=== PATIENT | male | born 1960 | race African-American/Black ===

== ENCOUNTER 2016-07-24 02:04 | Inpatient (IN) | payer OTHER ==
--- NOTE | 2016-07-24 02:56 | HP ---
COWS - Scale Resting Pulse: 0= [place] 80 or Below Sweatin= Chills/Flushing Restless Observation: 1= Difficult to Sit Still Pupil Size: 0= Normal to Room Light Bone or Joint Aches: 2= Severe Diffuse Aches Runny Nose/ Eye Tearin= Runny Nose/Eyes GI Upset > 30mins: 2= Nausea/Diarrhea Tremor Observation: 1= Tremor [place], Not Seen Yawning Observation: 1= 1-2x During Session Anxiety or Irritability: 2=Irritable/Anxious Goose Flesh Skin: 3=Piloerection COWS Score: 15 Admission ROS BHS - HPI Chief Complaint: WITHDRAWAL SYMPTOMS Allergies/Adverse Reactions: Allergies Allergy/AdvReac Type Severity Reaction Status Date / Time No Known Allergies Allergy Verified 12/27/15 21:52 History of Present Illness: 56 Y.O. MAN WITH AN EXTENSIVE HISTORY OF HEROIN DEPENDENCE IS SEEKING DETOX. HE REPORTS HAVING A TWO YEAR OF SOBRIETY. THIS IS HIS FIRST ADMISSION TO [facility] BUT HE REPORTS HE COMPLETED DETOX AND REHAB ELSEWHERE IN THE PAST. Exam Limitations: No Limitations - Ebola screening Have you traveled outside of the country in the last 21 days: Yes - Review of Systems Constitutional: See HPI, Diaphoresis, Loss of Appetite, Night Sweats, Unintentional Wgt. Loss EENT: reports: Blurred Vision Respiratory: reports: Shortness of Breath, Wheezing Cardiac: reports: Chest Pain, Lightheadedness GI: reports: Diarrhea, Nausea : reports: No Symptoms Reported Musculoskeletal: reports: No Symptoms Reported Integumentary: reports: No Symptoms Reported Neuro: reports: Tremors Endocrine: reports: No Symptoms Reported Hematology: reports: No Symptoms Reported Psychiatric: reports: Orientated x3 Other Systems: Reviewed and Negative Patient History - Patient Medical History Hx Anemia: No Hx Asthma: No Hx Chronic Obstructive Pulmonary Disease (COPD): No Hx Cancer: No Hx Cardiac Disorders: No Hx Congestive Heart Failure: No Hx Hypertension: Yes Hx Hypercholesterolemia: No Hx Pacemaker: No HX Cerebrovascular Accident: No Hx Seizures: No Hx Dementia: No Hx Diabetes: No Hx Gastrointestinal Disorders: No Hx Liver Disease: No Hx Genitourinary Disorders: No Hx Sexually Transmitted Disorders: No Hx Renal Disease (ESRD): No Hx Thyroid Disease: No Hx Human Immunodeficiency Virus (HIV): No Hx Hepatitis C: No Hx Depression: No Hx Suicide Attempt: No Hx Bipolar Disorder: No Hx Schizophrenia: No - Patient Surgical History Past Surgical History: No - PPD History Previous Implant?: Yes Documented Results: Negative w/o proof PPD to be Administered?: Yes - Reproductive History Patient is a Female of Child Bearing Age (11 -55 yrs old): No - Smoking Cessation Smoking history: Current every day smoker Have you smoked in the past 12 months: Yes Aproximately how many cigarettes per day: 6 Hx Chewing Tobacco Use: No Initiated information on smoking cessation: Yes 'Breaking Loose' booklet given: 07/24/16 - Substance & Tx. History Hx Alcohol Use: No Hx Substance Use: Yes Substance Use Type: Heroin Hx Substance Use Treatment: Yes (DETOX AND REHAB ) - Substances Abused Heroin Route: Inhalation Frequency: Daily Amount used: 2 BUNDLES Age of first use: 46 Date of Last Use: 07/23/16 Family Disease History - Family Disease History Family History: Denies Admission [facility] Exam [facility] - Vital Signs Vital Signs: Last Vital Signs Temp Pulse Resp BP Pulse Ox 96.5 F L 76 17 172/91 07/24/16 03:21 07/24/16 03:21 07/24/16 03:21 07/24/16 03:21 - Physical General Appearance: Yes: Obese, Anxious HEENTM: Yes: Hearing grossly Normal, Normal ENT Inspection, Normocephalic Respiratory: Yes: Chest Non-Tender, Lungs Clear, Normal Breath Sounds Neck: Yes: No masses,lesions,Nodules, Trachea in good position Breast: Yes: Breast Exam Deferred Cardiology: Yes: Regular Rhythm, Regular Rate, S1, S2 Abdominal: Yes: Flat, Soft Genitourinary: Yes: Other (NO COMPLAINTS REPORTED) Back: Yes: Normal Inspection Musculoskeletal: Yes: Back pain Extremities: Yes: Normal Inspection, Normal Range of Motion, Non-Tender Neurological: Yes: Alert, Motor Strength 5/5, Normal Mood/Affect, Normal Response Integumentary: Yes: Dry, Warm Lymphatic: Yes: Within Normal Limits - Diagnostic (1) Hypertension Current Visit: Yes Status: Chronic (2) Opioid dependence with withdrawal Current Visit: Yes Status: Chronic Cleared for Admission [facility] - [facility]ox or Rehab [facility] Level of Care: Medically Managed Detox Regimen/Protocol: Methadone [facility] Breath Alcohol Content Breath Alcohol Content: 0 Vital Signs - Vital Signs Vital Signs Refused: No Temperature: 96.5 F Temperature Source: Oral Pulse Rate: 76 Respiratory Rate: 17 Blood Pressure: 172/91 BP Location: Left Arm Blood Pressure Position: Sitting - Height Height: 5 ft 7 in - Weight Weight: 252 lb Weight Measurement Method: Standing Scale Body Mass Index (BMI): 39.4 Urine Drug Screen - Test Device Lot Number: [id number] Expiration Date: 02/08/18 - Control Is Test Valid: Yes - Results Drug Screen Negative: No Urine Drug Screen Results: THC-Marijuana, MINDI-Cocaine, BZO-Benzodiazepines, MTD- Methadone, OXY-Oxycodone
[2016-07-24] MEDS ORDERED: hydrOXYzine PAMOATE 50 MG CAPSULE (FP) PO PRN (03:05)
[2016-07-24] MEDS ORDERED: IBUPROFEN 400 MG TABLET (FP) PO PRN (03:05)
[2016-07-24] MEDS ORDERED: METHADONE HCL 10 MG TABLET (FOR DETOX USE ONLY) PO ONE ×3 (03:05→23:00)
[2016-07-24] MEDS ORDERED: LOPERAMIDE HCL 2 MG CAPSULE PO PRN (03:05)
[2016-07-24] MEDS ORDERED: diphenhydrAMINE HCL 50 MG CAPSULE PO PRN (03:05)
[2016-07-24] MEDS ORDERED: MAGNESIUM HYDROX 2400MG/30ML ORAL SUSPENSION 30 ML CUP PO PRN (03:05)
[2016-07-24] MEDS ORDERED: guaiFENesin/D-METHORPHAN HB 10 ML UNIT-DOSE CUPS PO PRN (03:05)
[2016-07-24] MEDS ORDERED: MENTHOL/PHENOL 1 EACH UD MM PRN (03:05)
[2016-07-24] MEDS ORDERED: ACETAMINOPHEN 325 MG TABLET (FP) PO PRN (03:05)
[2016-07-24] MEDS ORDERED: MAG HYDROX/AL HYDROX/SIMETH 30 ML UNIT-DOSE CUP PO PRN (03:05)
[2016-07-24] MEDS ORDERED: P-EPHED 60MG/TRIPROLIDI 2.5MG TABLET PO PRN (03:05)
[2016-07-24] MEDS ORDERED: MAGNESIUM CITRATE 300 ML BOTTLE PO PRN (03:05)
[2016-07-24 03:07] VITALS: BMI 39.4
[2016-07-24] MEDS ORDERED: cloNIDine HCL 0.1 MG TABLET PO PRN (03:11)
[2016-07-24] MEDS: diazePAM 5 MG TABLET PO PRN ×2 (04:18→22:04)
[2016-07-24] MEDS ORDERED: PNEUMOC 13-VAL CONJ-DIP CRM/PF 0.5 ML DISP.SYRIN IM ONE (06:19)
--- NOTE | 2016-07-24 09:54 | PN ---
BHS COWS - Scale Resting Pulse: 0= [place] 80 or Below Sweatin=Flushed/Facial Moisture Restless Observation: 1= Difficult to Sit Still Pupil Size: 0= Normal to Room Light Bone or Joint Aches: 2= Severe Diffuse Aches Runny Nose/ Eye Tearin= Nasal Congestion GI Upset > 30mins: 1= Stomach Cramp Tremor Observation of Outstretched Hands: 2= Slight Tremor Visible Yawning Observation: 2= >3x During Session Anxiety or Irritability: 2=Irritable/Anxious Goose Flesh Skin: 3=Piloerection COWS Score: 16 BHS Progress Note (SOAP) Subjective: nausea sweats shakes interrupted sleep agitation headache Objective: 07/24/16 09:53 Vital Signs Temperature 97.3 F L 07/24/16 09:29 Pulse Rate 70 07/24/16 09:29 Respiratory Rate 18 07/24/16 09:29 Blood Pressure 155/77 07/24/16 09:29 O2 Sat by Pulse Oximetry (%) labs pending increase fluids lying in bed no acute distress Assessment: 07/24/16 09:53 withdrawal sx Plan: continue detox increase fluids labs pending
[2016-07-24] MEDS ORDERED: ONDANSETRON *ODT* 4 MG TABLET SL PRN (09:56)
[2016-07-24 10:06] LABS: MCH 28.9 pg (25.7-33.7); MCHC 32.6 g/dl (32.0-35.9); MEAN CELL VOLUME 88.8 fl (80-96); MEAN PLT VOLUME 8.8 fl (7.5-11.1); PLATELET COUNT 213 K/MM3 (134-434); RDW 15.3 % (11.9-15.9); WHITE BLOOD COUNT 5.8 K/mm3 (4.0-10.0)
[2016-07-24 10:17] LABS: ALBUMIN 3.5 g/dl (3.4-5.0); BILIRUBIN,TOTAL 0.2 mg/dL (0.2-1.0); COCKROFT - GAULT 102.58; CREATININE 1.3 mg/dL (0.7-1.3); TOT PROT 6.3 g/dl (6.4-8.2)
[2016-07-24] MEDS ORDERED: PNEUMOCOCCAL 23 VACCINE 0.5 ML VIAL IM ONE (12:00)
[2016-07-24] MEDS: PRENATAL VITAMINS W/ FOLIC ACID TABLET (FP) PO SCH (12:48)
[2016-07-24] MEDS: CARVEDILOL 3.125 MG TABLET (FP) PO SCH ×2 (12:48→22:04)
--- NOTE | 2016-07-24 13:02 | EKG ---
Test Reason : Blood Pressure : / mmHG Vent. Rate : 074 BPM Atrial Rate : 074 BPM P-R Int : 170 ms QRS Dur : 106 ms QT Int : 398 ms P-R-T Axes : 034 052 -16 degrees QTc Int : 441 ms NORMAL SINUS RHYTHM NONSPECIFIC T WAVE ABNORMALITY ABNORMAL ECG WHEN COMPARED WITH ECG OF 28-DEC-2015 03:00, T WAVE VARIATION Confirmed by LETITIA CUI MD ([id number]) on 07/24/2016 1:01:37 PM Referred By: Confirmed By:LETITIA CUI MD
[2016-07-24 13:27] LABS: HIV 1 & 2 AB NEGATIVE; HIV 1 AGp24 NEGATIVE
[2016-07-24] MEDS: THIAMINE HCL 100 MG TABLET (FP) PO SCH (22:05)
[2016-07-25] MEDS: diazePAM 5 MG TABLET PO PRN ×3 (06:36→22:17)
[2016-07-25] MEDS ORDERED: CYCLOBENZAPRINE HCL 10 MG TABLET (FP) PO ONE (09:57)
[2016-07-25] MEDS ORDERED: cloNIDine HCL 0.1 MG TABLET PO ONE (09:58)
[2016-07-25] MEDS ORDERED: METHADONE HCL 10 MG TABLET (FOR DETOX USE ONLY) PO ONE (10:00)
--- NOTE | 2016-07-25 10:04 | PN ---
BHS COWS - Scale Resting Pulse: 0= [place] 80 or Below Sweatin= Chills/Flushing Restless Observation: 3= Extraneous Movement Pupil Size: 1= Pupils >than Normal Bone or Joint Aches: 2= Severe Diffuse Aches Runny Nose/ Eye Tearin= Runny Nose/Eyes GI Upset > 30mins: 3= Vomiting/Diarrhea Tremor Observation of Outstretched Hands: 2= Slight Tremor Visible Yawning Observation: 1= 1-2x During Session Anxiety or Irritability: 2=Irritable/Anxious Goose Flesh Skin: 0=Smooth Skin COWS Score: 17 BHS Progress Note (SOAP) Subjective: ALERT,IRRITABLE,ANXIOUS,INTERRUPTED SLEEP,TREMOR,PAIN IN THE BODY AND BACK Objective: 07/25/16 10:02 Vital Signs Temperature 98.1 F 07/25/16 09:34 Pulse Rate 80 07/25/16 09:34 Respiratory Rate 16 07/25/16 09:34 Blood Pressure 165/98 07/25/16 09:34 O2 Sat by Pulse Oximetry (%) EKG INVERTED T WAVE IN 2,3,AVF NO CHEST PAIN,NO SOB,NO DIZZINESS Assessment: 07/25/16 10:03 WITHDRAWAL SYMPTOM 07/25/16 10:03 Laboratory Last Values WBC 5.8 K/mm3 (4.0-10.0) 07/24/16 08:00 RBC 3.94 M/mm3 (4.00-5.60) L 07/24/16 08:00 Hgb 11.4 GM/dL (11.7-16.9) L D 07/24/16 08:00 Hct 35.0 % (35.4-49) L D 07/24/16 08:00 MCV 88.8 fl (80-96) 07/24/16 08:00 MCHC 32.6 g/dl (32.0-35.9) 07/24/16 08:00 RDW 15.3 % (11.9-15.9) 07/24/16 08:00 Plt Count 213 K/MM3 (134-434) 07/24/16 08:00 MPV 8.8 fl (7.5-11.1) 07/24/16 08:00 Sodium 141 mmol/L (136-145) 07/24/16 08:00 Potassium 4.1 mmol/L (3.5-5.1) 07/24/16 08:00 Chloride 104 mmol/L (98-107) 07/24/16 08:00 Carbon Dioxide 30 mmol/L (21-32) 07/24/16 08:00 Anion Gap 7 (8-16) L 07/24/16 08:00 BUN 18 mg/dL (7-18) 07/24/16 08:00 Creatinine 1.3 mg/dL (0.7-1.3) D 07/24/16 08:00 Creat Clearance w eGFR 57.10 (>60) 07/24/16 08:00 Random Glucose 84 mg/dL (74-106) D 07/24/16 08:00 Calcium 9.0 mg/dL (8.5-10.1) 07/24/16 08:00 Total Bilirubin 0.2 mg/dL (0.2-1.0) D 07/24/16 08:00 AST 20 U/L (15-37) D 07/24/16 08:00 ALT 22 U/L (12-78) D 07/24/16 08:00 Alkaline Phosphatase 68 U/L (45-117) D 07/24/16 08:00 Total Protein 6.3 g/dl (6.4-8.2) L 07/24/16 08:00 Albumin 3.5 g/dl (3.4-5.0) D 07/24/16 08:00 RPR Titer Nonreactive (NONREACTIVE) 07/24/16 08:00 Hepatitis C Antibody 0.1 s/co ratio (0.0-0.9) 07/24/16 08:00 HIV 1&2 Antibody Screen Negative 07/24/16 08:00 HIV P24 Antigen Negative 07/24/16 08:00 Plan: CONTINUE DETOX
[2016-07-25] MEDS: CARVEDILOL 3.125 MG TABLET (FP) PO SCH ×2 (10:22→22:15)
[2016-07-25] MEDS: PRENATAL VITAMINS W/ FOLIC ACID TABLET (FP) PO SCH (10:22)
[2016-07-25] MEDS: cloNIDine HCL 0.1 MG TABLET PO SCH ×2 (11:35→22:15)
[2016-07-25] MEDS ORDERED: CYCLOBENZAPRINE HCL 10 MG TABLET (FP) ONE (12:23)
[2016-07-25] MEDS: CYCLOBENZAPRINE HCL 10 MG TABLET (FP) PO SCH ×2 (15:00→22:15)
[2016-07-25] MEDS: THIAMINE HCL 100 MG TABLET (FP) PO SCH (22:15)
[2016-07-26] MEDS ORDERED: TRIMETHOBENZAMIDE HCL 200MG/2ML INJ IM PRN ×2 (02:55→06:51)
[2016-07-26] MEDS ORDERED: cloNIDine HCL 0.1 MG TABLET PO PRN (06:51)
[2016-07-26] MEDS ORDERED: cloNIDine HCL 0.1 MG TABLET PO ONE (06:58)
[2016-07-26] MEDS: CYCLOBENZAPRINE HCL 10 MG TABLET (FP) PO SCH ×3 (07:46→23:14)
[2016-07-26] MEDS ORDERED: METHADONE DETOX 10 MG/1 ML [20ML VIAL] IM ONE (08:49)
[2016-07-26] MEDS ORDERED: METHADONE HCL 5 MG TABLET (FOR DETOX USE ONLY) PO ONE (10:00)
--- NOTE | 2016-07-26 10:14 | PN ---
BHS Progress Note (SOAP) Subjective: drenched sweats shakes body aches nausea/vomiting interrupted sleep Objective: 07/26/16 10:10 Vital Signs Temperature 97.9 F 07/26/16 10:10 Pulse Rate 78 07/26/16 10:10 Respiratory Rate 18 07/26/16 10:10 Blood Pressure 150/94 07/26/16 10:10 O2 Sat by Pulse Oximetry (%) 95 Laboratory Tests 07/24/16 07/24/16 07/24/16 08:00 08:00 08:00 WBC 5.8 RBC 3.94 L Hgb 11.4 L D Hct 35.0 L D MCV 88.8 MCHC 32.6 RDW 15.3 Plt Count 213 MPV 8.8 Sodium Potassium Chloride Carbon Dioxide Anion Gap BUN Creatinine Creat Clearance w eGFR Random Glucose Calcium Total Bilirubin AST ALT Alkaline Phosphatase Total Protein Albumin RPR Titer Hepatitis C Antibody 0.1 HIV 1&2 Antibody Screen Negative HIV P24 Antigen Negative 07/24/16 07/24/16 08:00 08:00 WBC RBC Hgb Hct MCV MCHC RDW Plt Count MPV Sodium 141 Potassium 4.1 Chloride 104 Carbon Dioxide 30 Anion Gap 7 L BUN 18 Creatinine 1.3 D Creat Clearance w eGFR 57.10 Random Glucose 84 D Calcium 9.0 Total Bilirubin 0.2 D AST 20 D ALT 22 D Alkaline Phosphatase 68 D Total Protein 6.3 L Albumin 3.5 D RPR Titer Nonreactive Hepatitis C Antibody HIV 1&2 Antibody Screen HIV P24 Antigen awake/alert ambulating no acute distress Assessment: 07/26/16 10:14 withdrawal sx Plan: methadone IM 7.5mgx one reglan 10mg tigan IM prn clonidine 0.1mg prn
[2016-07-26] MEDS: CARVEDILOL 3.125 MG TABLET (FP) PO SCH ×2 (11:17→23:14)
[2016-07-26] MEDS: METOCLOPRAMIDE HCL 10 MG TABLET (FP) PO SCH ×3 (11:17→23:14)
[2016-07-26] MEDS: PRENATAL VITAMINS W/ FOLIC ACID TABLET (FP) PO SCH (11:17)
[2016-07-26] MEDS: diazePAM 5 MG TABLET PO PRN (11:18)
[2016-07-26 14:27] LABS: URINE APPEARANCE CLEAR; URINE BILIRUBIN NEGATIVE (NEGATIVE); URINE BLOOD NEGATIVE (NEGATIVE); URINE COLOR COLORLESS; URINE GLUCOSE (UA) 1+ (NEGATIVE); URINE KETONE NEGATIVE (NEGATIVE); URINE LEUK ESTERASE NEGATIVE (NEGATIVE); URINE NITRITE NEGATIVE (NEGATIVE); URINE UROBILINOGEN NEGATIVE E.U./dl (0.2-1.0)
[2016-07-26 14:50] LABS: URINE PROTEIN 1+ (NEGATIVE)
[2016-07-26 14:59] LABS: URINE HYALINE CAST 1 /lpf; URINE RBC 1 /hpf (0-3); URINE WBC 1 /hpf (3-5)
--- NOTE | 2016-07-26 16:45 | PN ---
[facility] Progress Note Note: called to see patient with diaphoretic,sweating,headache vomiting could not move right upper extremity before alert no stiff neck diaphoretic no abdominal pain bp 212/140,p89,r18,t99 pulse ox 99 bgm 123 impression r/o hypertensive crisis r/o tia opioid dependence treatment transfer to [facility] for evaluation and treatment spoke with dr sorensen patient will be transported by [facility]
[2016-07-26 18:10] VITALS: BP 212/125; PULSE 89; TEMP 99.9
[2016-07-26] MEDS: THIAMINE HCL 100 MG TABLET (FP) PO SCH (23:15)
[2016-07-27] MEDS ORDERED: METHADONE HCL 5 MG TABLET (FOR DETOX USE ONLY) PO ONE (10:00)
--- NOTE | 2016-07-27 11:38 | EKG ---
Test Reason : Blood Pressure : / mmHG Vent. Rate : 075 BPM Atrial Rate : 075 BPM P-R Int : 162 ms QRS Dur : 110 ms QT Int : 384 ms P-R-T Axes : 054 025 025 degrees QTc Int : 428 ms NORMAL SINUS RHYTHM NORMAL ECG WHEN COMPARED WITH ECG OF 24-JUL-2016 03:03, T WAVE INVERSION LESS EVIDENT IN INFERIOR LEADS NONSPECIFIC T WAVE ABNORMALITY NO LONGER EVIDENT IN LATERAL LEADS Confirmed by ANUSHKA ZAMORA, MOLLY ([id number]) on 07/27/2016 11:38:19 AM Referred By: Confirmed By:MOLLY REVELES MD
[2016-07-28] MEDS ORDERED: METHADONE HCL 10 MG TABLET (FOR DETOX USE ONLY) PO ONE (10:00)
[2016-07-29] MEDS ORDERED: METHADONE HCL 5 MG TABLET (FOR DETOX USE ONLY) PO ONE (06:00)
--- NOTE | 2016-08-10 09:25 | DS ---
[facility] Detox Discharge Summary Admission Date: 07/24/16 Discharge Date: 07/26/16 - History Present History: Opioid Dependence - Physical Exam Results Vital Signs: Vital Signs Temperature 99.9 F H 07/26/16 18:10 Pulse Rate 89 07/26/16 18:10 Respiratory Rate 18 07/26/16 18:10 Blood Pressure 212/125 07/26/16 18:10 O2 Sat by Pulse Oximetry (%) - Treatment Hospital Course: Detox Protocol Followed, Detoxed Safely - Medication Discharge Medications: Ambulatory Orders Carvedilol 3.125 mg PO BID 07/28/16 Oxycodone HCl 60 mg PO TID 07/28/16 Aspirin Coated [Ecotrin -] 81 mg PO DAILY #30 tab 07/29/16 Atorvastatin Ca [Lipitor] 20 mg PO HS #30 tablet 07/29/16 Carvedilol [Coreg -] 3.125 mg PO BID #60 tablet 07/29/16 Losartan Potassium 25 mg PO DAILY #30 tablet 07/29/16 - Diagnosis (1) Diabetes Status: Acute Qualifiers: Diabetes mellitus type: type 2 (2) Hypertensive urgency, malignant Status: Acute (3) TIA (transient ischemic attack) Status: Acute (4) Hypertension Status: Chronic Qualifiers: Hypertension type: essential hypertension Qualified Code(s): I10 - Essential (primary) hypertension (5) Opioid dependence with withdrawal Status: Chronic - AMA Did Patient Leave Against Medical Advice: No (pt transfered to ED because of uncontrolled HTN )
== END 2016-07-26 17:15 | disposition short-term general hospital (02) | DRG 773 ==
LOC: EDBD → YASAS 02:04 → Y6N 03:05
PROVIDERS: ADMIT Internal Medicine Addiction Medicine; ATTEND Internal Medicine Addiction Medicine
PROC: HZ2ZZZZ Detoxification Services for Substance Abuse Treatment (ICD-10-PCS; principal; 2016-07-26)
DX: F11.23 Opioid dependence with withdrawal (principal); I10 Essential (primary) hypertension
CPT/HCPCS: 36415; 80053; 81003; 81015; 85027; 86593; 86803; 87389; 93005; 93010

== ENCOUNTER 2016-07-26 17:30 | Inpatient (IN) | payer BC, OTHER ==
--- NOTE | 2016-07-26 17:58 | PDOC ---
History of Present Illness - General History Source: Patient, Old Records Exam Limitations: No Limitations <Sabrina Eduardo - Last Filed: 07/26/16 20:50> - History of Present Illness Initial Comments: 07/26/16 18:27 Patient is a 56 year old male with significant medical hx of asthma, HTN, borderline NIDDM, and opiate dependence who has been sent over from [facility] for high blood pressure. The patient reportedly takes clonidine (PRN) and Coreg at [facility] for blood pressure regulation. Today his blood pressure was measured at 212/140 and was sent to the ED for further evaluation. The patient s blood pressure was measured the same in the ED. He has secondary complaint of nausea, vomiting and diaphoresis which he reports is in relation to his withdrawal from opiates. Denies any chest pain, shortness of breath, dyspnea on exertion, headache, or lightheadedness. <Angela Casiano - Last Filed: 07/26/16 21:01> - General Chief Complaint: Blood Pressure Problem Stated Complaint: HYPERTENSION Time Seen by Provider: 07/26/16 17:58 Past History - Past Medical History Anemia: No Asthma: No Cancer: No Cardiac Disorders: No CVA: No COPD: No CHF: No Dementia: No Diabetes: No GI Disorders: No Disorders: No HTN: Yes Hypercholesterolemia: No Liver Disease: No Suicide Attempt (Hx): No Seizures: No Thyroid Disease: No Other medical history: HEROIN/OXYCODONE ADDICTION SINCE 2013 - Psycho/Social/Smoking Cessation Hx Anxiety: No Suicidal Ideation: No Smoking History: Never smoked Have you smoked in the past 12 months: Yes Number of Cigarettes Smoked Daily: 6 'Breaking Loose' booklet given: 07/24/16 Hx Alcohol Use: No Drug/Substance Use Hx: Yes (heroin, oxycodone.) Substance Use Type: Heroin, Prescribed Hx Substance Use Treatment: Yes (DETOX AND REHAB ) <Sabrina Eduardo - Last Filed: 07/26/16 20:50> <Angela Casiano - Last Filed: 07/26/16 21:01> - Past Medical History Allergies/Adverse Reactions: Allergies Allergy/AdvReac Type Severity Reaction Status Date / Time No Known Allergies Allergy Verified 07/26/16 17:57 Home Medications: Ambulatory Orders Oxycodone HCl [Oxycontin] 60 mg PO QID 07/26/16 Review of Systems - Review of Systems Comments:: 07/26/16 18:28 GENERAL/CONSTITUTIONAL: Diaphoresis. No fever or chills. No weakness. HEAD, EYES, EARS, NOSE AND THROAT: No change in vision. No ear pain or discharge. No sore throat. CARDIOVASCULAR: High blood pressure. No chest pain or shortness of breath. RESPIRATORY: No cough, wheezing, or hemoptysis. GASTROINTESTINAL: Nausea, vomiting. No diarrhea or constipation. GENITOURINARY: No dysuria, frequency, or change in urination. MUSCULOSKELETAL: No joint or muscle swelling or pain. No neck or back pain. ENDOCRINE: No increased thirst. No abnormal weight change. SKIN: No rash NEUROLOGIC: No headache, vertigo, loss of consciousness, or change in strength/ sensation. <Angela Casiano - Last Filed: 07/26/16 21:01> *Physical Exam - Vital Signs Last Vital Signs Temp Pulse Resp BP Pulse Ox 99.5 F 66 18 242/143 99 07/26/16 17:51 07/26/16 17:51 07/26/16 17:51 07/26/16 17:51 07/26/16 17:51 <Sabrina Eduardo - Last Filed: 07/26/16 20:50> - Vital Signs Last Vital Signs Temp Pulse Resp BP Pulse Ox 99.5 F 92 H 18 242/143 99 07/26/16 17:51 07/26/16 18:10 07/26/16 17:51 07/26/16 17:51 07/26/16 18:10 - Physical Exam Comments: 07/26/16 18:26 GENERAL: Diaphoretic. Awake, alert, and fully oriented, in no acute distress HEAD: No signs of trauma EYES: PERRLA, EOMI, sclera anicteric, conjunctiva clear ENT: Auricles normal inspection, hearing grossly normal, nares patent, oropharynx clear without exudates. Moist mucosa NECK: Normal ROM, supple, no lymphadenopathy, JVD, or masses LUNGS: Breath sounds equal, clear to auscultation bilaterally. No wheezes, and no crackles HEART: Regular rate and rhythm, normal S1 and S2, no murmurs, rubs or gallops ABDOMEN: Soft, nontender, normoactive bowel sounds. No guarding, no rebound. No masses EXTREMITIES: Normal range of motion, no edema. No clubbing or cyanosis. No cords, erythema, or tenderness NEUROLOGICAL: Cranial nerves II through XII grossly intact. Normal speech, normal gait SKIN: Warm, Dry, normal turgor, no rashes or lesions noted. HEMATOLOGIC/LYMPHATIC: No anemia, easy bleeding, or history of blood clots. ALLERGIC/IMMUNOLOGIC: No hives or skin allergy. <Angela Casiano - Last Filed: 07/26/16 21:01> ED Treatment Course - LABORATORY CBC & Chemistry Diagram: 07/26/16 18:15 07/26/16 19:40 <Sabrina Eduardo - Last Filed: 07/26/16 20:50> - LABORATORY CBC & Chemistry Diagram: 07/26/16 18:15 07/26/16 19:40 - RADIOLOGY Radiograph Interpretation: 07/26/16 21:01 Chest X-Ray Impression: No acute disease. Reported By: Hudson Rodriguez MD - Medications Given in the ED: ED Medications Discontinued Medications Generic Name Dose Route Start Last Admin Trade Name Freq PRN Reason Stop Dose Admin Labetalol HCl 20 mg 07/26/16 18:05 07/26/16 18:17 Normodyne Injection - IVPUSH 07/26/16 18:06 20 mg ONCE ONE Administration <Angela Casiano - Last Filed: 07/26/16 21:01> Medical Decision Making - Medical Decision Making 07/26/16 18:38 56-year-old male with history of hypertension and opiate addiction presents the emergency department from [facility] for elevated blood pressure. Differential diagnosis includes but is not limited to: Poorly controlled hypertension, hypertensive urgency versus emergency, renal dysfunction/failure, electrolyte abnormality, toxic/metabolic derangement, opiate withdrawal syndrome. Plan: 1. Labs 2. EKG 3. Blood pressure control 4. Supportive care for withdrawal 5. Observe and reevaluate 07/26/16 20:50 Addendum: The labs were reviewed and are noted in the EMR. The patient was given labetalol 20 mg IV 2 with no improvement of blood pressure therefore labetalol drip was started. I have reevaluated the patient at this time and he is diaphoretic in active withdrawal from opiates. Methadone 10 mg IV was ordered. The plan is to admit the patient to telemetry for blood pressure control, IV fluid hydration for withdrawal and monitoring. <Sabrina Eduardo - Last Filed: 07/26/16 20:50> *DC/Admit/Observation/Transfer - Discharge Dispostion Admit: Yes - Attestations Physician Attestion: 07/26/16 18:39 I, Dr. Sabrina Eduardo, attest that the scribes documentation that appears above has been prepared under my direction and personally reviewed by me in its entirety. I confirmed that the note above accurately reflects all work, treatment, procedures, and medical decision-making performed by me. <Sabrina Eduardo - Last Filed: 07/26/16 20:50> - Attestations Scribe Attestion: 07/26/16 18:27 Documentation prepared by Angela Casiano, acting as nurses medical assistants phlebotomists for Sabrina Eduardo MD. <Angela Casiano - Last Filed: 07/26/16 21:01> Diagnosis at time of Disposition: Opioid dependence with withdrawal, Hypertension, Hypertensive urgency, malignant - Discharge Dispostion Condition at time of disposition: Stable
[2016-07-26] MEDS ORDERED: LABETALOL HCL 5 MG/1 ML (100MG/20 ML VIAL) IVPUSH ONE ×2 (18:05→18:49)
[2016-07-26] MEDS ORDERED: LABETALOL HCL 5 MG/1 ML (200MG/40ML VIAL) IVPB ONE (18:16)
[2016-07-26 18:35] LABS: BASOPHIL 0.2 % (0-2.0); EOSINOPHIL 0.3 % (0-4.5); MCH 27.6 pg (25.7-33.7); MCHC 31.6 g/dl (32.0-35.9); MEAN CELL VOLUME 87.2 fl (80-96); MEAN PLT VOLUME 8.9 fl (7.5-11.1); NEUTROPHILS 85.5 % (42.8-82.8); PLATELET COUNT 334 K/MM3 (134-434); RDW 15.6 % (11.9-15.9); WHITE BLOOD COUNT 13.3 K/mm3 (4.0-10.0)
[2016-07-26] MEDS ORDERED: SODIUM CHLORIDE 1,000 ML IV STA (18:40)
[2016-07-26] MEDS ORDERED: ONDANSETRON 4 MG/2 ML VIAL IVPUSH ONE (18:40)
[2016-07-26] MEDS ORDERED: ONDANSETRON 4 MG/2 ML VIAL ONE (18:54)
[2016-07-26 19:20] LABS: URINE APPEARANCE CLEAR; URINE BILIRUBIN NEGATIVE (NEGATIVE); URINE BLOOD NEGATIVE (NEGATIVE); URINE COLOR LTYELLOW; URINE GLUCOSE (UA) 1+ (NEGATIVE); URINE KETONE NEGATIVE (NEGATIVE); URINE LEUK ESTERASE NEGATIVE (NEGATIVE); URINE NITRITE NEGATIVE (NEGATIVE); URINE UROBILINOGEN NEGATIVE E.U./dl (0.2-1.0)
[2016-07-26 19:22] LABS: URINE PROTEIN 3+ (NEGATIVE)
[2016-07-26 19:25] LABS: URINE MUCUS RARE; URINE RBC 4 /hpf (0-3); URINE WBC 3 /hpf (3-5)
[2016-07-26] MEDS ORDERED: LABETALOL HCL INJECTION 1,000 MG in DEXTROSE 5%-WATER - 800 ML IV SCH (19:30)
[2016-07-26 20:24] LABS: ALBUMIN 4.4 g/dl (3.4-5.0); ALK PHOS 95 U/L (45-117); ANION GAP 10 (8-16); BILIRUBIN,TOTAL 0.4 mg/dL (0.2-1.0); CALCIUM 9.9 mg/dL (8.5-10.1); CO2 29 mmol/L (21-32); COCKROFT - GAULT 145.23; CREATININE 0.9 mg/dL (0.7-1.3); GLUCOSE,RANDOM 127 mg/dL (74-106); SGOT/AST 16 U/L (15-37); SGPT/ALT 25 U/L (12-78); TOT PROT 8.4 g/dl (6.4-8.2)
[2016-07-26 20:27] LABS: MAGNESIUM 1.9 mg/dL (1.8-2.4); PHOSPHOROUS 4.7 mg/dL (2.5-4.9)
[2016-07-26 20:30] LABS: TROPONIN I < 0.02 ng/ml (0.00-0.05)
[2016-07-26] MEDS ORDERED: METHADONE HCL 10 MG/1 ML (20ML VIAL) IVPUSH ONE (20:33)
--- NOTE | 2016-07-26 21:26 | PN ---
<Lola Gay - Last Filed: 07/26/16 21:26> Teaching Attending Note Name of Resident: Priscilla Angélica <Carine Aparicio - Last Filed: 07/27/16 02:08> Teaching Attending Note ATTENDING PHYSICIAN STATEMENT I saw and evaluated the patient. I reviewed the resident's note and discussed the case with the resident. I agree with the resident's findings and plan as documented. SUBJECTIVE: 56 yo M with PMHx of HTN and opiate dependence who presents from [facility] with elevated blood pressure. Patients recorded BP was 212/140 and was sent in for further evaluation. Upon ED arrival, patients BP remained the same. Patient also complaints of associated nausea, vomiting and diaphoresis however states this is his withdrawal symptoms. The patient denies any chest pain, shortness of breath, dyspnea on exertion, headache, or lightheadedness. Weakness on L side PMHx: Asthma, Borderline NIDDM, Neuropathy, RA PSHx: Noncontributory Social Hx:heroin(15 bags/day), oxycodone Allergies: NKA Current BP: 105/57 OBJECTIVE: Last Vital Signs Temp Pulse Resp BP Pulse Ox 99.5 F 68 17 103/60 100 07/26/16 17:51 07/26/16 23:27 07/26/16 23:27 07/26/16 23:27 07/26/16 23:27 GENERAL: Awake, alert, and fully oriented, in no acute distress HEENT: Atraumatic. PERRLA, EOMI. Moist mucosa. No JVD LUNGS: No distress, speaks full sentences, clear to auscultation bilaterally HEART: Regular rate and rhythm, normal S1 and S2, no murmurs, rubs or gallops, peripheral pulses normal and equal bilaterally. ABDOMEN: Soft, nontender, normoactive bowel sounds. No guarding, no rebound. No masses EXTREMITIES: Normal inspection, Normal range of motion, no edema. No clubbing or cyanosis. + L foot plantar hypersensitivity. +2+ pulses bilaterally. NEUROLOGICAL: Cranial nerves II through XII grossly intact. Normal speech. Motor 4/5 upper and lower strength. SKIN: Warm, Dry, normal turgor, no rashes or lesions noted. CBCD WBC 13.3 K/mm3 (4.0-10.0) H D 07/26/16 18:15 RBC 5.98 M/mm3 (4.00-5.60) H D 07/26/16 18:15 Hgb 16.5 GM/dL (11.7-16.9) D 07/26/16 18:15 Hct 52.1 % (35.4-49) H D 07/26/16 18:15 MCV 87.2 fl (80-96) 07/26/16 18:15 MCHC 31.6 g/dl (32.0-35.9) L 07/26/16 18:15 RDW 15.6 % (11.9-15.9) 07/26/16 18:15 Plt Count 334 K/MM3 (134-434) D 07/26/16 18:15 MPV 8.9 fl (7.5-11.1) 07/26/16 18:15 CMP Sodium 136 mmol/L (136-145) 07/26/16 19:40 Potassium 4.1 mmol/L (3.5-5.1) 07/26/16 19:40 Chloride 97 mmol/L (98-107) L 07/26/16 19:40 Carbon Dioxide 29 mmol/L (21-32) 07/26/16 19:40 Anion Gap 10 (8-16) 07/26/16 19:40 BUN 14 mg/dL (7-18) D 07/26/16 19:40 Creatinine 0.9 mg/dL (0.7-1.3) D 07/26/16 19:40 Creat Clearance w eGFR > 60 (>60) 07/26/16 19:40 Calcium 9.9 mg/dL (8.5-10.1) 07/26/16 19:40 Total Bilirubin 0.4 mg/dL (0.2-1.0) D 07/26/16 19:40 AST 16 U/L (15-37) 07/26/16 19:40 ALT 25 U/L (12-78) 07/26/16 19:40 Alkaline Phosphatase 95 U/L (45-117) D 07/26/16 19:40 Total Protein 8.4 g/dl (6.4-8.2) H D 07/26/16 19:40 Albumin 4.4 g/dl (3.4-5.0) D 07/26/16 19:40 Imaging: Chest X-Ray Impression: No acute disease. Reported By: Hudson Rodriguez MD ASSESSMENT AND PLAN: 1.Hypertensive emergency with possible CVA vs TIA Admit to Telemetry Continue labetalol drip If not adequately controlled will switch to Nitro drip and start PO medications in the AM Echo Carotid doppler Head CT and repeat in 24 TSH RPR Lipid panel Speech and swallow consult ESR 2.Opioid dependence Put on PO methadone 10 mg TID with consult Dr. Warren Wells 3.DM Type II with peropheral neuropathy Get hemoglobin A1C Insulin SS Gabapentin for neuropathy 4.Asthma Nebulization with albuterol Q6 PRN Documentation prepared by Carine Aparicio, acting as medical massage therapist for Lola Gay MD
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
[2016-07-26] MEDS ORDERED: METHADONE HCL 10 MG TABLET PO SCH (23:45)
[2016-07-26] MEDS ORDERED: SODIUM CHLORIDE 1,000 ML IV SCH (23:45)
[2016-07-27] MEDS ORDERED: HEPARIN NA (PORCINE) 5,000 UNITS/ML 1ML VIAL ONE (00:27)
[2016-07-27] MEDS: ATORVASTATIN CA 80 MG TABLET (FP) PO SCH ×2 (01:05→21:33)
[2016-07-27] MEDS: ASPIRIN COATED 81 MG TABLET.EC PO SCH ×2 (01:05→10:08)
[2016-07-27] MEDS: HEPARIN NA (PORCINE) 5,000 UNITS/ML 1ML VIAL SQ SCH ×3 (01:05→21:36)
[2016-07-27 03:07] VITALS: BMI 36.8
[2016-07-27] MEDS: GABAPENTIN 300 MG CAPSULE (FP) PO SCH ×3 (06:10→21:34)
[2016-07-27] MEDS: INSULIN SLIDING SCALE (NOVOLOG) 1 VIAL SQ SCH ×4 (06:13→21:36)
[2016-07-27] MEDS ORDERED: METHADONE HCL 10 MG TABLET PO SCH (07:04)
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
[2016-07-27] MEDS: SODIUM CHLORIDE 1,000 ML IV SCH (10:12)
[2016-07-27 10:28] LABS: MCH 28.4 pg (25.7-33.7); MCHC 32.3 g/dl (32.0-35.9); MEAN CELL VOLUME 87.9 fl (80-96); MEAN PLT VOLUME 8.3 fl (7.5-11.1); PLATELET COUNT 276 K/MM3 (134-434); RDW 15.4 % (11.9-15.9); WHITE BLOOD COUNT 8.5 K/mm3 (4.0-10.0)
[2016-07-27 10:44] LABS: INR 1.02 (0.82-1.09); PROTHROMBIN TIME (PATIENT) 11.2 SEC (9.98-11.88)
[2016-07-27 10:47] LABS: ACTIVATED PTT 28.6 SECONDS (26.9-34.4)
[2016-07-27 10:57] LABS: CALCIUM 8.9 mg/dL (8.5-10.1); COCKROFT - GAULT 59.21; CREATININE 2.1 mg/dL (0.7-1.3); MAGNESIUM 2.1 mg/dL (1.8-2.4)
--- NOTE | 2016-07-27 11:28 | CON.CARD ---
Consult Consult Specialty:: Cardiology Referred by:: Hospitalist Medicine Reason for Consultation:: Hypertensive emergency - History of Present Illness Chief Complaint: Left sided weakness History of Present Illness: 56 yo M with PMHx of HTN, asthma, previous cellulitis and opiate dependence referred from [facility] with elevated blood pressure. Patients recorded BP was 212/140 and was sent in for further evaluation, started on Labetolol. Patient also complaints of associated nausea, vomiting and diaphoresis, however states this is his typical withdrawal symptoms, tolerated fluid intake. The patient denies any chest pain, shortness of breath, dyspnea on exertion, headache, or lightheadedness. Weakness on L side, r/o stroke vs hypertensive encephelopathy. PMHx: Asthma, Borderline NIDDM, Neuropathy, RA PSHx: Noncontributory Social Hx:heroin(15 bags/day), oxycodone Allergies: NKA - History Source History Provided By: Medical Record Limitations to Obtaining History: Poor Historian - Alcohol/Substance Use Hx Alcohol Use: No - Smoking History Smoking history: Current every day smoker Have you smoked in the past 12 months: Yes Aproximately how many cigarettes per day: 6 Home Medications - Allergies Allergies/Adverse Reactions: Allergies Allergy/AdvReac Type Severity Reaction Status Date / Time No Known Allergies Allergy Verified 07/26/16 17:57 Review of Systems - Review of Systems Neurological: reports: Weakness Vital Signs: Vital Signs Temperature 97.6 F 07/27/16 10:00 Pulse Rate 64 07/27/16 10:00 Respiratory Rate 20 07/27/16 10:00 Blood Pressure 104/63 07/27/16 10:00 O2 Sat by Pulse Oximetry (%) 100 07/27/16 01:10 Constitutional: Yes: No Distress, Calm Neck: Yes: Supple Respiratory: Yes: Regular, CTA Bilaterally Gastrointestinal: Yes: Normal Bowel Sounds, Soft Cardiovascular: Yes: Regular Rate and Rhythm JVD: No Carotid Bruit: No Heart Sounds: Yes: S1, S2 Edema: No - Other Data Labs, Other Data: CBC, BMP 07/27/16 10:00 07/27/16 10:00 INR, PTT INR 1.02 (0.82-1.09) 07/27/16 10:00 NSR @ 92 LAE Imaging - Results Chest X-ray: Report Reviewed (NAD) Cat Scan: Report Reviewed (HCT: Negative) Problem List - Problems (1) Hypertensive emergency Code(s): I16.1 - HYPERTENSIVE EMERGENCY (2) Opioid dependence with withdrawal Code(s): F11.23 - OPIOID DEPENDENCE WITH WITHDRAWAL (3) Diabetes Code(s): E11.9 - TYPE 2 DIABETES MELLITUS WITHOUT COMPLICATIONS Qualifiers: Diabetes mellitus type: type 2 (4) TIA (transient ischemic attack) Code(s): G45.9 - TRANSIENT CEREBRAL ISCHEMIC ATTACK, UNSPECIFIED (5) Hypertensive encephalopathy Code(s): I67.4 - HYPERTENSIVE ENCEPHALOPATHY Assessment/Plan 1. Hypertensive emergency r/o TIA vs hypertensive encephelopathy 2. Opioid dependence 3. DM Type II with peropheral neuropathy 4. Asthma 5. NIDHI P:1. Start carvedilol 6.25 bid, ADRIANE-I/ARB once renal fxn stabilizes 2. F/u neuro w/u including, Echo, Carotid doppler, brain MRI, tele monitor r/o PAF 3. Thank you for consultative opportunuity
[2016-07-27] MEDS: ALBUTEROL SO4 2.5/IPRATROPIUM 0.5 INH SOL 3 ML VIAL.NEB. NEB SCH ×2 (11:45→23:52)
[2016-07-27] MEDS ORDERED: METHADONE HCL 10 MG TABLET (FOR DETOX USE ONLY) PO ONE ×2 (11:50→12:15)
--- NOTE | 2016-07-27 11:58 | PN ---
S Progress Note (SOAP) Subjective: Pt. was sent from detox to ED because of hypertensive crisis. Objective: 07/27/16 11:57 Vital Signs - 24 hr 07/26/16 07/26/16 07/26/16 17:51 18:10 18:41 Temperature 99.5 F Pulse Rate 66 92 H Pulse Rate [ 74 Apical] Respiratory 18 16 Rate Blood Pressure 242/143 Blood Pressure 233/131 [Left Arm] O2 Sat by Pulse 99 99 98 Oximetry (%) 07/26/16 07/26/16 07/26/16 18:59 19:27 22:26 Temperature Pulse Rate Pulse Rate [ 80 87 76 Apical] Respiratory 18 18 17 Rate Blood Pressure Blood Pressure 200/104 225/102 122/90 [Left Arm] O2 Sat by Pulse 100 100 100 Oximetry (%) 07/26/16 07/27/16 07/27/16 23:27 01:10 03:12 Temperature 98.3 F Pulse Rate 66 Pulse Rate [ 68 Apical] Respiratory 17 17 Rate Blood Pressure 96/50 96/52 Blood Pressure 103/60 [Left Arm] O2 Sat by Pulse 100 100 Oximetry (%) 07/27/16 07/27/16 07/27/16 05:31 09:00 10:00 Temperature 98.4 F 97.6 F Pulse Rate 60 64 Pulse Rate [ Apical] Respiratory 18 20 Rate Blood Pressure 115/70 104/63 Blood Pressure [Left Arm] O2 Sat by Pulse 96 Oximetry (%) Laboratory Last Values WBC 8.5 K/mm3 (4.0-10.0) D 07/27/16 10:00 RBC 4.74 M/mm3 (4.00-5.60) D 07/27/16 10:00 Hgb 13.5 GM/dL (11.7-16.9) D 07/27/16 10:00 Hct 41.6 % (35.4-49) D 07/27/16 10:00 MCV 87.9 fl (80-96) 07/27/16 10:00 MCHC 32.3 g/dl (32.0-35.9) 07/27/16 10:00 RDW 15.4 % (11.9-15.9) 07/27/16 10:00 Plt Count 276 K/MM3 (134-434) 07/27/16 10:00 MPV 8.3 fl (7.5-11.1) 07/27/16 10:00 Neutrophils % 85.5 % (42.8-82.8) H D 07/26/16 18:15 Lymphocytes % 10.8 % (8-40) D 07/26/16 18:15 Monocytes % 3.2 % (3.8-10.2) L 07/26/16 18:15 Eosinophils % 0.3 % (0-4.5) 07/26/16 18:15 Basophils % 0.2 % (0-2.0) 07/26/16 18:15 INR 1.02 (0.82-1.09) 07/27/16 10:00 PTT (Actin FS) 28.6 SECONDS (26.9-34.4) 07/27/16 10:00 Sodium 139 mmol/L (136-145) 07/27/16 10:00 Potassium 4.1 mmol/L (3.5-5.1) 07/27/16 10:00 Chloride 98 mmol/L (98-107) 07/27/16 10:00 Carbon Dioxide 27 mmol/L (21-32) 07/27/16 10:00 Anion Gap 14 (8-16) 07/27/16 10:00 BUN 26 mg/dL (7-18) H D 07/27/16 10:00 Creatinine 2.1 mg/dL (0.7-1.3) H D 07/27/16 10:00 Creat Clearance w eGFR > 60 (>60) 07/26/16 19:40 POC Glucometer 129 UNITS (()) 07/27/16 11:06 Random Glucose 96 mg/dL (74-106) D 07/27/16 10:00 Hemoglobin A1c % 5.4 % (4.8-6.0) D 07/27/16 10:00 Calcium 8.9 mg/dL (8.5-10.1) 07/27/16 10:00 Phosphorus 6.0 mg/dL (2.5-4.9) H D 07/27/16 10:00 Magnesium 2.1 mg/dL (1.8-2.4) 07/27/16 10:00 Total Bilirubin 0.4 mg/dL (0.2-1.0) D 07/26/16 19:40 AST 16 U/L (15-37) 07/26/16 19:40 ALT 25 U/L (12-78) 07/26/16 19:40 Alkaline Phosphatase 95 U/L (45-117) D 07/26/16 19:40 Creatine Kinase 197 IU/L (39-308) 07/26/16 19:40 Creatine Kinase Index 1.4 % (0.0-5.0) 07/26/16 19:40 CK-MB (CK-2) 2.656 ng/ml (0.5-3.6) 07/26/16 19:40 CK-MB (CK-2) Rel Index Cancelled 07/26/16 19:40 Troponin I < 0.02 ng/ml (0.00-0.05) 07/26/16 19:40 Total Protein 8.4 g/dl (6.4-8.2) H D 07/26/16 19:40 Albumin 4.4 g/dl (3.4-5.0) D 07/26/16 19:40 Lipase 84 U/L (73-393) 07/26/16 19:40 Urine Color Ltyellow 07/26/16 18:59 Urine Appearance Clear 07/26/16 18:59 Urine pH 8.0 (5.0-8.0) 07/26/16 18:59 Ur Specific [place] 1.025 (1.005-1.025) 07/26/16 18:59 Urine Protein 3+ (NEGATIVE) H D 07/26/16 18:59 Urine Glucose (UA) 1+ (NEGATIVE) H 07/26/16 18:59 Urine Ketones Negative (NEGATIVE) 07/26/16 18:59 Urine Blood Negative (NEGATIVE) 07/26/16 18:59 Urine Nitrite Negative (NEGATIVE) 07/26/16 18:59 Urine Bilirubin Negative (NEGATIVE) 07/26/16 18:59 Urine Urobilinogen Negative E.U./dl (0.2-1.0) 07/26/16 18:59 Ur Leukocyte Esterase Negative (NEGATIVE) 07/26/16 18:59 Urine RBC 4 /hpf (0-3) 07/26/16 18:59 Urine WBC 3 /hpf (3-5) 07/26/16 18:59 Urine Mucus Rare 07/26/16 18:59 labs noted Assessment: 07/27/16 11:58 Withdrawal sx. Uncontrolled HTN Plan: Continue detox
[2016-07-27 12:28] LABS: FREE T4 0.95 ng/dl (0.76-1.16); THYROID STIMULATING HORMONE 1.44 uIU/ml (0.358-3.74)
--- NOTE | 2016-07-27 12:40 | PN ---
Teaching Attending Note Name of Resident: John Bowie ATTENDING PHYSICIAN STATEMENT I saw and evaluated the patient. I reviewed the resident's note and discussed the case with the resident. I agree with the resident's findings and plan as documented. SUBJECTIVE:continues to have L sided weakness, improved since yesterday. states he has been having this progressive over the past week. has not been evaluated for the symptoms. states he takes coreg and clonidine at home but was never given to him at [facility]. did not question why. assoc with blurred vision, tinnitus, and slurred speech. denies CP, SOB,fever, chills, N/V/C/D OBJECTIVE: Last Vital Signs Temp Pulse Resp BP Pulse Ox 97.6 F 64 20 104/63 96 07/27/16 10:00 07/27/16 10:00 07/27/16 10:00 07/27/16 10:00 07/27/16 09:00 General NAD CV S1 S2 RRR no murmur/rub/gallop no carotid bruit Lungs CTA B/L no wheezing/rales/rhonchi Neuro decreased sensation to L temporal region. no tongue deviation, facial droop. no pronator drift. strength equal in B/L UE. 3/5 LLE 5/5 RLE. unable to asses babinski due to peripheral neuropathy, +dysmetria and dysdakinesia on the left. deferred gait testing as was unstable on standing ASSESSMENT AND PLAN: 56yo M with PMH HTN, DM and continuous heroin dependence (snort) presented to the ER and was admitted for further evaluation of their emergent condition 1. HTN emergency- on labetolol drip and BP was over-corrected. drip now off. will wait till BP improves until re-starting home medications. echo pending. cardiac monitoring. cardio on board 2. L sided weakness- due to HTN emergency vs CVA. initial CT negative. will obtain MRI/MRA. carotid doppler. neuro consulted. PT assessment and speech and swallow eval. on asa/statin 3. NIDHI- likely due to dehydration VS HTN emergency. hold nephrotoxic agents. IVF. 4. Continuous heroin dependence- no signs of withdrawal. on methadone detox. detox management consulted 5. DM- A1c 5.4. not sure if on home medications. need to confirm home medications. bgm, iss 6. DVT ppx- hep sq
[2016-07-27] MEDS ORDERED: METHADONE HCL 5 MG TABLET PO ONE (14:15)
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
--- NOTE | 2016-07-27 17:23 | PN ---
Physical Exam: SUBJECTIVE: Patient seen and examined at bedside. He stated his L sided weakness has been worsening for a week but has improved somewhat since admission. Denies headache , vision change, fever, chills, sob, chest pain. OBJECTIVE: Vital Signs Period Temp Pulse Resp BP Sys/Corea Pulse Ox Last 24 Hr 97.4 F-98.4 F 60-76 16-20 96-128/50-90 96-100 GENERAL: The patient is awake, alert, and fully oriented, in no acute distress. HEAD: Normal with no signs of trauma. EYES: PERRLA, extraocular movements intact. ENT: Normal hearing NECK: Trachea midline, full range of motion, supple. LUNGS: CTAB HEART: RRRR, S1, S2 without murmur, rub or gallop. ABDOMEN: Soft, nontender, nondistended, normoactive bowel sounds, no guarding, no rebound, no hepatosplenomegaly, no masses. EXTREMITIES: 2+ pulses, warm, well-perfused, no edema. NEUROLOGICAL: Decrease sensation on L face, strength 3/5 L extremities, sensation intact; full strength and intact sensation in R extremities. +finger to nose, no pronator drift, slow rapid alternating movement, unsteady gait PSYCH: Normal mood, normal affect. SKIN: Warm, dry, normal turgor, no rashes or lesions noted CBCD WBC 8.5 K/mm3 (4.0-10.0) D 07/27/16 10:00 RBC 4.74 M/mm3 (4.00-5.60) D 07/27/16 10:00 Hgb 13.5 GM/dL (11.7-16.9) D 07/27/16 10:00 Hct 41.6 % (35.4-49) D 07/27/16 10:00 MCV 87.9 fl (80-96) 07/27/16 10:00 MCHC 32.3 g/dl (32.0-35.9) 07/27/16 10:00 RDW 15.4 % (11.9-15.9) 07/27/16 10:00 Plt Count 276 K/MM3 (134-434) 07/27/16 10:00 MPV 8.3 fl (7.5-11.1) 07/27/16 10:00 CMP Sodium 139 mmol/L (136-145) 07/27/16 10:00 Potassium 4.1 mmol/L (3.5-5.1) 07/27/16 10:00 Chloride 98 mmol/L (98-107) 07/27/16 10:00 Carbon Dioxide 27 mmol/L (21-32) 07/27/16 10:00 Anion Gap 14 (8-16) 07/27/16 10:00 BUN 26 mg/dL (7-18) H D 07/27/16 10:00 Creatinine 2.1 mg/dL (0.7-1.3) H D 07/27/16 10:00 Creat Clearance w eGFR > 60 (>60) 07/26/16 19:40 Calcium 8.9 mg/dL (8.5-10.1) 07/27/16 10:00 Total Bilirubin 0.4 mg/dL (0.2-1.0) D 07/26/16 19:40 AST 16 U/L (15-37) 07/26/16 19:40 ALT 25 U/L (12-78) 07/26/16 19:40 Alkaline Phosphatase 95 U/L (45-117) D 07/26/16 19:40 Total Protein 8.4 g/dl (6.4-8.2) H D 07/26/16 19:40 Albumin 4.4 g/dl (3.4-5.0) D 07/26/16 19:40 Intake & Output 07/24/16 07/25/16 07/26/16 07/27/16 23:59 23:59 23:59 23:59 Intake Total 750 Balance 750 Weight 112.037 kg 106.594 kg Active Medications Generic Name Dose Route Start Last Admin Trade Name Freq PRN Reason Stop Dose Admin Acetaminophen 650 mg 07/26/16 23:43 Tylenol - PO Q4H PRN FEVER OR PAIN Albuterol/Ipratropium 2 amp 07/26/16 23:45 07/27/16 11:45 Duoneb - NEB 2 amp BID MICHEL Administration Aspirin 81 mg 07/26/16 23:45 07/27/16 10:08 Ecotrin - PO 81 mg DAILY MICHEL Administration Atorvastatin Calcium 80 mg 07/26/16 23:45 07/27/16 01:05 Lipitor - PO 80 mg HS MICHEL Administration Carvedilol 3.125 mg 07/27/16 22:00 Coreg - PO BID MICHEL Gabapentin 300 mg 07/27/16 06:00 07/27/16 15:35 Neurontin - PO 300 mg TID MICHEL Administration Heparin Sodium (Porcine) 5,000 unit 07/26/16 23:45 07/27/16 10:08 Heparin - SQ 5,000 unit BID MICHEL Administration Sodium Chloride 1,000 mls @ 100 mls/hr 07/27/16 06:39 07/27/16 10:12 Normal Saline - IV 100 mls/hr ASDIR MICHEL Administration Insulin Aspart 1 vial 07/27/16 07:00 07/27/16 12:04 Novolog Vial Sliding Scale - SQ Not Given ACHS MICHEL Protocol Methadone HCl 10 mg 07/28/16 10:00 Dolophine - PO 07/28/16 10:01 ONCE ONE Methadone HCl 5 mg 07/29/16 10:00 Dolophine - PO 07/30/16 09:59 DAILY MICHEL Imaging MRI brain without contrast on 07/27: pending official read ECHO on 07/27: severe concentric LVH, normal EF Doppler on 07/27: no significant stenosis CT head on 07/27: no acute pathology CXR on 07/26: normal chest ASSESSMENT/PLAN: 56 yo M with h/o HTN, Asthma, NIDDM, arthritis and heroin dependance admitted to the hospital for HTN emergency and L sided weakness. Hypertensive emergency - Likely 2/2 clonidine withdrawal - BP over-corrected from labetolol gtt - Start coreg, will transition to lisinopril once NIDHI resolves - BP monitoring L sided weakness - Likely R MCA stroke * contralateral hemiparesis with somewhat hemisensory loss - Less likely L cerebellum infarct * ipsilateral weakness * a/w nausea * +[id number], slowed rapid alternating movement but likely due to weakness * unsteady gait - Negative CT, ECHO and carotid doppler - Start asa, lipitor - f/u MRI official report Substance abuse - In withdrawal - Start on methadone taper dosing NIDHI - Likely 2/2 dehydration - Cont. hydration - Avoid nephrotoxins NIDDM - Unlikely an official diagnosis - Normal A1C - Cont. gabapentin for neuropathy - Cont. sliding scale and BGM - Will confirm with PMD Asthma - Duoneb PRN FEN - IVF NS 100cc/hr - Hyperphostemia, cont. to monitor - Sodium controlled diet Prophylaxis - DVT: heparin - GI: not indicated Disposition - Discharge planning to rehab if stroke, otherwise to [facility] Code status - Full Visit type - Emergency Visit Emergency Visit: Yes ED Registration Date: 07/26/16 Care time: The patient presented to the Emergency Department on the above date and was hospitalized for further evaluation of their emergent condition. - New Patient This patient is new to me today: Yes Date on this admission: 07/27/16 - Critical Care Critical Care patient: No - Discharge Referral Referred to [facility] No
[2016-07-27] MEDS: CARVEDILOL 3.125 MG TABLET (FP) PO SCH (21:34)
[2016-07-27] MEDS: ACETAMINOPHEN 325 MG TABLET (FP) PO PRN (21:35)
[2016-07-28] MEDS: INSULIN SLIDING SCALE (NOVOLOG) 1 VIAL SQ SCH ×4 (06:30→21:31)
[2016-07-28] MEDS: GABAPENTIN 300 MG CAPSULE (FP) PO SCH ×3 (06:30→21:59)
[2016-07-28 07:38] LABS: CALCIUM 8.6 mg/dL (8.5-10.1); CREATININE 2.1 mg/dL (0.7-1.3); PHOSPHOROUS 4.1 mg/dL (2.5-4.9)
[2016-07-28] MEDS: SODIUM CHLORIDE 1,000 ML IV SCH ×2 (07:47→17:44)
[2016-07-28 08:16] LABS: COCKROFT - GAULT 61.63
[2016-07-28] MEDS ORDERED: PT OWN MED DRAWER 7, Y5N ONE (08:57)
[2016-07-28] MEDS ORDERED: METHADONE HCL 10 MG TABLET ONE (08:59)
[2016-07-28] MEDS: HEPARIN NA (PORCINE) 5,000 UNITS/ML 1ML VIAL SQ SCH ×2 (09:04→21:24)
[2016-07-28] MEDS: CARVEDILOL 3.125 MG TABLET (FP) PO SCH ×2 (09:04→21:24)
[2016-07-28] MEDS: ASPIRIN COATED 81 MG TABLET.EC PO SCH (09:04)
[2016-07-28] MEDS ORDERED: METHADONE HCL 5 MG TABLET (FOR DETOX USE ONLY) PO ONE ×2 (10:00)
[2016-07-28] MEDS: ALBUTEROL SO4 2.5/IPRATROPIUM 0.5 INH SOL 3 ML VIAL.NEB. NEB SCH (10:40)
--- NOTE | 2016-07-28 11:05 | PN ---
Teaching Attending Note Name of Resident: John Bowie ATTENDING PHYSICIAN STATEMENT I saw and evaluated the patient. I reviewed the resident's note and discussed the case with the resident. I agree with the resident's findings and plan as documented. SUBJECTIVE:c/o diffuse pain. does not want his methadone at this time and requesting to be put back on his pain medications. states he started using heroin because his pain medications were not helping but that he does not want to use illicit drugs and just wants to take his medications as instructed. denies CP, SOB,fever, chills, N/V/C/D, dysuria, or difficulty urinating. states L sided weakness has resolved. slightly unsteady on his feet but has improved. OBJECTIVE: Last Vital Signs Temp Pulse Resp BP Pulse Ox 97.6 F 63 20 141/74 96 07/28/16 10:00 07/28/16 10:00 07/28/16 10:00 07/28/16 10:00 07/27/16 21:00 General NAD CV S1 S2 RRR no murmur/rub/gallop no carotid bruit Lungs CTA B/L no wheezing/rales/rhonchi Neuro CN grossly intact. no residual weakness ASSESSMENT AND PLAN: 56yo M with PMH HTN, DM and continuous heroin dependence (snort) presented to the ER and was admitted for further evaluation of their emergent condition 1. HTN emergency-BP now controlled. on coreg. Echo showing LVH. carotid negative. will start ACEI once kidney function resolvescardio on board 2. L sided weakness-improved. MRI with no acute CVA. 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 on regular diet. PT assessed. on asa/statin 3. NIDHI- likely due to dehydration VS HTN emergency. stable at 2.1. will check u/ s r/o obstructive pathology. check urine lytes. hopefully should improve. avoid nephrotoxic agents. on IVF 4. Continuous heroin dependence- no signs of withdrawal. does not want methadone detox. took 10mg today. will call Dr Warren wilson regarding detox and placing pt back on home dose of percocet. 5. chronic pain- confirmed meds on [facility]top reference # [id number]. 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 will re-initate pain meds after discussion with detox specialist. 6. DM- A1c 5.4. not sure if on home medications. need to confirm home medications. bgm, iss 7. DVT ppx- hep sq 8. d/c planning pending on improvement in kidney function
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
[2016-07-28] MEDS: SENNOSIDES 8.6MG TABLET (FP) PO SCH ×2 (12:26→21:31)
--- NOTE | 2016-07-28 12:39 | PN ---
Progress Note, Physician History of Present Illness: 56 yo M with PMHx of HTN, asthma, previous cellulitis and opiate dependence referred from [facility] with elevated blood pressure. Patients recorded BP was 212/140 and was sent in for further evaluation, started on Labetolol. Patient also complaints of associated nausea, vomiting and diaphoresis, however states this is his typical withdrawal symptoms, tolerated fluid intake. The patient denies any chest pain, shortness of breath, dyspnea on exertion, headache, or lightheadedness. Weakness on L side, r/o stroke vs hypertensive encephelopathy. PMHx: Asthma, Borderline NIDDM, Neuropathy, RA PSHx: Noncontributory Social Hx:heroin(15 bags/day), oxycodone Allergies: NKA - Current Medication List Current Medications: Active Medications Acetaminophen (Tylenol -) 650 mg PO Q4H PRN PRN Reason: FEVER OR PAIN Last Admin: 07/27/16 21:35 Dose: 650 mg Albuterol/Ipratropium (Duoneb -) 2 amp NEB BID [facility] Last Admin: 07/28/16 10:40 Dose: Not Given Aspirin (Ecotrin -) 81 mg PO DAILY [facility] Last Admin: 07/28/16 09:04 Dose: 81 mg Atorvastatin Calcium (Lipitor -) 80 mg PO HS [facility] Last Admin: 07/27/16 21:33 Dose: 80 mg Carvedilol (Coreg -) 3.125 mg PO BID [facility] Last Admin: 07/28/16 09:04 Dose: 3.125 mg Docusate Sodium (Colace -) 300 mg PO HS [facility] Gabapentin (Neurontin -) 300 mg PO TID [facility] Last Admin: 07/28/16 06:30 Dose: Not Given Heparin Sodium (Porcine) (Heparin -) 5,000 unit SQ BID [facility] Last Admin: 07/28/16 09:04 Dose: 5,000 unit Sodium Chloride (Normal Saline -) 1,000 mls @ 100 mls/hr IV ASDIR [facility] Last Admin: 07/28/16 07:47 Dose: 100 mls/hr Insulin Aspart (Novolog Vial Sliding Scale -) 1 vial SQ ACHS MICHEL PRN Reason: Protocol Last Admin: 07/28/16 12:04 Dose: Not Given Methadone HCl (Dolophine -) 5 mg PO DAILY [facility] Stop: 07/30/16 09:59 Senna (Senna -) 1 tab PO BID [facility] Last Admin: 07/28/16 12:26 Dose: 1 tab - Objective Vital Signs: Vital Signs Temperature 97.6 F 07/28/16 10:00 Pulse Rate 63 07/28/16 10:00 Respiratory Rate 20 07/28/16 10:00 Blood Pressure 141/74 07/28/16 10:00 O2 Sat by Pulse Oximetry (%) 96 07/28/16 09:00 Labs: CBC, BMP 07/27/16 10:00 07/28/16 05:35 INR, PTT INR 1.02 (0.82-1.09) 07/27/16 10:00 Problem List - Problems (1) Hypertensive emergency Code(s): I16.1 - HYPERTENSIVE EMERGENCY (2) Opioid dependence with withdrawal Code(s): F11.23 - OPIOID DEPENDENCE WITH WITHDRAWAL (3) Diabetes Code(s): E11.9 - TYPE 2 DIABETES MELLITUS WITHOUT COMPLICATIONS Qualifiers: Diabetes mellitus type: type 2 (4) TIA (transient ischemic attack) Code(s): G45.9 - TRANSIENT CEREBRAL ISCHEMIC ATTACK, UNSPECIFIED (5) Hypertensive encephalopathy Code(s): I67.4 - HYPERTENSIVE ENCEPHALOPATHY Assessment/Plan 1. Hypertensive emergency r/o TIA vs hypertensive encephelopathy 2. Opioid dependence 3. DM Type II with peropheral neuropathy 4. Asthma 5. NIDHI P:1. Start carvedilol 6.25 bid, ADRIANE-I/ARB once renal fxn stabilizes 2. F/u neuro w/u including, Echo, Carotid doppler, brain MRI, tele monitor r/o PAF
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
--- NOTE | 2016-07-28 16:18 | PN ---
S Progress Note Note: I was asked to see pt. again because he was asking for oxycodone. Pt. tells me that he knows that he cannot get oxycodone while being detoxed for heroin with methadone taper. He will F/U with his MD once he's discharged.
--- NOTE | 2016-07-28 20:10 | PN ---
Physical Exam: SUBJECTIVE: Patient seen and examined at bedside. L sided weakness has improved slightly. Asking for oxycodone because neuropathy pain is unbearable. Denies headache, vision change, fever, chills, sob, chest pain. OBJECTIVE: Vital Signs Period Temp Pulse Resp BP Sys/Corea Pulse Ox Last 24 Hr 97.6 F-98.4 F 62-85 16-20 112-150/62-82 96-96 GENERAL: The patient is awake, alert, and fully oriented, agitated and requesting oxycodone HEAD: Normal with no signs of trauma. EYES: PERRLA, extraocular movements intact. ENT: Normal hearing NECK: Trachea midline, full range of motion, supple. LUNGS: CTAB HEART: RRRR, S1, S2 without murmur, rub or gallop. ABDOMEN: Soft, nontender, nondistended, normoactive bowel sounds, no guarding, no rebound, no hepatosplenomegaly, no masses. EXTREMITIES: 2+ pulses, warm, well-perfused, no edema. NEUROLOGICAL: improved sensation on L face, strength 3/5 L extremities, sensation intact; full strength and intact sensation in R extremities. unsteady gait PSYCH: Agitated CMP Sodium 139 mmol/L (136-145) 07/28/16 05:35 Potassium 4.2 mmol/L (3.5-5.1) 07/28/16 05:35 Chloride 99 mmol/L (98-107) 07/28/16 05:35 Carbon Dioxide 28 mmol/L (21-32) 07/28/16 05:35 Anion Gap 12 (8-16) 07/28/16 05:35 BUN 34 mg/dL (7-18) H D 07/28/16 05:35 Creatinine 2.1 mg/dL (0.7-1.3) H 07/28/16 05:35 Creat Clearance w eGFR > 60 (>60) 07/26/16 19:40 Calcium 8.6 mg/dL (8.5-10.1) 07/28/16 05:35 Total Bilirubin 0.4 mg/dL (0.2-1.0) D 07/26/16 19:40 AST 16 U/L (15-37) 07/26/16 19:40 ALT 25 U/L (12-78) 07/26/16 19:40 Alkaline Phosphatase 95 U/L (45-117) D 07/26/16 19:40 Total Protein 8.4 g/dl (6.4-8.2) H D 07/26/16 19:40 Albumin 4.4 g/dl (3.4-5.0) D 07/26/16 19:40 Active Medications Generic Name Dose Route Start Last Admin Trade Name Freq PRN Reason Stop Dose Admin Acetaminophen 650 mg 07/26/16 23:43 07/27/16 21:35 Tylenol - PO 650 mg Q4H PRN Administration FEVER OR PAIN Albuterol/Ipratropium 2 amp 07/26/16 23:45 07/28/16 10:40 Duoneb - NEB Not Given BID MICHEL Aspirin 81 mg 07/26/16 23:45 07/28/16 09:04 Ecotrin - PO 81 mg DAILY MICHEL Administration Atorvastatin Calcium 20 mg 07/28/16 22:00 Lipitor - PO HS MICHEL Carvedilol 3.125 mg 07/27/16 22:00 07/28/16 09:04 Coreg - PO 3.125 mg BID MICHEL Administration Docusate Sodium 300 mg 07/28/16 22:00 Colace - PO HS MICHEL Gabapentin 300 mg 07/27/16 06:00 07/28/16 13:32 Neurontin - PO Not Given TID MICHEL Heparin Sodium (Porcine) 5,000 unit 07/26/16 23:45 07/28/16 09:04 Heparin - SQ 5,000 unit BID MICHEL Administration Sodium Chloride 1,000 mls @ 100 mls/hr 07/27/16 06:39 07/28/16 17:44 Normal Saline - IV 100 mls/hr ASDIR MICHEL Administration Insulin Aspart 1 vial 07/27/16 07:00 07/28/16 17:43 Novolog Vial Sliding Scale - SQ Not Given ACHS [facility] Protocol Methadone HCl 5 mg 07/29/16 10:00 Dolophine - PO 07/30/16 09:59 DAILY MICHEL Senna 1 tab 07/28/16 10:00 07/28/16 12:26 Senna - PO 1 tab BID MICHEL Administration Imaging Renal U/S on 07/28: unremarkable kidneys MRI brain without contrast on 07/27: No acute infarct; chronic paramedian pontine infarct; 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 NIDHI - FEUrea shows intrinsic nephropathy - Likely 2/2 end organ damage from hypertensive emergency - Cont. hydration - Avoid nephrotoxins Hypertensive emergency - Resolved - Likely 2/2 clonidine withdrawal - BP over-corrected from labetolol gtt - On coreg, will transition to lisinopril once NIDHI resolves - Monitor vitals L sided weakness - Unknown cause - MRI shows old infarcts - Negative CT, ECHO and carotid doppler - Cont asa, lipitor Substance abuse - In withdrawal - On methadone taper dosing - Patient has been refusing methadone and requesting oxycodone Neuropathic pain - Unlikely 2/2 diabetes - Normal A1C - Cont. gabapentin for neuropathy Asthma - Duoneb PRN FEN - IVF NS 100cc/hr - Normal lytes - Sodium controlled diet Prophylaxis - DVT: heparin - GI: not indicated Disposition - Discharge once kidney function normalizes Code status - Full Visit type - Emergency Visit Emergency Visit: No - New Patient This patient is new to me today: No - Critical Care Critical Care patient: No
[2016-07-28] MEDS ORDERED: ALBUTEROL SO4 2.5/IPRATROPIUM 0.5 INH SOL 3 ML VIAL.NEB. NEB PRN (21:22)
[2016-07-28] MEDS ORDERED: diphenhydrAMINE HCL 25 MG CAPSULE (FP) PO ONE (21:22)
[2016-07-28] MEDS ORDERED: ATORVASTATIN CA 20 MG TABLET (FP) PO SCH (22:00)
[2016-07-28] MEDS ORDERED: DOCUSATE SODIUM 100 MG CAPSULE (FP) PO SCH (22:00)
[2016-07-28] MEDS ORDERED: ALBUTEROL SO4 0.083% IH SOL 2.5 MG/3 ML VIAL.NEB. NEB SCH (22:00)
[2016-07-28] MEDS: ACETAMINOPHEN 325 MG TABLET (FP) PO PRN (23:02)
[2016-07-28] MEDS: ALBUTEROL SO4 6.7 GM HFA INHALER IH SCH (23:09)
[2016-07-28] MEDS ORDERED: oxyCODONE HCL 5 MG TABLET PO ONE (23:53)
[2016-07-28] MEDS ORDERED: MELATONIN 5 MG TABLETS PO PRN (23:55)
--- NOTE | 2016-07-29 00:02 | HOSP ---
Subjective - Review of Symptoms Events since last encounter: patient complains of chest pain Subjective: patient very agitates. States he has diffuse body pain including chest pain that is reproducible by pressing on chest wall. It is mid sternal, dull and nonradiating. Denies diaphoresis sob cought palpitations or edema. Complains of being unable to sleep. complains of not getting his oxycodone. General: No: Chills, Malaise HEENT: No: Head Aches Pulmonary: No: Dyspnea, Cough, Pleuritic Chest Pain Cardiovascular: Yes: Chest Pain. No: Palpitations, Orthopnea, Edema, Light Headedness Gastrointestinal: No: Nausea, Vomiting, Abdominal Pain Genitourinary: No: Dysuria Musculoskeletal: Yes: Back Pain, Extremity Pain, Muscle Pain Neurological: No: Weakness, Numbness Physical Examination Vital Signs: Vital Signs Temperature 98.7 F 07/28/16 22:00 Pulse Rate 80 07/28/16 22:00 Respiratory Rate 20 07/28/16 22:00 Blood Pressure 151/89 07/28/16 22:00 O2 Sat by Pulse Oximetry (%) 96 07/28/16 21:00 Constitutional: Yes: Anxious, Moderate Distress Eyes: Yes: EOM Intact, PERRL HENT: Yes: Atraumatic Neck: Yes: Supple Cardiovascular: Yes: Regular Rate and Rhythm, S1, S2. No: JVD Respiratory: Yes: CTA Bilaterally Gastrointestinal: Yes: Normal Bowel Sounds, Soft Musculoskeletal: Yes: Muscle Pain, Other (reproducible chest wall pain) Neurological: Yes: Alert, Oriented Psychiatric: Yes: Alert, Oriented, Agitated Labs: CBC, BMP 07/27/16 10:00 07/28/16 05:35 Hospitalist Encounter Assessment: musculoskeletal chest wall pain -no symptomatic or PE evidence of ACS -vitals stable -possible fibromyalgia -will give oxycodone 15 once, unsure whether oxycodone 30 tid -melatonin hs for insomnia Visit type - Emergency Visit Emergency Visit: Yes ED Registration Date: 07/26/16 Care time: The patient presented to the Emergency Department on the above date and was hospitalized for further evaluation of their emergent condition. - New Patient This patient is new to me today: No - Critical Care Critical Care patient: No
[2016-07-29] MEDS: SODIUM CHLORIDE 1,000 ML IV SCH (06:06)
[2016-07-29] MEDS: INSULIN SLIDING SCALE (NOVOLOG) 1 VIAL SQ SCH ×2 (06:06→11:34)
[2016-07-29] MEDS: GABAPENTIN 300 MG CAPSULE (FP) PO SCH (06:07)
[2016-07-29] MEDS ORDERED: METHADONE HCL 5 MG TABLET (FOR DETOX USE ONLY) PO SCH (10:00)
[2016-07-29 10:50] LABS: CALCIUM 9.2 mg/dL (8.5-10.1); COCKROFT - GAULT 109.42; CREATININE 1.2 mg/dL (0.7-1.3)
[2016-07-29] MEDS ORDERED: PT OWN MED DRAWER 7, Y5N ONE (11:25)
[2016-07-29] MEDS: CARVEDILOL 3.125 MG TABLET (FP) PO SCH ×2 (11:33→13:08)
[2016-07-29] MEDS: SENNOSIDES 8.6MG TABLET (FP) PO SCH ×2 (11:33→13:09)
[2016-07-29] MEDS: HEPARIN NA (PORCINE) 5,000 UNITS/ML 1ML VIAL SQ SCH ×2 (11:33→13:03)
[2016-07-29] MEDS: ALBUTEROL SO4 6.7 GM HFA INHALER IH SCH (11:33)
[2016-07-29] MEDS: ASPIRIN COATED 81 MG TABLET.EC PO SCH ×2 (11:33→13:08)
[2016-07-29] MEDS ORDERED: oxyCODONE HCL 5 MG TABLET PO ONE (11:50)
[2016-07-29] MEDS ORDERED: oxyCODONE HCL 5 MG TABLET ONE (11:59)
--- NOTE | 2016-07-29 12:06 | PN ---
Progress Note (short form) - Note Progress Note: c/o of diffuse severe pain. refused the methadone this AM because he wants to take his oxycodone as prescribed by his doctor. states that he has no desire or interest in using heroin but needs to control his pain. denies Cp, SOB,fever, chills, N/V/C/D Current Medications Generic Name Dose Route Start Last Admin Trade Name Freq PRN Reason Stop Dose Admin Acetaminophen 650 mg 07/26/16 23:43 07/28/16 23:02 Tylenol - PO 650 mg Q4H PRN Administration FEVER OR PAIN Albuterol Sulfate 2 puff 07/28/16 22:30 07/29/16 11:33 Ventolin Hfa Inhaler - IH Not Given BID [facility] Albuterol/Ipratropium 2 amp 07/28/16 21:22 Duoneb - NEB BID PRN SHORTNESS OF BREATH Aspirin 81 mg 07/26/16 23:45 07/29/16 11:33 Ecotrin - PO Not Given DAILY [facility] Atorvastatin Calcium 20 mg 07/28/16 22:00 07/28/16 21:24 Lipitor - PO 20 mg HS [facility] Administration Carvedilol 3.125 mg 07/27/16 22:00 07/29/16 11:33 Coreg - PO Not Given BID [facility] Docusate Sodium 300 mg 07/28/16 22:00 07/28/16 21:30 Colace - PO Not Given HS [facility] Gabapentin 300 mg 07/27/16 06:00 07/29/16 06:07 Neurontin - PO Not Given TID [facility] Heparin Sodium (Porcine) 5,000 unit 07/26/16 23:45 07/29/16 11:33 Heparin - SQ Not Given BID [facility] Sodium Chloride 1,000 mls @ 100 mls/hr 07/27/16 06:39 07/29/16 06:06 Normal Saline - IV Not Given ASDIR [facility] Insulin Aspart 1 vial 07/27/16 07:00 07/29/16 11:34 Novolog Vial Sliding Scale - SQ Not Given ACHS [facility] Protocol Melatonin 5 mg 07/28/16 23:55 07/29/16 00:25 Melatonin PO 5 mg HS PRN Administration INSOMNIA Methadone HCl 5 mg 07/29/16 10:00 07/29/16 11:57 Dolophine - PO 07/30/16 09:59 Not Given DAILY [facility] Senna 1 tab 07/28/16 10:00 07/29/16 11:33 Senna - PO Not Given BID MICHEL Last Vital Signs Temp Pulse Resp BP Pulse Ox 97.5 F L 68 20 139/92 96 07/29/16 06:00 07/29/16 06:00 07/29/16 06:00 07/29/16 06:00 07/28/16 21:00 Refused physical exam. im fine nothing changed general agitated CMP Sodium 140 mmol/L (136-145) 07/29/16 09:40 Potassium 4.1 mmol/L (3.5-5.1) 07/29/16 09:40 Chloride 101 mmol/L (98-107) 07/29/16 09:40 Carbon Dioxide 31 mmol/L (21-32) 07/29/16 09:40 Anion Gap 8 (8-16) 07/29/16 09:40 BUN 22 mg/dL (7-18) H D 07/29/16 09:40 Creatinine 1.2 mg/dL (0.7-1.3) D 07/29/16 09:40 Creat Clearance w eGFR > 60 (>60) 07/26/16 19:40 Calcium 9.2 mg/dL (8.5-10.1) 07/29/16 09:40 Total Bilirubin 0.4 mg/dL (0.2-1.0) D 07/26/16 19:40 AST 16 U/L (15-37) 07/26/16 19:40 ALT 25 U/L (12-78) 07/26/16 19:40 Alkaline Phosphatase 95 U/L (45-117) D 07/26/16 19:40 Total Protein 8.4 g/dl (6.4-8.2) H D 07/26/16 19:40 Albumin 4.4 g/dl (3.4-5.0) D 07/26/16 19:40 ASSESSMENT AND PLAN: 56yo M with PMH HTN, DM and continuous heroin dependence (snort) presented to the ER and was admitted for further evaluation of their emergent condition 1. HTN emergency-BP now controlled. refused this AM medications until he can get his oxycodone. agrees to be compliant once he gets his pain medications. on coreg, will re-start losartan at reduced dose. will need to f/u with PMD next week to repeat BP which pt agrees. 2. L sided weakness-improved. MRI with no acute CVA. 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 on regular diet. PT assessed. on asa/statin 3. NIDHI- likely due to dehydration VS HTN emergency. improved. will need to repeat labs next week with PMD 4. Continuous heroin dependence- no signs of withdrawal. does not want methadone detox and refused final dose of methadone. since pt refused methadone and expresses desire to be complaint with home medication and percocet and no desire to use heroin. educated on risks of heroin use 5. chronic pain- as stated above does not want to use illicit drugs and will be complaint with home dose. medication confirmed with pharmacy and istop. will give oxycodone 60mg once prior to discharge. he is to follow up with pain specialist Dr Cruz next week to assess his pain medicaition 6. DM- A1c 5.4. does not take medications, pt is NOT diabetic 7. DVT ppx- hep sq 8. d/c home with follow up with PMD for BP check and kidney function Visit type - Emergency Visit Emergency Visit: Yes ED Registration Date: 07/26/16 Care time: The patient presented to the Emergency Department on the above date and was hospitalized for further evaluation of their emergent condition. - New Patient This patient is new to me today: No - Critical Care Critical Care patient: No - Discharge Referral Referred to [facility] Med P.C.: No
--- NOTE | 2016-07-29 12:13 | EKG ---
Test Reason : Blood Pressure : / mmHG Vent. Rate : 092 BPM Atrial Rate : 092 BPM P-R Int : 150 ms QRS Dur : 094 ms QT Int : 370 ms P-R-T Axes : 062 094 022 degrees QTc Int : 457 ms NORMAL SINUS RHYTHM POSSIBLE LEFT ATRIAL ENLARGEMENT RIGHTWARD AXIS BORDERLINE ECG WHEN COMPARED WITH ECG OF 26-JUL-2016 07:50, NO SIGNIFICANT CHANGE WAS FOUND Confirmed by MD CELESTINO, AME ([id number]) on 07/29/2016 12:13:19 PM Referred By: Confirmed By:AME TIRADO MD
--- NOTE | 2016-07-29 12:23 | PN ---
Progress Note, Physician - Current Medication List Current Medications: Active Medications Acetaminophen (Tylenol -) 650 mg PO Q4H PRN PRN Reason: FEVER OR PAIN Last Admin: 07/28/16 23:02 Dose: 650 mg Albuterol Sulfate (Ventolin Hfa Inhaler -) 2 puff IH BID [facility] Last Admin: 07/29/16 11:33 Dose: Not Given Albuterol/Ipratropium (Duoneb -) 2 amp NEB BID PRN PRN Reason: SHORTNESS OF BREATH Aspirin (Ecotrin -) 81 mg PO DAILY [facility] Last Admin: 07/29/16 11:33 Dose: Not Given Atorvastatin Calcium (Lipitor -) 20 mg PO HS [facility] Last Admin: 07/28/16 21:24 Dose: 20 mg Carvedilol (Coreg -) 3.125 mg PO BID [facility] Last Admin: 07/29/16 11:33 Dose: Not Given Docusate Sodium (Colace -) 300 mg PO HS [facility] Last Admin: 07/28/16 21:30 Dose: Not Given Gabapentin (Neurontin -) 300 mg PO TID [facility] Last Admin: 07/29/16 06:07 Dose: Not Given Heparin Sodium (Porcine) (Heparin -) 5,000 unit SQ BID [facility] Last Admin: 07/29/16 11:33 Dose: Not Given Sodium Chloride (Normal Saline -) 1,000 mls @ 100 mls/hr IV ASDIR [facility] Last Admin: 07/29/16 06:06 Dose: Not Given Insulin Aspart (Novolog Vial Sliding Scale -) 1 vial SQ ACHS [facility] PRN Reason: Protocol Last Admin: 07/29/16 11:34 Dose: Not Given Melatonin (Melatonin) 5 mg PO HS PRN PRN Reason: INSOMNIA Last Admin: 07/29/16 00:25 Dose: 5 mg Methadone HCl (Dolophine -) 5 mg PO DAILY [facility] Stop: 07/30/16 09:59 Last Admin: 07/29/16 11:57 Dose: Not Given Senna (Senna -) 1 tab PO BID [facility] Last Admin: 07/29/16 11:33 Dose: Not Given - Objective Vital Signs: Vital Signs Temperature 97.5 F L 07/29/16 06:00 Pulse Rate 68 07/29/16 06:00 Respiratory Rate 20 07/29/16 06:00 Blood Pressure 139/92 07/29/16 06:00 O2 Sat by Pulse Oximetry (%) 96 07/28/16 21:00 Labs: CBC, BMP 07/27/16 10:00 07/29/16 09:40 INR, PTT INR 1.02 (0.82-1.09) 07/27/16 10:00
[2016-07-29 15:09] VITALS: BP 147/85; PULSE 82; TEMP 98
--- NOTE | 2016-07-30 11:40 | DS ---
Physical Exam: HOSPITAL COURSE: Date of Admission:07/26/16 This is a 56 yo M with PMH of HTN (compliant with meds), Asthma (daily inhaler) , borderline NIDDM, arthritis (possibly RA, previoulsy on prednisone) and Heroin dependance, who is brought from [facility] due to HTN emergency which was likely secondary to abrupt clonidine withdrawal. His BP normalized after labetalol drip and starting coreg. He also complained of acute L sided weakness which initially thought to be R MCA stroke or L cerebellum infarct based on neurologic exam. However, CT head, echo and carotid doppler, MRI were all negative for acute stroke. He's started on aspirin and lipitor. During his stay , he was evaluated by detox but he refused methadone and only wanted oxycodone. He claimed that it's because his oxycodone dose was cut in half by his doctor and now he's in severe pain. He also sustained acute kidney injury likely due to hypertension and subsequent rapid correction of BP. His Cr has improved to normal ranged and he's now in stable condition to be discharged and his chronic pain issue can be followed up by his primary doctor. Patient was instructed to follow up with his PMD on discharge to further manage his HTN and substance abuse issue. Date of Discharge: 07/30/16 Minutes to complete discharge: 35 Discharge Summary Reason For Visit: [facility] Condition: Improved - Instructions Diet, Activity, Other Instructions: You were admitted for uncontrolled blood pressure. Your blood pressure is now controlled and your home medications have changed. it is important that you take your medications every day. You also had injury to your kidneys when you arrived but has improved (1.2) on discharge. It is important that you follow up with your primary care doctor (Dr Longoria) next week to check your blood pressure and evaluate your kidneys. You may require further adjustments to your medications to optimize your blood pressure Eat a low salt diet Avoid using illegal substances. 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 If you develop blurred vision or dizzyness or weakness return to the ER. Disposition: HOME - Home Medications Comprehensive Discharge Medication List: Ambulatory Orders Carvedilol 3.125 mg PO BID 07/28/16 Oxycodone HCl 60 mg PO TID 07/28/16 Aspirin Coated [Ecotrin -] 81 mg PO DAILY #30 tab 07/29/16 Atorvastatin Ca [Lipitor] 20 mg PO HS #30 tablet 07/29/16 Carvedilol [Coreg -] 3.125 mg PO BID #60 tablet 07/29/16 Losartan Potassium 25 mg PO DAILY #30 tablet 07/29/16 This patient is new to me today: No Emergency Visit: No Critical Care patient: No - Discharge Referral Referred to [facility] No
== END 2016-07-29 15:36 | disposition home or self-care (01) | DRG 305 ==
LOC: EDBD → JER 17:30 → JERBED 20:51 → J4S 07-27 01:05
PROVIDERS: ADMIT Internal Medicine; ATTEND Internal Medicine
DX: I16.0 Hypertensive urgency (principal); N17.9 Acute kidney failure, unspecified; F11.23 Opioid dependence with withdrawal; E86.0 Dehydration; R07.89 Other chest pain; R53.1 Weakness; J45.909 Unspecified asthma, uncomplicated; E11.42 Type 2 diabetes mellitus with diabetic polyneuropathy; G89.29 Other chronic pain; F17.210 Nicotine dependence, cigarettes, uncomplicated
CPT/HCPCS: 36415; 70450-TC; 70551-TC; 71010-TC; 76775-TC; 80048; 80053; 80061; 81003; 81015; 82436; 82550; 82553; 82570; 83036; 83690; 83721; 83735; 84100; 84133; 84156; 84300; 84439; 84443; 84484; 84540; 85025; 85027; 85610; 85730; 86593; 93005; 93010; 93306-TC; 93880-TC; 94640; 97116-GP; 97161-GP; 99284-25; J1644

== ENCOUNTER 2016-12-02 08:58 | Inpatient (IN) | payer BC, OTHER ==
[2016-12-02 09:25] VITALS: BMI 36.8
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
[2016-12-02] MEDS ORDERED: guaiFENesin/D-METHORPHAN HB 10 ML UNIT-DOSE CUPS PO PRN (09:52)
[2016-12-02] MEDS ORDERED: chlordiazePOXIDE HCL 25 MG CAPSULE PO PRN (09:52)
[2016-12-02] MEDS ORDERED: NICOTINE POLACRILEX 4 MG GUM BUC PRN (09:52)
[2016-12-02] MEDS ORDERED: MAGNESIUM CITRATE 300 ML BOTTLE PO PRN (09:52)
[2016-12-02] MEDS ORDERED: P-EPHED 60MG/TRIPROLIDI 2.5MG TABLET PO PRN (09:52)
[2016-12-02] MEDS ORDERED: MENTHOL/PHENOL 1 EACH UD MM PRN (09:52)
[2016-12-02] MEDS ORDERED: MAG HYDROX/AL HYDROX/SIMETH 30 ML UNIT-DOSE CUP PO PRN (09:52)
[2016-12-02] MEDS ORDERED: MAGNESIUM HYDROX 2400MG/30ML ORAL SUSPENSION 30 ML CUP PO PRN (09:52)
[2016-12-02] MEDS ORDERED: ACETAMINOPHEN 325 MG TABLET (FP) PO PRN (09:52)
[2016-12-02] MEDS ORDERED: LOPERAMIDE HCL 2 MG CAPSULE PO PRN (09:52)
[2016-12-02] MEDS ORDERED: ALBUTEROL SO4 6.7 GM HFA INHALER IH PRN (09:54)
[2016-12-02] MEDS ORDERED: METHADONE HCL 10 MG TABLET (FOR DETOX USE ONLY) PO ONE ×2 (12:15→23:00)
[2016-12-02] MEDS ORDERED: chlordiazePOXIDE HCL 25 MG CAPSULE PO ONE (12:15)
[2016-12-02] MEDS ORDERED: hydrOXYzine PAMOATE 50 MG CAPSULE (FP) PO PRN (12:24)
[2016-12-02] MEDS: CARVEDILOL 3.125 MG TABLET (FP) PO SCH ×2 (13:26→23:36)
[2016-12-02] MEDS: LOSARTAN POTASSIUM 50 MG TABLET (FP) PO SCH (13:26)
[2016-12-02] MEDS: ASPIRIN COATED 81 MG TABLET.EC PO SCH (13:26)
[2016-12-02] MEDS: PRENATAL VITAMINS W/ FOLIC ACID TABLET (FP) PO SCH (13:27)
[2016-12-02 17:22] LABS: URINE APPEARANCE CLEAR; URINE BILIRUBIN NEGATIVE (NEGATIVE); URINE BLOOD NEGATIVE (NEGATIVE); URINE COLOR YELLOW; URINE GLUCOSE (UA) NEGATIVE (NEGATIVE); URINE KETONE NEGATIVE (NEGATIVE); URINE LEUK ESTERASE NEGATIVE (NEGATIVE); URINE NITRITE NEGATIVE (NEGATIVE); URINE PROTEIN NEGATIVE (NEGATIVE)
[2016-12-02] MEDS: chlordiazePOXIDE HCL 25 MG CAPSULE PO SCH ×2 (17:53→23:36)
[2016-12-02] MEDS: metFORMIN HCL 500 MG TABLET (FP) PO SCH (17:53)
[2016-12-02] MEDS ORDERED: THIAMINE HCL 100 MG TABLET (FP) PO SCH (22:00)
[2016-12-02] MEDS ORDERED: diphenhydrAMINE HCL 50 MG CAPSULE PO PRN (22:00)
[2016-12-03] MEDS ORDERED: METHADONE HCL 10 MG TABLET PO ONE (01:15)
[2016-12-03] MEDS ORDERED: TRIMETHOBENZAMIDE HCL 200MG/2ML INJ IM PRN ×2 (01:38→04:51)
[2016-12-03] MEDS: chlordiazePOXIDE HCL 25 MG CAPSULE PO SCH ×2 (06:14→10:55)
[2016-12-03] MEDS ORDERED: cloNIDine HCL 0.1 MG TABLET PO ONE (06:51)
[2016-12-03 07:17] VITALS: BP 164/125; PULSE 69; TEMP 98.3
--- NOTE | 2016-12-03 07:23 | PN ---
[facility] Progress Note Note: ASKED TO SEE PT FOR N/V OVERNIGHT AND NOW DIAPHORETIC, HYPERTENSIVE, COOL AND CLAMMY. C/O WEAKNESS. DENIES SOB, C.P. AWAKE ALERT LYING IN BED COOL, CLAMMY, DIAPHORETIC B/P 224/117 BGM 153 REPEAT SEE BELOW Vital Signs Temperature 98.3 F 12/03/16 06:00 Pulse Rate 69 12/03/16 06:00 Respiratory Rate 18 12/03/16 06:00 Blood Pressure 164/125 12/03/16 06:00 O2 Sat by Pulse Oximetry (%) MANUAL READING 220/114 A- 56 Y.O. MALE WITH ETOH/OPIATE WITHDRAWALS NOW WITH HYPERTENSIVE URGENCY. CLIENT WITH SAME PRESENTATION 07/2016 ADMITTED TO [facility] TRANSFER CLIENT TO [facility] FOR EVAL CASE D/W DR. WRIGHT
[2016-12-03] MEDS: metFORMIN HCL 500 MG TABLET (FP) PO SCH (08:37)
--- NOTE | 2016-12-03 08:46 | EKG ---
Test Reason : Blood Pressure : / mmHG Vent. Rate : 065 BPM Atrial Rate : 065 BPM P-R Int : 166 ms QRS Dur : 110 ms QT Int : 430 ms P-R-T Axes : 065 051 034 degrees QTc Int : 447 ms NORMAL SINUS RHYTHM NORMAL ECG Confirmed by MD CELESTINO, AME ([id number]) on 12/03/2016 8:46:01 AM Referred By: Confirmed By:AME TIRADO MD
[2016-12-03] MEDS ORDERED: METHADONE HCL 10 MG TABLET (FOR DETOX USE ONLY) PO SCH (10:00)
[2016-12-03 10:15] LABS: MEAN PLT VOLUME 9.8 fl (7.5-11.1)
[2016-12-03 10:18] LABS: MCH 29.8 pg (25.7-33.7); MCHC 32.7 g/dl (32.0-35.9); MEAN CELL VOLUME 91.3 fl (80-96); PLATELET COUNT 232 K/MM3 (134-434); RDW 14.9 % (11.9-15.9); WHITE BLOOD COUNT 4.7 K/mm3 (4.0-10.0)
[2016-12-03 10:45] LABS: ALK PHOS 70 U/L (45-117); ANION GAP 5 (8-16); BILIRUBIN,TOTAL 0.3 mg/dL (0.2-1.0); CALCIUM 8.8 mg/dL (8.5-10.1); CO2 31 mmol/L (21-32); GLUCOSE,RANDOM 91 mg/dL (74-106); SGOT/AST 17 U/L (15-37); SGPT/ALT 23 U/L (12-78); TOT PROT 7.5 g/dl (6.4-8.2)
[2016-12-03] MEDS: ASPIRIN COATED 81 MG TABLET.EC PO SCH (10:54)
[2016-12-03] MEDS: PRENATAL VITAMINS W/ FOLIC ACID TABLET (FP) PO SCH (10:54)
[2016-12-03] MEDS: LOSARTAN POTASSIUM 50 MG TABLET (FP) PO SCH (10:54)
[2016-12-03] MEDS: CARVEDILOL 3.125 MG TABLET (FP) PO SCH (10:54)
--- NOTE | 2016-12-03 10:56 | PN ---
[facility] Progress Note Note: Patient is not available to be seen. He was transferred to [facility] because of hypertensive crisis. He had similar outcome while in detox in [facility] facility last July. According to record hypertensive crisis was thought to be possibly due to abrult withdrawal from Clonidine. There was no evidence of CVA on CT scan
[2016-12-03 13:26] LABS: HIV 1 & 2 AB NEGATIVE; HIV 1 AGp24 NEGATIVE
[2016-12-03] MEDS ORDERED: chlordiazePOXIDE HCL 25 MG CAPSULE PO SCH (17:00)
[2016-12-04] MEDS ORDERED: METHADONE HCL 5 MG TABLET (FOR DETOX USE ONLY) PO SCH (10:00)
[2016-12-04] MEDS ORDERED: chlordiazePOXIDE 5 MG CAPSULE PO SCH (17:00)
[2016-12-05] MEDS ORDERED: chlordiazePOXIDE HCL 10 MG CAPSULE PO SCH (17:00)
[2016-12-06] MEDS ORDERED: METHADONE HCL 10 MG TABLET (FOR DETOX USE ONLY) PO SCH (10:00)
[2016-12-07] MEDS ORDERED: METHADONE HCL 5 MG TABLET (FOR DETOX USE ONLY) PO SCH (06:00)
== END 2016-12-03 14:59 | disposition short-term general hospital (02) | DRG 897 ==
LOC: EDBD → YASAS 08:58 → EDBD 08:58 → Y3N 12:07
PROVIDERS: ADMIT Internal Medicine; ATTEND Internal Medicine
PROC: HZ2ZZZZ Detoxification Services for Substance Abuse Treatment (ICD-10-PCS; principal; 2016-12-02)
DX: F11.23 Opioid dependence with withdrawal (principal); F14.20 Cocaine dependence, uncomplicated; F10.230 Alcohol dependence with withdrawal, uncomplicated; F12.20 Cannabis dependence, uncomplicated; F17.210 Nicotine dependence, cigarettes, uncomplicated; I10 Essential (primary) hypertension; J45.20 Mild intermittent asthma, uncomplicated; E11.22 Type 2 diabetes mellitus with diabetic chronic kidney disease; Z79.4 Long term (current) use of insulin; Z86.73 Personal history of transient ischemic attack (TIA), and cerebral infarction without residual deficits; I12.9 Hypertensive chronic kidney disease with stage 1 through stage 4 chronic kidney disease, or unspecified chronic kidney disease
CPT/HCPCS: 36415; 80053; 81003; 85027; 86593; 87389; 93005; 93010

== ENCOUNTER 2016-12-03 07:53 | Inpatient (IN) | payer BC, OTHER ==
[2016-12-03 08:05] VITALS: BMI 36.3
[2016-12-03] MEDS ORDERED: ONDANSETRON 4 MG/2 ML VIAL IVPUSH ONE (08:24)
[2016-12-03] MEDS ORDERED: ONDANSETRON 4 MG/2 ML VIAL ONE (08:25)
--- NOTE | 2016-12-03 08:33 | EKG ---
Test Reason : Blood Pressure : / mmHG Vent. Rate : 078 BPM Atrial Rate : 078 BPM P-R Int : 170 ms QRS Dur : 100 ms QT Int : 402 ms P-R-T Axes : 030 029 019 degrees QTc Int : 458 ms NORMAL SINUS RHYTHM NORMAL ECG WHEN COMPARED WITH ECG OF 02-DEC-2016 13:37, NO SIGNIFICANT CHANGE WAS FOUND Confirmed by MD CELESTINO, AME ([id number]) on 12/03/2016 8:33:13 AM Referred By: Confirmed By:AME TIRADO MD
[2016-12-03 09:05] LABS: BASOPHIL 0.3 % (0-2.0); EOSINOPHIL 0.1 % (0-4.5); MCH 29.6 pg (25.7-33.7); MCHC 32.9 g/dl (32.0-35.9); MEAN CELL VOLUME 89.9 fl (80-96); MEAN PLT VOLUME 8.9 fl (7.5-11.1); NEUTROPHILS 84.1 % (42.8-82.8); PLATELET COUNT 257 K/MM3 (134-434); RDW 14.2 % (11.9-15.9); WHITE BLOOD COUNT 9.7 K/mm3 (4.0-10.0)
[2016-12-03 09:20] LABS: INR 0.94 (0.82-1.09); PROTHROMBIN TIME (PATIENT) 10.3 SEC (9.98-11.88)
[2016-12-03 09:23] LABS: ACTIVATED PTT 28.4 SECONDS (26.9-34.4)
[2016-12-03] MEDS ORDERED: METHADONE HCL 10 MG TABLET PO ONE (09:26)
[2016-12-03] MEDS ORDERED: LOSARTAN 50MG/HCTZ 12.5MG 1 TAB (FP) PO ONE (09:28)
[2016-12-03] MEDS ORDERED: CARVEDILOL 3.125 MG TABLET (FP) PO ONE (09:28)
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
[2016-12-03 09:34] LABS: ALBUMIN 4.6 g/dl (3.4-5.0); ALK PHOS 86 U/L (45-117); ANION GAP 8 (8-16); BILIRUBIN,TOTAL 0.4 mg/dL (0.2-1.0); CALCIUM 9.8 mg/dL (8.5-10.1); CO2 30 mmol/L (21-32); CREATININE 0.7 mg/dL (0.7-1.3); GLUCOSE,RANDOM 150 mg/dL (74-106); SGOT/AST 15 U/L (15-37); SGPT/ALT 25 U/L (12-78); TOT PROT 8.7 g/dl (6.4-8.2)
[2016-12-03] MEDS ORDERED: METHADONE HCL 10 MG TABLET ONE (09:36)
[2016-12-03] MEDS ORDERED: CARVEDILOL 3.125 MG TABLET (FP) ONE (09:37)
[2016-12-03 10:12] LABS: URINE MARIJUANA THC POSITIVE ng/ml (CUTOFF=50)
[2016-12-03] MEDS ORDERED: cloNIDine HCL 0.1 MG TABLET PO ONE (14:11)
[2016-12-03 14:17] LABS: CPK 177 IU/L (39-308); TROPONIN I < 0.02 ng/ml (0.00-0.05)
[2016-12-03] MEDS ORDERED: cloNIDine HCL 0.1 MG TABLET ONE (14:22)
[2016-12-03] MEDS ORDERED: LORazepam 2 MG/ML SDV VIAL ONE (14:23)
[2016-12-03] MEDS ORDERED: ONDANSETRON 4 MG/2 ML VIAL IVPB PRN (15:22)
[2016-12-03] MEDS ORDERED: NITROGLYCERIN SUBLINGUAL 1/150 0.4 MG TAB ONE (15:55)
[2016-12-03] MEDS ORDERED: NITROGLYCERIN 2% OINTMENT - 1GM PACKET TD ONE ×2 (15:55→15:56)
[2016-12-03] MEDS ORDERED: NITROGLYCERIN SUBLINGUAL 1/150 0.4 MG TAB SL ONE (15:57)
[2016-12-03] MEDS ORDERED: ASPIRIN 81 MG CHEWABLE TABLETS PO ONE (15:57)
[2016-12-03] MEDS ORDERED: METHADONE HCL 10 MG TABLET (FOR DETOX USE ONLY) PO ONE ×2 (17:29→22:00)
[2016-12-03] MEDS ORDERED: chlordiazePOXIDE HCL 25 MG CAPSULE PO PRN ×2 (17:29→19:08)
[2016-12-03] MEDS ORDERED: ENALAPRILAT DIHYDRATE 1.25 MG/1 ML VIAL IVPB STA (17:35)
[2016-12-03] MEDS: chlordiazePOXIDE HCL 25 MG CAPSULE PO SCH ×3 (17:40→22:38)
--- NOTE | 2016-12-03 18:00 | HP ---
CHIEF COMPLAINT: Chest pain with nausea/vomiting PCP:none HISTORY OF PRESENT ILLNESS: 56 yo M brought from [facility]( currently in detox for opiates and EtOH abuse) with a significant past medical history of CVA, asthma, HTN, and heroin/ oxycodone abuse who presents to the emergency department with few hour history elevated blood pressure. The patient reports this morning having several episodes of nausea/vomiting with an elevation in his blood pressure. He also has c/o of abdominal pain, chest pain, and generalized weakness. Chest pain is 8 /10 constant non radiating anterior chest wall pain made worse with inspiration and palpation. Pain is not related to exertion and no relief with nitro. He also endorses a cough productive of greenish sputum for about a week. The patient reports withdrawing from methadone as he did not receive his treatment this morning. Patient denies any prior withdrawal symptoms. He denies any recent fevers, chills, headache or dizziness. He denies any recent diarrhea or constipation. He denies any recent shortness of breath, cough, or LE swelling. He denies any recent dysuria, frequency, urgency or hematuria. ER course was notable for: (1)BP elevated 242/119 Given nitro and clonidine which dropped pressure initially but subsequently went up to 208/136 (2)EKG showed NSR with rate of [address] or t wave changes. (3)Troponin negative x1 (4)CXR showed no acute pathology. Recent Travel:denies PAST MEDICAL HISTORY:HTN, Asthma,CVA, polysubstance abuse. PAST SURGICAL HISTORY: Social History: Smokin cigs/day Alcohol: dependence with withdrawal Drugs: heroin Family History: father (cardiac) Allergies No Known Allergies Allergy (Verified 12/02/16 10:10) HOME MEDICATIONS: Home Medications Medication Instructions Recorded Aspirin Coated [Ecotrin -] 81 mg PO DAILY #30 tab 07/29/16 Carvedilol [Coreg -] 3.125 mg PO BID #60 tablet 07/29/16 Losartan Potassium [Cozaar -] 50 mg PO DAILY 12/02/16 Metformin HCl [Glucophage -] 500 mg PO BID 12/02/16 Chlordiazepoxide [Librium -] 50 mg PO Q6HPO 12/03/16 Diphenhydramine [Benadryl -] 50 mg PO HS 12/03/16 No.40/Iron/FA/Dha 1 tab PO DAILY 12/03/16 Thiamine HCl 50 mg PO HS 12/03/16 REVIEW OF SYSTEMS CONSTITUTIONAL: Absent: fever, chills, diaphoresis, generalized weakness, malaise, loss of appetite, weight change HEENT: Absent: rhinorrhea, nasal congestion, throat pain, throat swelling, difficulty swallowing, mouth swelling, ear pain, eye pain, visual changes CARDIOVASCULAR: chest pain Absent:, syncope, palpitations, irregular heart rate, lightheadedness, peripheral edema RESPIRATORY: Absent: cough, shortness of breath, dyspnea with exertion, orthopnea, wheezing, stridor, hemoptysis GASTROINTESTINAL:abdominal pain,nausea, vomiting Absent: , abdominal distension, , diarrhea, constipation, melena, hematochezia GENITOURINARY: Absent: dysuria, frequency, urgency, hesitancy, hematuria, flank pain, genital pain MUSCULOSKELETAL: Absent: myalgia, arthralgia, joint swelling, back pain, neck pain SKIN: Absent: rash, itching, pallor HEMATOLOGIC/IMMUNOLOGIC: Absent: easy bleeding, easy bruising, lymphadenopathy, frequent infections ENDOCRINE: Absent: unexplained weight gain, unexplained weight loss, heat intolerance, cold intolerance NEUROLOGIC: headache, Absent: focal weakness or paresthesias, dizziness, unsteady gait, seizure, mental status changes, bladder or bowel incontinence PSYCHIATRIC: Absent: anxiety, depression, suicidal or homicidal ideation, hallucinations. PHYSICAL EXAMINATION Vital Signs - 24 hr 12/03/16 12/03/16 12/03/16 16:03 16:26 17:34 Temperature 98.0 F 97.8 F Pulse Rate [ 89 98 H 92 H Left Apical] Respiratory 18 18 16 Rate Blood Pressure 209/130 188/132 184/102 [Left Arm] O2 Sat by Pulse 98 100 98 Oximetry (%) GENERAL: Awake but lethargic. NAD HEAD: NC/AT EYES: PERRLA,EOMI, sclera anicteric, conjunctiva clear. No lid lag. EARS, NOSE, THROAT: dry mucous membranes. NECK: Supple, No JVD LUNGS:Bilateral scattered wheezing with rhonchi, No accessory muscle use. HEART: RRR, normal S1S2 no m/g/r ABDOMEN: Soft, epigastric tenderness, not distended, normoactive bowel sounds, no guarding, no rebound, no masses. MUSCULOSKELETAL: Normal range of motion at all joints. No bony deformities or tenderness. No CVA tenderness. UPPER EXTREMITIES: 2+ pulses, warm, well-perfused. No cyanosis. No clubbing. No peripheral edema. LOWER EXTREMITIES: 2+ pulses, warm, well-perfused. No calf tenderness. No peripheral edema. NEUROLOGICAL: lethargic. PSYCHIATRIC: Cooperative. Good eye contact. Appropriate mood and affect. SKIN: Warm, dry, normal turgor, no rashes or lesions noted, normal capillary refill. ASSESSMENT/PLAN: 56 yo M brought from [facility]( currently in detox for opiates and EtOH abuse) with a significant past medical history of CVA, asthma, HTN, and heroin/ oxycodone abuse who presents to the emergency department with few hour history elevated blood pressure [place] [place] and completion on inpatient detox from ETOH and opitiates. Problem List - Problem (1) Hypertensive urgency Assessment/Plan: * Given Clonidine and nitro in ED. however BP elevated * Ordered stat dose Vasotec IV * WIll resume Carveidilol and Cozaar in AM * continue to monitor BP * Will drop BP slowly 25% in first 24hrs. (2) Chest pain Assessment/Plan: * Will trend trops. * most likely musculoskeletal * Nitro PRN (3) Alcohol withdrawal Assessment/Plan: * Librium taper protocol * CIWA Neuro assessment Q4H * Dr. Whittaker consult. * Multivitamin with Thiamine and Folate, * Repeat labs in AM * Mag and Phos if needed. (4) Asthma Assessment/Plan: * Duonebs PRN * SUpplemental 02 to maintain SpO2 >90% (5) CVA (cerebral vascular accident) Assessment/Plan: * continue ASA and statins Qualifiers: CVA mechanism: unspecified Qualified Code(s): I63.9 - Cerebral infarction, unspecified (6) Opioid dependence with withdrawal Assessment/Plan: * Methadone 10mg daily * monitor for signs of withdrawal and agitation. (7) DVT prophylaxis Assessment/Plan: * Heparin 5000units SQ Q8H Visit type - Emergency Visit Emergency Visit: Yes ED Registration Date: 12/03/16 Care time: The patient presented to the Emergency Department on the above date and was hospitalized for further evaluation of their emergent condition. - New Patient This patient is new to me today: Yes Date on this admission: 12/04/16 - Critical Care Critical Care patient: No
[2016-12-03] MEDS ORDERED: ALBUTEROL SO4 2.5/IPRATROPIUM 0.5 INH SOL 3 ML VIAL.NEB. NEB PRN (18:05)
--- NOTE | 2016-12-03 18:21 | PN ---
Teaching Attending Note Name of Resident: Real Rivas ATTENDING PHYSICIAN STATEMENT I saw and evaluated the patient. I reviewed the resident's note and discussed the case with the resident. I agree with the resident's findings and plan as documented. 56 year old male presents from [facility] with generalized chest pain , dry cough , generalized abdomina pain and uncontrolled blood pressure. PMH Asthma HTN borderline NIDDM Arthritis PAST SURGICAL HISTORY: possible brain surgery, ankle surgery Social History: lives in [facility] Smokin cigs/day Alcohol: 1 drink/week Drugs: heroin, cocaine , prescribed oxycodone for neuropathy/arthritis OBJECTIVE: Vital Signs Temperature 97.8 F 12/03/16 17:34 Pulse Rate 92 H 12/03/16 17:34 Respiratory Rate 16 12/03/16 17:34 Blood Pressure 184/102 12/03/16 17:34 O2 Sat by Pulse Oximetry (%) 98 12/03/16 17:34 EARS, NOSE, THROAT: dry mucous membranes. NECK: Supple, No JVD LUNGS:Bilateral scattered wheezing with rhonchi, No accessory muscle use. HEART: RRR, normal S1S2 no m/g/r ABDOMEN: Soft, epigastric tenderness, not distended, normoactive bowel sounds, no guarding, no rebound, no masses. MUSCULOSKELETAL:chest wall tenderness . UPPER EXTREMITIES: 2+ pulses, warm, well-perfused. No cyanosis. No clubbing. No peripheral edema. LOWER EXTREMITIES: 2+ pulses, warm, well-perfused. No calf tenderness. No peripheral edema. NEUROLOGICAL: lethargic. PSYCHIATRIC: Cooperative. CBC, BMP 12/03/16 08:25 12/03/16 08:25 ASSESSMENT AND PLAN: 1. HTN urgency - was given clonidine in ED but BP remains elevated. - Vasotec IV - monitor BP 2. Alcohol Withdrawal -MVI, thiamine, folate -librium protocol 3. Atypical chest pain , likely musculosceletal - troponins - telemetry
[2016-12-03] MEDS ORDERED: ENALAPRILAT DIHYDRATE 2.5 MG/2 ML VIAL IVPB ONE (18:51)
[2016-12-03] MEDS: HEPARIN NA (PORCINE) 5,000 UNITS/ML 1ML VIAL SQ SCH (18:52)
[2016-12-03] MEDS ORDERED: HEPARIN NA (PORCINE) 5,000 UNITS/ML 1ML VIAL ONE (18:53)
[2016-12-03] MEDS ORDERED: PT OWN MED DRAWER 7, Y5N ONE (22:32)
[2016-12-03] MEDS: THIAMINE HCL 100 MG TABLET (FP) PO SCH (22:34)
[2016-12-03] MEDS: CARVEDILOL 3.125 MG TABLET (FP) PO SCH (22:37)
[2016-12-03] MEDS: diphenhydrAMINE HCL 50 MG CAPSULE PO SCH (22:38)
[2016-12-04] MEDS: HEPARIN NA (PORCINE) 5,000 UNITS/ML 1ML VIAL SQ SCH ×3 (04:09→17:57)
[2016-12-04] MEDS ORDERED: chlordiazePOXIDE HCL 25 MG CAPSULE PO SCH (05:00)
[2016-12-04] MEDS ORDERED: METHADONE HCL 10 MG TABLET PO SCH (06:00)
[2016-12-04] MEDS: chlordiazePOXIDE HCL 25 MG CAPSULE PO SCH ×4 (06:11→22:52)
[2016-12-04 07:37] LABS: BASOPHIL 0.2 % (0-2.0); EOSINOPHIL 0.1 % (0-4.5); MCH 29.5 pg (25.7-33.7); MCHC 32.7 g/dl (32.0-35.9); MEAN CELL VOLUME 90.3 fl (80-96); MEAN PLT VOLUME 9.6 fl (7.5-11.1); NEUTROPHILS 71.5 % (42.8-82.8); PLATELET COUNT 288 K/MM3 (134-434); RDW 14.6 % (11.9-15.9); WHITE BLOOD COUNT 11.2 K/mm3 (4.0-10.0)
[2016-12-04 08:28] LABS: ALBUMIN 4.6 g/dl (3.4-5.0); ALK PHOS 91 U/L (45-117); ANION GAP 15 (8-16); BILIRUBIN,TOTAL 0.7 mg/dL (0.2-1.0); CALCIUM 9.9 mg/dL (8.5-10.1); CO2 26 mmol/L (21-32); CREATININE 1.6 mg/dL (0.7-1.3); GLUCOSE,RANDOM 108 mg/dL (74-106); MAGNESIUM 2.4 mg/dL (1.8-2.4); PHOSPHOROUS 4.3 mg/dL (2.5-4.9); SGOT/AST 18 U/L (15-37); SGPT/ALT 24 U/L (12-78); TOT PROT 8.4 g/dl (6.4-8.2)
[2016-12-04] MEDS: ASPIRIN COATED 81 MG TABLET.EC PO SCH (09:44)
[2016-12-04] MEDS: LOSARTAN POTASSIUM 50 MG TABLET (FP) PO SCH (09:44)
[2016-12-04] MEDS: CARVEDILOL 3.125 MG TABLET (FP) PO SCH ×2 (09:44→22:52)
[2016-12-04] MEDS ORDERED: PRENATAL VITAMINS W/ FOLIC ACID TABLET (FP) PO SCH (10:00)
[2016-12-04] MEDS ORDERED: METHADONE HCL 5 MG TABLET (FOR DETOX USE ONLY) PO SCH (10:00)
[2016-12-04 10:12] LABS: CPK 97 IU/L (39-308); TROPONIN I < 0.02 ng/ml (0.00-0.05)
--- NOTE | 2016-12-04 13:24 | PN ---
S Progress Note (SOAP) Subjective: Pt. was sent from [facility] to medicine because of hypertensive crisis. Objective: 12/04/16 13:23 Vital Signs - 24 hr 12/03/16 12/03/16 12/03/16 13:32 14:30 16:03 Temperature 97.2 F L 97.6 F 98.0 F Pulse Rate 93 H Pulse Rate [ 82 93 H 89 Left Apical] Respiratory 16 18 18 Rate Blood Pressure 208/136 Blood Pressure 204/114 208/136 209/130 [Left Arm] O2 Sat by Pulse 96 96 98 Oximetry (%) 12/03/16 12/03/16 12/03/16 16:26 17:34 19:05 Temperature 97.8 F 98.1 F Pulse Rate Pulse Rate [ 98 H 92 H 72 Left Apical] Respiratory 18 16 16 Rate Blood Pressure Blood Pressure 188/132 184/102 204/128 [Left Arm] O2 Sat by Pulse 100 98 98 Oximetry (%) 12/03/16 12/03/16 12/03/16 20:00 20:03 20:30 Temperature 97.6 F Pulse Rate 104 H Pulse Rate [ 105 H Left Apical] Respiratory 18 18 Rate Blood Pressure 123/81 126/80 Blood Pressure 130/87 [Left Arm] O2 Sat by Pulse 94 L 97 Oximetry (%) 12/03/16 12/03/16 12/03/16 20:45 21:00 21:15 Temperature Pulse Rate Pulse Rate [ Left Apical] Respiratory Rate Blood Pressure 176/97 192/112 178/114 Blood Pressure [Left Arm] O2 Sat by Pulse Oximetry (%) 12/04/16 12/04/16 12/04/16 00:00 02:00 06:00 Temperature Pulse Rate 94 H Pulse Rate [ Left Apical] Respiratory 18 Rate Blood Pressure 166/100 139/84 165/94 Blood Pressure [Left Arm] O2 Sat by Pulse Oximetry (%) 12/04/16 12/04/16 09:00 10:00 Temperature 98.9 F Pulse Rate 89 Pulse Rate [ Left Apical] Respiratory 22 22 Rate Blood Pressure 198/100 Blood Pressure [Left Arm] O2 Sat by Pulse 94 L Oximetry (%) Laboratory Tests 12/03/16 12/03/16 12/03/16 08:25 08:25 08:25 WBC 9.7 D RBC 5.51 D Hgb 16.3 D Hct 49.5 H D MCV 89.9 MCH 29.6 MCHC 32.9 RDW 14.2 Plt Count 257 MPV 8.9 Neutrophils % 84.1 H Lymphocytes % 12.2 Monocytes % 3.3 L Eosinophils % 0.1 Basophils % 0.3 PT with INR 10.30 INR 0.94 PTT (Actin FS) 28.4 Sodium 136 Potassium 3.7 Chloride 98 Carbon Dioxide 30 Anion Gap 8 BUN 11 D Creatinine 0.7 D Creat Clearance w eGFR > 60 Random Glucose 150 H D Calcium 9.8 Phosphorus Magnesium Total Bilirubin 0.4 D AST 15 ALT 25 Alkaline Phosphatase 86 D Creatine Kinase Creatine Kinase Index CK-MB (CK-2) Troponin I Total Protein 8.7 H Albumin 4.6 Opiates Screen Methadone Screen Barbiturate Screen Phencyclidine Screen Ur Amphetamines Screen MDMA (Ecstasy) Screen Benzodiazepines Screen Cocaine Screen U Marijuana (THC) Screen 12/03/16 12/03/16 12/04/16 08:25 13:40 05:30 WBC 11.2 H RBC 5.61 H Hgb 16.5 Hct 50.6 H MCV 90.3 MCH 29.5 MCHC 32.7 RDW 14.6 Plt Count 288 MPV 9.6 Neutrophils % 71.5 Lymphocytes % 21.1 D Monocytes % 7.1 D Eosinophils % 0.1 Basophils % 0.2 PT with INR INR PTT (Actin FS) Sodium Potassium Chloride Carbon Dioxide Anion Gap BUN Creatinine Creat Clearance w eGFR Random Glucose Calcium Phosphorus Magnesium Total Bilirubin AST ALT Alkaline Phosphatase Creatine Kinase 177 Creatine Kinase Index 1.1 CK-MB (CK-2) 1.989 Troponin I < 0.02 Total Protein Albumin Opiates Screen Negative Methadone Screen Negative Barbiturate Screen Negative Phencyclidine Screen Negative Ur Amphetamines Screen Negative MDMA (Ecstasy) Screen Negative Benzodiazepines Screen Positive Cocaine Screen Positive U Marijuana (THC) Screen Positive 12/04/16 12/04/16 05:30 08:55 WBC RBC Hgb Hct MCV MCH MCHC RDW Plt Count MPV Neutrophils % Lymphocytes % Monocytes % Eosinophils % Basophils % PT with INR INR PTT (Actin FS) Sodium 136 Potassium 4.2 Chloride 95 L Carbon Dioxide 26 Anion Gap 15 BUN 26 H D Creatinine 1.6 H D Creat Clearance w eGFR 44.94 Random Glucose 108 H D Calcium 9.9 Phosphorus 4.3 Magnesium 2.4 Total Bilirubin 0.7 D AST 18 ALT 24 Alkaline Phosphatase 91 Creatine Kinase 97 Cancelled Creatine Kinase Index CK-MB (CK-2) Troponin I < 0.02 Cancelled Total Protein 8.4 H Albumin 4.6 Opiates Screen Methadone Screen Barbiturate Screen Phencyclidine Screen Ur Amphetamines Screen MDMA (Ecstasy) Screen Benzodiazepines Screen Cocaine Screen U Marijuana (THC) Screen labs noted Assessment: 12/04/16 13:23 HTN crisis Withdrawal sx. Plan: Resume detox
[2016-12-04] MEDS ORDERED: SODIUM CHLORIDE 1,000 ML IV STA ×2 (15:19→15:21)
[2016-12-04] MEDS ORDERED: PANTOPRAZOLE 40 MG TABLET (FP) PO ONE (15:23)
--- NOTE | 2016-12-04 15:23 | MSN ---
Progress Note (SOAP) - Subjective Chief Complaint: hypertensive emergency History of Present Illness: Patient was seen at bedside. He was very lethargic but oriented X3. Patient was woken up to be examined. When he woke up, he stated that he had nonradiating, centrally located, throbbing 7/10 chest pain that worsened with inspiration. Patient also complained of epigastric pain that worsened with eating. He stated that he was suffering from a headache and complained of dizziness. Patient denied vision or auditory changes, agitation, nervousness, SOB, N/V/C/D , loss of sensation or weakness. There were no alarms on telemetry overnight. - Current Medications Current Medications: Active Medications Albuterol/Ipratropium (Duoneb -) 1 amp NEB Q4H PRN PRN Reason: SHORTNESS OF BREATH Aspirin (Ecotrin -) 81 mg PO DAILY [facility] Last Admin: 12/04/16 09:44 Dose: 81 mg Carvedilol (Coreg -) 3.125 mg PO BID [facility] Last Admin: 12/04/16 09:44 Dose: 3.125 mg Chlordiazepoxide HCl (Librium -) 25 mg PO Q4H PRN PRN Reason: WITHDRAWAL(CONT SUBST) Stop: 12/06/16 19:07 Chlordiazepoxide HCl (Librium -) 50 mg PO Q6H MICHEL Stop: 12/04/16 17:01 Last Admin: 12/04/16 12:26 Dose: Not Given Chlordiazepoxide HCl (Librium -) 25 mg PO B1E-REF MICHEL Stop: 12/05/16 17:01 Chlordiazepoxide HCl (Librium -) 15 mg PO Q6H MICHEL Stop: 12/06/16 17:01 Diphenhydramine HCl (Benadryl -) 50 mg PO HS [facility] Last Admin: 12/03/16 22:38 Dose: Not Given Heparin Sodium (Porcine) (Heparin -) 5,000 unit SQ Q8H-IV [facility] Last Admin: 12/04/16 09:50 Dose: Not Given Losartan Potassium (Cozaar -) 50 mg PO DAILY [facility] Last Admin: 12/04/16 09:44 Dose: 50 mg Methadone HCl (Dolophine -) 10 mg PO DAILY@0600 [facility] Last Admin: 12/04/16 06:11 Dose: 10 mg Ondansetron HCl (Zofran Injection) 4 mg IVPB Q6H PRN PRN Reason: NAUSEA Thiamine HCl (Vitamin B1 -) 50 mg PO HS [facility] Last Admin: 12/03/16 22:34 Dose: 50 mg - Objective Vital Signs: Vital Signs Temperature 98.9 F 12/04/16 10:00 Pulse Rate 89 12/04/16 10:00 Respiratory Rate 22 12/04/16 10:00 Blood Pressure 198/100 12/04/16 10:00 O2 Sat by Pulse Oximetry (%) 94 L 12/04/16 09:00 Constitutional: Yes: Well Nourished, No Distress, Calm Cardiovascular: Yes: WNL, Regular Rate and Rhythm Respiratory: Yes: Other (some crackles were heard at the left base. Everywhere else was clear to auscultation) Gastrointestinal: Yes: Normal Bowel Sounds, Soft, Abdomen, Obese, Tenderness, Epigastrium Peripheral Pulses WNL: Yes Edema: No Neurological: Yes: Loss of Sensation (stated that he could not feel touch as well on his left side than his right) ...Motor Strength: Yes: LUE (3/5), LLE (3/5), RUE (5/5), RLE (5/5) Labs Lab Results: CBC, BMP 12/04/16 05:30 12/04/16 05:30 Imaging - Results Chest X-ray: Report Reviewed (no acute pathology) EKG: Report Reviewed (normal EKG) Assessment/Plan Patient is a 56 year old man with past medical history of CVA, asthma, HTN, heroin/oxycodone abuse, alcohol abuse who was brought into the ED from [facility] (detoxing from opiates and alcohol) with elevated blood pressure. He was admitted to med/surg for hypertensive emergency. #Hypertensive emergency -secondary to noncompliance in home medications vs cocaine use -currently on home medications (carvedilol 3.125 mg PO BID, losartan 50mg PO QD) , BP decreased from 242/119 to 165/94 -continue to monitor blood pressure -avoid beta blockers due to cocaine use #Chest pain -most likely musculoskeletal -trended troponin, negative X2 -have patient f/u cardio outpatient #Epigastric pain -Zofran 4 mg IVPB Q6H PRN -PPI therapy pantoprazole 40mg PO #Acute Kidney Injury -creatinine 1.6, BUN 26 -most likely from HTN -started 2 IVF bolus NS 1000ml -monitor chemistries tomorrow #Alcohol withdrawal -CIWA 5 -Librium protocol -Dr. Whittaker was consulted, stated to continue detox at [facility] -Multivitamin with thiamine and folate, B12 #Asthma -Duonebs PRN -supplemental O2 PRN #CVA -continue aspirin and statins #FEN -fluids: IVF NS 1000ml -Electrolytes: WNL -Nutrition: sodium controlled diet #Prophylaxis -DVT: SCDs, heparin 5000U SQ TID -GI: none needed -Deconditioning: early ambulation, PT ordered #Dispo -monitor patient's BUN, Cr to see if NIDHI resolved -can discharge back to [facility] to finish detox once NIDHI is resolved
--- NOTE | 2016-12-04 16:48 | PN ---
Teaching Attending Note Name of Resident: Buddy Verduzco ATTENDING PHYSICIAN STATEMENT I saw and evaluated the patient. I reviewed the resident's note and discussed the case with the resident. I agree with the resident's findings and plan as documented. SUBJECTIVE:c/o CP since yesteday, constant mid-sternal, non-radiating. states he was at [facility] since Sunday after using cocaine and heroin (smoking). states he relapsed due to multiple social stressors. claims he has been compliant with his medication prior to relapsing. denies fever, chills, blurred vision, N/V/C/D OBJECTIVE: Last Vital Signs Temp Pulse Resp BP Pulse Ox 98 F 88 21 132/80 94 L 12/04/16 14:15 12/04/16 14:15 12/04/16 14:15 12/04/16 14:15 12/04/16 09:00 General NAD CV S1 S2 RRR no murmur/rub/gallop +chest wall tenderness ASSESSMENT AND PLAN: 56yo M with PMH continuous polysubstance abuse (cocaine/heroin/EOTH), DM, HTN, CVVA and asthma sent from [facility] with BP 244/119 1. HTN emergency- end organ damage with CP and NIDHI. likley due to both cocaine use and non-compliance. unclear if he was receiving anti-hypertensives at [facility] as no documentation of medications. received NTG and clonidine in the ER with improvement. now on home medications. with improvement on minimal doses of medications. Cardiac enzymes neg x2. pain appears to be more muscular in nature. will give some IVF to hydrate the kidneys. avoid nephrotoxic agents. goal SBP <130 on discharge. avoid betablocker use. should be evaluated by cardio as outpatient for cardiac workup. pt needs to demonstrate medication compliance and drug abstinence. medical management for now. hold ARB, can likely give if kidney function improves tomorrow 2. ETOH and heroin withdrawal- CIWA 3. states he was on methadone however tox screen is negative for methadone. will complete methadone and librium taper. should be on day 4 at this time. [facility] counselor on need for drug abstinence. desires inpatient rehab. cont thiamine/folate/mvi 3. DM- was on metformin at home. Unclear if he was taking. check A1c. start iss , bgm 4. DVT ppx- hep sq 5. if kidney function improves tomorrow can return to [facility] for completion of detox and inpatient rehab
[2016-12-04] MEDS ORDERED: METHADONE HCL 10 MG TABLET PO ONE (18:07)
--- NOTE | 2016-12-04 18:45 | PN ---
Physical Exam: SUBJECTIVE: Patient seen and examined at bedside. he complains of localized med- sternal chest pain, 7/10 , constant non radiating, increased with inspiration and movement. but denies any palpitation, SOB, cough, or dyspnea. He also reports med-epigastric pain but denies any fever, chills, N/V/D/C. denies dizziness or lightheadedness. OBJECTIVE: Vital Signs Period Temp Pulse Resp BP Sys/Corea Pulse Ox Last 24 Hr 97.6 F-98.9 F 72-105 16-22 123-204/80-128 94-98 GENERAL: The patient is awake, alert, and fully oriented, in no acute distress. HEAD: Normal with no signs of trauma. EYES: PERRL, extraocular movements intact, sclera anicteric, conjunctiva clear. No ptosis. ENT: dry mucous membranes. NECK:NO JVD, LUNGS: Breath sounds equal, clear to auscultation bilaterally, no wheezes, no crackles, no accessory muscle use. HEART: Regular rate and rhythm, S1, S2 without murmur, rub or gallop. ABDOMEN: Med-api gastric pain,Soft, , nondistended, normoactive bowel sounds, no guarding, no rebound tenderness., EXTREMITIES: warm, well-perfused, no edema. strength 3/5 on left arm , 5/5 on right arm. decreased sensation on left arm and leg, strength 3/5 on left leg and 5/5 right leg. NEUROLOGICAL: Cranial nerves II through XII grossly intact. Normal speech, gait not observed. PSYCH: Normal mood, normal affect. SKIN: Warm, dry, no rashes, or lesions noted Laboratory Results - last 24 hr 12/04/16 12/04/16 12/04/16 05:30 05:30 08:55 WBC 11.2 H RBC 5.61 H Hgb 16.5 Hct 50.6 H MCV 90.3 MCH 29.5 MCHC 32.7 RDW 14.6 Plt Count 288 MPV 9.6 Neutrophils % 71.5 Lymphocytes % 21.1 D Monocytes % 7.1 D Eosinophils % 0.1 Basophils % 0.2 Sodium 136 Potassium 4.2 Chloride 95 L Carbon Dioxide 26 Anion Gap 15 BUN 26 H D Creatinine 1.6 H D Creat Clearance w eGFR 44.94 Random Glucose 108 H D Calcium 9.9 Phosphorus 4.3 Magnesium 2.4 Total Bilirubin 0.7 D AST 18 ALT 24 Alkaline Phosphatase 91 Creatine Kinase 97 Cancelled Troponin I < 0.02 Cancelled Total Protein 8.4 H Albumin 4.6 Active Medications Generic Name Dose Route Start Last Admin Trade Name Freq PRN Reason Stop Dose Admin Albuterol/Ipratropium 1 amp 12/03/16 18:05 Duoneb - NEB Q4H PRN SHORTNESS OF BREATH Aspirin 81 mg 12/04/16 10:00 12/04/16 09:44 Ecotrin - PO 81 mg DAILY MICHEL Administration Carvedilol 3.125 mg 12/03/16 22:00 12/04/16 09:44 Coreg - PO 3.125 mg BID MICHEL Administration Chlordiazepoxide HCl 25 mg 12/03/16 19:08 Librium - PO 12/06/16 19:07 Q4H PRN WITHDRAWAL(CONT SUBST) Chlordiazepoxide HCl 25 mg 12/04/16 23:00 Librium - PO 12/05/16 17:01 [id number] MICHEL Chlordiazepoxide HCl 15 mg 12/05/16 23:00 Librium - PO 12/06/16 17:01 Q6H MICHEL Diphenhydramine HCl 50 mg 12/03/16 22:00 12/03/16 22:38 Benadryl - PO Not Given HS MICHEL Heparin Sodium (Porcine) 5,000 unit 12/03/16 18:00 12/04/16 17:57 Heparin - SQ Not Given Q8H-IV MICHEL Insulin Aspart 1 vial 12/04/16 22:00 Novolog Vial Sliding Scale - SQ ACHS [facility] Protocol Losartan Potassium 50 mg 12/04/16 10:00 12/04/16 09:44 Cozaar - PO 50 mg DAILY MICHEL Administration Methadone HCl 10 mg 12/05/16 12:00 Dolophine - PO 12/05/16 12:01 ONCE ONE Ondansetron HCl 4 mg 12/03/16 15:22 Zofran Injection IVPB Q6H PRN NAUSEA Thiamine HCl 50 mg 12/03/16 22:00 12/03/16 22:34 Vitamin B1 - PO 50 mg HS MICHEL Administration CBC, BMP 12/04/16 05:30 12/04/16 05:30 ASSESSMENT/PLAN: 56 Year old man with PMHx of CVA, asthma, HTN, polysubstance abuse (Heroin/ oxycodone,cocain, ETOH who presented from [facility] facility with hypertensive emergency ( BP 244/119) # Hypertensive emergency with end organ damage (NIDHI, CP) * likely due to cocain abuse and no compliance * Given Clonidine and nitro in ED. with improvement, today 127/81 * Ordered stat dose Vasotec IV * continue Carveidilol 3.125 mg PO BID,and Cozaar 50 mg po daily * continue to monitor BP * Will drop BP slowly 25% in first 24hrs. * 2 L NS boluses to improve kidney function * Avoid BB due to cocain abuse , * BP gpal below 130 on discharged #Chest pain * reproducible, increased with inspiration, movement and local pressure * Trop x2 negative * most likely musculoskeletal * Nitro PRN * # Alcohol withdrawal * Librium taper protocol * CIWA protcol 3 , Neuro assessment Q4H * Dr. Whittaker consult. * Multivitamin with Thiamine and Folate, * Repeat labs in AM * Mag and Phos if needed. # DM, * check HgA1c * possible non compliant with diet and meds * on metformin at home , will hold * BGM, ISS * Monitor Blood sugar #Asthma * Duonebs PRN * SUpplemental 02 to maintain SpO2 >90% #Epigastric pain,likely GERD * Bedhead elevation 45 degree * Zofran 4 mg IVPB Q6H PRN * PPI therapy pantoprazole 40mg PO #Acute Kidney Injury * creatinine 1.6, BUN 26 * most likely from HTN, vs dehydration * started 2L IVF bolus NS * monitor BMP tomorrow # CVA (cerebral vascular accident), unspecified * continue ASA and statins # Opioid dependence with withdrawal * Methadone 10mg daily, started on sunday, today day 4, tomorrow last dose. * monitor for signs of withdrawal and agitation. * Patient education * interested in detox rehab #FEN * F: start 2 L NS * E monitor * N: Low sodium ,diabetic diet. # DVT prophylaxis * SCds both legs , refuse Heparin * GI, no need for now # Dispo * will Dc to [facility] tomorrow if kidney functions improved Visit type - Emergency Visit Emergency Visit: Yes ED Registration Date: 12/03/16 Care time: The patient presented to the Emergency Department on the above date and was hospitalized for further evaluation of their emergent condition. - New Patient This patient is new to me today: Yes Date on this admission: 12/05/16 - Critical Care Critical Care patient: No
[2016-12-04] MEDS ORDERED: diphenhydrAMINE HCL 25 MG CAPSULE (FP) PO ONE (21:40)
[2016-12-04] MEDS: INSULIN SLIDING SCALE (NOVOLOG) 1 VIAL SQ SCH (22:51)
[2016-12-04] MEDS: diphenhydrAMINE HCL 50 MG CAPSULE PO SCH (22:51)
[2016-12-04] MEDS: THIAMINE HCL 100 MG TABLET (FP) PO SCH (22:54)
[2016-12-05] MEDS: HEPARIN NA (PORCINE) 5,000 UNITS/ML 1ML VIAL SQ SCH ×4 (02:00→21:27)
[2016-12-05] MEDS ORDERED: chlordiazePOXIDE 5 MG CAPSULE PO SCH (05:00)
[2016-12-05] MEDS: chlordiazePOXIDE HCL 25 MG CAPSULE PO SCH ×4 (05:59→18:08)
[2016-12-05] MEDS: INSULIN SLIDING SCALE (NOVOLOG) 1 VIAL SQ SCH ×4 (06:21→21:28)
[2016-12-05 08:44] LABS: ANION GAP 6 (8-16); CO2 30 mmol/L (21-32); CREATININE 1.3 mg/dL (0.7-1.3); GLUCOSE,RANDOM 122 mg/dL (74-106)
[2016-12-05 08:45] LABS: CALCIUM 8.8 mg/dL (8.5-10.1)
[2016-12-05] MEDS ORDERED: METHADONE HCL 5 MG TABLET (FOR DETOX USE ONLY) PO SCH (10:00)
[2016-12-05] MEDS: ASPIRIN COATED 81 MG TABLET.EC PO SCH (10:22)
[2016-12-05] MEDS: CARVEDILOL 3.125 MG TABLET (FP) PO SCH ×2 (10:22→21:29)
[2016-12-05] MEDS: LOSARTAN POTASSIUM 50 MG TABLET (FP) PO SCH (10:24)
[2016-12-05] MEDS ORDERED: IBUPROFEN 600 MG TABLET (FP) PO ONE (10:30)
[2016-12-05] MEDS ORDERED: METHADONE HCL 10 MG TABLET PO ONE (12:00)
--- NOTE | 2016-12-05 17:31 | PN ---
Teaching Attending Note Name of Resident: uBddy Verduzco ATTENDING PHYSICIAN STATEMENT I saw and evaluated the patient. I reviewed the resident's note and discussed the case with the resident. I agree with the resident's findings and plan as documented. SUBJECTIVE: Patient complains of left calf pain. OBJECTIVE: Vital Signs Period Temp Pulse Resp BP Sys/Corea Pulse Ox Last 24 Hr 97.5 F-98.4 F 61-84 18-20 113-142/66-78 96-100 HEART: S1S2, RRR LUNGS: Clear ABDOMEN: Soft, non-tender, non-distended, normal BS EXTREMITIES: No edema. (+) left calf tenderness Current Medications Generic Name Dose Route Start Last Admin Trade Name Freq PRN Reason Stop Dose Admin Albuterol/Ipratropium 1 amp 12/03/16 18:05 Duoneb - NEB Q4H PRN SHORTNESS OF BREATH Aspirin 81 mg 12/04/16 10:00 12/05/16 10:22 Ecotrin - PO 81 mg DAILY MICHEL Administration Carvedilol 3.125 mg 12/03/16 22:00 12/05/16 10:22 Coreg - PO 3.125 mg BID MICHEL Administration Chlordiazepoxide HCl 25 mg 12/03/16 19:08 Librium - PO 12/06/16 19:07 Q4H PRN WITHDRAWAL(CONT SUBST) Chlordiazepoxide HCl 15 mg 12/05/16 23:00 Librium - PO 12/06/16 17:01 Q6H MICHEL Diphenhydramine HCl 50 mg 12/05/16 22:00 Benadryl - PO HS MICHEL Heparin Sodium (Porcine) 5,000 unit 12/03/16 18:00 12/05/16 10:22 Heparin - SQ Not Given Q8H-IV MICHEL Insulin Aspart 1 vial 12/04/16 22:00 12/05/16 16:57 Novolog Vial Sliding Scale - SQ Not Given ACHS MICHEL Protocol Losartan Potassium 50 mg 12/04/16 10:00 12/05/16 10:24 Cozaar - PO 50 mg DAILY MICHEL Administration Ondansetron HCl 4 mg 12/03/16 15:22 Zofran Injection IVPB Q6H PRN NAUSEA Thiamine HCl 50 mg 12/03/16 22:00 12/04/16 22:54 Vitamin B1 - PO 50 mg HS MICHEL Administration ASSESSMENT AND PLAN: This is a 56 year old man with a history of polysubstance abuse, type 2 DM, HTN , CVA, asthma who was sent to the ER from [facility] for elevated BP. 1. Hypertensive emergency - Resolved 2. Uncontrolled HTN - Continue Cozaar, Coreg 3. Acute kidney injury - Improving 4. Uncomplicated alcohol withdrawal - Continue Librium detox 5. Continuous alcohol dependence 6. Cocaine/heroin withdrawal - Completed Methadone detox 7. Type 2 DM - Continue Novolog sliding scale 8. History of CVA - Continue aspirin 9. Asthma - Stable - Continue DuoNeb as needed
--- NOTE | 2016-12-05 20:35 | PN ---
Physical Exam: SUBJECTIVE: Patient seen and examined at bedside. he complains of localized med-sternal chest pain, 7/10 , constant non radiating, increased with inspiration and movement. but denies any palpitation, SOB, cough, or dyspnea. He also reports med-epigastric pain but denies any fever, chills, N/V/D/C. denies dizziness or lightheadedness.He also complain of left leg pain. OBJECTIVE: Vital Signs Period Temp Pulse Resp BP Sys/Corea Pulse Ox Last 24 Hr 97.5 F-98.2 F 61-84 18-18 117-142/66-78 100-100 GENERAL: The patient is awake, alert, and fully oriented, in no acute distress. HEAD: Normal with no signs of trauma. EYES: PERRL, extraocular movements intact, sclera anicteric, conjunctiva clear. No ptosis. ENT: dry mucous membranes. NECK:NO JVD, LUNGS: Breath sounds equal, clear to auscultation bilaterally, no wheezes, no crackles, no accessory muscle use. HEART: Regular rate and rhythm, S1, S2 without murmur, rub or gallop. ABDOMEN: Med-api gastric pain,Soft, , nondistended, normoactive bowel sounds, no guarding, no rebound tenderness., EXTREMITIES: warm, well-perfused, no edema. strength 3/5 on left arm , 5/5 on right arm. decreased sensation on left arm and leg, strength 3/5 on left leg and 5/5 right leg. NEUROLOGICAL: Cranial nerves II through XII grossly intact. Normal speech, gait not observed. PSYCH: Normal mood, normal affect. SKIN: Warm, dry, no rashes, or lesions noted Laboratory Results - last 24 hr 12/04/16 12/05/16 12/05/16 22:50 07:35 07:35 Sodium 134 L Potassium 3.8 Chloride 98 Carbon Dioxide 30 Anion Gap 6 L BUN 33 H D Creatinine 1.3 POC Glucometer 112 Random Glucose 122 H Hemoglobin A1c % 5.3 D Calcium 8.8 Active Medications Generic Name Dose Route Start Last Admin Trade Name Freq PRN Reason Stop Dose Admin Albuterol/Ipratropium 1 amp 12/03/16 18:05 Duoneb - NEB Q4H PRN SHORTNESS OF BREATH Aspirin 81 mg 12/04/16 10:00 12/05/16 10:22 Ecotrin - PO 81 mg DAILY MICHEL Administration Carvedilol 3.125 mg 12/03/16 22:00 12/05/16 10:22 Coreg - PO 3.125 mg BID MICHEL Administration Chlordiazepoxide HCl 25 mg 12/03/16 19:08 Librium - PO 12/06/16 19:07 Q4H PRN WITHDRAWAL(CONT SUBST) Chlordiazepoxide HCl 15 mg 12/05/16 23:00 Librium - PO 12/06/16 17:01 Q6H MICHEL Diphenhydramine HCl 50 mg 12/05/16 22:00 Benadryl - PO HS MICHEL Heparin Sodium (Porcine) 5,000 unit 12/03/16 18:00 12/05/16 17:46 Heparin - SQ Not Given Q8H-IV MICHEL Insulin Aspart 1 vial 12/04/16 22:00 12/05/16 16:57 Novolog Vial Sliding Scale - SQ Not Given ACHS [facility] Protocol Losartan Potassium 50 mg 12/04/16 10:00 12/05/16 10:24 Cozaar - PO 50 mg DAILY MICHEL Administration Ondansetron HCl 4 mg 12/03/16 15:22 Zofran Injection IVPB Q6H PRN NAUSEA Thiamine HCl 50 mg 12/03/16 22:00 12/04/16 22:54 Vitamin B1 - PO 50 mg HS MICHEL Administration CBC, BMP 12/04/16 05:30 12/05/16 07:35 ASSESSMENT/PLAN: 56 Year old man with PMHx of CVA, asthma, HTN, polysubstance abuse (Heroin/ oxycodone,cocain, ETOH who presented from [facility] facility with hypertensive emergency ( BP 244/119) # Hypertensive emergency with end organ damage (NIDHI, CP) * likely due to cocain abuse and no compliance * Given Clonidine and nitro in ED. with improvement, today 127/81 * Ordered stat dose Vasotec IV * continue Carveidilol 3.125 mg PO BID,and Cozaar 50 mg po daily * continue to monitor BP * Will drop BP slowly 25% in first 24hrs. * 2 L NS boluses to improve kidney function * Avoid BB due to cocain abuse , * BP gpal below 130 on discharged #Chest pain * reproducible, increased with inspiration, movement and local pressure * Trop x2 negative * most likely musculoskeletal * Nitro PRN * # Left leg pain , * sonogram to R/O DVT , patient refused , also refuse SCDS, and Heparin # Alcohol withdrawal * Librium taper protocol * CIWA protcol 3 , Neuro assessment Q4H * Dr. Whittaker consult. * Multivitamin with Thiamine and Folate, * Repeat labs in AM * Mag and Phos if needed. # DM, * check HgA1c * possible non compliant with diet and meds * on metformin at home , will hold * BGM, ISS * Monitor Blood sugar #Asthma * Duonebs PRN * SUpplemental 02 to maintain SpO2 >90% #Epigastric pain,likely GERD * Bedhead elevation 45 degree * Zofran 4 mg IVPB Q6H PRN * PPI therapy pantoprazole 40mg PO #Acute Kidney Injury * creatinine 1.6, BUN 26 * most likely from HTN, vs dehydration * started 2L IVF bolus NS * monitor BMP tomorrow # CVA (cerebral vascular accident), unspecified * continue ASA and statins # Opioid dependence with withdrawal * Methadone 10mg daily, started on sunday, today day 4, tomorrow last dose. * monitor for signs of withdrawal and agitation. * Patient education * interested in detox rehab #FEN * F: start 2 L NS * E monitor * N: Low sodium ,diabetic diet. # DVT prophylaxis * SCds both legs , refuse Heparin * GI, no need for now # Dispo * will Dc to [facility] tomorrow if kidney functions improved Visit type - Emergency Visit Emergency Visit: Yes ED Registration Date: 12/03/16 Care time: The patient presented to the Emergency Department on the above date and was hospitalized for further evaluation of their emergent condition. - New Patient This patient is new to me today: No - Critical Care Critical Care patient: No - Discharge Referral Referred to [facility] Med [facility] No
[2016-12-05] MEDS: diphenhydrAMINE HCL 25 MG CAPSULE (FP) PO SCH (21:28)
[2016-12-05] MEDS: THIAMINE HCL 100 MG TABLET (FP) PO SCH (21:28)
[2016-12-05] MEDS ORDERED: diazePAM CARPU-JECT 10 MG/2 ML DISP.SYRIN IVPUSH ONE (21:36)
--- NOTE | 2016-12-05 22:16 | HOSP ---
Subjective - Review of Symptoms Events since last encounter: Was called by nurse to see pt because of agitation and slightly elevated BP. When I went to see the patient, he was verbally aggressive, yelling loudly at nurses and doctors. Pt was demanding additional doses of methadone over and above what he'd received per protocol. Discussion with the patient and promise to help him calmed him significantly. Valium was ordered. When I returned to the patient's room prior to administration of medication to inform him of the new plan he was sleeping quietly. Plan was discussed with nurse. Physical Examination Vital Signs: Vital Signs Temperature 98.4 F 12/05/16 21:25 Pulse Rate 82 12/05/16 21:25 Respiratory Rate 18 12/05/16 21:47 Blood Pressure 162/95 12/05/16 21:25 O2 Sat by Pulse Oximetry (%) 100 12/05/16 21:47 Labs: CBC, BMP 12/04/16 05:30 12/05/16 07:35 Visit type - Emergency Visit Emergency Visit: No - New Patient This patient is new to me today: No - Critical Care Critical Care patient: No
[2016-12-05] MEDS: chlordiazePOXIDE 5 MG CAPSULE PO SCH (23:00)
[2016-12-05] MEDS ORDERED: METHADONE HCL 5 MG TABLET PO ONE ×2 (23:06→23:15)
[2016-12-05] MEDS ORDERED: cloNIDine HCL 0.1 MG TABLET PO ONE ×2 (23:07→23:15)
[2016-12-06] MEDS ORDERED: LABETALOL HCL 5 MG/1 ML (100MG/20 ML VIAL) IVPUSH ONE ×2 (00:01→03:14)
[2016-12-06] MEDS: HEPARIN NA (PORCINE) 5,000 UNITS/ML 1ML VIAL SQ SCH ×3 (02:24→21:28)
[2016-12-06] MEDS ORDERED: ENALAPRILAT DIHYDRATE 1.25 MG/1 ML VIAL IVPB ONE ×3 (03:19→06:00)
[2016-12-06] MEDS ORDERED: chlordiazePOXIDE HCL 25 MG CAPSULE PO STA (03:21)
[2016-12-06] MEDS ORDERED: diazePAM CARPU-JECT 10 MG/2 ML DISP.SYRIN IVPUSH STA (03:26)
[2016-12-06] MEDS: chlordiazePOXIDE 5 MG CAPSULE PO SCH ×3 (06:16→17:05)
[2016-12-06] MEDS: INSULIN SLIDING SCALE (NOVOLOG) 1 VIAL SQ SCH ×4 (06:17→21:24)
[2016-12-06] MEDS: ASPIRIN COATED 81 MG TABLET.EC PO SCH (10:13)
[2016-12-06] MEDS: CARVEDILOL 3.125 MG TABLET (FP) PO SCH ×2 (10:13→21:46)
[2016-12-06] MEDS: LOSARTAN POTASSIUM 50 MG TABLET (FP) PO SCH (13:10)
--- NOTE | 2016-12-06 16:01 | DS ---
Physical Exam: SUBJECTIVE: Patient seen and examined OBJECTIVE: Vital Signs Period Temp Pulse Resp BP Sys/Corea Pulse Ox Last 24 Hr 97.4 F-98.4 F 77-98 18-22 125-270/74-130 96-100 PHYSICAL EXAM GENERAL: The patient is awake, alert, and fully oriented, in no acute distress. HEAD: Normal with no signs of trauma. EYES: PERRL, extraocular movements intact, sclera anicteric, conjunctiva clear. ENT: Ears normal, nares patent, oropharynx clear without exudates, moist mucous membranes. NECK: Trachea midline, full range of motion, supple. LUNGS: Breath sounds equal, clear to auscultation bilaterally, no wheezes, no crackles, no accessory muscle use. HEART: Regular rate and rhythm, S1, S2 without murmur, rub or gallop. ABDOMEN: Soft, nontender, nondistended, normoactive bowel sounds, no guarding, no rebound, no hepatosplenomegaly, no masses. EXTREMITIES: 2+ pulses, warm, well-perfused, no edema. NEUROLOGICAL: Cranial nerves II through XII grossly intact. Normal speech, gait not observed. PSYCH: Normal mood, normal affect. SKIN: Warm, dry, normal turgor, no rashes or lesions noted. LABS Laboratory Results - last 24 hr 12/06/16 12/06/16 11:56 15:33 POC Glucometer 116 108 HOSPITAL COURSE: Date of Admission:12/03/16 Date of Discharge: 12/06/16 Discharge Summary Reason For Visit: HYPERTENSIVE EMERGENCY,ALCOHOL WITHDRAWL SYNDROME Current Active Problems Chest pain (Acute) DVT prophylaxis (Acute) Hypertensive emergency (Acute) Hypertensive urgency (Acute) Alcohol withdrawal (Chronic) Condition: Stable - Instructions Diet, Activity, Other Instructions: please take your medication as prescribed Please follow up with your primary care physician within a week please continue libirium protocol please continue detox at [facility] Please your blood pressure medicine as prescribed ( Coreg 3.125 twice a day and cozaar 50 daily ) Please avoid using alcohol , cocaine , heroin, or any other illegal substances keep your self hydrated, drink plenty of water Please make sure you have bowel movement daily Please increase your daily activities as tolerated. If you develop high blood pressure more than 180/110 , fever, chills , chest pain or your symptoms worsen please come back to the Emergency department. Referrals: Elias Luciano MD [Staff Physician] - Disposition: ELOPED - Home Medications Comprehensive Discharge Medication List: Ambulatory Orders Aspirin Coated [Ecotrin -] 81 mg PO DAILY #30 tab 07/29/16 Carvedilol [Coreg -] 3.125 mg PO BID #60 tablet 07/29/16 Losartan Potassium [Cozaar -] 50 mg PO DAILY 12/02/16 Metformin HCl [Glucophage -] 500 mg PO BID 12/02/16 Chlordiazepoxide [Librium -] 50 mg PO Q6HPO 12/03/16 Diphenhydramine [Benadryl Capsule -] 50 mg PO HS 12/03/16 No.40/Iron/FA/Dha 1 tab PO DAILY 12/03/16 Thiamine HCl 50 mg PO HS 12/03/16 Albuterol 2.5/Ipratropium 0.5 [Duoneb -] 1 amp NEB Q4H PRN #10 amp 12/06/16 Heparin - 5,000 unit SQ Q8H-IV #30 vial 12/06/16 - Discharge Referral Referred to [facility] No
--- NOTE | 2016-12-06 17:39 | PN ---
Teaching Attending Note Name of Resident: Buddy Verudzco ATTENDING PHYSICIAN STATEMENT I saw and evaluated the patient. I reviewed the resident's note and discussed the case with the resident. I agree with the resident's findings and plan as documented. SUBJECTIVE: No complaints. OBJECTIVE: Vital Signs Period Temp Pulse Resp BP Sys/Corea Pulse Ox Last 24 Hr 97.4 F-98.4 F 77-98 18-22 113-270/53-130 96-100 HEART: S1S2, RRR LUNGS: Clear ABDOMEN: Soft, non-tender, non-distended, normal BS EXTREMITIES: No edema Current Medications Generic Name Dose Route Start Last Admin Trade Name Freq PRN Reason Stop Dose Admin Albuterol/Ipratropium 1 amp 12/03/16 18:05 Duoneb - NEB Q4H PRN SHORTNESS OF BREATH Aspirin 81 mg 12/04/16 10:00 12/06/16 10:13 Ecotrin - PO 81 mg DAILY MICHEL Administration Carvedilol 3.125 mg 12/03/16 22:00 12/06/16 10:13 Coreg - PO 3.125 mg BID MICHEL Administration Chlordiazepoxide HCl 25 mg 12/03/16 19:08 12/05/16 21:29 Librium - PO 12/06/16 19:07 25 mg Q4H PRN Administration WITHDRAWAL(CONT SUBST) Diphenhydramine HCl 50 mg 12/05/16 22:00 12/05/16 21:28 Benadryl - PO 50 mg HS MICHEL Administration Heparin Sodium (Porcine) 5,000 unit 12/03/16 18:00 12/06/16 10:13 Heparin - SQ Not Given Q8H-IV MICHEL Insulin Aspart 1 vial 12/04/16 22:00 12/06/16 17:05 Novolog Vial Sliding Scale - SQ Not Given ACHS MICHEL Protocol Losartan Potassium 50 mg 12/04/16 10:00 12/06/16 13:10 Cozaar - PO 50 mg DAILY MICHEL Administration Ondansetron HCl 4 mg 12/03/16 15:22 12/05/16 21:24 Zofran Injection IVPB 4 mg Q6H PRN Administration NAUSEA Thiamine HCl 50 mg 12/03/16 22:00 12/05/16 21:28 Vitamin B1 - PO 50 mg HS MICHEL Administration ASSESSMENT AND PLAN: This is a 56 year old man with a history of polysubstance abuse, type 2 DM, HTN , CVA, asthma who was sent to the ER from [facility] for elevated BP. 1. Left calf pain - Patient refusing venous doppler 2. Hypertensive emergency - SBP>200 last night and Clonidine and Labetalol were given 3. Uncontrolled HTN - Continue Cozaar, Coreg 4. Acute kidney injury - Improving 5. Uncomplicated alcohol withdrawal - Completed Librium detox 6. Continuous alcohol dependence - Contniue thiamine 7. Cocaine/heroin withdrawal - Completed Methadone detox 8. Type 2 DM - Continue Novolog sliding scale 9. History of CVA - Continue aspirin 10. Asthma - Stable - Continue DuoNeb as needed
[2016-12-06] MEDS: diphenhydrAMINE HCL 25 MG CAPSULE (FP) PO SCH (21:33)
[2016-12-06] MEDS: THIAMINE HCL 100 MG TABLET (FP) PO SCH (21:33)
[2016-12-07] MEDS ORDERED: chlordiazePOXIDE HCL 25 MG CAPSULE PO ONE (02:12)
[2016-12-07] MEDS ORDERED: LABETALOL HCL 5 MG/1 ML (100MG/20 ML VIAL) IVPUSH PRN ×2 (02:15→02:26)
[2016-12-07] MEDS: HEPARIN NA (PORCINE) 5,000 UNITS/ML 1ML VIAL SQ SCH ×3 (02:23→18:17)
[2016-12-07] MEDS ORDERED: ENALAPRILAT DIHYDRATE 2.5 MG/2 ML VIAL IVPB ONE (05:22)
[2016-12-07] MEDS ORDERED: ACETAMINOPHEN 325 MG TABLET (FP) PO ONE (05:38)
[2016-12-07] MEDS: INSULIN SLIDING SCALE (NOVOLOG) 1 VIAL SQ SCH ×4 (06:12→21:45)
[2016-12-07] MEDS ORDERED: METHADONE HCL 10 MG TABLET (FOR DETOX USE ONLY) PO SCH (10:00)
[2016-12-07] MEDS: CARVEDILOL 3.125 MG TABLET (FP) PO SCH ×2 (10:00→21:45)
[2016-12-07] MEDS: ASPIRIN COATED 81 MG TABLET.EC PO SCH (10:00)
[2016-12-07] MEDS: LOSARTAN POTASSIUM 50 MG TABLET (FP) PO SCH (10:00)
--- NOTE | 2016-12-07 14:33 | PN ---
Teaching Attending Note Name of Resident: Buddy Verduzco ATTENDING PHYSICIAN STATEMENT I saw and evaluated the patient. I reviewed the resident's note and discussed the case with the resident. I agree with the resident's findings and plan as documented. SUBJECTIVE: Patient complains of headache. SBP has been >200. OBJECTIVE: Vital Signs Period Temp Pulse Resp BP Sys/Corea Pulse Ox Last 24 Hr 98 F-98.4 F 70-82 18-22 113-200/53-103 96-99 HEART: S1S2, RRR LUNGS: Clear ABDOMEN: Soft, non-tender, non-distended, normal BS EXTREMITIES: No edema Current Medications Generic Name Dose Route Start Last Admin Trade Name Freq PRN Reason Stop Dose Admin Albuterol/Ipratropium 1 amp 12/03/16 18:05 Duoneb - NEB Q4H PRN SHORTNESS OF BREATH Aspirin 81 mg 12/04/16 10:00 12/07/16 10:00 Ecotrin - PO 81 mg DAILY MICHEL Administration Carvedilol 3.125 mg 12/03/16 22:00 12/07/16 10:00 Coreg - PO 3.125 mg BID MICHEL Administration Diphenhydramine HCl 50 mg 12/05/16 22:00 12/06/16 21:33 Benadryl - PO 50 mg HS MICHEL Administration Heparin Sodium (Porcine) 5,000 unit 12/03/16 18:00 12/07/16 10:00 Heparin - SQ Not Given Q8H-IV MICHEL Insulin Aspart 1 vial 12/04/16 22:00 12/07/16 12:26 Novolog Vial Sliding Scale - SQ Not Given ACHS [facility] Protocol Losartan Potassium 50 mg 12/04/16 10:00 12/07/16 10:00 Cozaar - PO 50 mg DAILY MICHEL Administration Ondansetron HCl 4 mg 12/03/16 15:22 12/05/16 21:24 Zofran Injection IVPB 4 mg Q6H PRN Administration NAUSEA Thiamine HCl 50 mg 12/03/16 22:00 12/06/16 21:33 Vitamin B1 - PO 50 mg HS MICHEL Administration ASSESSMENT AND PLAN: This is a 56 year old man with a history of polysubstance abuse, type 2 DM, HTN , CVA, asthma who was sent to the ER from [facility] for elevated BP. 1. Left calf pain - Improved - Patient refused venous doppler 2. Hypertensive emergency - Resolved 3. Uncontrolled HTN - BP remains uncontrolled with SBP>200 - Continue Cozaar, Coreg - Add HCTZ and consider Clonidine 4. Acute kidney injury - Improving 5. Uncomplicated alcohol withdrawal - Completed Librium detox 6. Continuous alcohol dependence - Contniue thiamine 7. Cocaine/heroin withdrawal - Completed Methadone detox 8. Type 2 DM - Continue Novolog sliding scale 9. History of CVA - Continue aspirin 10. Asthma - Stable - Continue DuoNeb as needed
[2016-12-07] MEDS ORDERED: cloNIDine HCL 0.1 MG TABLET PO ONE (15:07)
--- NOTE | 2016-12-07 15:55 | PN ---
Physical Exam: SUBJECTIVE: Patient seen and examined at bedside. he complains of localized med-sternal chest pain, 7/10 , constant non radiating, increased with inspiration and movement. but denies any palpitation, SOB, cough, or dyspnea. He also reports med-epigastric pain but denies any fever, chills, N/V/D/C. denies dizziness or lightheadedness.He also complain of left leg pain. OBJECTIVE: Vital Signs Period Temp Pulse Resp BP Sys/Corea Pulse Ox Last 24 Hr 98 F-98.7 F 70-102 18-22 113-201/53-139 96-99 GENERAL: The patient is awake, alert, and fully oriented, in no acute distress. HEAD: Normal with no signs of trauma. EYES: PERRL, extraocular movements intact, sclera anicteric, conjunctiva clear. No ptosis. ENT: dry mucous membranes. NECK:NO JVD, LUNGS: Breath sounds equal, clear to auscultation bilaterally, no wheezes, no crackles, no accessory muscle use. HEART: Regular rate and rhythm, S1, S2 without murmur, rub or gallop. ABDOMEN: Med-api gastric pain,Soft, , nondistended, normoactive bowel sounds, no guarding, no rebound tenderness., EXTREMITIES: warm, well-perfused, no edema. strength 3/5 on left arm , 5/5 on right arm. decreased sensation on left arm and leg, strength 3/5 on left leg and 5/5 right leg. NEUROLOGICAL: Cranial nerves II through XII grossly intact. Normal speech, gait not observed. PSYCH: Normal mood, normal affect. SKIN: Warm, dry, no rashes, or lesions noted Laboratory Results - last 24 hr 12/04/16 12/07/16 22:50 11:51 POC Glucometer 112 137 Active Medications Generic Name Dose Route Start Last Admin Trade Name Freq PRN Reason Stop Dose Admin Albuterol/Ipratropium 1 amp 12/03/16 18:05 Duoneb - NEB Q4H PRN SHORTNESS OF BREATH Aspirin 81 mg 12/04/16 10:00 12/07/16 10:00 Ecotrin - PO 81 mg DAILY MICHEL Administration Carvedilol 3.125 mg 12/03/16 22:00 12/07/16 10:00 Coreg - PO 3.125 mg BID MICHEL Administration Diphenhydramine HCl 50 mg 12/05/16 22:00 12/06/16 21:33 Benadryl - PO 50 mg HS MICHEL Administration Heparin Sodium (Porcine) 5,000 unit 12/03/16 18:00 12/07/16 10:00 Heparin - SQ Not Given Q8H-IV MICHEL Hydrochlorothiazide 25 mg 12/07/16 18:00 Hctz - PO DAILY MICHEL Insulin Aspart 1 vial 12/04/16 22:00 12/07/16 12:26 Novolog Vial Sliding Scale - SQ Not Given ACHS [facility] Protocol Losartan Potassium 50 mg 12/04/16 10:00 12/07/16 10:00 Cozaar - PO 50 mg DAILY MICHEL Administration Ondansetron HCl 4 mg 12/03/16 15:22 12/05/16 21:24 Zofran Injection IVPB 4 mg Q6H PRN Administration NAUSEA Thiamine HCl 50 mg 12/03/16 22:00 12/06/16 21:33 Vitamin B1 - PO 50 mg HS MICHEL Administration CBC, BMP 12/04/16 05:30 12/05/16 07:35 ASSESSMENT/PLAN: 56 Year old man with PMHx of CVA, asthma, HTN, polysubstance abuse (Heroin/ oxycodone,cocain, ETOH who presented from [facility] detox facility with hypertensive emergency ( BP 244/119) # Hypertensive emergency with end organ damage (NIDHI, CP) * likely due to cocain abuse and no compliance * Given Clonidine and nitro in ED. with improvement, today 127/81 * Ordered stat dose Vasotec IV * continue Carveidilol 3.125 mg PO BID,and Cozaar 50 mg po daily * continue to monitor BP * Will drop BP slowly 25% in first 24hrs. * 2 L NS boluses to improve kidney function * Avoid BB due to cocain abuse , * BP goal below 130 on discharged #Chest pain * reproducible, increased with inspiration, movement and local pressure * Trop x2 negative * most likely musculoskeletal * Nitro PRN * # Left leg pain , * sonogram to R/O DVT , patient refused , also refuse SCDS, and Heparin # Alcohol withdrawal * Librium taper protocol * CIWA protcol 3 , Neuro assessment Q4H * Dr. Whittaker consult. * Multivitamin with Thiamine and Folate, * Repeat labs in AM * Mag and Phos if needed. # pre diabetic DM, * HgA1c 5.3 , * possible non compliant with diet and meds * on metformin at home , will hold * BGM, ISS * Monitor Blood sugar * patient education , life style change and diabetic diet #Asthma * Duonebs PRN * SUpplemental 02 to maintain SpO2 >90% #Epigastric pain,likely GERD * Bedhead elevation 45 degree * Zofran 4 mg IVPB Q6H PRN * PPI therapy pantoprazole 40mg PO #Acute Kidney Injury * creatinine 1.3, BUN 33 * most likely from HTN, vs dehydration * continue to monitor BMP # CVA (cerebral vascular accident), unspecified * continue ASA and statins # Opioid dependence with withdrawal * Methadone 10mg daily, completed * monitor for signs of withdrawal and agitation. * Patient education * interested in detox rehab #FEN * F: on no fluids * E monitor * N: Low sodium ,diabetic diet. # DVT prophylaxis * SCds both legs , refuse Heparin , refuse SCDs, Refuse LE sonogram * GI, no need for now # Dispo * will Dc to [facility] tomorrow after stabilize his blood pressure Visit type - Emergency Visit Emergency Visit: Yes ED Registration Date: 12/03/16 Care time: The patient presented to the Emergency Department on the above date and was hospitalized for further evaluation of their emergent condition. - New Patient This patient is new to me today: No - Critical Care Critical Care patient: No - Discharge Referral Referred to [facility] Med P.C.: No
[2016-12-07] MEDS: HYDROCHLOROTHIAZIDE 25 MG TABLET (FP) PO SCH (18:16)
[2016-12-07] MEDS: diphenhydrAMINE HCL 25 MG CAPSULE (FP) PO SCH (21:45)
[2016-12-07] MEDS: THIAMINE HCL 100 MG TABLET (FP) PO SCH (21:45)
[2016-12-08] MEDS: HEPARIN NA (PORCINE) 5,000 UNITS/ML 1ML VIAL SQ SCH ×2 (03:00→09:13)
[2016-12-08] MEDS ORDERED: ACETAMINOPHEN 325 MG TABLET (FP) PO ONE (04:16)
[2016-12-08] MEDS ORDERED: METHADONE HCL 10 MG TABLET (FOR DETOX USE ONLY) PO SCH (06:00)
[2016-12-08] MEDS: INSULIN SLIDING SCALE (NOVOLOG) 1 VIAL SQ SCH ×2 (06:45→13:18)
[2016-12-08 08:47] LABS: ANION GAP 8 (8-16); CALCIUM 9.4 mg/dL (8.5-10.1); CO2 27 mmol/L (21-32); CREATININE 1.1 mg/dL (0.7-1.3); GLUCOSE,RANDOM 122 mg/dL (74-106)
[2016-12-08] MEDS: HYDROCHLOROTHIAZIDE 25 MG TABLET (FP) PO SCH ×2 (08:55→09:14)
[2016-12-08] MEDS: ASPIRIN COATED 81 MG TABLET.EC PO SCH ×2 (08:55→09:14)
[2016-12-08] MEDS: LOSARTAN POTASSIUM 50 MG TABLET (FP) PO SCH ×2 (08:55→09:13)
[2016-12-08] MEDS: CARVEDILOL 3.125 MG TABLET (FP) PO SCH ×2 (08:55→09:13)
[2016-12-08] MEDS ORDERED: cloNIDine HCL 0.1 MG TABLET PO ONE (09:19)
--- NOTE | 2016-12-08 09:23 | PN ---
Physical Exam: SUBJECTIVE: Patient seen and examined at bed side. He still having rebound hypertensive episodes. HCTZ was added to his medicine yesterday. He denies fever, chills, N/V/D/C. Chest pain and abdominal pain is better. Leg pain has been improved. will continue to monitor his blood pressure. OBJECTIVE: Vital Signs Period Temp Pulse Resp BP Sys/Corea Pulse Ox Last 24 Hr 98.1 F-98.7 F 70-103 16-22 131-201/74-139 96-96 GENERAL: The patient is awake, alert, and fully oriented, in no acute distress. HEAD: Normal with no signs of trauma. EYES: PERRL, extraocular movements intact, sclera anicteric, conjunctiva clear. No ptosis. ENT: Ears normal, nares patent, oropharynx clear without exudates, moist mucous membranes. NECK: Trachea midline, full range of motion, supple. LUNGS: Breath sounds equal, clear to auscultation bilaterally, no wheezes, no crackles, no accessory muscle use. HEART: Regular rate and rhythm, S1, S2 without murmur, rub or gallop. ABDOMEN: Soft, nontender, nondistended, normoactive bowel sounds, no guarding, no rebound, no hepatosplenomegaly, no masses. EXTREMITIES: 2+ pulses, warm, well-perfused, no edema. NEUROLOGICAL: Cranial nerves II through XII grossly intact. Normal speech, gait not observed. PSYCH: Normal mood, normal affect. SKIN: Warm, dry, normal turgor, no rashes or lesions noted Laboratory Results - last 24 hr 12/04/16 12/07/16 12/07/16 22:50 11:51 17:03 Sodium Potassium Chloride Carbon Dioxide Anion Gap BUN Creatinine POC Glucometer 112 137 138 Random Glucose Calcium 12/08/16 05:35 Sodium 132 L Potassium 4.8 D Chloride 97 L Carbon Dioxide 27 Anion Gap 8 BUN 23 H D Creatinine 1.1 POC Glucometer Random Glucose 122 H Calcium 9.4 Active Medications Generic Name Dose Route Start Last Admin Trade Name Freq PRN Reason Stop Dose Admin Albuterol/Ipratropium 1 amp 12/03/16 18:05 Duoneb - NEB Q4H PRN SHORTNESS OF BREATH Aspirin 81 mg 12/04/16 10:00 12/08/16 09:14 Ecotrin - PO Not Given DAILY MICHEL Carvedilol 3.125 mg 12/03/16 22:00 12/08/16 09:13 Coreg - PO Not Given BID [facility] Clonidine 0.1 mg 12/08/16 09:19 Catapres - PO 12/08/16 09:20 ONCE ONE Diphenhydramine HCl 50 mg 12/05/16 22:00 12/07/16 21:45 Benadryl - PO 50 mg HS MICHEL Administration Heparin Sodium (Porcine) 5,000 unit 12/03/16 18:00 12/08/16 09:13 Heparin - SQ 5,000 unit Q8H-IV MICHEL Administration Hydrochlorothiazide 25 mg 12/07/16 18:00 12/08/16 09:14 Hctz - PO Not Given DAILY [facility] Insulin Aspart 1 vial 12/04/16 22:00 12/08/16 06:45 Novolog Vial Sliding Scale - SQ Not Given ACHS [facility] Protocol Losartan Potassium 50 mg 12/04/16 10:00 12/08/16 09:13 Cozaar - PO Not Given DAILY [facility] Ondansetron HCl 4 mg 12/03/16 15:22 12/05/16 21:24 Zofran Injection IVPB 4 mg Q6H PRN Administration NAUSEA Thiamine HCl 50 mg 12/03/16 22:00 12/07/16 21:45 Vitamin B1 - PO 50 mg HS MICHEL Administration ASSESSMENT/PLAN:
[2016-12-08] MEDS ORDERED: amLODIPine BESYLATE 5 MG TABLET (FP) PO ONE (12:38)
[2016-12-08 14:20] VITALS: BP 185/123; PULSE 85; TEMP 98.6
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
--- NOTE | 2016-12-08 15:19 | PN ---
Teaching Attending Note Name of Resident: Buddy Verduzco ATTENDING PHYSICIAN STATEMENT I saw and evaluated the patient. I reviewed the resident's note and discussed the case with the resident. I agree with the resident's findings and plan as documented. SUBJECTIVE: Patient has no complaints. OBJECTIVE: Vital Signs Period Temp Pulse Resp BP Sys/Corea Pulse Ox Last 24 Hr 98.1 F-98.6 F 76-103 16-20 131-185/74-123 96 HEART: S1S2, RRR LUNGS: Clear ABDOMEN: Obese, soft, non-tender, non-distended, normal BS EXTREMITIES: No edema Current Medications Generic Name Dose Route Start Last Admin Trade Name Freq PRN Reason Stop Dose Admin Albuterol/Ipratropium 1 amp 12/03/16 18:05 Duoneb - NEB Q4H PRN SHORTNESS OF BREATH Aspirin 81 mg 12/04/16 10:00 12/08/16 09:14 Ecotrin - PO Not Given DAILY MICHEL Carvedilol 3.125 mg 12/03/16 22:00 12/08/16 09:13 Coreg - PO Not Given BID MICHEL Diphenhydramine HCl 50 mg 12/05/16 22:00 12/07/16 21:45 Benadryl - PO 50 mg HS MICHEL Administration Heparin Sodium (Porcine) 5,000 unit 12/03/16 18:00 12/08/16 09:13 Heparin - SQ 5,000 unit Q8H-IV MICHEL Administration Hydrochlorothiazide 25 mg 12/07/16 18:00 12/08/16 09:14 Hctz - PO Not Given DAILY MICHEL Insulin Aspart 1 vial 12/04/16 22:00 12/08/16 13:18 Novolog Vial Sliding Scale - SQ Not Given ACHS [facility] Protocol Losartan Potassium 50 mg 12/04/16 10:00 12/08/16 09:13 Cozaar - PO Not Given DAILY MICHEL Ondansetron HCl 4 mg 12/03/16 15:22 12/05/16 21:24 Zofran Injection IVPB 4 mg Q6H PRN Administration NAUSEA Thiamine HCl 50 mg 12/03/16 22:00 12/07/16 21:45 Vitamin B1 - PO 50 mg HS MICHEL Administration ASSESSMENT AND PLAN: This is a 56 year old man with a history of polysubstance abuse, type 2 DM, HTN , CVA, asthma who was sent to the ER from [facility] for elevated BP. 1. Left calf pain - Improved - Patient refused venous doppler 2. Hypertensive emergency 3. Uncontrolled HTN with hypertensive cardiovascular disease - BP remains uncontrolled with SBP>200 - Continue Cozaar, Coreg, HCTZ - Clonidine has been used as needed - Echo shows moderate concentric LVH, normal LVEF, impaired LV relaxation, normal RV, mildly dilated LA, trace MR, mild TR, RVSP 30-40 mmHg - Cardiology consult 4. Acute kidney injury - Improved 5. Uncomplicated alcohol withdrawal - Completed Librium detox 6. Continuous alcohol dependence - Contniue thiamine 7. Cocaine/heroin withdrawal - Completed Methadone detox 8. Type 2 DM - Continue Novolog sliding scale 9. History of CVA - Continue aspirin 10. Asthma - Stable - Continue DuoNeb as needed
--- NOTE | 2016-12-08 19:04 | DS ---
Physical Exam: SUBJECTIVE: Patient seen and examined at bedside. His chest pain and abdominal pain are better. leg pain has improved. patient denies fever, chills, N/V/D/C, SOB, palpitation, dizziness, lightheadedness. His blood pressure still elevated , HCTZ 25 was added to his med last night. Clonidine PRN added today .Patient eloped out of the hospital without finishing treatment. OBJECTIVE: Vital Signs Period Temp Pulse Resp BP Sys/Corea Pulse Ox Last 24 Hr 98.1 F-98.7 F 76-103 16-20 107-228/59-137 96-98 PHYSICAL EXAM GENERAL: The patient is awake, alert, and fully oriented, in no acute distress. HEAD: Normal with no signs of trauma. EYES: PERRL, extraocular movements intact, sclera anicteric, conjunctiva clear. No ptosis. ENT: dry mucous membranes. NECK:NO JVD, LUNGS: Breath sounds equal, clear to auscultation bilaterally, no wheezes, no crackles, no accessory muscle use. HEART: Regular rate and rhythm, S1, S2 without murmur, rub or gallop. ABDOMEN: Med-api gastric pain,Soft, , nondistended, normoactive bowel sounds, no guarding, no rebound tenderness., EXTREMITIES: warm, well-perfused, no edema. strength 3/5 on left arm , 5/5 on right arm. decreased sensation on left arm and leg, strength 3/5 on left leg and 5/5 right leg. NEUROLOGICAL: Cranial nerves II through XII grossly intact. Normal speech, gait not observed. PSYCH: Normal mood, normal affect. SKIN: Warm, dry, no rashes, or lesions noted LABS Laboratory Results - last 24 hr 12/08/16 12/08/16 05:35 12:42 Sodium 132 L Potassium 4.8 D Chloride 97 L Carbon Dioxide 27 Anion Gap 8 BUN 23 H D Creatinine 1.1 POC Glucometer 131 Random Glucose 122 H Calcium 9.4 CBC, BMP 12/04/16 05:30 12/08/16 05:35 HOSPITAL COURSE: Date of Admission:12/03/16 Date of Discharge: 12/08/16 56 Year old man with PMHx of CVA, DM, asthma, HTN, polysubstance abuse (Heroin/ oxycodone,cocain, ETOH) who presented from [facility] detox facility with hypertensive emergency ( BP 244/119) with associated NIDHI and chest pain believed 2/2 ongoing cocaine abuse. Patient was treated in the ER with antihypertensives (clonidine and nitro) with improvement in BP. He was started on carveidilol 3.125 mg PO BID and Cozaar 50 mg po daily, HCTZ 25 daily, Clonidine PRN with BP at goal ~130 at time of discharge. His Cr is 1.1, improved with hydration suggesting pre-renal etiology or hypoperfusion as cause. He was rule out for AMI with EKG and serial troponins and his CP was reproducible, increased with inspiration, movement and local pressure suggesting a musculoskeletal etiology. He also complained of left leg pain with normal physical exam; patient refused sonogram on multiple attempts to evaluate for DVT, also refused SCDs and prophylactic heparin. Given history of alcohol abuse and concern for withdrawal he was put on CIWA protocol and given multivitamin with thiamine and folat. taper was . Dr. Lois Wells evaluated patient for detox and alcohol/drug cessation counseling. Given opioid dependence with withdrawal he was started on methadone taper. Patient eloped out of the hospital before finishing treatment. He still need to monitor his blood presser. Minutes to complete discharge: 30 Discharge Summary Reason For Visit: HYPERTENSIVE EMERGENCY,ALCOHOL WITHDRAWL SYNDROME Condition: Stable - Instructions Diet, Activity, Other Instructions: please take your medication as prescribed Please follow up with your primary care physician within a week please continue libirium protocol please continue detox at [facility] Please your blood pressure medicine as prescribed ( Coreg 3.125 twice a day and cozaar 50 daily ) Please avoid using alcohol , cocaine , heroin, or any other illegal substances keep your self hydrated, drink plenty of water Please make sure you have bowel movement daily Please increase your daily activities as tolerated. If you develop high blood pressure more than 180/110 , fever, chills , chest pain or your symptoms worsen please come back to the Emergency department. Referrals: Elias Luciano MD [Staff Physician] - Disposition: ELOPED - Home Medications Comprehensive Discharge Medication List: Ambulatory Orders Aspirin Coated [Ecotrin -] 81 mg PO DAILY #30 tab 07/29/16 Carvedilol [Coreg -] 3.125 mg PO BID #60 tablet 07/29/16 Losartan Potassium [Cozaar -] 50 mg PO DAILY 12/02/16 Metformin HCl [Glucophage -] 500 mg PO BID 12/02/16 Chlordiazepoxide [Librium -] 50 mg PO Q6HPO 12/03/16 Diphenhydramine [Benadryl Capsule -] 50 mg PO HS 12/03/16 No.40/Iron/FA/Dha 1 tab PO DAILY 12/03/16 Thiamine HCl 50 mg PO HS 12/03/16 Albuterol 2.5/Ipratropium 0.5 [Duoneb -] 1 amp NEB Q4H PRN #10 amp 12/06/16 Heparin - 5,000 unit SQ Q8H-IV #30 vial 12/06/16 This patient is new to me today: No Emergency Visit: Yes ED Registration Date: 12/03/16 Care time: The patient presented to the Emergency Department on the above date and was hospitalized for further evaluation of their emergent condition. Critical Care patient: No - Discharge Referral Referred to [facility] Med P.C.: No
== END 2016-12-08 15:28 | disposition left against medical advice (07) | DRG 199 ==
LOC: EDBD → JER 07:53 → JERBED 14:50 → J4W 20:55
PROVIDERS: ADMIT Internal Medicine; ATTEND Internal Medicine
PROC: HZ2ZZZZ Detoxification Services for Substance Abuse Treatment (ICD-10-PCS; principal; 2016-12-03)
DX: I16.1 Hypertensive emergency (principal); N17.9 Acute kidney failure, unspecified; F10.230 Alcohol dependence with withdrawal, uncomplicated; E11.9 Type 2 diabetes mellitus without complications; Z86.73 Personal history of transient ischemic attack (TIA), and cerebral infarction without residual deficits; J45.909 Unspecified asthma, uncomplicated; R07.9 Chest pain, unspecified; M79.605 Pain in left leg; F17.210 Nicotine dependence, cigarettes, uncomplicated; E66.9 Obesity, unspecified; Z68.36 Body mass index [BMI] 36.0-36.9, adult; I11.9 Hypertensive heart disease without heart failure; I16.0 Hypertensive urgency; E87.1 Hypo-osmolality and hyponatremia; F14.23 Cocaine dependence with withdrawal; F11.23 Opioid dependence with withdrawal; G62.9 Polyneuropathy, unspecified
CPT/HCPCS: 36415; 70450-TC; 71020-TC; 80048; 80053; 80307; 82553; 83036; 83735; 84100; 84484; 85025; 85610; 85730; 93005; 93010; 93306-TC; 99285-25; J1644

== ENCOUNTER 2017-02-21 08:20 | Inpatient (IN) | payer OTHER ==
[2017-02-21 09:40] VITALS: BMI 40.1
[2017-02-21] MEDS ORDERED: MAGNESIUM HYDROX 2400MG/30ML ORAL SUSPENSION 30 ML CUP PO PRN (11:14)
[2017-02-21] MEDS ORDERED: hydrOXYzine PAMOATE 50 MG CAPSULE (FP) PO PRN (11:14)
[2017-02-21] MEDS ORDERED: ACETAMINOPHEN 325 MG TABLET (FP) PO PRN (11:14)
[2017-02-21] MEDS ORDERED: MAG HYDROX/AL HYDROX/SIMETH 30 ML UNIT-DOSE CUP PO PRN (11:14)
[2017-02-21] MEDS ORDERED: MAGNESIUM CITRATE 300 ML BOTTLE PO PRN (11:14)
[2017-02-21] MEDS ORDERED: guaiFENesin/D-METHORPHAN HB 10 ML UNIT-DOSE CUPS PO PRN (11:14)
[2017-02-21] MEDS ORDERED: IBUPROFEN 400 MG TABLET (FP) PO PRN (11:14)
[2017-02-21] MEDS ORDERED: MENTHOL/PHENOL 1 EACH UD MM PRN (11:14)
[2017-02-21] MEDS ORDERED: NICOTINE POLACRILEX 4 MG GUM BUC PRN (11:14)
[2017-02-21] MEDS ORDERED: chlordiazePOXIDE HCL 25 MG CAPSULE PO PRN (11:14)
[2017-02-21] MEDS ORDERED: P-EPHED 60MG/TRIPROLIDI 2.5MG TABLET PO PRN (11:14)
[2017-02-21] MEDS ORDERED: LOPERAMIDE HCL 2 MG CAPSULE PO PRN (11:14)
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
[2017-02-21] MEDS ORDERED: ALBUTEROL SO4 18 GM HFA INHALER IH PRN (11:16)
[2017-02-21] MEDS ORDERED: chlordiazePOXIDE HCL 25 MG CAPSULE PO ONE (12:49)
[2017-02-21] MEDS ORDERED: METHADONE HCL 10 MG TABLET (FOR DETOX USE ONLY) PO ONE ×2 (12:49→23:00)
[2017-02-21] MEDS: CARVEDILOL 6.25 MG TABLET (FP) PO SCH ×2 (13:01→22:29)
[2017-02-21] MEDS: FERROUS SO4 325 MG TABLET (FP) PO SCH ×2 (13:01→17:20)
[2017-02-21] MEDS: NICOTINE 14 MG/24 HOURS TOPICAL PATCH TD SCH (13:02)
[2017-02-21] MEDS: chlordiazePOXIDE HCL 25 MG CAPSULE PO SCH ×2 (17:20→22:30)
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
[2017-02-21 17:23] LABS: URINE APPEARANCE CLEAR; URINE BILIRUBIN NEGATIVE (NEGATIVE); URINE BLOOD NEGATIVE (NEGATIVE); URINE COLOR LTYELLOW; URINE GLUCOSE (UA) NEGATIVE (NEGATIVE); URINE KETONE NEGATIVE (NEGATIVE); URINE LEUK ESTERASE NEGATIVE (NEGATIVE); URINE NITRITE NEGATIVE (NEGATIVE); URINE PROTEIN NEGATIVE (NEGATIVE); URINE UROBILINOGEN NEGATIVE mg/dL (0.2-1.0)
[2017-02-21] MEDS ORDERED: diphenhydrAMINE HCL 25 MG CAPSULE (FP) PO PRN ×2 (18:40→22:00)
[2017-02-21 19:55] LABS: URINE LEUK ESTERASE Negative (NEGATIVE)
[2017-02-21] MEDS: THIAMINE HCL 100 MG TABLET (FP) PO SCH (22:29)
[2017-02-21] MEDS: DOCUSATE SODIUM 100 MG CAPSULE (FP) PO SCH (22:29)
[2017-02-21] MEDS: BUDESONIDE/FORMETEROL FUMARATE 160/4.5 mcg INHALER IH SCH (22:58)
[2017-02-22] MEDS: chlordiazePOXIDE HCL 25 MG CAPSULE PO SCH ×4 (05:33→23:06)
[2017-02-22] MEDS ORDERED: METHADONE HCL 10 MG TABLET (FOR DETOX USE ONLY) PO SCH (10:00)
[2017-02-22 10:04] LABS: MCH 28.8 pg (25.7-33.7); MEAN CELL VOLUME 90.1 fl (80-96); MEAN PLT VOLUME 9.6 fl (7.5-11.1); PLATELET COUNT 214 K/MM3 (134-434); RDW 15.1 % (11.9-15.9); WHITE BLOOD COUNT 6.4 K/mm3 (4.0-10.0)
[2017-02-22 10:31] LABS: ALBUMIN 3.9 g/dl (3.4-5.0); ALK PHOS 64 U/L (45-117); ANION GAP 11 (8-16); BILIRUBIN,TOTAL 0.5 mg/dL (0.2-1.0); CALCIUM 8.9 mg/dL (8.5-10.1); CO2 27 mmol/L (21-32); GLUCOSE,RANDOM 112 mg/dL (74-106); SGOT/AST 19 U/L (15-37); SGPT/ALT 28 U/L (12-78); TOT PROT 7.2 g/dl (6.4-8.2)
--- NOTE | 2017-02-22 10:33 | PN ---
[facility] CIWA - CIWA Score Nausea/Vomitin Muscle Tremors: 3 Anxiety: 3 Agitation: 3 Paroxysmal Sweats: 3 Orientation: 0-Oriented Tacttile Disturbances: 0-None Auditory Disturbances: 0-None Visual Disturbances: 0-None Headache: 0-None Present CIWA-Ar Total Score: 15 [facility] COWS - Scale Resting Pulse: 1= [place] 81-100 Sweatin= Chills/Flushing Restless Observation: 1= Difficult to Sit Still Pupil Size: 1= Pupils >than Normal Bone or Joint Aches: 1= Mild Discomfort Runny Nose/ Eye Tearin= Nasal Congestion GI Upset > 30mins: 2= Nausea/Diarrhea Tremor Observation of Outstretched Hands: 1= Tremor [place], Not Seen Yawning Observation: 1= 1-2x During Session Anxiety or Irritability: 2=Irritable/Anxious Goose Flesh Skin: 3=Piloerection COWS Score: 15 [facility] Progress Note (SOAP) Subjective: nausea, sweats, interrupted sleep, anxeiiyt, tremors, insomnia requesting sleep medication Objective: 02/22/17 10:32 Vital Signs - 24 hr 02/21/17 02/21/17 02/21/17 13:43 17:48 22:14 Temperature 98.0 F 97.9 F 97.3 F L Pulse Rate 85 79 79 Respiratory 18 18 18 Rate Blood Pressure 146/84 150/86 142/42 02/22/17 02/22/17 02/22/17 00:30 03:30 06:30 Temperature 97.9 F Pulse Rate 67 Respiratory 18 20 20 Rate Blood Pressure 134/77 Laboratory Tests 02/21/17 02/22/17 15:15 05:45 WBC 6.4 RBC 4.60 Hgb 13.3 Hct 41.5 MCV 90.1 MCH 28.8 MCHC 32.0 RDW 15.1 Plt Count 214 MPV 9.6 Urine Color Ltyellow Urine Appearance Clear Urine pH 6.0 Ur Specific [place] 1.004 Urine Protein Negative Urine Glucose (UA) Negative Urine Ketones Negative Urine Blood Negative Urine Nitrite Negative Urine Bilirubin Negative Urine Urobilinogen Negative Ur Leukocyte Esterase Negative labs still pending Assessment: 02/22/17 10:33 withdrawal sx - cont detox ambien ordered
[2017-02-22] MEDS: FERROUS SO4 325 MG TABLET (FP) PO SCH ×3 (11:00→17:18)
[2017-02-22] MEDS: PRENATAL VITAMINS W/ FOLIC ACID TABLET (FP) PO SCH (11:07)
[2017-02-22] MEDS: CARVEDILOL 6.25 MG TABLET (FP) PO SCH ×2 (11:07→22:12)
[2017-02-22] MEDS: ASPIRIN COATED 81 MG TABLET.EC PO SCH (11:08)
[2017-02-22] MEDS: LOSARTAN POTASSIUM 50 MG TABLET (FP) PO SCH (11:08)
[2017-02-22] MEDS: BUDESONIDE/FORMETEROL FUMARATE 160/4.5 mcg INHALER IH SCH ×2 (11:09→22:12)
[2017-02-22] MEDS: NICOTINE 14 MG/24 HOURS TOPICAL PATCH TD SCH (11:09)
--- NOTE | 2017-02-22 11:40 | EKG ---
Test Reason : Blood Pressure : / mmHG Vent. Rate : 073 BPM Atrial Rate : 073 BPM P-R Int : 182 ms QRS Dur : 110 ms QT Int : 412 ms P-R-T Axes : 060 041 042 degrees QTc Int : 453 ms NORMAL SINUS RHYTHM NONSPECIFIC T WAVE ABNORMALITY ABNORMAL ECG WHEN COMPARED WITH ECG OF 15-JAN-2017 19:08, NONSPECIFIC T WAVE ABNORMALITY HAS REPLACED INVERTED T WAVES IN INFERIOR LEADS NONSPECIFIC T WAVE ABNORMALITY NOW EVIDENT IN LATERAL LEADS Confirmed by MOLLY REVELES MD ([id number]) on 02/22/2017 11:40:19 AM Referred By: Confirmed By:MOLLY REVELES MD
[2017-02-22] MEDS: DOCUSATE SODIUM 100 MG CAPSULE (FP) PO SCH (22:12)
[2017-02-22] MEDS: traZODone HCL 50 MG TABLET (FP) PO SCH (22:12)
[2017-02-22] MEDS: THIAMINE HCL 100 MG TABLET (FP) PO SCH (22:13)
[2017-02-23] MEDS: chlordiazePOXIDE HCL 25 MG CAPSULE PO SCH ×2 (05:45→11:07)
[2017-02-23] MEDS: FERROUS SO4 325 MG TABLET (FP) PO SCH ×3 (08:35→18:09)
[2017-02-23] MEDS: PRENATAL VITAMINS W/ FOLIC ACID TABLET (FP) PO SCH (11:04)
[2017-02-23] MEDS: CARVEDILOL 6.25 MG TABLET (FP) PO SCH ×2 (11:04→23:21)
[2017-02-23] MEDS: ASPIRIN COATED 81 MG TABLET.EC PO SCH (11:04)
[2017-02-23] MEDS: LOSARTAN POTASSIUM 50 MG TABLET (FP) PO SCH (11:04)
[2017-02-23] MEDS: METHADONE HCL 5 MG TABLET (FOR DETOX USE ONLY) PO SCH (11:04)
[2017-02-23] MEDS: BUDESONIDE/FORMETEROL FUMARATE 160/4.5 mcg INHALER IH SCH ×2 (11:05→23:22)
[2017-02-23] MEDS: NICOTINE 14 MG/24 HOURS TOPICAL PATCH TD SCH (11:05)
--- NOTE | 2017-02-23 11:54 | PN ---
S CIWA - CIWA Score Nausea/Vomitin Muscle Tremors: 3 Anxiety: 3 Agitation: 3 Paroxysmal Sweats: 1-Minimal [place]ms Moist Orientation: 0-Oriented Tacttile Disturbances: 1-Very Mild Itch/Numbness Auditory Disturbances: 1-Very Mild Visual Disturbances: 0-None Headache: 2-Mild CIWA-Ar Total Score: 17 [facility] COWS - Scale Resting Pulse: 0= [place] 80 or Below Sweatin= Chills/Flushing Restless Observation: 3= Extraneous Movement Pupil Size: 1= Pupils >than Normal Bone or Joint Aches: 2= Severe Diffuse Aches Runny Nose/ Eye Tearin= Runny Nose/Eyes GI Upset > 30mins: 2= Nausea/Diarrhea Tremor Observation of Outstretched Hands: 2= Slight Tremor Visible Yawning Observation: 1= 1-2x During Session Anxiety or Irritability: 2=Irritable/Anxious Goose Flesh Skin: 0=Smooth Skin COWS Score: 16 S Progress Note (SOAP) Subjective: alert,irritable,anxious,interrupted sleep,tremor,pain in the body and back Objective: 02/23/17 11:52 Vital Signs Temperature 97.0 F L 02/23/17 11:18 Pulse Rate 82 02/23/17 11:18 Respiratory Rate 18 02/23/17 11:18 Blood Pressure 154/85 02/23/17 11:18 O2 Sat by Pulse Oximetry (%) Laboratory Last Values WBC 6.4 K/mm3 (4.0-10.0) 02/22/17 05:45 RBC 4.60 M/mm3 (4.00-5.60) 02/22/17 05:45 Hgb 13.3 GM/dL (11.7-16.9) 02/22/17 05:45 Hct 41.5 % (35.4-49) 02/22/17 05:45 MCV 90.1 fl (80-96) 02/22/17 05:45 MCH 28.8 pg (25.7-33.7) 02/22/17 05:45 MCHC 32.0 g/dl (32.0-35.9) 02/22/17 05:45 RDW 15.1 % (11.9-15.9) 02/22/17 05:45 Plt Count 214 K/MM3 (134-434) 02/22/17 05:45 MPV 9.6 fl (7.5-11.1) 02/22/17 05:45 Sodium 138 mmol/L (136-145) 02/22/17 05:45 Potassium 3.9 mmol/L (3.5-5.1) 02/22/17 05:45 Chloride 100 mmol/L (98-107) 02/22/17 05:45 Carbon Dioxide 27 mmol/L (21-32) 02/22/17 05:45 Anion Gap 11 (8-16) 02/22/17 05:45 BUN 14 mg/dL (7-18) D 02/22/17 05:45 Creatinine 1.0 mg/dL (0.7-1.3) 02/22/17 05:45 Creat Clearance w eGFR > 60 (>60) 02/22/17 05:45 Random Glucose 112 mg/dL (74-106) H 02/22/17 05:45 Calcium 8.9 mg/dL (8.5-10.1) 02/22/17 05:45 Total Bilirubin 0.5 mg/dL (0.2-1.0) D 02/22/17 05:45 AST 19 U/L (15-37) D 02/22/17 05:45 ALT 28 U/L (12-78) 02/22/17 05:45 Alkaline Phosphatase 64 U/L (45-117) 02/22/17 05:45 Total Protein 7.2 g/dl (6.4-8.2) 02/22/17 05:45 Albumin 3.9 g/dl (3.4-5.0) 02/22/17 05:45 Urine Color Ltyellow 02/21/17 15:15 Urine Appearance Clear 02/21/17 15:15 Urine pH 6.0 (5.0-8.0) 02/21/17 15:15 Ur Specific [place] 1.004 (1.001-1.035) 02/21/17 15:15 Urine Protein Negative (NEGATIVE) 02/21/17 15:15 Urine Glucose (UA) Negative (NEGATIVE) 02/21/17 15:15 Urine Ketones Negative (NEGATIVE) 02/21/17 15:15 Urine Blood Negative (NEGATIVE) 02/21/17 15:15 Urine Nitrite Negative (NEGATIVE) 02/21/17 15:15 Urine Bilirubin Negative (NEGATIVE) 02/21/17 15:15 Urine Urobilinogen Negative mg/dL (0.2-1.0) 02/21/17 15:15 Ur Leukocyte Esterase Negative (NEGATIVE) 02/21/17 15:15 RPR Titer Nonreactive (NONREACTIVE) 02/22/17 05:45 Assessment: 02/23/17 11:53 withdrawal symptom Plan: continue detox,bgm daily,initial glucose is 112
[2017-02-23] MEDS: chlordiazePOXIDE 5 MG CAPSULE PO SCH ×2 (17:55→23:22)
[2017-02-23] MEDS: DOCUSATE SODIUM 100 MG CAPSULE (FP) PO SCH (23:21)
[2017-02-23] MEDS: ZOLPIDEM TARTRATE 10 MG TABLET (PARK CARE ONLY) PO PRN (23:21)
[2017-02-23] MEDS: THIAMINE HCL 100 MG TABLET (FP) PO SCH (23:21)
[2017-02-23] MEDS: traZODone HCL 50 MG TABLET (FP) PO SCH (23:22)
[2017-02-24] MEDS: chlordiazePOXIDE 5 MG CAPSULE PO SCH ×2 (05:58→11:24)
[2017-02-24] MEDS: FERROUS SO4 325 MG TABLET (FP) PO SCH ×3 (07:56→19:21)
[2017-02-24] MEDS: METHADONE HCL 5 MG TABLET (FOR DETOX USE ONLY) PO SCH (11:25)
[2017-02-24] MEDS: PRENATAL VITAMINS W/ FOLIC ACID TABLET (FP) PO SCH (11:25)
[2017-02-24] MEDS: CARVEDILOL 6.25 MG TABLET (FP) PO SCH ×2 (11:25→22:37)
[2017-02-24] MEDS: LOSARTAN POTASSIUM 50 MG TABLET (FP) PO SCH (11:26)
[2017-02-24] MEDS: NICOTINE 14 MG/24 HOURS TOPICAL PATCH TD SCH (11:26)
[2017-02-24] MEDS: ASPIRIN COATED 81 MG TABLET.EC PO SCH (11:26)
[2017-02-24] MEDS: BUDESONIDE/FORMETEROL FUMARATE 160/4.5 mcg INHALER IH SCH ×2 (11:26→22:36)
--- NOTE | 2017-02-24 12:51 | PN ---
[facility] Progress Note (SOAP) Subjective: alert,irritable,anxious,interrupted sleep,pain in the body Objective: 02/24/17 12:50 Vital Signs Temperature 97.9 F 02/24/17 10:00 Pulse Rate 88 02/24/17 10:00 Respiratory Rate 18 02/24/17 10:00 Blood Pressure 169/95 02/24/17 10:00 O2 Sat by Pulse Oximetry (%) Assessment: 02/24/17 12:50 withdrawal symptom Plan: continue detox
[2017-02-24] MEDS ORDERED: cloNIDine HCL 0.1 MG TABLET PO ONE (15:35)
[2017-02-24] MEDS: chlordiazePOXIDE HCL 10 MG CAPSULE PO SCH ×2 (19:21→22:37)
[2017-02-24] MEDS: THIAMINE HCL 100 MG TABLET (FP) PO SCH (22:36)
[2017-02-24] MEDS: traZODone HCL 50 MG TABLET (FP) PO SCH (22:37)
[2017-02-24] MEDS: ZOLPIDEM TARTRATE 10 MG TABLET (PARK CARE ONLY) PO PRN (22:37)
[2017-02-24] MEDS: DOCUSATE SODIUM 100 MG CAPSULE (FP) PO SCH (22:37)
[2017-02-25] MEDS: chlordiazePOXIDE HCL 10 MG CAPSULE PO SCH ×2 (05:34→11:22)
[2017-02-25] MEDS: FERROUS SO4 325 MG TABLET (FP) PO SCH ×3 (07:09→17:57)
[2017-02-25] MEDS ORDERED: METHADONE HCL 10 MG TABLET (FOR DETOX USE ONLY) PO SCH (10:00)
[2017-02-25] MEDS: BUDESONIDE/FORMETEROL FUMARATE 160/4.5 mcg INHALER IH SCH ×2 (11:23→23:02)
[2017-02-25] MEDS: LOSARTAN POTASSIUM 50 MG TABLET (FP) PO SCH (11:23)
[2017-02-25] MEDS: ASPIRIN COATED 81 MG TABLET.EC PO SCH (11:23)
[2017-02-25] MEDS: CARVEDILOL 6.25 MG TABLET (FP) PO SCH ×2 (11:23→23:02)
[2017-02-25] MEDS: PRENATAL VITAMINS W/ FOLIC ACID TABLET (FP) PO SCH (11:23)
[2017-02-25] MEDS: NICOTINE 14 MG/24 HOURS TOPICAL PATCH TD SCH (11:23)
--- NOTE | 2017-02-25 12:12 | PN ---
[facility] Progress Note (SOAP) Subjective: mild joins ache less sweating able to sleep throughout the night Objective: 02/25/17 12:10 Vital Signs Temperature 97.7 F 02/25/17 10:00 Pulse Rate 81 02/25/17 10:00 Respiratory Rate 18 02/25/17 10:00 Blood Pressure 165/89 02/25/17 10:00 O2 Sat by Pulse Oximetry (%) Laboratory Last Values WBC 6.4 K/mm3 (4.0-10.0) 02/22/17 05:45 RBC 4.60 M/mm3 (4.00-5.60) 02/22/17 05:45 Hgb 13.3 GM/dL (11.7-16.9) 02/22/17 05:45 Hct 41.5 % (35.4-49) 02/22/17 05:45 MCV 90.1 fl (80-96) 02/22/17 05:45 MCH 28.8 pg (25.7-33.7) 02/22/17 05:45 MCHC 32.0 g/dl (32.0-35.9) 02/22/17 05:45 RDW 15.1 % (11.9-15.9) 02/22/17 05:45 Plt Count 214 K/MM3 (134-434) 02/22/17 05:45 MPV 9.6 fl (7.5-11.1) 02/22/17 05:45 Sodium 138 mmol/L (136-145) 02/22/17 05:45 Potassium 3.9 mmol/L (3.5-5.1) 02/22/17 05:45 Chloride 100 mmol/L (98-107) 02/22/17 05:45 Carbon Dioxide 27 mmol/L (21-32) 02/22/17 05:45 Anion Gap 11 (8-16) 02/22/17 05:45 BUN 14 mg/dL (7-18) D 02/22/17 05:45 Creatinine 1.0 mg/dL (0.7-1.3) 02/22/17 05:45 Creat Clearance w eGFR > 60 (>60) 02/22/17 05:45 Random Glucose 112 mg/dL (74-106) H 02/22/17 05:45 Calcium 8.9 mg/dL (8.5-10.1) 02/22/17 05:45 Total Bilirubin 0.5 mg/dL (0.2-1.0) D 02/22/17 05:45 AST 19 U/L (15-37) D 02/22/17 05:45 ALT 28 U/L (12-78) 02/22/17 05:45 Alkaline Phosphatase 64 U/L (45-117) 02/22/17 05:45 Total Protein 7.2 g/dl (6.4-8.2) 02/22/17 05:45 Albumin 3.9 g/dl (3.4-5.0) 02/22/17 05:45 Urine Color Ltyellow 02/21/17 15:15 Urine Appearance Clear 02/21/17 15:15 Urine pH 6.0 (5.0-8.0) 02/21/17 15:15 Ur Specific [place] 1.004 (1.001-1.035) 02/21/17 15:15 Urine Protein Negative (NEGATIVE) 02/21/17 15:15 Urine Glucose (UA) Negative (NEGATIVE) 02/21/17 15:15 Urine Ketones Negative (NEGATIVE) 02/21/17 15:15 Urine Blood Negative (NEGATIVE) 02/21/17 15:15 Urine Nitrite Negative (NEGATIVE) 02/21/17 15:15 Urine Bilirubin Negative (NEGATIVE) 02/21/17 15:15 Urine Urobilinogen Negative mg/dL (0.2-1.0) 02/21/17 15:15 Ur Leukocyte Esterase Negative (NEGATIVE) 02/21/17 15:15 RPR Titer Nonreactive (NONREACTIVE) 02/22/17 05:45 lab noted Assessment: 02/25/17 12:12 mild withdrawal sx Plan: observation with detox regiment continue losartan and coreg
[2017-02-25] MEDS ORDERED: cloNIDine HCL 0.1 MG TABLET PO ONE (14:49)
[2017-02-25] MEDS: DOCUSATE SODIUM 100 MG CAPSULE (FP) PO SCH (23:01)
[2017-02-25] MEDS: traZODone HCL 50 MG TABLET (FP) PO SCH (23:02)
[2017-02-25] MEDS: THIAMINE HCL 100 MG TABLET (FP) PO SCH (23:02)
[2017-02-26] MEDS ORDERED: METHADONE HCL 5 MG TABLET (FOR DETOX USE ONLY) PO SCH (06:00)
[2017-02-26] MEDS: FERROUS SO4 325 MG TABLET (FP) PO SCH ×2 (07:09→14:26)
--- NOTE | 2017-02-26 08:57 | DS ---
[facility] Detox Discharge Summary Admission Date: 02/21/17 Discharge Date: 02/26/17 - History Present History: Alcohol Dependence, Cocaine Dependence, Opioid Dependence - Physical Exam Results Vital Signs: Vital Signs Temperature 97.7 F 02/26/17 06:27 Pulse Rate 78 02/26/17 06:27 Respiratory Rate 18 02/26/17 06:27 Blood Pressure 160/91 02/26/17 06:27 O2 Sat by Pulse Oximetry (%) - Treatment Hospital Course: Detox Protocol Followed, Detoxed Safely, Responded well, Discharged Condition Good, Rehab Referral Accepted - Medication Discharge Medications: Ambulatory Orders Albuterol Sulfate Inhaler - [Ventolin HFA Inhaler -] 2 inh PO Q4H PRN 01/15/17 Budesonide/Formeterol Fumarate [SYMBICORT 160/4.5mcg -] 1 inh PO BID 01/15/17 Clonidine HCl [Catapres -] 0.2 mg PO TID 01/15/17 Aspirin Coated [Ecotrin -] 81 mg PO DAILY 30 Days #30 tab 01/18/17 Carvedilol [Coreg -] 6.25 mg PO BID #60 tablet 01/18/17 Losartan Potassium [Cozaar -] 50 mg PO DAILY #30 tablet 01/18/17 - Diagnosis (1) Alcohol dependence with uncomplicated withdrawal Current Visit: Yes Status: Chronic (2) Opioid dependence with withdrawal Current Visit: Yes Status: Acute (3) Chest pain Current Visit: No Status: Resolved Qualifiers: Chest pain type: unspecified Qualified Code(s): R07.9 - Chest pain, unspecified (4) Cocaine dependence, uncomplicated Current Visit: No Status: Acute (5) DVT prophylaxis Current Visit: No Status: Suspected (6) Asthma Current Visit: Yes Status: Chronic Qualifiers: Asthma severity: mild Asthma complication type: uncomplicated (7) CVA (cerebral vascular accident) Current Visit: No Status: Chronic Qualifiers: CVA mechanism: unspecified Qualified Code(s): I63.9 - Cerebral infarction, unspecified (8) Diabetes Current Visit: No Status: Chronic Qualifiers: Diabetes mellitus type: type 2 Diabetes mellitus complication status: with kidney complications Diabetes mellitus complication detail: with chronic kidney disease Diabetes mellitus [employer] worker helper insulin use: without jail use Chronic kidney disease stage: stage 3 (moderate) Qualified Code(s): E11.22 - Type 2 diabetes mellitus with diabetic chronic kidney disease (9) History of CVA (cerebrovascular accident) Current Visit: No Status: Chronic (10) Hypertension Current Visit: No Status: Chronic Qualifiers: Hypertension type: essential hypertension Qualified Code(s): I10 - Essential (primary) hypertension (11) Marijuana dependence Current Visit: No Status: Chronic (12) Nicotine dependence Current Visit: Yes Status: Chronic Qualifiers: Nicotine product type: cigarettes Substance use status: uncomplicated Qualified Code(s): F17.210 - Nicotine dependence, cigarettes, uncomplicated (13) TIA (transient ischemic attack) Current Visit: No Status: Chronic Qualifiers: Transient cerebral ischemia type: unspecified Qualified Code(s): G45.9 - Transient cerebral ischemic attack, unspecified (14) History of borderline diabetes mellitus Current Visit: No Status: Suspected (15) Substance induced mood disorder Current Visit: No Status: Suspected - AMA Did Patient Leave Against Medical Advice: No
[2017-02-26] MEDS: CARVEDILOL 6.25 MG TABLET (FP) PO SCH (11:37)
[2017-02-26] MEDS: ASPIRIN COATED 81 MG TABLET.EC PO SCH (11:37)
[2017-02-26] MEDS: PRENATAL VITAMINS W/ FOLIC ACID TABLET (FP) PO SCH (11:38)
[2017-02-26] MEDS: LOSARTAN POTASSIUM 50 MG TABLET (FP) PO SCH (11:38)
[2017-02-26] MEDS: BUDESONIDE/FORMETEROL FUMARATE 160/4.5 mcg INHALER IH SCH (11:38)
[2017-02-26] MEDS: NICOTINE 14 MG/24 HOURS TOPICAL PATCH TD SCH (11:39)
[2017-02-26 14:04] VITALS: BP 160/89; PULSE 87; TEMP 97.7
== END 2017-02-26 15:51 | disposition home or self-care (01) | DRG 773 ==
LOC: YASAS 08:20 → Y6N 11:53 → UNDODISIN 02-22 14:21 → Y6N 02-25 00:01
PROVIDERS: ADMIT Internal Medicine; ATTEND Internal Medicine
PROC: HZ2ZZZZ Detoxification Services for Substance Abuse Treatment (ICD-10-PCS; principal; 2017-02-21)
DX: F11.23 Opioid dependence with withdrawal (principal); F10.230 Alcohol dependence with withdrawal, uncomplicated; F14.20 Cocaine dependence, uncomplicated; F12.20 Cannabis dependence, uncomplicated; F17.210 Nicotine dependence, cigarettes, uncomplicated; F19.24 Other psychoactive substance dependence with psychoactive substance-induced mood disorder; I10 Essential (primary) hypertension; E11.22 Type 2 diabetes mellitus with diabetic chronic kidney disease; N18.3 Chronic kidney disease, stage 3 (moderate); Z79.84 Long term (current) use of oral hypoglycemic drugs; I69.854 Hemiplegia and hemiparesis following other cerebrovascular disease affecting left non-dominant side
CPT/HCPCS: 36415; 80053; 81003; 85027; 86593; 93005; 93010

== ENCOUNTER 2017-04-14 04:50 | Emergency (ER) | payer OTHER ==
[2017-04-14 05:03] VITALS: BP 221/125; PULSE 100; TEMP 98; BMI 36.8
[2017-04-14] MEDS ORDERED: METHADONE HCL 10 MG TABLET (FOR DETOX USE ONLY) PO ONE (05:04)
[2017-04-14] MEDS ORDERED: METOCLOPRAMIDE HCL INJECTION 10 MG/2 ML VIAL IVPB ONE (05:05)
[2017-04-14] MEDS ORDERED: METOCLOPRAMIDE HCL INJECTION 10 MG/2 ML VIAL ONE (05:15)
[2017-04-14] MEDS ORDERED: morphine CARPU-JECT 4 MG/1 ML DISP.SYRIN IVPUSH ONE (05:18)
[2017-04-14] MEDS ORDERED: MORPHINE SULFATE 10 MG/1 ML *VIAL ONE (05:19)
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
[2017-04-14 05:28] LABS: BASO % 0.4 % (0-2.0); EOS % 0.5 % (0-4.5); HEMATOCRIT 46.7 % (35.4-49); HEMOGLOBIN 15.2 GM/dL (11.7-16.9); LYMPH % 23.9 % (8-40); MCH 29.1 pg (25.7-33.7); MCHC 32.5 g/dl (32.0-35.9); MEAN CELL VOLUME 89.7 fl (80-96); MEAN PLT VOLUME 9.6 fl (7.5-11.1); MONO % 8.5 % (3.8-10.2); NEUT % 66.7 % (42.8-82.8); PLATELET COUNT 238 K/MM3 (134-434); RBC 5.21 M/mm3 (4.00-5.60); RDW 14.6 % (11.9-15.9); WHITE BLOOD COUNT 9.6 K/mm3 (4.0-10.0)
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
[2017-04-14 05:53] LABS: ALBUMIN 4.9 g/dl (3.4-5.0); ANION GAP 12 (8-16); BILIRUBIN,TOTAL 0.9 mg/dL (0.2-1.0); BLOOD UREA NITROGEN 15 mg/dL (7-18); CALCIUM 9.5 mg/dL (8.5-10.1); CHLORIDE 102 mmol/L (98-107); CO2 25 mmol/L (21-32); CREATININE 1.2 mg/dL (0.7-1.3); GLUCOSE,RANDOM 122 mg/dL (74-106); LIPASE 101 U/L (73-393); SGPT/ALT 41 U/L (12-78); SODIUM 139 mmol/L (136-145); TOT PROT 8.5 g/dl (6.4-8.2)
[2017-04-14 05:54] LABS: ALK PHOS 81 U/L (45-117)
[2017-04-14 06:02] LABS: POTASSIUM 4.3 mmol/L (3.5-5.1); SGOT/AST 44 U/L (15-37)
[2017-04-14 07:00] LABS: ACETONE SERUM NEGATIVE (NEGATIVE)
== END 2017-04-14 07:07 | disposition home or self-care (01) ==
LOC: JER 04:50
PROC: 3E033NZ Introduction of Analgesics, Hypnotics, Sedatives into Peripheral Vein, Percutaneous Approach (ICD-10-PCS; principal; 2017-04-14)
PROC: 3E033GC Introduction of Other Therapeutic Substance into Peripheral Vein, Percutaneous Approach (ICD-10-PCS; 2017-04-14)
PROC: 3E033NZ Introduction of Analgesics, Hypnotics, Sedatives into Peripheral Vein, Percutaneous Approach (ICD-10-PCS; 2017-04-14)
DX: F11.23 Opioid dependence with withdrawal (principal); I10 Essential (primary) hypertension; E11.9 Type 2 diabetes mellitus without complications; J45.909 Unspecified asthma, uncomplicated; Z86.73 Personal history of transient ischemic attack (TIA), and cerebral infarction without residual deficits
CPT/HCPCS: 36415; 80053; 82009; 82962; 83690; 85025; 99282-25

== ENCOUNTER 2017-04-16 23:03 | Inpatient (IN) | payer MEDICARE, OTHER ==
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
[2017-04-17] MEDS ORDERED: MAGNESIUM CITRATE 300 ML BOTTLE PO PRN (02:28)
[2017-04-17] MEDS ORDERED: guaiFENesin/D-METHORPHAN HB 10 ML UNIT-DOSE CUPS PO PRN (02:28)
[2017-04-17] MEDS ORDERED: LOPERAMIDE HCL 2 MG CAPSULE PO PRN (02:28)
[2017-04-17] MEDS ORDERED: NICOTINE POLACRILEX 2 MG GUM BC PRN (02:28)
[2017-04-17] MEDS ORDERED: MAG HYDROX/AL HYDROX/SIMETH 30 ML UNIT-DOSE CUP PO PRN (02:28)
[2017-04-17] MEDS ORDERED: P-EPHED 60MG/TRIPROLIDI 2.5MG TABLET PO PRN (02:28)
[2017-04-17] MEDS ORDERED: MAGNESIUM HYDROX 2400MG/30ML ORAL SUSPENSION 30 ML CUP PO PRN (02:28)
[2017-04-17] MEDS ORDERED: chlordiazePOXIDE HCL 25 MG CAPSULE PO PRN (02:28)
[2017-04-17] MEDS ORDERED: METHADONE HCL 10 MG TABLET (FOR DETOX USE ONLY) PO ONE ×3 (02:28→22:00)
[2017-04-17] MEDS ORDERED: MENTHOL/PHENOL 1 EACH UD MM PRN (02:28)
[2017-04-17] MEDS ORDERED: ALBUTEROL SO4 18 GM HFA INHALER IH PRN (02:31)
[2017-04-17 02:44] VITALS: BMI 28.8
[2017-04-17] MEDS: chlordiazePOXIDE HCL 25 MG CAPSULE PO SCH ×4 (05:53→22:38)
[2017-04-17] MEDS ORDERED: cloNIDine HCL 0.1 MG TABLET PO SCH (06:00)
--- NOTE | 2017-04-17 09:07 | EKG ---
Test Reason : Blood Pressure : / mmHG Vent. Rate : 099 BPM Atrial Rate : 099 BPM P-R Int : 148 ms QRS Dur : 098 ms QT Int : 368 ms P-R-T Axes : 059 082 -05 degrees QTc Int : 472 ms NORMAL SINUS RHYTHM T WAVE ABNORMALITY, CONSIDER INFERIOR ISCHEMIA ABNORMAL ECG WHEN COMPARED WITH ECG OF 21-FEB-2017 13:11, ST NOW DEPRESSED IN LATERAL LEADS T WAVE INVERSION NOW EVIDENT IN INFERIOR LEADS Confirmed by Alexey Smith ([id number]) on 04/17/2017 9:07:00 AM Referred By: Confirmed By:Alexey Smith
--- NOTE | 2017-04-17 10:00 | PN ---
[facility] CIWA - CIWA Score Nausea/Vomitin Muscle Tremors: 3 Anxiety: 3 Agitation: 2 Paroxysmal Sweats: 1-Minimal Palms Moist Orientation: 0-Oriented Tacttile Disturbances: 1-Very Mild Itch/Numbness Auditory Disturbances: 1-Very Mild Visual Disturbances: 0-None Headache: 2-Mild CIWA-Ar Total Score: 16 BHS COWS - Scale Resting Pulse: 1= [place] 81-100 Sweatin= Chills/Flushing Restless Observation: 3= Extraneous Movement Pupil Size: 1= Pupils >than Normal Bone or Joint Aches: 2= Severe Diffuse Aches Runny Nose/ Eye Tearin= Runny Nose/Eyes GI Upset > 30mins: 3= Vomiting/Diarrhea Tremor Observation of Outstretched Hands: 2= Slight Tremor Visible Yawning Observation: 1= 1-2x During Session Anxiety or Irritability: 2=Irritable/Anxious Goose Flesh Skin: 0=Smooth Skin COWS Score: 18 BHS Progress Note (SOAP) Subjective: ALERT,IRRITABLE,ANXIOUS,INTERRUPTED SLEEP,PAIN IN THE BODY AND BACK,TREMOR Objective: 04/17/17 09:57 Vital Signs Temperature 97.7 F 04/17/17 06:00 Pulse Rate 87 04/17/17 06:00 Respiratory Rate 20 04/17/17 06:00 Blood Pressure 117/67 04/17/17 06:00 O2 Sat by Pulse Oximetry (%) EKG NSR,NON SPECIFIC T WAVE PROLONG QT NO CHEST PAIN,NO SOB,NO DIZZINESS 04/17/17 09:59 LABS PENDING Assessment: 04/17/17 09:59 WITHDRAWAL SYMPTOM Plan: CONTINUE DETOX,BGM MONITORING
[2017-04-17 10:18] LABS: HEMATOCRIT 42.5 % (35.4-49); HEMOGLOBIN 13.6 GM/dL (11.7-16.9); MCH 28.8 pg (25.7-33.7); MEAN CELL VOLUME 89.8 fl (80-96); MEAN PLT VOLUME 9.9 fl (7.5-11.1); PLATELET COUNT 211 K/MM3 (134-434); RBC 4.73 M/mm3 (4.00-5.60); RDW 14.8 % (11.9-15.9); WHITE BLOOD COUNT 8.9 K/mm3 (4.0-10.0)
[2017-04-17 10:30] LABS: CHLORIDE 96 mmol/L (98-107); POTASSIUM 3.8 mmol/L (3.5-5.1); SODIUM 133 mmol/L (136-145)
[2017-04-17 10:45] LABS: ALBUMIN 3.7 g/dl (3.4-5.0); ALK PHOS 63 U/L (45-117); ANION GAP 10 (8-16); BILIRUBIN,TOTAL 0.7 mg/dL (0.2-1.0); BLOOD UREA NITROGEN 40 mg/dL (7-18); CO2 27 mmol/L (21-32); CREATININE 2.1 mg/dL (0.7-1.3); GLUCOSE,RANDOM 103 mg/dL (74-106); SGOT/AST 13 U/L (15-37); SGPT/ALT 23 U/L (12-78); TOT PROT 6.6 g/dl (6.4-8.2)
[2017-04-17] MEDS: PRENATAL VITAMINS W/ FOLIC ACID TABLET (FP) PO SCH (10:51)
[2017-04-17] MEDS: CARVEDILOL 6.25 MG TABLET (FP) PO SCH ×2 (10:51→22:37)
[2017-04-17] MEDS: cloNIDine HCL 0.1 MG TABLET PO SCH ×2 (10:51→22:37)
[2017-04-17] MEDS: LOSARTAN POTASSIUM 50 MG TABLET (FP) PO SCH (10:51)
[2017-04-17] MEDS: ASPIRIN COATED 81 MG TABLET.EC PO SCH (10:51)
[2017-04-17] MEDS: BUDESONIDE/FORMETEROL FUMARATE 160/4.5 mcg INHALER IH SCH ×2 (10:52→22:40)
[2017-04-17] MEDS: NICOTINE 14 MG/24 HOURS TOPICAL PATCH TD SCH (10:55)
--- NOTE | 2017-04-17 17:35 | EKG ---
Test Reason : Blood Pressure : / mmHG Vent. Rate : 079 BPM Atrial Rate : 079 BPM P-R Int : 148 ms QRS Dur : 098 ms QT Int : 404 ms P-R-T Axes : 056 062 025 degrees QTc Int : 463 ms NORMAL SINUS RHYTHM POSSIBLE LEFT ATRIAL ENLARGEMENT NONSPECIFIC T WAVE ABNORMALITY PROLONGED QT ABNORMAL ECG WHEN COMPARED WITH ECG OF 17-APR-2017 03:05, NONSPECIFIC T WAVE ABNORMALITY, WORSE IN LATERAL LEADS Confirmed by Alexey Smith ([id number]) on 04/17/2017 5:34:54 PM Referred By: Confirmed By:Alexey Smith
--- NOTE | 2017-04-17 17:35 | PN ---
[facility] Progress Note Note: Psychitric nurse practitioner: Reweaver approached patient bedside three times for psychiatric consultation. Pt. refused. Pt. stated, "I'll see you tomorrow. Not today."
[2017-04-17] MEDS: THIAMINE HCL 100 MG TABLET (FP) PO SCH (22:37)
[2017-04-18] MEDS: chlordiazePOXIDE HCL 25 MG CAPSULE PO SCH ×4 (05:49→22:05)
[2017-04-18] MEDS: ACETAMINOPHEN 325 MG TABLET (FP) PO PRN (05:53)
--- NOTE | 2017-04-18 08:49 | CONSULT ---
[facility] Psychiatric Consult - Data Date of interview: 04/18/17 Admission source: [facility] Identifying data: This is 57 years old AA obese male with no psychiatric hospitalization history intoxicated with: Alcohol, Cocaine, Opoioids, Bernsodiazepins Substance Abuse History: Smoking history: Unknown if ever smoked. Have you smoked in the past 12 months: Yes. Aproximately how many cigarettes per day: 10. Cigars Per Day: 0. Hx Chewing Tobacco Use: No. Initiated information on smoking cessation: Yes. 'Breaking Loose' booklet given: 04/17/17. - Substance & Tx. History. Hx Alcohol Use: Yes. Hx Substance Use: No. Substance Use Type : Alcohol, Cocaine, Heroin. Hx Substance Use Treatment: Yes ([facility]). - Substances Abused. Alcohol. Route: Oral. Frequency: Daily. Amount used: BEER- 2 x 22 oz. Age of first use: 27. Date of Last Use: 04/16/17. Heroin. Route: Inhalation. Frequency: Daily. Amount used: 12 bags. Age of first use: 27. Date of Last Use: 04/16/17. Cocaine. Route: Inhalation. Frequency: Daily. Amount used: $50. Age of first use: 27. Date of Last Use: 04/16/17 Medical History: DM, Asthma, HTN, TIA, Obesity Psychiatric History: DENIES PAST PSYCHIATRIC HISTORY, DENIES TAKING PRIOR TO ADMISSION PSYCHIATRIC MEDICATIONS WELL Physical/Sexual Abuse/Trauma History: Denies Additional Comment: Observation. Detox Unit Care Protocol Mental Status Exam - Mental Status Exam Alert and Oriented to: Person Cognitive Function: Fair Patient Appearance: Unkempt Mood: Sad Affect: Flat Patient Behavior: Sedated Speech Pattern: Delayed Voice Loudness: Mildly Soft/Quiet Thought Process: Circumstantial Thought Disorder: Being Controlled Hallucinations: Denies Suicidal Ideation: Denies Homicidal Ideation: Denies Insight/Judgement: Fair Sleep: Difficulty falling asleep Appetite: Weight gain Muscle strength/Tone: Mild Hypotonicity Gait/Station: Shuffling Additional Comments: Observation. Detox Unit Care Protocol Psychiatric Findings - Problem List ([place] 1, 2,3) (1) Benzodiazepine abuse Current Visit: Yes Status: Acute (2) Alcohol dependence with uncomplicated withdrawal Current Visit: Yes Status: Chronic (3) CVA (cerebral vascular accident) Current Visit: Yes Status: Chronic Qualifiers: CVA mechanism: unspecified Qualified Code(s): I63.9 - Cerebral infarction, unspecified (4) Cocaine dependence, uncomplicated Current Visit: Yes Status: Chronic (5) Opioid dependence with withdrawal Current Visit: Yes Status: Chronic (6) Marijuana dependence Current Visit: No Status: Chronic (7) Substance induced mood disorder Current Visit: No Status: Suspected - Initial Treatment Plan Initial Treatment Plan: Observation. Detox Unit Care Protocol
[2017-04-18] MEDS ORDERED: METHADONE HCL 5 MG TABLET (FOR DETOX USE ONLY) PO SCH (10:00)
[2017-04-18] MEDS: CARVEDILOL 6.25 MG TABLET (FP) PO SCH ×2 (10:34→22:04)
[2017-04-18] MEDS: PRENATAL VITAMINS W/ FOLIC ACID TABLET (FP) PO SCH (10:34)
[2017-04-18] MEDS: ASPIRIN COATED 81 MG TABLET.EC PO SCH (10:35)
[2017-04-18] MEDS: cloNIDine HCL 0.1 MG TABLET PO SCH ×2 (10:35→22:05)
[2017-04-18] MEDS: LOSARTAN POTASSIUM 50 MG TABLET (FP) PO SCH (10:36)
[2017-04-18] MEDS: NICOTINE 14 MG/24 HOURS TOPICAL PATCH TD SCH (10:38)
--- NOTE | 2017-04-18 10:56 | PN ---
[facility] CIWA - CIWA Score Nausea/Vomitin Muscle Tremors: 3 Anxiety: 3 Agitation: 2 Paroxysmal Sweats: 1-Minimal Palms Moist Orientation: 0-Oriented Tacttile Disturbances: 1-Very Mild Itch/Numbness Auditory Disturbances: 1-Very Mild Visual Disturbances: 0-None Headache: 2-Mild CIWA-Ar Total Score: 16 [facility] COWS - Scale Resting Pulse: 0= SD 80 or Below Sweatin= Chills/Flushing Restless Observation: 3= Extraneous Movement Pupil Size: 1= Pupils >than Normal Bone or Joint Aches: 2= Severe Diffuse Aches Runny Nose/ Eye Tearin= Runny Nose/Eyes GI Upset > 30mins: 2= Nausea/Diarrhea Tremor Observation of Outstretched Hands: 2= Slight Tremor Visible Yawning Observation: 1= 1-2x During Session Anxiety or Irritability: 2=Irritable/Anxious Goose Flesh Skin: 0=Smooth Skin COWS Score: 16 [facility] Progress Note (SOAP) Subjective: ALERT,IRRITABLE,ANXIOUS,INTERRUPTED SLEEP,TREMOR,PAIN IN THE BODY AND BACK Objective: 04/18/17 10:53 Vital Signs Temperature 98.2 F 04/18/17 09:51 Pulse Rate 75 04/18/17 09:51 Respiratory Rate 18 04/18/17 09:51 Blood Pressure 128/84 04/18/17 09:51 O2 Sat by Pulse Oximetry (%) Laboratory Last Values WBC 8.9 K/mm3 (4.0-10.0) 04/17/17 07:00 RBC 4.73 M/mm3 (4.00-5.60) 04/17/17 07:00 Hgb 13.6 GM/dL (11.7-16.9) D 04/17/17 07:00 Hct 42.5 % (35.4-49) 04/17/17 07:00 MCV 89.8 fl (80-96) 04/17/17 07:00 MCH 28.8 pg (25.7-33.7) 04/17/17 07:00 MCHC 32.0 g/dl (32.0-35.9) 04/17/17 07:00 RDW 14.8 % (11.9-15.9) 04/17/17 07:00 Plt Count 211 K/MM3 (134-434) 04/17/17 07:00 MPV 9.9 fl (7.5-11.1) 04/17/17 07:00 Sodium 133 mmol/L (136-145) L 04/17/17 07:00 Potassium 3.8 mmol/L (3.5-5.1) 04/17/17 07:00 Chloride 96 mmol/L (98-107) L 04/17/17 07:00 Carbon Dioxide 27 mmol/L (21-32) 04/17/17 07:00 Anion Gap 10 (8-16) 04/17/17 07:00 BUN 40 mg/dL (7-18) H D 04/17/17 07:00 Creatinine 2.1 mg/dL (0.7-1.3) H D 04/17/17 07:00 Creat Clearance w eGFR 32.72 (>60) 04/17/17 07:00 POC Glucometer 105 UNITS (80-120) 04/18/17 05:50 Random Glucose 103 mg/dL (74-106) 04/17/17 07:00 Calcium 9.0 mg/dL (8.5-10.1) 04/17/17 07:00 Total Bilirubin 0.7 mg/dL (0.2-1.0) D 04/17/17 07:00 AST 13 U/L (15-37) L D 04/17/17 07:00 ALT 23 U/L (12-78) D 04/17/17 07:00 Alkaline Phosphatase 63 U/L (45-117) D 04/17/17 07:00 Total Protein 6.6 g/dl (6.4-8.2) D 04/17/17 07:00 Albumin 3.7 g/dl (3.4-5.0) D 04/17/17 07:00 RPR Titer Nonreactive (NONREACTIVE) 04/17/17 07:00 Assessment: 04/18/17 10:54 WITHDRAWAL SYMPTOM Plan: CONTINUE DETOX,RENAL INSUFFICIENCY BUN 40,CREATININE 2.1,ENCOURAGE ORAL FLUID, REPEAT CMP IN AM
[2017-04-18] MEDS: BUDESONIDE/FORMETEROL FUMARATE 160/4.5 mcg INHALER IH SCH ×2 (10:59→22:05)
[2017-04-18] MEDS: IBUPROFEN 400 MG TABLET (FP) PO PRN (16:58)
[2017-04-18] MEDS: THIAMINE HCL 100 MG TABLET (FP) PO SCH (22:04)
[2017-04-18 23:08] LABS: URINE APPEARANCE TURBID; URINE BILIRUBIN NEGATIVE (NEGATIVE); URINE BLOOD NEGATIVE (NEGATIVE); URINE COLOR YELLOW; URINE GLUCOSE (UA) 2+ (NEGATIVE); URINE KETONE NEGATIVE (NEGATIVE); URINE LEUK ESTERASE NEGATIVE (NEGATIVE); URINE NITRITE NEGATIVE (NEGATIVE); URINE PROTEIN NEGATIVE (NEGATIVE); URINE UROBILINOGEN NEGATIVE mg/dL (0.2-1.0)
[2017-04-19] MEDS: chlordiazePOXIDE 5 MG CAPSULE PO SCH ×4 (06:19→22:42)
[2017-04-19] MEDS: ACETAMINOPHEN 325 MG TABLET (FP) PO PRN ×2 (06:21→22:43)
[2017-04-19] MEDS: IBUPROFEN 400 MG TABLET (FP) PO PRN (08:57)
[2017-04-19 10:21] LABS: ALBUMIN 2.8 g/dl (3.4-5.0); ANION GAP 7 (8-16); BLOOD UREA NITROGEN 33 mg/dL (7-18); CALCIUM 7.9 mg/dL (8.5-10.1); CHLORIDE 102 mmol/L (98-107); CO2 30 mmol/L (21-32); CREATININE 1.1 mg/dL (0.7-1.3); GLUCOSE,RANDOM 151 mg/dL (74-106); POTASSIUM 4.7 mmol/L (3.5-5.1); SGOT/AST 13 U/L (15-37); SGPT/ALT 20 U/L (12-78); SODIUM 139 mmol/L (136-145)
[2017-04-19 10:23] LABS: ALK PHOS 50 U/L (45-117); BILIRUBIN,TOTAL 0.5 mg/dL (0.2-1.0); TOT PROT 5.5 g/dl (6.4-8.2)
[2017-04-19] MEDS: cloNIDine HCL 0.1 MG TABLET PO SCH ×2 (10:25→22:42)
[2017-04-19] MEDS: NICOTINE 14 MG/24 HOURS TOPICAL PATCH TD SCH (10:25)
[2017-04-19] MEDS: CARVEDILOL 6.25 MG TABLET (FP) PO SCH ×2 (10:25→22:42)
[2017-04-19] MEDS: PRENATAL VITAMINS W/ FOLIC ACID TABLET (FP) PO SCH (10:25)
[2017-04-19] MEDS: ASPIRIN COATED 81 MG TABLET.EC PO SCH (10:25)
[2017-04-19] MEDS: METHADONE HCL 5 MG TABLET (FOR DETOX USE ONLY) PO SCH (10:25)
[2017-04-19] MEDS: LOSARTAN POTASSIUM 50 MG TABLET (FP) PO SCH (10:25)
[2017-04-19] MEDS: BUDESONIDE/FORMETEROL FUMARATE 160/4.5 mcg INHALER IH SCH ×2 (10:26→22:42)
--- NOTE | 2017-04-19 11:04 | PN ---
S Progress Note (SOAP) Subjective: ALERT,IRRITABLE,ANXIOUS,INTERRUPTED SLEEP,PAIN IN THE BODY Objective: 04/19/17 11:01 Vital Signs Temperature 96.0 F L 04/19/17 10:08 Pulse Rate 77 04/19/17 10:08 Respiratory Rate 20 04/19/17 10:08 Blood Pressure 137/70 04/19/17 10:08 O2 Sat by Pulse Oximetry (%) Laboratory Results - last 24 hr 04/18/17 04/18/17 04/19/17 16:26 23:00 06:17 Sodium Potassium Chloride Carbon Dioxide Anion Gap BUN Creatinine Creat Clearance w eGFR POC Glucometer 114 120 Random Glucose Calcium Total Bilirubin AST ALT Alkaline Phosphatase Total Protein Albumin Urine Color Yellow Urine Appearance Turbid Urine pH 5.0 Ur Specific [place] 1.017 Urine Protein Negative Urine Glucose (UA) 2+ H Urine Ketones Negative Urine Blood Negative Urine Nitrite Negative Urine Bilirubin Negative Urine Urobilinogen Negative Ur Leukocyte Esterase Negative 04/19/17 07:30 Sodium 139 Potassium 4.7 D Chloride 102 Carbon Dioxide 30 Anion Gap 7 L BUN 33 H Creatinine 1.1 D Creat Clearance w eGFR > 60 POC Glucometer Random Glucose 151 H D Calcium 7.9 L Total Bilirubin 0.5 D AST 13 L ALT 20 Alkaline Phosphatase 50 D Total Protein 5.5 L Albumin 2.8 L D Urine Color Urine Appearance Urine pH Ur Specific [place] Urine Protein Urine Glucose (UA) Urine Ketones Urine Blood Urine Nitrite Urine Bilirubin Urine Urobilinogen Ur Leukocyte Esterase Assessment: 04/19/17 11:03 WITHDRAWAL SYMPTOM Plan: CONTINUE DETOX,ENCOURAGE ORAL FLUID,CONTINUE DETOX
[2017-04-19] MEDS: THIAMINE HCL 100 MG TABLET (FP) PO SCH (22:42)
[2017-04-20] MEDS: chlordiazePOXIDE HCL 10 MG CAPSULE PO SCH ×4 (05:25→22:25)
[2017-04-20] MEDS: PRENATAL VITAMINS W/ FOLIC ACID TABLET (FP) PO SCH (10:48)
[2017-04-20] MEDS: ASPIRIN COATED 81 MG TABLET.EC PO SCH (10:48)
[2017-04-20] MEDS: cloNIDine HCL 0.1 MG TABLET PO SCH ×2 (10:48→22:25)
[2017-04-20] MEDS: LOSARTAN POTASSIUM 50 MG TABLET (FP) PO SCH (10:48)
[2017-04-20] MEDS: CARVEDILOL 6.25 MG TABLET (FP) PO SCH ×2 (10:48→22:25)
[2017-04-20] MEDS: METHADONE HCL 5 MG TABLET (FOR DETOX USE ONLY) PO SCH (10:49)
[2017-04-20] MEDS: NICOTINE 14 MG/24 HOURS TOPICAL PATCH TD SCH (10:51)
[2017-04-20] MEDS: BUDESONIDE/FORMETEROL FUMARATE 160/4.5 mcg INHALER IH SCH ×2 (10:52→22:25)
--- NOTE | 2017-04-20 11:20 | PN ---
[facility] Progress Note (SOAP) Subjective: ALERT,IRRITABLE,ANXIOUS,INTERRUPTED SLEEP Objective: 04/20/17 11:18 Vital Signs Temperature 96.6 F L 04/20/17 05:59 Pulse Rate 76 04/20/17 05:59 Respiratory Rate 16 04/20/17 05:59 Blood Pressure 123/60 04/20/17 05:59 O2 Sat by Pulse Oximetry (%) Assessment: 04/20/17 11:18 WITHDRAWAL SYMPTOM 04/20/17 11:19 BGM 113 Plan: CONTINUE DETOX,BGM MONITORING,ENCOURAGE ORAL FLUID
[2017-04-20] MEDS: THIAMINE HCL 100 MG TABLET (FP) PO SCH (22:25)
[2017-04-21] MEDS ORDERED: METHADONE HCL 10 MG TABLET (FOR DETOX USE ONLY) PO SCH (10:00)
[2017-04-21] MEDS: ASPIRIN COATED 81 MG TABLET.EC PO SCH (10:38)
[2017-04-21] MEDS: LOSARTAN POTASSIUM 50 MG TABLET (FP) PO SCH (10:38)
[2017-04-21] MEDS: PRENATAL VITAMINS W/ FOLIC ACID TABLET (FP) PO SCH (10:38)
[2017-04-21] MEDS: NICOTINE 14 MG/24 HOURS TOPICAL PATCH TD SCH (10:39)
[2017-04-21] MEDS: CARVEDILOL 6.25 MG TABLET (FP) PO SCH ×2 (10:39→22:44)
[2017-04-21] MEDS: BUDESONIDE/FORMETEROL FUMARATE 160/4.5 mcg INHALER IH SCH ×2 (10:39→22:44)
[2017-04-21] MEDS: cloNIDine HCL 0.1 MG TABLET PO SCH ×2 (10:39→22:44)
--- NOTE | 2017-04-21 13:45 | PN ---
[facility] Progress Note (SOAP) Subjective: shakes tired sleepy Objective: 04/21/17 13:44 no acute distress A & O x 3 sleeping but arousable Vital Signs Temperature 97.5 F L 04/21/17 11:08 Pulse Rate 74 04/21/17 11:08 Respiratory Rate 20 04/21/17 11:08 Blood Pressure 141/71 04/21/17 11:08 O2 Sat by Pulse Oximetry (%) Assessment: 04/21/17 13:44 withdrawal sx Plan: continue detox d/c for tomorrow
[2017-04-21] MEDS: THIAMINE HCL 100 MG TABLET (FP) PO SCH (22:44)
[2017-04-22] MEDS ORDERED: METHADONE HCL 5 MG TABLET (FOR DETOX USE ONLY) PO SCH (06:00)
--- NOTE | 2017-04-22 08:45 | DS ---
[facility] Detox Discharge Summary Admission Date: 04/17/17 Discharge Date: 04/22/17 - History Present History: Alcohol Dependence, Opioid Dependence - Physical Exam Results Vital Signs: Vital Signs Temperature 97.3 F L 04/22/17 06:00 Pulse Rate 67 04/22/17 06:00 Respiratory Rate 18 04/22/17 06:00 Blood Pressure 123/67 04/22/17 06:00 O2 Sat by Pulse Oximetry (%) Pertinent Admission Physical Exam Findings: withdrawal sx Vital Signs Temperature 97.3 F L 04/22/17 06:00 Pulse Rate 67 04/22/17 06:00 Respiratory Rate 18 04/22/17 06:00 Blood Pressure 123/67 04/22/17 06:00 O2 Sat by Pulse Oximetry (%) Laboratory Last Values WBC 8.9 K/mm3 (4.0-10.0) 04/17/17 07:00 RBC 4.73 M/mm3 (4.00-5.60) 04/17/17 07:00 Hgb 13.6 GM/dL (11.7-16.9) D 04/17/17 07:00 Hct 42.5 % (35.4-49) 04/17/17 07:00 MCV 89.8 fl (80-96) 04/17/17 07:00 MCH 28.8 pg (25.7-33.7) 04/17/17 07:00 MCHC 32.0 g/dl (32.0-35.9) 04/17/17 07:00 RDW 14.8 % (11.9-15.9) 04/17/17 07:00 Plt Count 211 K/MM3 (134-434) 04/17/17 07:00 MPV 9.9 fl (7.5-11.1) 04/17/17 07:00 Sodium 139 mmol/L (136-145) 04/19/17 07:30 Potassium 4.7 mmol/L (3.5-5.1) D 04/19/17 07:30 Chloride 102 mmol/L (98-107) 04/19/17 07:30 Carbon Dioxide 30 mmol/L (21-32) 04/19/17 07:30 Anion Gap 7 (8-16) L 04/19/17 07:30 BUN 33 mg/dL (7-18) H 04/19/17 07:30 Creatinine 1.1 mg/dL (0.7-1.3) D 04/19/17 07:30 Creat Clearance w eGFR > 60 (>60) 04/19/17 07:30 POC Glucometer 140 UNITS (80-120) 04/22/17 05:22 Random Glucose 151 mg/dL (74-106) H D 04/19/17 07:30 Calcium 7.9 mg/dL (8.5-10.1) L 04/19/17 07:30 Total Bilirubin 0.5 mg/dL (0.2-1.0) D 04/19/17 07:30 AST 13 U/L (15-37) L 04/19/17 07:30 ALT 20 U/L (12-78) 04/19/17 07:30 Alkaline Phosphatase 50 U/L (45-117) D 04/19/17 07:30 Total Protein 5.5 g/dl (6.4-8.2) L 04/19/17 07:30 Albumin 2.8 g/dl (3.4-5.0) L D 04/19/17 07:30 Urine Color Yellow 04/18/17 23:00 Urine Appearance Turbid 04/18/17 23:00 Urine pH 5.0 (5.0-8.0) 04/18/17 23:00 Ur Specific [place] 1.017 (1.001-1.035) 04/18/17 23:00 Urine Protein Negative (NEGATIVE) 04/18/17 23:00 Urine Glucose (UA) 2+ (NEGATIVE) H 04/18/17 23:00 Urine Ketones Negative (NEGATIVE) 04/18/17 23:00 Urine Blood Negative (NEGATIVE) 04/18/17 23:00 Urine Nitrite Negative (NEGATIVE) 04/18/17 23:00 Urine Bilirubin Negative (NEGATIVE) 04/18/17 23:00 Urine Urobilinogen Negative mg/dL (0.2-1.0) 04/18/17 23:00 Ur Leukocyte Esterase Negative (NEGATIVE) 04/18/17 23:00 RPR Titer Nonreactive (NONREACTIVE) 04/17/17 07:00 lab noted - Treatment Hospital Course: Detox Protocol Followed, Detoxed Safely, Responded well, Discharged Condition Good, Rehab Referral Accepted Patient has Accepted a Rehab Referral to: as per counselor arranged - Medication Discharge Medications: Ambulatory Orders Budesonide/Formeterol Fumarate [SYMBICORT 160/4.5mcg -] 1 inh PO BID 01/15/17 cloNIDine HCL [Catapres -] 0.2 mg PO TID 01/15/17 Aspirin Coated [Ecotrin -] 81 mg PO DAILY 30 Days #30 tab 01/18/17 Albuterol Sulfate Inhaler - [Ventolin HFA Inhaler -] 2 inh PO Q4H PRN 30 Days # 1 inhaler 04/22/17 Carvedilol [Coreg -] 6.25 mg PO BID #60 tablet 04/22/17 Losartan Potassium [Cozaar -] 50 mg PO DAILY #30 tablet 04/22/17 - Diagnosis (1) Alcohol dependence with uncomplicated withdrawal Current Visit: Yes Status: Acute (2) Asthma Current Visit: Yes Status: Chronic Qualifiers: Asthma severity: mild Asthma complication type: uncomplicated (3) Hypertension Current Visit: Yes Status: Chronic Qualifiers: Hypertension type: essential hypertension Qualified Code(s): I10 - Essential (primary) hypertension (4) Opioid dependence with withdrawal Current Visit: Yes Status: Acute - AMA Did Patient Leave Against Medical Advice: No
[2017-04-22 10:02] VITALS: BP 147/80; PULSE 73; TEMP 98.2
== END 2017-04-22 10:33 | disposition home or self-care (01) | DRG 773 ==
LOC: YASAS 23:03 → Y6N 04-17 01:18
PROVIDERS: ADMIT Internal Medicine; ATTEND Internal Medicine
PROC: HZ2ZZZZ Detoxification Services for Substance Abuse Treatment (ICD-10-PCS; principal; 2017-04-17)
DX: F11.23 Opioid dependence with withdrawal (principal); F10.230 Alcohol dependence with withdrawal, uncomplicated; F14.20 Cocaine dependence, uncomplicated; F12.20 Cannabis dependence, uncomplicated; F17.210 Nicotine dependence, cigarettes, uncomplicated; F19.24 Other psychoactive substance dependence with psychoactive substance-induced mood disorder; I12.9 Hypertensive chronic kidney disease with stage 1 through stage 4 chronic kidney disease, or unspecified chronic kidney disease; E11.22 Type 2 diabetes mellitus with diabetic chronic kidney disease; N18.3 Chronic kidney disease, stage 3 (moderate); Z79.84 Long term (current) use of oral hypoglycemic drugs; J45.909 Unspecified asthma, uncomplicated; R00.0 Tachycardia, unspecified; Z86.73 Personal history of transient ischemic attack (TIA), and cerebral infarction without residual deficits
CPT/HCPCS: 36415; 80053; 81003; 82962; 85027; 86593; 93005; 93010; J0735

== ENCOUNTER 2017-07-02 03:24 | Inpatient (IN) | payer OTHER ==
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
[2017-07-02 04:11] VITALS: BMI 40.8
[2017-07-02] MEDS ORDERED: ALBUTEROL SO4 18 GM HFA INHALER IH PRN (04:14)
[2017-07-02] MEDS ORDERED: IBUPROFEN 400 MG TABLET (FP) PO PRN (04:15)
[2017-07-02] MEDS ORDERED: chlordiazePOXIDE HCL 25 MG CAPSULE PO PRN (04:15)
[2017-07-02] MEDS ORDERED: P-EPHED 60MG/TRIPROLIDI 2.5MG TABLET PO PRN (04:15)
[2017-07-02] MEDS ORDERED: METHADONE HCL 10 MG TABLET (FOR DETOX USE ONLY) PO ONE ×3 (04:15→22:00)
[2017-07-02] MEDS ORDERED: MAGNESIUM HYDROX 2400MG/30ML ORAL SUSPENSION 30 ML CUP PO PRN (04:15)
[2017-07-02] MEDS ORDERED: MAGNESIUM CITRATE 300 ML BOTTLE PO PRN (04:15)
[2017-07-02] MEDS ORDERED: guaiFENesin/D-METHORPHAN HB 10 ML UNIT-DOSE CUPS PO PRN (04:15)
[2017-07-02] MEDS ORDERED: LOPERAMIDE HCL 2 MG CAPSULE PO PRN (04:15)
[2017-07-02] MEDS ORDERED: MENTHOL/PHENOL 1 EACH UD MM PRN (04:15)
[2017-07-02] MEDS ORDERED: ACETAMINOPHEN 325 MG TABLET (FP) PO PRN (04:15)
[2017-07-02] MEDS ORDERED: NICOTINE POLACRILEX 2 MG GUM BC PRN (04:15)
[2017-07-02] MEDS ORDERED: MAG HYDROX/AL HYDROX/SIMETH 30 ML UNIT-DOSE CUP PO PRN (04:15)
[2017-07-02] MEDS: chlordiazePOXIDE HCL 25 MG CAPSULE PO SCH ×4 (04:51→22:17)
[2017-07-02] MEDS: LOSARTAN POTASSIUM 50 MG TABLET (FP) PO SCH (10:20)
[2017-07-02] MEDS: PRENATAL VITAMINS W/ FOLIC ACID TABLET (FP) PO SCH (10:20)
[2017-07-02] MEDS: ASPIRIN COATED 81 MG TABLET.EC PO SCH (10:20)
[2017-07-02] MEDS: NICOTINE 14 MG/24 HOURS TOPICAL PATCH TD SCH (10:35)
[2017-07-02 10:46] LABS: URINE APPEARANCE CLEAR; URINE BILIRUBIN NEGATIVE (<2.0 mg/dL); URINE BLOOD NEGATIVE (NEGATIVE); URINE COLOR COLORLESS; URINE GLUCOSE (UA) 1+ (NEGATIVE); URINE KETONE NEGATIVE (NEGATIVE); URINE LEUK ESTERASE NEGATIVE (NEGATIVE); URINE NITRITE NEGATIVE (NEGATIVE); URINE PROTEIN NEGATIVE (NEGATIVE); URINE UROBILINOGEN NEGATIVE mg/dL (0.2-1.0)
[2017-07-02 10:46] LABS: HEMOGLOBIN 12.6 GM/dL (11.7-16.9); MCH 30.1 pg (25.7-33.7); MCHC 33.1 g/dl (32.0-35.9); MEAN PLT VOLUME 8.9 fl (7.5-11.1); PLATELET COUNT 245 K/MM3 (134-434); RBC 4.18 M/mm3 (4.00-5.60); RDW 14.7 % (11.9-15.9); WHITE BLOOD COUNT 5.9 K/mm3 (4.0-10.0)
[2017-07-02 10:50] LABS: CHLORIDE 104 mmol/L (98-107); SODIUM 139 mmol/L (136-145)
[2017-07-02 10:57] LABS: ALBUMIN 3.9 g/dl (3.4-5.0); ALK PHOS 107 U/L (45-117); ANION GAP 7 (8-16); BILIRUBIN,TOTAL 0.1 mg/dL (0.2-1.0); BLOOD UREA NITROGEN 8 mg/dL (7-18); CALCIUM 8.5 mg/dL (8.5-10.1); CO2 28 mmol/L (21-32); CREATININE 0.8 mg/dL (0.7-1.3); GLUCOSE,RANDOM 108 mg/dL (74-106); SGOT/AST 13 U/L (15-37); SGPT/ALT 17 U/L (12-78)
--- NOTE | 2017-07-02 11:09 | EKG ---
Test Reason : Blood Pressure : / mmHG Vent. Rate : 078 BPM Atrial Rate : 078 BPM P-R Int : 170 ms QRS Dur : 114 ms QT Int : 388 ms P-R-T Axes : 061 048 017 degrees QTc Int : 442 ms NORMAL SINUS RHYTHM NORMAL ECG WHEN COMPARED WITH ECG OF 22-MAY-2017 02:20, NO SIGNIFICANT CHANGE WAS FOUND Confirmed by LETITIA CUI MD ([id number]) on 07/02/2017 11:08:49 AM Referred By: Confirmed By:LETITIA CUI MD
--- NOTE | 2017-07-02 11:41 | CONSULT ---
[facility] Psychiatric Consult - Data Date of interview: 07/02/17 Admission source: [facility] Identifying data: Patient is appproached at bedside for psychiatric evaluation.Mr Wilkinson refused to be interviewed.Nursing staff is made aware.
--- NOTE | 2017-07-02 12:49 | PN ---
[facility] CIWA - CIWA Score Nausea/Vomitin Muscle Tremors: 3 Anxiety: 3 Agitation: 4-Moderately Restless Paroxysmal Sweats: 3 Orientation: 0-Oriented Tacttile Disturbances: 0-None Auditory Disturbances: 0-None Visual Disturbances: 0-None Headache: 0-None Present CIWA-Ar Total Score: 16 [facility] COWS - Scale Resting Pulse: 1= [place] 81-100 Sweatin=Flushed/Facial Moisture Restless Observation: 0= Sits Still Pupil Size: 0= Normal to Room Light Bone or Joint Aches: 1= Mild Discomfort Runny Nose/ Eye Tearin= Runny Nose/Eyes GI Upset > 30mins: 1= Stomach Cramp Tremor Observation of Outstretched Hands: 2= Slight Tremor Visible Yawning Observation: 0= None Anxiety or Irritability: 2=Irritable/Anxious Goose Flesh Skin: 0=Smooth Skin COWS Score: 11 [facility] Progress Note (SOAP) Subjective: Sleep disturbance sweats shakes Diarrhea Objective: 07/02/17 12:48 Sleepy but arousable Irritable Vital Signs Temperature 97.4 F L 07/02/17 09:18 Pulse Rate 84 07/02/17 09:18 Respiratory Rate 20 07/02/17 09:18 Blood Pressure 140/79 07/02/17 09:18 O2 Sat by Pulse Oximetry (%) Laboratory Last Values WBC 5.9 K/mm3 (4.0-10.0) 07/02/17 07:00 RBC 4.18 M/mm3 (4.00-5.60) 07/02/17 07:00 Hgb 12.6 GM/dL (11.7-16.9) 07/02/17 07:00 Hct 38.0 % (35.4-49) 07/02/17 07:00 MCV 91.0 fl (80-96) 07/02/17 07:00 MCH 30.1 pg (25.7-33.7) 07/02/17 07:00 MCHC 33.1 g/dl (32.0-35.9) 07/02/17 07:00 RDW 14.7 % (11.9-15.9) 07/02/17 07:00 Plt Count 245 K/MM3 (134-434) 07/02/17 07:00 MPV 8.9 fl (7.5-11.1) 07/02/17 07:00 Sodium 139 mmol/L (136-145) 07/02/17 07:00 Potassium 4.0 mmol/L (3.5-5.1) 07/02/17 07:00 Chloride 104 mmol/L (98-107) 07/02/17 07:00 Carbon Dioxide 28 mmol/L (21-32) 07/02/17 07:00 Anion Gap 7 (8-16) L 07/02/17 07:00 BUN 8 mg/dL (7-18) D 07/02/17 07:00 Creatinine 0.8 mg/dL (0.7-1.3) 07/02/17 07:00 Creat Clearance w eGFR > 60 (>60) 07/02/17 07:00 Random Glucose 108 mg/dL (74-106) H 07/02/17 07:00 Calcium 8.5 mg/dL (8.5-10.1) 07/02/17 07:00 Total Bilirubin 0.1 mg/dL (0.2-1.0) L 07/02/17 07:00 AST 13 U/L (15-37) L 07/02/17 07:00 ALT 17 U/L (12-78) 07/02/17 07:00 Alkaline Phosphatase 107 U/L (45-117) D 07/02/17 07:00 Total Protein 7.0 g/dl (6.4-8.2) 07/02/17 07:00 Albumin 3.9 g/dl (3.4-5.0) 07/02/17 07:00 Urine Color Colorless 07/02/17 08:00 Urine Appearance Clear 07/02/17 08:00 Urine pH 7.0 (5.0-8.0) D 07/02/17 08:00 Ur Specific [place] 1.003 (1.001-1.035) 07/02/17 08:00 Urine Protein Negative (NEGATIVE) 07/02/17 08:00 Urine Glucose (UA) 1+ (NEGATIVE) H 07/02/17 08:00 Urine Ketones Negative (NEGATIVE) 07/02/17 08:00 Urine Blood Negative (NEGATIVE) 07/02/17 08:00 Urine Nitrite Negative (NEGATIVE) 07/02/17 08:00 Urine Bilirubin Negative (<2.0 mg/dL) 07/02/17 08:00 Urine Urobilinogen Negative mg/dL (0.2-1.0) 07/02/17 08:00 Ur Leukocyte Esterase Negative (NEGATIVE) 07/02/17 08:00 RPR Titer Nonreactive (NONREACTIVE) 07/02/17 07:00 Labs noted Assessment: 07/02/17 12:49 withdrawal sx Plan: continue detox
[2017-07-02] MEDS: THIAMINE HCL 100 MG TABLET (FP) PO SCH (22:16)
[2017-07-03] MEDS: hydrOXYzine PAMOATE 50 MG CAPSULE (FP) PO PRN (01:11)
[2017-07-03] MEDS: chlordiazePOXIDE HCL 25 MG CAPSULE PO SCH ×4 (05:49→23:03)
[2017-07-03] MEDS ORDERED: METHADONE HCL 5 MG TABLET (FOR DETOX USE ONLY) PO SCH (10:00)
[2017-07-03] MEDS: LOSARTAN POTASSIUM 50 MG TABLET (FP) PO SCH (10:30)
[2017-07-03] MEDS: ASPIRIN COATED 81 MG TABLET.EC PO SCH (10:30)
[2017-07-03] MEDS: PRENATAL VITAMINS W/ FOLIC ACID TABLET (FP) PO SCH (10:30)
[2017-07-03] MEDS: NICOTINE 14 MG/24 HOURS TOPICAL PATCH TD SCH (10:31)
--- NOTE | 2017-07-03 16:38 | PN ---
[facility] CIWA - CIWA Score Nausea/Vomitin-No Nausea/No Vomiting Muscle Tremors: None Anxiety: 5 Agitation: 4-Moderately Restless Paroxysmal Sweats: 3 Orientation: 0-Oriented Tacttile Disturbances: 3-Moderate Itch/Numb/Burn Auditory Disturbances: 0-None Visual Disturbances: 1-Very Mild Sensitivity Headache: 0-None Present CIWA-Ar Total Score: 16 [facility] COWS - Scale Resting Pulse: 0= [place] 80 or Below Sweatin= Chills/Flushing Restless Observation: 0= Sits Still Pupil Size: 0= Normal to Room Light Bone or Joint Aches: 2= Severe Diffuse Aches Runny Nose/ Eye Tearin= None GI Upset > 30mins: 1= Stomach Cramp Tremor Observation of Outstretched Hands: 0= None Yawning Observation: 2= >3x During Session Anxiety or Irritability: 4=Extreme Anxiety Goose Flesh Skin: 3=Pil[place] COWS Score: 13 S Progress Note (SOAP) Subjective: Sweating, Body Aches, Anxious, Interrupted Sleep. Objective: PATIENT A & O X 3. NO ACUTE DISTRESS. 07/03/17 16:36 Vital Signs Temperature 97 F L 07/03/17 13:35 Pulse Rate 70 07/03/17 13:35 Respiratory Rate 20 07/03/17 13:35 Blood Pressure 117/70 07/03/17 13:35 O2 Sat by Pulse Oximetry (%) Laboratory Tests 07/02/17 07/02/17 07/02/17 07:00 07:00 07:00 WBC 5.9 RBC 4.18 Hgb 12.6 Hct 38.0 MCV 91.0 MCH 30.1 MCHC 33.1 RDW 14.7 Plt Count 245 MPV 8.9 Sodium 139 Potassium 4.0 Chloride 104 Carbon Dioxide 28 Anion Gap 7 L BUN 8 D Creatinine 0.8 Creat Clearance w eGFR > 60 POC Glucometer Random Glucose 108 H Calcium 8.5 Total Bilirubin 0.1 L AST 13 L ALT 17 Alkaline Phosphatase 107 D Total Protein 7.0 Albumin 3.9 Urine Color Urine Appearance Urine pH Ur Specific [place] Urine Protein Urine Glucose (UA) Urine Ketones Urine Blood Urine Nitrite Urine Bilirubin Urine Urobilinogen Ur Leukocyte Esterase RPR Titer Nonreactive 07/02/17 07/03/17 08:00 05:51 WBC RBC Hgb Hct MCV MCH MCHC RDW Plt Count MPV Sodium Potassium Chloride Carbon Dioxide Anion Gap BUN Creatinine Creat Clearance w eGFR POC Glucometer 149 Random Glucose Calcium Total Bilirubin AST ALT Alkaline Phosphatase Total Protein Albumin Urine Color Colorless Urine Appearance Clear Urine pH 7.0 D Ur Specific [place] 1.003 Urine Protein Negative Urine Glucose (UA) 1+ H Urine Ketones Negative Urine Blood Negative Urine Nitrite Negative Urine Bilirubin Negative Urine Urobilinogen Negative Ur Leukocyte Esterase Negative RPR Titer LABS NOTED. Assessment: 07/03/17 16:37 WITHDRAWAL SYMPTOMS. Plan: CONTINUE DETOX. ENCOURAGE AMBULATION. INCREASE DAILY PO FLUID INTAKE.
[2017-07-03] MEDS: THIAMINE HCL 100 MG TABLET (FP) PO SCH (23:03)
[2017-07-04] MEDS: chlordiazePOXIDE 5 MG CAPSULE PO SCH ×4 (05:53→22:47)
[2017-07-04] MEDS: METHADONE HCL 5 MG TABLET (FOR DETOX USE ONLY) PO SCH (11:01)
[2017-07-04] MEDS: PRENATAL VITAMINS W/ FOLIC ACID TABLET (FP) PO SCH (11:01)
[2017-07-04] MEDS: ASPIRIN COATED 81 MG TABLET.EC PO SCH (11:02)
[2017-07-04] MEDS: LOSARTAN POTASSIUM 50 MG TABLET (FP) PO SCH (11:03)
[2017-07-04] MEDS: NICOTINE 14 MG/24 HOURS TOPICAL PATCH TD SCH (11:06)
--- NOTE | 2017-07-04 13:54 | PN ---
S Progress Note (SOAP) Subjective: ALERT O X 3. FATIGUE AND IN NAD. PT SEEN IN BED DURING ROUNDS AND DID NOT WANT TO BE DISTURBED. Objective: 07/04/17 13:53 Vital Signs Temperature 95.2 F L 07/04/17 09:56 Pulse Rate 66 07/04/17 09:56 Respiratory Rate 20 07/04/17 09:56 Blood Pressure 123/70 07/04/17 09:56 O2 Sat by Pulse Oximetry (%) Laboratory Last Values WBC 5.9 K/mm3 (4.0-10.0) 07/02/17 07:00 RBC 4.18 M/mm3 (4.00-5.60) 07/02/17 07:00 Hgb 12.6 GM/dL (11.7-16.9) 07/02/17 07:00 Hct 38.0 % (35.4-49) 07/02/17 07:00 MCV 91.0 fl (80-96) 07/02/17 07:00 MCH 30.1 pg (25.7-33.7) 07/02/17 07:00 MCHC 33.1 g/dl (32.0-35.9) 07/02/17 07:00 RDW 14.7 % (11.9-15.9) 07/02/17 07:00 Plt Count 245 K/MM3 (134-434) 07/02/17 07:00 MPV 8.9 fl (7.5-11.1) 07/02/17 07:00 Sodium 139 mmol/L (136-145) 07/02/17 07:00 Potassium 4.0 mmol/L (3.5-5.1) 07/02/17 07:00 Chloride 104 mmol/L (98-107) 07/02/17 07:00 Carbon Dioxide 28 mmol/L (21-32) 07/02/17 07:00 Anion Gap 7 (8-16) L 07/02/17 07:00 BUN 8 mg/dL (7-18) D 07/02/17 07:00 Creatinine 0.8 mg/dL (0.7-1.3) 07/02/17 07:00 Creat Clearance w eGFR > 60 (>60) 07/02/17 07:00 POC Glucometer 117 UNITS (80-120) 07/04/17 05:55 Random Glucose 108 mg/dL (74-106) H 07/02/17 07:00 Calcium 8.5 mg/dL (8.5-10.1) 07/02/17 07:00 Total Bilirubin 0.1 mg/dL (0.2-1.0) L 07/02/17 07:00 AST 13 U/L (15-37) L 07/02/17 07:00 ALT 17 U/L (12-78) 07/02/17 07:00 Alkaline Phosphatase 107 U/L (45-117) D 07/02/17 07:00 Total Protein 7.0 g/dl (6.4-8.2) 07/02/17 07:00 Albumin 3.9 g/dl (3.4-5.0) 07/02/17 07:00 Urine Color Colorless 07/02/17 08:00 Urine Appearance Clear 07/02/17 08:00 Urine pH 7.0 (5.0-8.0) D 07/02/17 08:00 Ur Specific [place] 1.003 (1.001-1.035) 07/02/17 08:00 Urine Protein Negative (NEGATIVE) 07/02/17 08:00 Urine Glucose (UA) 1+ (NEGATIVE) H 07/02/17 08:00 Urine Ketones Negative (NEGATIVE) 07/02/17 08:00 Urine Blood Negative (NEGATIVE) 07/02/17 08:00 Urine Nitrite Negative (NEGATIVE) 07/02/17 08:00 Urine Bilirubin Negative (<2.0 mg/dL) 07/02/17 08:00 Urine Urobilinogen Negative mg/dL (0.2-1.0) 07/02/17 08:00 Ur Leukocyte Esterase Negative (NEGATIVE) 07/02/17 08:00 RPR Titer Nonreactive (NONREACTIVE) 07/02/17 07:00 Assessment: 07/04/17 13:53 WITHDRAWAL SX Plan: CONTINUE DETOX MONITOR PT NEEDED.
[2017-07-04] MEDS: THIAMINE HCL 100 MG TABLET (FP) PO SCH (22:47)
[2017-07-04] MEDS: MELATONIN 5 MG TABLETS PO PRN (22:47)
[2017-07-05] MEDS: chlordiazePOXIDE HCL 10 MG CAPSULE PO SCH ×4 (05:44→22:33)
[2017-07-05] MEDS: LOSARTAN POTASSIUM 50 MG TABLET (FP) PO SCH (10:40)
[2017-07-05] MEDS: ASPIRIN COATED 81 MG TABLET.EC PO SCH (10:40)
[2017-07-05] MEDS: METHADONE HCL 5 MG TABLET (FOR DETOX USE ONLY) PO SCH (10:40)
[2017-07-05] MEDS: PRENATAL VITAMINS W/ FOLIC ACID TABLET (FP) PO SCH (10:40)
[2017-07-05] MEDS: NICOTINE 14 MG/24 HOURS TOPICAL PATCH TD SCH (10:40)
--- NOTE | 2017-07-05 14:29 | PN ---
S Progress Note (SOAP) Subjective: NAUSEA,VOMITING,SWEATS, FATIGUE. Objective: 07/05/17 14:28 Vital Signs Temperature 96.4 F L 07/05/17 14:02 Pulse Rate 68 07/05/17 14:02 Respiratory Rate 18 07/05/17 14:02 Blood Pressure 151/86 07/05/17 14:02 O2 Sat by Pulse Oximetry (%) Laboratory Last Values WBC 5.9 K/mm3 (4.0-10.0) 07/02/17 07:00 RBC 4.18 M/mm3 (4.00-5.60) 07/02/17 07:00 Hgb 12.6 GM/dL (11.7-16.9) 07/02/17 07:00 Hct 38.0 % (35.4-49) 07/02/17 07:00 MCV 91.0 fl (80-96) 07/02/17 07:00 MCH 30.1 pg (25.7-33.7) 07/02/17 07:00 MCHC 33.1 g/dl (32.0-35.9) 07/02/17 07:00 RDW 14.7 % (11.9-15.9) 07/02/17 07:00 Plt Count 245 K/MM3 (134-434) 07/02/17 07:00 MPV 8.9 fl (7.5-11.1) 07/02/17 07:00 Sodium 139 mmol/L (136-145) 07/02/17 07:00 Potassium 4.0 mmol/L (3.5-5.1) 07/02/17 07:00 Chloride 104 mmol/L (98-107) 07/02/17 07:00 Carbon Dioxide 28 mmol/L (21-32) 07/02/17 07:00 Anion Gap 7 (8-16) L 07/02/17 07:00 BUN 8 mg/dL (7-18) D 07/02/17 07:00 Creatinine 0.8 mg/dL (0.7-1.3) 07/02/17 07:00 Creat Clearance w eGFR > 60 (>60) 07/02/17 07:00 POC Glucometer 119 UNITS (80-120) 07/05/17 05:43 Random Glucose 108 mg/dL (74-106) H 07/02/17 07:00 Calcium 8.5 mg/dL (8.5-10.1) 07/02/17 07:00 Total Bilirubin 0.1 mg/dL (0.2-1.0) L 07/02/17 07:00 AST 13 U/L (15-37) L 07/02/17 07:00 ALT 17 U/L (12-78) 07/02/17 07:00 Alkaline Phosphatase 107 U/L (45-117) D 07/02/17 07:00 Total Protein 7.0 g/dl (6.4-8.2) 07/02/17 07:00 Albumin 3.9 g/dl (3.4-5.0) 07/02/17 07:00 Urine Color Colorless 07/02/17 08:00 Urine Appearance Clear 07/02/17 08:00 Urine pH 7.0 (5.0-8.0) D 07/02/17 08:00 Ur Specific [place] 1.003 (1.001-1.035) 07/02/17 08:00 Urine Protein Negative (NEGATIVE) 07/02/17 08:00 Urine Glucose (UA) 1+ (NEGATIVE) H 07/02/17 08:00 Urine Ketones Negative (NEGATIVE) 07/02/17 08:00 Urine Blood Negative (NEGATIVE) 07/02/17 08:00 Urine Nitrite Negative (NEGATIVE) 07/02/17 08:00 Urine Bilirubin Negative (<2.0 mg/dL) 07/02/17 08:00 Urine Urobilinogen Negative mg/dL (0.2-1.0) 07/02/17 08:00 Ur Leukocyte Esterase Negative (NEGATIVE) 07/02/17 08:00 RPR Titer Nonreactive (NONREACTIVE) 07/02/17 07:00 Assessment: 07/05/17 14:28 WITHDRAWAL SX Plan: CONTINUE DETOX ZOFRAN PRN
[2017-07-05] MEDS ORDERED: ONDANSETRON *ODT* 4 MG TABLET SL PRN (14:30)
[2017-07-05] MEDS: THIAMINE HCL 100 MG TABLET (FP) PO SCH (22:32)
[2017-07-05] MEDS: MELATONIN 5 MG TABLETS PO PRN (22:33)
[2017-07-06] MEDS ORDERED: METHADONE HCL 10 MG TABLET (FOR DETOX USE ONLY) PO SCH (10:00)
[2017-07-06] MEDS: LOSARTAN POTASSIUM 50 MG TABLET (FP) PO SCH (10:42)
[2017-07-06] MEDS: NICOTINE 14 MG/24 HOURS TOPICAL PATCH TD SCH (10:42)
[2017-07-06] MEDS: ASPIRIN COATED 81 MG TABLET.EC PO SCH (10:42)
[2017-07-06] MEDS: PRENATAL VITAMINS W/ FOLIC ACID TABLET (FP) PO SCH (10:42)
--- NOTE | 2017-07-06 12:25 | PN ---
[facility] Progress Note (SOAP) Subjective: Tremors, H/A, Fatigue. Objective: PATIENT A & O X 3. NO ACUTE DISTRESS. 07/06/17 12:25 Vital Signs Temperature 98.2 F 07/06/17 09:14 Pulse Rate 69 07/06/17 09:14 Respiratory Rate 18 07/06/17 09:14 Blood Pressure 134/74 07/06/17 09:14 O2 Sat by Pulse Oximetry (%) Laboratory Tests 07/02/17 07/02/17 07/02/17 07:00 07:00 07:00 WBC 5.9 RBC 4.18 Hgb 12.6 Hct 38.0 MCV 91.0 MCH 30.1 MCHC 33.1 RDW 14.7 Plt Count 245 MPV 8.9 Sodium 139 Potassium 4.0 Chloride 104 Carbon Dioxide 28 Anion Gap 7 L BUN 8 D Creatinine 0.8 Creat Clearance w eGFR > 60 POC Glucometer Random Glucose 108 H Calcium 8.5 Total Bilirubin 0.1 L AST 13 L ALT 17 Alkaline Phosphatase 107 D Total Protein 7.0 Albumin 3.9 Urine Color Urine Appearance Urine pH Ur Specific [place] Urine Protein Urine Glucose (UA) Urine Ketones Urine Blood Urine Nitrite Urine Bilirubin Urine Urobilinogen Ur Leukocyte Esterase RPR Titer Nonreactive 07/02/17 07/03/17 07/04/17 08:00 05:51 05:55 WBC RBC Hgb Hct MCV MCH MCHC RDW Plt Count MPV Sodium Potassium Chloride Carbon Dioxide Anion Gap BUN Creatinine Creat Clearance w eGFR POC Glucometer 149 117 Random Glucose Calcium Total Bilirubin AST ALT Alkaline Phosphatase Total Protein Albumin Urine Color Colorless Urine Appearance Clear Urine pH 7.0 D Ur Specific [place] 1.003 Urine Protein Negative Urine Glucose (UA) 1+ H Urine Ketones Negative Urine Blood Negative Urine Nitrite Negative Urine Bilirubin Negative Urine Urobilinogen Negative Ur Leukocyte Esterase Negative RPR Titer 07/05/17 07/06/17 05:43 06:34 WBC RBC Hgb Hct MCV MCH MCHC RDW Plt Count MPV Sodium Potassium Chloride Carbon Dioxide Anion Gap BUN Creatinine Creat Clearance w eGFR POC Glucometer 119 165 Random Glucose Calcium Total Bilirubin AST ALT Alkaline Phosphatase Total Protein Albumin Urine Color Urine Appearance Urine pH Ur Specific [place] Urine Protein Urine Glucose (UA) Urine Ketones Urine Blood Urine Nitrite Urine Bilirubin Urine Urobilinogen Ur Leukocyte Esterase RPR Titer LABS NOTED. Assessment: 07/06/17 12:27 WITHDRAWAL SYMPTOMS. Plan: CONTINUE DETOX. ENCOURAGE AMBULATION. PATIENT SCHEDULED FOR D/C TOMORROW.
--- NOTE | 2017-07-06 14:38 | DS ---
[facility] Detox Discharge Summary Admission Date: 07/02/17 Discharge Date: 07/06/17 - History Present History: Alcohol Dependence, Cocaine Dependence, Opioid Dependence Additional Comments: PATIENT REPORTS THAT CURRENT DETOX SYMPTOMS ARE MANAGEABLE AND THAT HE FEELS WELL OVERALL. SINCE BED IS AVAILABLE AT THIS TIME IN [facility], AT PATIENT'S REQUEST, PATIENT TO DISCHARGED FROM DETOX UNIT SO THAT MAY GO ON FOR AFTERCARE AT [facility] ([place] PATIENT WAS DISCHARGED FROM DETOX UNIT TO BE TAKEN OVER TO REHAB UNIT IN STABLE MEDICAL CONDITION. Pertinent Past History: HTN, Depression, Borderline DM, History of CVA, Asthma, Nicotine Dependence. - Physical Exam Results Vital Signs: Vital Signs Temperature 98.4 F 07/06/17 13:12 Pulse Rate 66 07/06/17 13:12 Respiratory Rate 18 07/06/17 13:12 Blood Pressure 133/82 07/06/17 13:12 O2 Sat by Pulse Oximetry (%) Pertinent Admission Physical Exam Findings: WITHDRAWAL SYMPTOMS. Laboratory Tests 07/02/17 07/02/17 07/02/17 07:00 07:00 07:00 WBC 5.9 RBC 4.18 Hgb 12.6 Hct 38.0 MCV 91.0 MCH 30.1 MCHC 33.1 RDW 14.7 Plt Count 245 MPV 8.9 Sodium 139 Potassium 4.0 Chloride 104 Carbon Dioxide 28 Anion Gap 7 L BUN 8 D Creatinine 0.8 Creat Clearance w eGFR > 60 POC Glucometer Random Glucose 108 H Calcium 8.5 Total Bilirubin 0.1 L AST 13 L ALT 17 Alkaline Phosphatase 107 D Total Protein 7.0 Albumin 3.9 Urine Color Urine Appearance Urine pH Ur Specific [place] Urine Protein Urine Glucose (UA) Urine Ketones Urine Blood Urine Nitrite Urine Bilirubin Urine Urobilinogen Ur Leukocyte Esterase RPR Titer Nonreactive 07/02/17 07/03/17 07/04/17 08:00 05:51 05:55 WBC RBC Hgb Hct MCV MCH MCHC RDW Plt Count MPV Sodium Potassium Chloride Carbon Dioxide Anion Gap BUN Creatinine Creat Clearance w eGFR POC Glucometer 149 117 Random Glucose Calcium Total Bilirubin AST ALT Alkaline Phosphatase Total Protein Albumin Urine Color Colorless Urine Appearance Clear Urine pH 7.0 D Ur Specific [place] 1.003 Urine Protein Negative Urine Glucose (UA) 1+ H Urine Ketones Negative Urine Blood Negative Urine Nitrite Negative Urine Bilirubin Negative Urine Urobilinogen Negative Ur Leukocyte Esterase Negative RPR Titer 07/05/17 07/06/17 05:43 06:34 WBC RBC Hgb Hct MCV MCH MCHC RDW Plt Count MPV Sodium Potassium Chloride Carbon Dioxide Anion Gap BUN Creatinine Creat Clearance w eGFR POC Glucometer 119 165 Random Glucose Calcium Total Bilirubin AST ALT Alkaline Phosphatase Total Protein Albumin Urine Color Urine Appearance Urine pH Ur Specific [place] Urine Protein Urine Glucose (UA) Urine Ketones Urine Blood Urine Nitrite Urine Bilirubin Urine Urobilinogen Ur Leukocyte Esterase RPR Titer LABS NOTED. - Treatment Hospital Course: Detox Protocol Followed, Detoxed Safely, Responded well, Discharged Condition Good, Rehab Referral Accepted Patient has Accepted a Rehab Referral to: [facility] ([place] [facility] . - Medication Discharge Medications: Ambulatory Orders Budesonide/Formeterol Fumarate [SYMBICORT 160/4.5mcg -] 1 inh PO BID 01/15/17 Aspirin Coated [Ecotrin -] 81 mg PO DAILY 30 Days #30 tab 01/18/17 Albuterol Sulfate Inhaler - [Ventolin HFA Inhaler -] 2 inh PO Q4H PRN 30 Days # 1 inhaler 04/22/17 Carvedilol [Coreg -] 6.25 mg PO BID #60 tablet 04/22/17 Losartan Potassium [Cozaar -] 50 mg PO DAILY 30 Days #30 tablet 05/25/17 - Diagnosis (1) Alcohol dependence with uncomplicated withdrawal Current Visit: Yes Status: Acute (2) History of CVA (cerebrovascular accident) Current Visit: Yes Status: Chronic (3) Hypertension Current Visit: Yes Status: Chronic Qualifiers: Hypertension type: essential hypertension Qualified Code(s): I10 - Essential (primary) hypertension (4) Nicotine dependence Current Visit: Yes Status: Acute Qualifiers: Nicotine product type: cigarettes Substance use status: in withdrawal Qualified Code(s): F17.213 - Nicotine dependence, cigarettes, with withdrawal (5) Depressed mood Current Visit: Yes Status: Suspected (6) Opioid dependence with withdrawal Current Visit: Yes Status: Acute (7) History of borderline diabetes mellitus Current Visit: Yes Status: Suspected (8) Cocaine dependence, uncomplicated Current Visit: Yes Status: Chronic (9) Asthma Current Visit: Yes Status: Chronic Qualifiers: Asthma severity: mild Asthma persistence: intermittent Asthma complication type: uncomplicated Qualified Code(s): J45.20 - Mild intermittent asthma, uncomplicated - AMA Did Patient Leave Against Medical Advice: No
[2017-07-06] MEDS ORDERED: ALBUTEROL SO4 18 GM HFA INHALER IH PRN (17:14)
[2017-07-06] MEDS: hydrOXYzine PAMOATE 50 MG CAPSULE (FP) PO PRN (22:37)
[2017-07-07] MEDS ORDERED: METHADONE HCL 5 MG TABLET (FOR DETOX USE ONLY) PO SCH (06:00)
[2017-07-07 06:36] VITALS: BP 131/80; PULSE 70; TEMP 96
--- NOTE | 2017-07-07 21:59 | DS ---
[facility] Detox Discharge Summary Admission Date: 07/02/17 Discharge Date: 07/07/17 - History Present History: Alcohol Dependence, Cocaine Dependence, Opioid Dependence Additional Comments: NO BEDS ARE CURRENTLY AVAILABLE AT [facility] ([place] [place] PATIENT ADVISED TO [facility] IN [facility] ON 07/09/2017 TO INQUIRE ABOUT BED AVAILABILITY AND POSSIBLE REHAB ADMISSION AT THAT TIME. PATIENT WAS DISCHARGED FROM DETOX UNIT IN STABLE MEDICAL CONDITION. Pertinent Past History: HTN, Depression, History of CVA, History of Borderline DM, Asthma, Nicotine Dependence. - Physical Exam Results Vital Signs: Vital Signs Temperature 96 F L 07/07/17 06:35 Pulse Rate 70 07/07/17 06:35 Respiratory Rate 20 07/07/17 06:35 Blood Pressure 131/80 07/07/17 06:35 O2 Sat by Pulse Oximetry (%) Pertinent Admission Physical Exam Findings: WITHDRAWAL SYMPTOMS. Laboratory Tests 07/02/17 07/02/17 07/02/17 07:00 07:00 07:00 WBC 5.9 RBC 4.18 Hgb 12.6 Hct 38.0 MCV 91.0 MCH 30.1 MCHC 33.1 RDW 14.7 Plt Count 245 MPV 8.9 Sodium 139 Potassium 4.0 Chloride 104 Carbon Dioxide 28 Anion Gap 7 L BUN 8 D Creatinine 0.8 Creat Clearance w eGFR > 60 POC Glucometer Random Glucose 108 H Calcium 8.5 Total Bilirubin 0.1 L AST 13 L ALT 17 Alkaline Phosphatase 107 D Total Protein 7.0 Albumin 3.9 Urine Color Urine Appearance Urine pH Ur Specific [place] Urine Protein Urine Glucose (UA) Urine Ketones Urine Blood Urine Nitrite Urine Bilirubin Urine Urobilinogen Ur Leukocyte Esterase RPR Titer Nonreactive 07/02/17 07/03/17 07/04/17 08:00 05:51 05:55 WBC RBC Hgb Hct MCV MCH MCHC RDW Plt Count MPV Sodium Potassium Chloride Carbon Dioxide Anion Gap BUN Creatinine Creat Clearance w eGFR POC Glucometer 149 117 Random Glucose Calcium Total Bilirubin AST ALT Alkaline Phosphatase Total Protein Albumin Urine Color Colorless Urine Appearance Clear Urine pH 7.0 D Ur Specific [place] 1.003 Urine Protein Negative Urine Glucose (UA) 1+ H Urine Ketones Negative Urine Blood Negative Urine Nitrite Negative Urine Bilirubin Negative Urine Urobilinogen Negative Ur Leukocyte Esterase Negative RPR Titer 07/05/17 07/06/17 07/07/17 05:43 06:34 05:35 WBC RBC Hgb Hct MCV MCH MCHC RDW Plt Count MPV Sodium Potassium Chloride Carbon Dioxide Anion Gap BUN Creatinine Creat Clearance w eGFR POC Glucometer 119 165 176 Random Glucose Calcium Total Bilirubin AST ALT Alkaline Phosphatase Total Protein Albumin Urine Color Urine Appearance Urine pH Ur Specific [place] Urine Protein Urine Glucose (UA) Urine Ketones Urine Blood Urine Nitrite Urine Bilirubin Urine Urobilinogen Ur Leukocyte Esterase RPR Titer LABS NOTED. - Treatment Hospital Course: Detox Protocol Followed, Detoxed Safely, Responded well, Discharged Condition Good, Rehab Referral Accepted Patient has Accepted a Rehab Referral to: PT WILL APPLY DFOR ADMISSION TO [facility] ON 07/09/2017. - Medication Discharge Medications: Ambulatory Orders Budesonide/Formeterol Fumarate [SYMBICORT 160/4.5mcg -] 1 inh PO BID 01/15/17 Aspirin Coated [Ecotrin -] 81 mg PO DAILY 30 Days #30 tab 01/18/17 Albuterol Sulfate Inhaler - [Ventolin HFA Inhaler -] 2 inh PO Q4H PRN 30 Days # 1 inhaler 04/22/17 Carvedilol [Coreg -] 6.25 mg PO BID #60 tablet 04/22/17 Losartan Potassium [Cozaar -] 50 mg PO DAILY 30 Days #30 tablet 05/25/17 - Diagnosis (1) Alcohol dependence with uncomplicated withdrawal Status: Acute (2) History of CVA (cerebrovascular accident) Status: Chronic (3) Hypertension Status: Chronic Qualifiers: Hypertension type: essential hypertension Qualified Code(s): I10 - Essential (primary) hypertension (4) Nicotine dependence Status: Acute Qualifiers: Nicotine product type: cigarettes Substance use status: in withdrawal Qualified Code(s): F17.213 - Nicotine dependence, cigarettes, with withdrawal (5) Depressed mood Status: Suspected (6) Opioid dependence with withdrawal Status: Acute (7) History of borderline diabetes mellitus Status: Suspected (8) Cocaine dependence, uncomplicated Status: Chronic (9) Asthma Status: Chronic Qualifiers: Asthma severity: mild Asthma persistence: intermittent Asthma complication type: uncomplicated Qualified Code(s): J45.20 - Mild intermittent asthma, uncomplicated - AMA Did Patient Leave Against Medical Advice: No
== END 2017-07-07 10:20 | disposition home or self-care (01) | DRG 773 ==
LOC: YASAS 03:24 → Y3N 04:04
PROVIDERS: ADMIT Internal Medicine; ATTEND Internal Medicine
PROC: HZ2ZZZZ Detoxification Services for Substance Abuse Treatment (ICD-10-PCS; principal; 2017-07-02)
DX: F11.23 Opioid dependence with withdrawal (principal); F10.230 Alcohol dependence with withdrawal, uncomplicated; F14.20 Cocaine dependence, uncomplicated; F17.213 Nicotine dependence, cigarettes, with withdrawal; F19.24 Other psychoactive substance dependence with psychoactive substance-induced mood disorder; F32.9 Major depressive disorder, single episode, unspecified; I10 Essential (primary) hypertension; R73.03 Prediabetes; J45.20 Mild intermittent asthma, uncomplicated; G47.00 Insomnia, unspecified; Z86.73 Personal history of transient ischemic attack (TIA), and cerebral infarction without residual deficits
CPT/HCPCS: 36415; 80053; 81003; 82962; 85027; 86593; 93005; 93010

== ENCOUNTER 2017-09-23 23:05 | Inpatient (IN) | payer OTHER ==
[2017-09-23 23:29] VITALS: BMI 38.9
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
[2017-09-24] MEDS ORDERED: MAG HYDROX/AL HYDROX/SIMETH 30 ML UNIT-DOSE CUP PO PRN (00:01)
[2017-09-24] MEDS ORDERED: IBUPROFEN 400 MG TABLET (FP) PO PRN (00:01)
[2017-09-24] MEDS ORDERED: P-EPHED 60MG/TRIPROLIDI 2.5MG TABLET PO PRN (00:01)
[2017-09-24] MEDS ORDERED: NICOTINE POLACRILEX 4 MG GUM BC PRN (00:01)
[2017-09-24] MEDS ORDERED: LOPERAMIDE HCL 2 MG CAPSULE PO PRN (00:01)
[2017-09-24] MEDS ORDERED: MAGNESIUM CITRATE 300 ML BOTTLE PO PRN (00:01)
[2017-09-24] MEDS ORDERED: ACETAMINOPHEN 325 MG TABLET (FP) PO PRN (00:01)
[2017-09-24] MEDS ORDERED: MENTHOL/PHENOL 1 EACH UD MM PRN (00:01)
[2017-09-24] MEDS ORDERED: guaiFENesin/D-METHORPHAN HB 10 ML UNIT-DOSE CUPS PO PRN (00:01)
[2017-09-24] MEDS ORDERED: METHADONE HCL 10 MG TABLET (FOR DETOX USE ONLY) PO ONE ×3 (00:01→22:00)
[2017-09-24] MEDS ORDERED: MAGNESIUM HYDROX 2400MG/30ML ORAL SUSPENSION 30 ML CUP PO PRN (00:01)
[2017-09-24] MEDS ORDERED: ALBUTEROL SO4 8 GM HFA INHALER IH PRN (00:04)
[2017-09-24] MEDS: chlordiazePOXIDE HCL 25 MG CAPSULE PO PRN ×2 (00:57→14:16)
[2017-09-24] MEDS: chlordiazePOXIDE HCL 25 MG CAPSULE PO SCH ×4 (05:54→22:39)
[2017-09-24 09:52] LABS: HEMOGLOBIN 12.2 GM/dL (11.7-16.9); MCH 30.4 pg (25.7-33.7); MCHC 32.9 g/dl (32.0-35.9); MEAN CELL VOLUME 92.3 fl (80-96); PLATELET COUNT 214 K/MM3 (134-434); RBC 4.01 M/mm3 (4.00-5.60); RDW 16.9 % (11.9-15.9); WHITE BLOOD COUNT 4.5 K/mm3 (4.0-10.0)
[2017-09-24 10:28] LABS: ALBUMIN 3.4 g/dl (3.4-5.0); ANION GAP 8 (8-16); BLOOD UREA NITROGEN 15 mg/dL (7-18); CHLORIDE 104 mmol/L (98-107); CO2 32 mmol/L (21-32); GLUCOSE,RANDOM 107 mg/dL (74-106); POTASSIUM 3.8 mmol/L (3.5-5.1); SGOT/AST 16 U/L (15-37); SGPT/ALT 22 U/L (12-78); SODIUM 144 mmol/L (136-145)
[2017-09-24 10:30] LABS: ALK PHOS 77 U/L (45-117); BILIRUBIN,TOTAL 0.3 mg/dL (0.2-1.0); CALCIUM 8.6 mg/dL (8.5-10.1); CREATININE 1.2 mg/dL (0.7-1.3); TOT PROT 6.2 g/dl (6.4-8.2)
[2017-09-24] MEDS: LOSARTAN POTASSIUM 50 MG TABLET (FP) PO SCH (11:02)
[2017-09-24] MEDS: ASPIRIN COATED 81 MG TABLET.EC PO SCH (11:02)
[2017-09-24] MEDS: NICOTINE 21 MG/24 HOURS TOPICAL PATCH TD SCH (11:03)
[2017-09-24] MEDS: BUDESONIDE/FORMETEROL FUMARATE 160/4.5 mcg INHALER IH SCH ×2 (11:05→22:39)
[2017-09-24] MEDS: PRENATAL VITAMINS W/ FOLIC ACID TABLET (FP) PO SCH (11:05)
--- NOTE | 2017-09-24 13:26 | CONSULT ---
[facility] Psychiatric Consult - Data Date of interview: 09/24/17 Admission source: [facility] Identifying data: Patient refused psychiatric evaluation. " Don't ask me questions.Everything can be found in my records.Go read them." Nursing staff is made aware.
--- NOTE | 2017-09-24 15:35 | PN ---
[facility] CIWA - CIWA Score Nausea/Vomitin Muscle Tremors: 3 Anxiety: 3 Agitation: 2 Paroxysmal Sweats: 3 Orientation: 0-Oriented Tacttile Disturbances: 0-None Auditory Disturbances: 0-None Visual Disturbances: 0-None Headache: 0-None Present CIWA-Ar Total Score: 14 S COWS - Scale Resting Pulse: 0= ND 80 or Below Sweatin=Flushed/Facial Moisture Restless Observation: 0= Sits Still Pupil Size: 1= Pupils >than Normal Bone or Joint Aches: 1= Mild Discomfort Runny Nose/ Eye Tearin= Nasal Congestion GI Upset > 30mins: 1= Stomach Cramp Tremor Observation of Outstretched Hands: 1= Tremor [place], Not Seen Yawning Observation: 1= 1-2x During Session Anxiety or Irritability: 2=Irritable/Anxious Goose Flesh Skin: 0=Smooth Skin COWS Score: 10 [facility] Progress Note (SOAP) Subjective: Offers no complaints wants to sleep Objective: 09/24/17 15:31 A & O x 3 Sleeping Vital Signs Temperature 97.3 F L 09/24/17 14:41 Pulse Rate 85 09/24/17 14:41 Respiratory Rate 20 09/24/17 14:41 Blood Pressure 130/80 09/24/17 14:41 O2 Sat by Pulse Oximetry (%) Laboratory Last Values WBC 4.5 K/mm3 (4.0-10.0) 09/24/17 07:00 RBC 4.01 M/mm3 (4.00-5.60) 09/24/17 07:00 Hgb 12.2 GM/dL (11.7-16.9) 09/24/17 07:00 Hct 37.0 % (35.4-49) 09/24/17 07:00 MCV 92.3 fl (80-96) 09/24/17 07:00 MCH 30.4 pg (25.7-33.7) 09/24/17 07:00 MCHC 32.9 g/dl (32.0-35.9) 09/24/17 07:00 RDW 16.9 % (11.9-15.9) H 09/24/17 07:00 Plt Count 214 K/MM3 (134-434) 09/24/17 07:00 MPV 9.0 fl (7.5-11.1) 09/24/17 07:00 Sodium 144 mmol/L (136-145) 09/24/17 07:00 Potassium 3.8 mmol/L (3.5-5.1) 09/24/17 07:00 Chloride 104 mmol/L (98-107) 09/24/17 07:00 Carbon Dioxide 32 mmol/L (21-32) 09/24/17 07:00 Anion Gap 8 (8-16) 09/24/17 07:00 BUN 15 mg/dL (7-18) 09/24/17 07:00 Creatinine 1.2 mg/dL (0.7-1.3) 09/24/17 07:00 Creat Clearance w eGFR > 60 (>60) 09/24/17 07:00 Random Glucose 107 mg/dL (74-106) H 09/24/17 07:00 Calcium 8.6 mg/dL (8.5-10.1) 09/24/17 07:00 Total Bilirubin 0.3 mg/dL (0.2-1.0) 09/24/17 07:00 AST 16 U/L (15-37) D 09/24/17 07:00 ALT 22 U/L (12-78) 09/24/17 07:00 Alkaline Phosphatase 77 U/L (45-117) D 09/24/17 07:00 Total Protein 6.2 g/dl (6.4-8.2) L 09/24/17 07:00 Albumin 3.4 g/dl (3.4-5.0) 09/24/17 07:00 RPR Titer Nonreactive (NONREACTIVE) 09/24/17 07:00 labs noted, UA pending Assessment: 09/24/17 15:35 withdrawal sx Plan: continue detox
--- NOTE | 2017-09-24 20:15 | EKG ---
Test Reason : Blood Pressure : / mmHG Vent. Rate : 087 BPM Atrial Rate : 087 BPM P-R Int : 158 ms QRS Dur : 106 ms QT Int : 388 ms P-R-T Axes : 062 063 095 degrees QTc Int : 466 ms NORMAL SINUS RHYTHM T WAVE ABNORMALITY, CONSIDER ANTERIOR ISCHEMIA PROLONGED QT ABNORMAL ECG WHEN COMPARED WITH ECG OF 06-SEP-2017 14:21, T WAVE INVERSION LESS EVIDENT IN ANTERIOR LEADS Confirmed by MD HEATHER, DARLENE ([id number]) on 09/24/2017 8:14:54 PM Referred By: Confirmed By:DARLENE ROMERO MD
[2017-09-24] MEDS ORDERED: MELATONIN 5 MG TABLETS PO PRN (22:00)
[2017-09-24] MEDS: THIAMINE HCL 100 MG TABLET (FP) PO SCH (22:39)
[2017-09-25] MEDS ORDERED: HYDROCHLOROTHIAZIDE 50 MG TABLET PO SCH (06:19)
[2017-09-25] MEDS: chlordiazePOXIDE HCL 25 MG CAPSULE PO SCH ×4 (06:21→22:08)
[2017-09-25] MEDS: HYDROCHLOROTHIAZIDE 25 MG TABLET (FP) PO SCH ×2 (06:35→10:46)
[2017-09-25] MEDS ORDERED: METHADONE HCL 5 MG TABLET (FOR DETOX USE ONLY) PO SCH (10:00)
[2017-09-25] MEDS: PRENATAL VITAMINS W/ FOLIC ACID TABLET (FP) PO SCH (10:45)
[2017-09-25] MEDS: LOSARTAN POTASSIUM 50 MG TABLET (FP) PO SCH (10:45)
[2017-09-25] MEDS: ASPIRIN COATED 81 MG TABLET.EC PO SCH (10:45)
[2017-09-25] MEDS: BUDESONIDE/FORMETEROL FUMARATE 160/4.5 mcg INHALER IH SCH ×2 (10:45→22:08)
[2017-09-25] MEDS: NICOTINE 21 MG/24 HOURS TOPICAL PATCH TD SCH (10:49)
--- NOTE | 2017-09-25 13:19 | PN ---
[facility] CIWA - CIWA Score Nausea/Vomitin-No Nausea/No Vomiting Muscle Tremors: 3 Anxiety: 2 Agitation: 0-Normal Activity Paroxysmal Sweats: 3 Orientation: 2-Disoriented Date<2 days Tacttile Disturbances: 3-Moderate Itch/Numb/Burn Auditory Disturbances: 0-None Visual Disturbances: 3-Moderate Sensitivity Headache: 0-None Present CIWA-Ar Total Score: 16 S COWS - Scale Resting Pulse: 0= ND 80 or Below Sweatin= Chills/Flushing Restless Observation: 0= Sits Still Pupil Size: 0= Normal to Room Light Bone or Joint Aches: 2= Severe Diffuse Aches Runny Nose/ Eye Tearin= None GI Upset > 30mins: 0= None Tremor Observation of Outstretched Hands: 2= Slight Tremor Visible Yawning Observation: 2= >3x During Session Anxiety or Irritability: 2=Irritable/Anxious Goose Flesh Skin: 3=Piloerection COWS Score: 12 S Progress Note (SOAP) Subjective: Tremors, Sweating, Fatigue, Body Aches. Objective: PATIENT A & O X 2 (UNCERTAIN ABOUT CURRENT DAY / DATE). PATIENT OBSERVED AMBULATING ON UNIT. NO ACUTE DISTRESS. 09/25/17 13:17 Vital Signs Temperature 97.6 F 09/25/17 09:35 Pulse Rate 68 09/25/17 09:35 Respiratory Rate 18 09/25/17 09:35 Blood Pressure 97/65 09/25/17 09:35 O2 Sat by Pulse Oximetry (%) Laboratory Tests 09/24/17 09/24/17 09/24/17 07:00 07:00 07:00 WBC 4.5 RBC 4.01 Hgb 12.2 Hct 37.0 MCV 92.3 MCH 30.4 MCHC 32.9 RDW 16.9 H Plt Count 214 MPV 9.0 Sodium 144 Potassium 3.8 Chloride 104 Carbon Dioxide 32 Anion Gap 8 BUN 15 Creatinine 1.2 Creat Clearance w eGFR > 60 Random Glucose 107 H Calcium 8.6 Total Bilirubin 0.3 AST 16 D ALT 22 Alkaline Phosphatase 77 D Total Protein 6.2 L Albumin 3.4 RPR Titer Nonreactive LABS NOTED. UA RESULTS PENDING. 09/25/17 13:18 Assessment: 09/25/17 13:17 WITHDRAWAL SYMPTOMS. Plan: CONTINUE DETOX. INCREASE DAILY PO FLUID INTAKE. CONTINUE TO MONITOR BP.
[2017-09-25] MEDS ORDERED: cloNIDine HCL 0.1 MG TABLET PO ONE (20:45)
[2017-09-25] MEDS: THIAMINE HCL 100 MG TABLET (FP) PO SCH (22:08)
[2017-09-26] MEDS: chlordiazePOXIDE 5 MG CAPSULE PO SCH ×4 (06:36→22:48)
[2017-09-26] MEDS: ASPIRIN COATED 81 MG TABLET.EC PO SCH (11:05)
[2017-09-26] MEDS: PRENATAL VITAMINS W/ FOLIC ACID TABLET (FP) PO SCH (11:05)
[2017-09-26] MEDS: HYDROCHLOROTHIAZIDE 25 MG TABLET (FP) PO SCH (11:05)
[2017-09-26] MEDS: LOSARTAN POTASSIUM 50 MG TABLET (FP) PO SCH (11:05)
[2017-09-26] MEDS: METHADONE HCL 5 MG TABLET (FOR DETOX USE ONLY) PO SCH (11:06)
[2017-09-26] MEDS: BUDESONIDE/FORMETEROL FUMARATE 160/4.5 mcg INHALER IH SCH ×2 (11:06→22:48)
[2017-09-26] MEDS: NICOTINE 21 MG/24 HOURS TOPICAL PATCH TD SCH (11:09)
--- NOTE | 2017-09-26 15:09 | PN ---
[facility] Progress Note (SOAP) Subjective: Sweating, Fatigue, Anxious. Objective: PATIENT A & O X 3. NO ACUTE DISTRESS. PATIENT DENIES CHEST PAIN. 09/26/17 15:05 Vital Signs Temperature 97.6 F 09/26/17 10:15 Pulse Rate 67 09/26/17 10:15 Respiratory Rate 18 09/26/17 10:15 Blood Pressure 162/86 09/26/17 10:15 O2 Sat by Pulse Oximetry (%) Laboratory Tests 09/24/17 09/24/17 09/24/17 07:00 07:00 07:00 WBC 4.5 RBC 4.01 Hgb 12.2 Hct 37.0 MCV 92.3 MCH 30.4 MCHC 32.9 RDW 16.9 H Plt Count 214 MPV 9.0 Sodium 144 Potassium 3.8 Chloride 104 Carbon Dioxide 32 Anion Gap 8 BUN 15 Creatinine 1.2 Creat Clearance w eGFR > 60 Random Glucose 107 H Calcium 8.6 Total Bilirubin 0.3 AST 16 D ALT 22 Alkaline Phosphatase 77 D Total Protein 6.2 L Albumin 3.4 RPR Titer Nonreactive LABS NOTED. UA RESULTS PENDING. Assessment: 09/26/17 15:05 WITHDRAWAL SYMPTOMS. HYPERTENSION. 09/26/17 15:08 Plan: CONTINUED ETOX. ENCOURAGE AMBULATION. UNABLE AT THIS TIME TO DETERMINE WHETHER OR NOT TO INCREASE PATIENT';S DAILY DOSE OF COZAAR DUE TO FACT THAT PATIENT REFUSED TO HAVE VS/BP ASSESSED DURING AFTERNOON. WILL CONTINUE TO MONITOR AND ENCOURAGE PATIENT TO HAVE VS ASSESSED WHEN POSSIBLE.
[2017-09-26] MEDS: THIAMINE HCL 100 MG TABLET (FP) PO SCH (22:48)
[2017-09-27] MEDS: chlordiazePOXIDE HCL 10 MG CAPSULE PO SCH ×4 (05:25→22:23)
[2017-09-27] MEDS: LOSARTAN POTASSIUM 50 MG TABLET (FP) PO SCH (10:43)
[2017-09-27] MEDS: METHADONE HCL 5 MG TABLET (FOR DETOX USE ONLY) PO SCH (10:43)
[2017-09-27] MEDS: HYDROCHLOROTHIAZIDE 25 MG TABLET (FP) PO SCH (10:43)
[2017-09-27] MEDS: ASPIRIN COATED 81 MG TABLET.EC PO SCH (10:44)
[2017-09-27] MEDS: PRENATAL VITAMINS W/ FOLIC ACID TABLET (FP) PO SCH (10:44)
[2017-09-27] MEDS: NICOTINE 21 MG/24 HOURS TOPICAL PATCH TD SCH (10:45)
[2017-09-27] MEDS: BUDESONIDE/FORMETEROL FUMARATE 160/4.5 mcg INHALER IH SCH ×2 (10:46→22:25)
--- NOTE | 2017-09-27 14:20 | PN ---
[facility] Progress Note (SOAP) Subjective: Anxious, Body Aches, Fatigue. Objective: PATIENT A & O X 3. NO ACUTE DISTRESS NOTED. PATIENT DENIES CHEST PAIN. 09/27/17 14:18 Vital Signs Temperature 97.6 F 09/27/17 10:27 Pulse Rate 78 09/27/17 10:27 Respiratory Rate 20 09/27/17 10:27 Blood Pressure 143/90 09/27/17 10:27 O2 Sat by Pulse Oximetry (%) Laboratory Tests 09/24/17 09/24/17 09/24/17 07:00 07:00 07:00 WBC 4.5 RBC 4.01 Hgb 12.2 Hct 37.0 MCV 92.3 MCH 30.4 MCHC 32.9 RDW 16.9 H Plt Count 214 MPV 9.0 Sodium 144 Potassium 3.8 Chloride 104 Carbon Dioxide 32 Anion Gap 8 BUN 15 Creatinine 1.2 Creat Clearance w eGFR > 60 Random Glucose 107 H Calcium 8.6 Total Bilirubin 0.3 AST 16 D ALT 22 Alkaline Phosphatase 77 D Total Protein 6.2 L Albumin 3.4 RPR Titer Nonreactive LABS NOTED. Assessment: 09/27/17 14:19 WITHDRAWAL SYMPTOMS. HYPERTENSION. Plan: CONTINUE DETOX. ENCOURAGE AMBULATION.
[2017-09-27] MEDS ORDERED: LOSARTAN POTASSIUM 50 MG TABLET (FP) PO ONE (15:52)
[2017-09-27] MEDS: hydrOXYzine PAMOATE 50 MG CAPSULE (FP) PO PRN (22:23)
[2017-09-27] MEDS: THIAMINE HCL 100 MG TABLET (FP) PO SCH (22:23)
[2017-09-28] MEDS ORDERED: METHADONE HCL 10 MG TABLET (FOR DETOX USE ONLY) PO SCH (10:00)
[2017-09-28] MEDS ORDERED: LOSARTAN POTASSIUM 50 MG TABLET (FP) PO SCH (10:00)
[2017-09-28] MEDS: hydrOXYzine PAMOATE 50 MG CAPSULE (FP) PO PRN (10:39)
[2017-09-28] MEDS: HYDROCHLOROTHIAZIDE 25 MG TABLET (FP) PO SCH (10:39)
[2017-09-28] MEDS: PRENATAL VITAMINS W/ FOLIC ACID TABLET (FP) PO SCH (10:39)
[2017-09-28] MEDS: ASPIRIN COATED 81 MG TABLET.EC PO SCH (10:39)
[2017-09-28] MEDS: NICOTINE 21 MG/24 HOURS TOPICAL PATCH TD SCH (10:40)
[2017-09-28] MEDS: BUDESONIDE/FORMETEROL FUMARATE 160/4.5 mcg INHALER IH SCH (10:40)
--- NOTE | 2017-09-28 15:35 | PN ---
S Progress Note (SOAP) Subjective: Patient reports mild fatigue and nausea; patient denies any other current withdrawal symptoms. Objective: PATIENT A & O X 3. NO ACUTE DISTRESS. 09/28/17 15:31 Vital Signs Temperature 97.4 F L 09/28/17 14:25 Pulse Rate 81 09/28/17 14:25 Respiratory Rate 16 09/28/17 14:25 Blood Pressure 151/90 09/28/17 14:25 O2 Sat by Pulse Oximetry (%) Laboratory Tests 09/24/17 09/24/17 09/24/17 07:00 07:00 07:00 WBC 4.5 RBC 4.01 Hgb 12.2 Hct 37.0 MCV 92.3 MCH 30.4 MCHC 32.9 RDW 16.9 H Plt Count 214 MPV 9.0 Sodium 144 Potassium 3.8 Chloride 104 Carbon Dioxide 32 Anion Gap 8 BUN 15 Creatinine 1.2 Creat Clearance w eGFR > 60 Random Glucose 107 H Calcium 8.6 Total Bilirubin 0.3 AST 16 D ALT 22 Alkaline Phosphatase 77 D Total Protein 6.2 L Albumin 3.4 RPR Titer Nonreactive LAB NOTED. Assessment: 09/28/17 15:32 COMPLETION OF DETOX REGIMEN. Plan: PATIENT SCHEDULED FOR DISCHARGE FROM DETOX UNIT TODAY. PATIENT GOING TO [facility] FOR AFTERCARE.
--- NOTE | 2017-09-28 15:40 | DS ---
[facility] Detox Discharge Summary Admission Date: 09/23/17 Discharge Date: 09/28/17 - History Present History: Alcohol Dependence, Cannabis Dependence, Cocaine Dependence, Opioid Dependence Additional Comments: PATIENT GOING TO [facility] ([place] [facility] FOR AFTERCARE. PATIENT WAS DISCHARGED FROM DETOX UNIT TO BE TAKEN OVER TO REHAB UNIT IN STABLE MEDICAL CONDITION. Pertinent Past History: Hyperchoelsterolemia, HTN, History of Borderline DM (no meds.), Asthma, History of Depression, History of Bipolar Disorder, Nicotine Dependence, History of CVA , History of TIA. - Physical Exam Results Vital Signs: Vital Signs Temperature 97.4 F L 09/28/17 14:25 Pulse Rate 81 09/28/17 14:25 Respiratory Rate 16 09/28/17 14:25 Blood Pressure 151/90 09/28/17 14:25 O2 Sat by Pulse Oximetry (%) Pertinent Admission Physical Exam Findings: WITHDRAWAL SYMPTOMS. Laboratory Tests 09/24/17 09/24/17 09/24/17 07:00 07:00 07:00 WBC 4.5 RBC 4.01 Hgb 12.2 Hct 37.0 MCV 92.3 MCH 30.4 MCHC 32.9 RDW 16.9 H Plt Count 214 MPV 9.0 Sodium 144 Potassium 3.8 Chloride 104 Carbon Dioxide 32 Anion Gap 8 BUN 15 Creatinine 1.2 Creat Clearance w eGFR > 60 Random Glucose 107 H Calcium 8.6 Total Bilirubin 0.3 AST 16 D ALT 22 Alkaline Phosphatase 77 D Total Protein 6.2 L Albumin 3.4 RPR Titer Nonreactive LABS NOTED. - Treatment Hospital Course: Detox Protocol Followed, Detoxed Safely, Responded well, Discharged Condition Good, Rehab Referral Accepted Patient has Accepted a Rehab Referral to: [facility] ([place]) . - Medication Discharge Medications: Ambulatory Orders Budesonide/Formeterol Fumarate [SYMBICORT 160/4.5mcg -] 1 inh PO BID 01/15/17 Aspirin Coated [Ecotrin -] 81 mg PO DAILY 30 Days #30 tab 01/18/17 Albuterol Sulfate Inhaler - [Ventolin HFA Inhaler -] 2 inh PO Q4H PRN 30 Days # 1 inhaler 04/22/17 Losartan Potassium [Cozaar -] 50 mg PO DAILY tablet 09/07/17 - Diagnosis (1) Alcohol dependence with uncomplicated withdrawal Current Visit: Yes Status: Acute (2) Opioid dependence with withdrawal Current Visit: Yes Status: Acute (3) Asthma Current Visit: Yes Status: Chronic Qualifiers: Asthma severity: mild Asthma persistence: intermittent Asthma complication type: uncomplicated Qualified Code(s): J45.20 - Mild intermittent asthma, uncomplicated (4) Cocaine dependence, uncomplicated Current Visit: Yes Status: Chronic (5) History of CVA (cerebrovascular accident) Current Visit: Yes Status: Chronic (6) Hypertension Current Visit: Yes Status: Chronic Qualifiers: Hypertension type: essential hypertension Qualified Code(s): I10 - Essential (primary) hypertension (7) Marijuana dependence Current Visit: Yes Status: Chronic (8) Nicotine dependence Current Visit: Yes Status: Chronic Qualifiers: Nicotine product type: cigarettes Substance use status: in withdrawal Qualified Code(s): F17.213 - Nicotine dependence, cigarettes, with withdrawal (9) TIA (transient ischemic attack) Current Visit: Yes Status: Chronic Qualifiers: Transient cerebral ischemia type: unspecified Qualified Code(s): G45.9 - Transient cerebral ischemic attack, unspecified (10) History of borderline diabetes mellitus Current Visit: Yes Status: Suspected (11) Substance induced mood disorder Current Visit: Yes Status: Suspected - AMA Did Patient Leave Against Medical Advice: No
[2017-09-28 18:27] VITALS: BP 122/64; PULSE 79; TEMP 97.8
[2017-09-29] MEDS ORDERED: METHADONE HCL 10 MG TABLET (FOR DETOX USE ONLY) PO SCH (06:00)
== END 2017-09-28 18:30 | disposition other institution (70) | DRG 773 ==
LOC: YASAS 23:05 → Y3N 23:51
PROVIDERS: ADMIT Surgery; ATTEND Surgery
PROC: HZ2ZZZZ Detoxification Services for Substance Abuse Treatment (ICD-10-PCS; principal; 2017-09-23)
DX: F11.23 Opioid dependence with withdrawal (principal); F10.230 Alcohol dependence with withdrawal, uncomplicated; F14.20 Cocaine dependence, uncomplicated; F12.20 Cannabis dependence, uncomplicated; F17.213 Nicotine dependence, cigarettes, with withdrawal; F19.24 Other psychoactive substance dependence with psychoactive substance-induced mood disorder; I10 Essential (primary) hypertension; E11.9 Type 2 diabetes mellitus without complications; J45.20 Mild intermittent asthma, uncomplicated; Z86.73 Personal history of transient ischemic attack (TIA), and cerebral infarction without residual deficits
CPT/HCPCS: 36415; 80053; 85027; 86593; 93005; 93010; J0735

== ENCOUNTER 2017-10-02 23:18 | Inpatient (IN) | payer OTHER ==
[2017-10-02] MEDS ORDERED: ONDANSETRON 4 MG/2 ML VIAL IVPUSH STA (23:43)
[2017-10-02] MEDS ORDERED: chlordiazePOXIDE HCL 25 MG CAPSULE PO ONE (23:43)
[2017-10-02] MEDS ORDERED: METHADONE HCL 10 MG TABLET PO ONE (23:43)
[2017-10-02] MEDS ORDERED: TRIMETHOBENZAMIDE HCL 200MG/2ML INJ IM ONE (23:44)
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
[2017-10-03] MEDS ORDERED: chlordiazePOXIDE HCL 25 MG CAPSULE ONE ×3 (00:12→09:36)
[2017-10-03] MEDS ORDERED: METHADONE HCL 10 MG TABLET ONE ×2 (00:13→20:17)
[2017-10-03 00:43] LABS: BASO % 0.5 % (0-2.0); HEMATOCRIT 47.3 % (35.4-49); HEMOGLOBIN 15.6 GM/dL (11.7-16.9); LYMPH % 11.9 % (8-40); MCH 29.7 pg (25.7-33.7); MEAN CELL VOLUME 90.1 fl (80-96); MEAN PLT VOLUME 8.5 fl (7.5-11.1); MONO % 3.4 % (3.8-10.2); NEUT % 84.2 % (42.8-82.8); PLATELET COUNT 286 K/MM3 (134-434); RBC 5.25 M/mm3 (4.00-5.60); RDW 16.5 % (11.9-15.9); WHITE BLOOD COUNT 9.5 K/mm3 (4.0-10.0)
[2017-10-03 01:03] LABS: INR 0.94 (0.82-1.09); PROTHROMBIN TIME (PATIENT) 10.6 SEC (9.7-13.0)
[2017-10-03 01:13] LABS: ALBUMIN 4.3 g/dl (3.4-5.0); ANION GAP 10 (8-16); BILIRUBIN,TOTAL 0.4 mg/dL (0.2-1.0); BLOOD UREA NITROGEN 16 mg/dL (7-18); CALCIUM 9.7 mg/dL (8.5-10.1); CHLORIDE 99 mmol/L (98-107); CO2 28 mmol/L (21-32); GLUCOSE,RANDOM 153 mg/dL (74-106); LIPASE 150 U/L (73-393); SGPT/ALT 40 U/L (12-78); SODIUM 137 mmol/L (136-145); TOT PROT 8.5 g/dl (6.4-8.2)
[2017-10-03 01:16] LABS: ALK PHOS 88 U/L (45-117)
[2017-10-03 01:20] LABS: MAGNESIUM 2.1 mg/dL (1.8-2.4); POTASSIUM 4.3 mmol/L (3.5-5.1); SGOT/AST 35 U/L (15-37)
[2017-10-03] MEDS ORDERED: KETOROLAC TROMETHAMINE 30 MG/1 ML VIAL IVPUSH ONE (01:27)
[2017-10-03] MEDS ORDERED: KETOROLAC TROMETHAMINE 30 MG/1 ML VIAL ONE (01:29)
[2017-10-03] MEDS ORDERED: HEMOQUE TEST 1 EACH EACH ONE ×2 (01:32→01:45)
[2017-10-03] MEDS ORDERED: hydrALAZINE HCL 20 MG/ML VIAL IVPUSH ONE (01:39)
[2017-10-03] MEDS ORDERED: hydrALAZINE HCL 20 MG/ML VIAL ONE (01:43)
[2017-10-03] MEDS ORDERED: chlordiazePOXIDE HCL 25 MG CAPSULE PO ONE (02:47)
[2017-10-03] MEDS ORDERED: LORazepam 2 MG/ML SDV VIAL ONE (02:57)
[2017-10-03] MEDS ORDERED: ACETAMINOPHEN 325 MG TABLET (FP) PO ONE (03:50)
[2017-10-03] MEDS ORDERED: METOPROLOL TARTRATE 5 MG/5 ML VIAL IVPUSH ONE ×2 (03:51→03:56)
[2017-10-03] MEDS ORDERED: METOPROLOL TARTRATE 5 MG/5 ML VIAL ONE (03:57)
[2017-10-03] MEDS ORDERED: ACETAMINOPHEN 325 MG TABLET (FP) ONE ×2 (03:57→12:05)
--- NOTE | 2017-10-03 04:05 | PN ---
Teaching Attending Note Name of Resident: Bhavik Vieira ATTENDING PHYSICIAN STATEMENT I saw and evaluated the patient. I reviewed the resident's note and discussed the case with the resident. I agree with the resident's findings and plan as documented. SUBJECTIVE: Patient is a 57 year old man with a significant PMH of hypertension, asthma, borderline NIDDM, CVA and cocaine/heroin/oxycodone/alcohol abuse from [facility] who presents to the ER with chest pain while at [facility] facility earlier today. He describes his chest pain as mid sternal and associated nausea, vomiting and mild diaphoresis. Pain is intermittent and lasts about 30 minutes. He began his detox 4 days ago at [facility]. He states that he had an onset of chest pain secondary to not being medicated while at [facility]. As per the DRYING FRAME OPERATOR( Marko) at [facility], the patient had been in detox for 4 days and states if the patient were to be medicated in the ER he would not be accepted back into the facility. Patient was admitted last month to this hospital with exactly the same presentation. OBJECTIVE: Somnolent but arousable. Now painfree Vital Signs Period Temp Pulse Resp BP Sys/Corea Pulse Ox Last 24 Hr 98.6 F 91-110 20-22 194-244/99-122 96-99 HEENT: No Jaundice, eye redness or discharge, Fundi not visualized. PERRLA, EOMI. Normocephalic, atraumatic. External ears are normal and hearing is grossly intact. No nasal discharge. Neck: Supple, nontender. No palpable adenopathy or thyromegaly. No JVD Chest: Good effort. Clear to auscultation and percussion. Heart: Regular. No S3, rub or murmur Abdomen: Not distended, soft, nontender and no HSM. No rebound or guarding. Normoactive bowel sounds. Ext: Peripheral pulses intact. No leg edema. Skin: Warm and dry. No petechiae, rash or ecchymosis. Neuro: Somnolent but arousable. Moves all extremities. Sensation grossly intact in all four extremities and DTR are symmetric. Home Medications Medication Instructions Recorded Budesonide/Formeterol Fumarate 1 inh PO BID 01/15/17 [SYMBICORT 160/4.5mcg -] Aspirin Coated [Ecotrin -] 81 mg PO DAILY 30 Days #30 tab 01/18/17 Albuterol Sulfate Inhaler - 2 inh PO Q4H PRN 30 Days #1 inhaler 04/22/17 [Ventolin HFA Inhaler -] Losartan Potassium [Cozaar -] 50 mg PO DAILY tablet 09/07/17 Abnormal Lab Results 10/03/17 10/03/17 00:27 00:27 RDW 16.5 H Neutrophils % 84.2 H D Monocytes % 3.4 L Random Glucose 153 H D Total Protein 8.5 H D ASSESSMENT AND PLAN: 1. Chest pain and hypertensive urgency - Head CT scan is negative and his initial troponin is negative. EKG shows t wave inversion in V5, V6 but generally less pronounced inversion/t wave changes compared to EKG from . He got ativan 2 mg IV, lopressor 10 mg IV, librium 75 mg po total, and tylenol po for headache. Now being started on nitroglycerin drip 10 mcg per minute. Last used cocaine about 1 week ago. Urine toxicology pending. Will admit to ICU and rule out ACS. Consult cardiology. ECHO on 09/06/17 showed normal LV function with EF of 55-60%. Will restart oral antihypertensive agents - losartan 100 mg q am and amlodipine 5 mg q pm - once he is alert. Upon discharge will benefit from adding HCTZ 12.5 mg po qd. 2. Boderline DM - We will check HbA1c and implement sliding scale insulin regimen. Place on diabetic ADA diet 1800 laura per day. Provide comprehensive diabetes care with patient teaching and counseling about the importance of euglycemia, eye care and foot care. 3. Obesity - Will provide patient all the necessary assistance , counseling and positive reinforcement to facilitate weight loss. Consult director of annual giving. 4. Alcohol and Drug abuse - Methadone detox for drug abuse. Implement [facility] librium alcohol withdrawal protocol and fall precautions. Treat with thiamine and folic acid and monitor electrolytes (Ca,Mg,K,P). Got methadone 20 mg po in the ER. Master At Arms patient about abstaining from alcohol and drug abuse. Return to detox program upon discharge. 5. Tobacco Use We will provide patient all the necessary assistance to facilitate smoking cessation and prescribe Nicotine patch. 6. DVT prophylaxis - Heparin 5000u sq tid. 7. Advance directives - Full code
--- NOTE | 2017-10-03 04:26 | HP ---
CHIEF COMPLAINT: PCP: HISTORY OF PRESENT ILLNESS: Pt was sedated and in extreme distress and was unable to give hx. Hx obtained from EMR. Per ED note: 10/03/17 00:32 The patient is a 57 year old male with a significant PMH of hypertension, asthma , borderline NIDDM, CVA and heroin/ oxycodone abuse from [facility] who presents to the emergency department with chest pain while at [facility] facility earlier today. He describes his chest pain as mid sternal . he also reports some associated nausea, vomiting and mild diaphoresis. The patient reports that he began his detox about 4 days ago at [facility]. He states that he had an onset of chest pain secondary to not being medicated while at [facility]. As per the BUSINESS PROCESS CONSULTANT(Marko) at [facility], the patient had been in detox for 4 days and states if the patient were to be medicated in the ER he would not be accepted back into the facility. The patient denies any other symptoms. He denies any shortness of breath, headache and dizziness. He denies any fever, chills, nausea, vomit, diarrhea, constipation or urinary symptoms. Te patient denies any other complaints. Social history: From [facility]. heroin/ Oxycodone abuse ER course was notable for: (1)HTN urgency 200s/120s. ativan 2 mg IV, lopressor 10 mg IV, librium 75 mg po total, and tylenol po for headache, hydralazine, toradol, zofran. methadone 20 mg po. Nitro gtt. admitted to ICU. started on labetolol 100 (2)Head CT scan is negative and his initial troponin is negative. (3)Utox, UA Recent Travel: PAST MEDICAL HISTORY: Recent admission 08/27 for same presentation of CP and HTN urgency ECHO on 09/06/17 showed normal LV function with EF of 55-60%. PAST SURGICAL HISTORY: Social History: Smoking: endorses .5ppd unclear how long. says he quit a while ago Alcohol: has hx of abuse Drugs: cocaine, pcp, heroine. now at [facility] for detox Family History: Allergies No Known Allergies Allergy (Verified 10/02/17 23:47) HOME MEDICATIONS: Home Medications Medication Instructions Recorded Budesonide/Formeterol Fumarate 1 inh PO BID 01/15/17 [SYMBICORT 160/4.5mcg -] Aspirin Coated [Ecotrin -] 81 mg PO DAILY 30 Days #30 tab 01/18/17 Albuterol Sulfate Inhaler - 2 inh PO Q4H PRN 30 Days #1 inhaler 04/22/17 [Ventolin HFA Inhaler -] Losartan Potassium [Cozaar -] 50 mg PO DAILY tablet 09/07/17 REVIEW OF SYSTEMS per HPI PHYSICAL EXAMINATION Vital Signs - 24 hr 10/02/17 10/02/17 10/03/17 23:20 23:49 01:37 Temperature 98.6 F Pulse Rate 94 H 97 H Pulse Rate [ 94 H Apical] Respiratory 20 22 Rate Blood Pressure 194/100 Blood Pressure 239/114 [Right Arm] O2 Sat by Pulse 96 99 99 Oximetry (%) 10/03/17 10/03/17 10/03/17 03:03 03:50 04:06 Temperature Pulse Rate Pulse Rate [ 91 H 110 H Apical] Respiratory 20 20 Rate Blood Pressure 244/122 Blood Pressure 218/99 244/122 [Right Arm] O2 Sat by Pulse 99 99 Oximetry (%) 10/03/17 04:07 Temperature Pulse Rate Pulse Rate [ Apical] Respiratory Rate Blood Pressure 244/122 Blood Pressure [Right Arm] O2 Sat by Pulse Oximetry (%) GENERAL: Ox3, somolent but somewhat arousable and in extreme distress complaining of YOUNGBLOOD and eye pain HEAD: Normal with no signs of trauma. EYES: PERRLA, sclera anicteric, conjunctiva clear. No papiledema noted, difficult exam EARS, NOSE, THROAT: MMM. LUNGS: CTAB HEART: tACHY Regular rhythm, normal S1 and S2 without murmur, rub or gallop. ABDOMEN: Soft, NTND, normoactive bowel sounds, no guarding, no rebound, no masses. UPPER EXTREMITIES: 2+ pulses, warm, well-perfused. No cyanosis. No clubbing. No peripheral edema. LOWER EXTREMITIES: 2+ pulses, warm, well-perfused. No calf tenderness. No peripheral edema. SKIN: Warm, dry, normal turgor, no rashes or lesions noted, normal capillary refill. Laboratory Results - last 24 hr 10/03/17 10/03/17 10/03/17 00:27 00:27 00:27 WBC 9.5 RBC 5.25 Hgb 15.6 Hct 47.3 D MCV 90.1 MCH 29.7 MCHC 33.0 RDW 16.5 H Plt Count 286 D MPV 8.5 Absolute Neuts (auto) 8.0 Neutrophils % 84.2 H D Lymphocytes % 11.9 D Monocytes % 3.4 L Eosinophils % 0.0 D Basophils % 0.5 Nucleated RBC % 0 PT with INR 10.60 INR 0.94 Sodium 137 Potassium 4.3 Chloride 99 Carbon Dioxide 28 Anion Gap 10 BUN 16 Creatinine 1.0 Creat Clearance w eGFR > 60 Random Glucose 153 H D Calcium 9.7 Magnesium 2.1 Total Bilirubin 0.4 AST 35 D ALT 40 D Alkaline Phosphatase 88 D Troponin I < 0.02 Total Protein 8.5 H D Albumin 4.3 Lipase 150 ASSESSMENT/PLAN: 57 year old male with a significant PMH of hypertension, asthma, CVA and heroin / oxycodone abuse from [facility] who presents to the ED with CP 2/2 hypertensive urgency. Chest Pain and hypertensive urgency - similar presentation as to when he was last admission 09/06/17. BPs have been 200s/120s. Recieved ativan 2 mg IV, lopressor 10 mg IV, librium 75 mg po total, , hydralazine, methadone 20 mg po. BPs still remained in 200s. Was started on nitroglycerin gtt 10 mcg/min and sent ICU. Also receiving labetolol 100mg PO. Unclear when last used cocaine. Utox pos for benzo (received here in ED). ECHO on 09/06/17 - normal LV function with EF of 55-60%. Head CT scan is negative and his initial troponin is negative. EKG shows t wave inversion in V5, V6 but is less pronounced compared to EKG from prior admission 09/06/17. -f/u rpt trop -serial ekg, trops -Consult cardiology -taper down nitroglycerin gtt -c/w labetolol 100mg PO if BP remains high -losartan 100 mg q am and amlodipine 5 mg q pm -asa 81 mg po qd -can discharge him w/ HCTZ 12.5 mg po qd. Etoh and Drug abuse - Methadone detox for drug abuse. Got methadone 20 mg po and librium and ativan in er in the ER. No signs of alcohol withdrawal currently -librium prn for withdrawal sxs, pt has completed detox at [facility] -fall precautions -thiamine/folic acid -monitor lytes DM - HgbA1c 5.6 (6/29/18) Obesity - -provide assistance and counseling to facilitate weight loss. -Consult [facility]. Tobacco Use provide assistance and counseling to facilitate smoking cessation -Nicotine patch. HCM -c/w home dose meds for asthma HTN #FEN -no IVF at this time -replete lytes as needed -low sodium/fat #DVTppx SQH 5000U tid #Dispo -admit to ICU -Full code -Return to detox program upon discharge. case discussed with attending, Dr. Guzmán. -Bhavik Vieira MD PGY1 Visit type - Emergency Visit Emergency Visit: Yes ED Registration Date: 10/03/17 Care time: The patient presented to the Emergency Department on the above date and was hospitalized for further evaluation of their emergent condition. - New Patient This patient is new to me today: Yes Date on this admission: 10/03/17 - Critical Care Critical Care patient: Yes Total Critical Care Time (in minutes): 35 Critical Care Statement: The care of this patient involved high complexity decision making to prevent further life threatening deterioration of the patient 's condition and/or to evaluate & treat vital organ system(s) failure or risk of failure. Hospitalist Screening - Colonoscopy Questionnaire Colonoscopy Questionnaire: Colonoscopy Questionnaire - Patient: 50 - 75 years old and never had a screening colonoscopy: Unknown History of colon or rectal polyps, or CA: Unknown History of IBD, Crohn's disease or UC: Unknown History of abdominal radiation therapy as a child: Unknown - Relative: 1 with colon or rectal CA, or polyps at age 60 or younger: Unknown Colon or rectal CA diagnosed at age 45 or younger: Unknown Multiple relatives with colon or rectal CA: Unknown - Outcome: Screening Result: Negative Screen
[2017-10-03] MEDS ORDERED: NITROGLYCERIN 25MG/D5W 250ML 25 MG/250 ML ML IVPB SCH (04:30)
[2017-10-03] MEDS ORDERED: NITROGLYCERIN 25MG/D5W 250ML 25 MG/250 ML ML IVPB ONE (04:32)
[2017-10-03] MEDS ORDERED: LABETALOL HCL 5 MG/1 ML (100MG/20 ML VIAL) IVPUSH ONE (04:54)
[2017-10-03] MEDS ORDERED: LABETALOL HCL 100 MG TABLET (FP) PO ONE (04:54)
[2017-10-03 05:00] LABS: URINE APPEARANCE CLEAR; URINE BILIRUBIN NEGATIVE (<2.0 mg/dL); URINE COLOR LTYELLOW; URINE GLUCOSE (UA) 2+ (NEGATIVE); URINE KETONE NEGATIVE (NEGATIVE); URINE LEUK ESTERASE NEGATIVE (NEGATIVE); URINE NITRITE NEGATIVE (NEGATIVE); URINE UROBILINOGEN NEGATIVE mg/dL (0.2-1.0)
[2017-10-03] MEDS ORDERED: LABETALOL HCL 100 MG TABLET (FP) ONE (05:07)
[2017-10-03 05:12] LABS: URINE PROTEIN 2+ (NEGATIVE)
[2017-10-03] MEDS ORDERED: ALBUTEROL SO4 8 GM HFA INHALER IH PRN (05:17)
[2017-10-03 05:19] LABS: COCAINE, UR NEGATIVE ng/ml (CUTOFF=300); METHADONE, UR NEGATIVE ng/ml (CUTOFF=300); OPIATES, URI NEGATIVE ng/ml (CUTOFF=300); PHENCYCLIDINE,URINE NEGATIVE ng/ml (CUTOFF=25); URINE AMPHETAMINES NEGATIVE ng/ml (CUTOFF=500); URINE BARBITURATES NEGATIVE ng/ml (CUTOFF=200)
[2017-10-03 05:21] LABS: URINE BENZODIAZEPINES POSITIVE ng/ml (CUTOFF=200)
--- NOTE | 2017-10-03 05:46 | CONSULT ---
Consultation: REQUESTING PROVIDER: CONSULT REQUEST: We have been asked to medically evaluate this patient for ( intensive care ). HISTORY OF PRESENT ILLNESS: 57 y/o M w/PMH of alcohol and opiate dependance, asthma, HTN, pre-DM, CVA (2017 w/no residual weakness) presents to the ER via ambulance from [facility] for chest pain and jonny BP. He only reported to me that he had chest pain yesterday and had some nausea but did not throw up and that the chest pain is no longer there. Dae complains of headache and blurry vision. In ER dae got lopressor 10mg iv push and hydralazine 10mg push. He also got ativan and 70 mg of librium in er. Jean got methadone of 20 in er. Patient received on nitroglycerine drip with BP 228 systolic with headache. Patient also got 100mg labetalol po in er. He states he was in [facility] for heroin and alcohol detox and then rehab. Didn' t had cocain from many months. Utox negative for cocain, +ve for benzo ( got ativan and librium in er before utox was sent) denies new numbness or weakness in any part of body. PAST MEDICAL HISTORY:alcohol and opiate dependance, asthma, HTN, pre-DM, CVA ( 2017 w/no residual weakness) PHYSICAL EXAMINATION Vital Signs - 24 hr 10/02/17 10/02/17 10/03/17 23:20 23:49 01:37 Temperature 98.6 F Pulse Rate 94 H 97 H Pulse Rate [ 94 H Apical] Respiratory 20 22 Rate Blood Pressure 194/100 Blood Pressure 239/114 [Right Arm] O2 Sat by Pulse 96 99 99 Oximetry (%) 10/03/17 10/03/17 10/03/17 03:03 03:50 04:06 Temperature Pulse Rate Pulse Rate [ 91 H 110 H Apical] Respiratory 20 20 Rate Blood Pressure 244/122 Blood Pressure 218/99 244/122 [Right Arm] O2 Sat by Pulse 99 99 Oximetry (%) 10/03/17 10/03/17 10/03/17 04:07 04:29 05:19 Temperature Pulse Rate Pulse Rate [ 89 64 Apical] Respiratory 20 20 Rate Blood Pressure 244/122 Blood Pressure 212/102 225/134 [Right Arm] O2 Sat by Pulse 99 100 Oximetry (%) 10/03/17 05:36 Temperature 98.8 F Pulse Rate 98 H Pulse Rate [ Apical] Respiratory 27 H Rate Blood Pressure 228/121 Blood Pressure [Right Arm] O2 Sat by Pulse Oximetry (%) GENERAL: Awake, alert, and fully oriented, complaining of headache HEAD: Normal with no signs of trauma. EYES: Pupils equal, round and reactive to light, no papillary edema. EARS, NOSE, THROAT: Moist mucous membranes. NECK: Normal range of motion, supple without lymphadenopathy, JVD, or masses. LUNGS: Breath sounds equal, clear to auscultation bilaterally. No wheezes, and no crackles. No accessory muscle use. HEART: Regular rate and rhythm, normal S1 and S2 ABDOMEN: Soft, nontender, not distended, normoactive bowel sounds, no guarding, no rebound, no masses. UPPER EXTREMITIES: 2+ pulses, warm, well-perfused. LOWER EXTREMITIES: warm, well-perfused. SKIN: Warm, dry, Laboratory Results - last 24 hr 10/03/17 10/03/17 10/03/17 00:27 00:27 00:27 WBC 9.5 RBC 5.25 Hgb 15.6 Hct 47.3 D MCV 90.1 MCH 29.7 MCHC 33.0 RDW 16.5 H Plt Count 286 D MPV 8.5 Absolute Neuts (auto) 8.0 Neutrophils % 84.2 H D Lymphocytes % 11.9 D Monocytes % 3.4 L Eosinophils % 0.0 D Basophils % 0.5 Nucleated RBC % 0 PT with INR 10.60 INR 0.94 Sodium 137 Potassium 4.3 Chloride 99 Carbon Dioxide 28 Anion Gap 10 BUN 16 Creatinine 1.0 Creat Clearance w eGFR > 60 Random Glucose 153 H D Calcium 9.7 Magnesium 2.1 Total Bilirubin 0.4 AST 35 D ALT 40 D Alkaline Phosphatase 88 D Troponin I < 0.02 Total Protein 8.5 H D Albumin 4.3 Lipase 150 Urine Color Urine Appearance Urine pH Ur Specific [place] Urine Protein Urine Glucose (UA) Urine Ketones Urine Blood Urine Nitrite Urine Bilirubin Urine Urobilinogen Ur Leukocyte Esterase Urine WBC (Auto) Urine RBC (Auto) Opiates Screen Methadone Screen Barbiturate Screen Phencyclidine Screen Ur Amphetamines Screen MDMA (Ecstasy) Screen Benzodiazepines Screen Cocaine Screen U Marijuana (THC) Screen 10/03/17 10/03/17 04:45 04:45 WBC RBC Hgb Hct MCV MCH MCHC RDW Plt Count MPV Absolute Neuts (auto) Neutrophils % Lymphocytes % Monocytes % Eosinophils % Basophils % Nucleated RBC % PT with INR INR Sodium Potassium Chloride Carbon Dioxide Anion Gap BUN Creatinine Creat Clearance w eGFR Random Glucose Calcium Magnesium Total Bilirubin AST ALT Alkaline Phosphatase Troponin I Total Protein Albumin Lipase Urine Color Ltyellow Urine Appearance Clear Urine pH 8.0 Ur Specific [place] 1.013 Urine Protein 2+ H Urine Glucose (UA) 2+ H Urine Ketones Negative Urine Blood Negative Urine Nitrite Negative Urine Bilirubin Negative Urine Urobilinogen Negative Ur Leukocyte Esterase Negative Urine WBC (Auto) 1 Urine RBC (Auto) <1 Opiates Screen Negative Methadone Screen Negative Barbiturate Screen Negative Phencyclidine Screen Negative Ur Amphetamines Screen Negative MDMA (Ecstasy) Screen Negative Benzodiazepines Screen Positive Cocaine Screen Negative U Marijuana (THC) Screen Negative Active Medications Generic Name Dose Route Start Last Admin Trade Name Freq PRN Reason Stop Dose Admin Albuterol Sulfate 2 puff 10/03/17 05:17 Ventolin Hfa Inhaler - IH Q4H PRN ASTHMA Aspirin 81 mg 10/03/17 10:00 Ecotrin - PO DAILY MICHEL Budesonide/Formoterol Fumarate 1 puff 10/03/17 10:00 Symbicort 160/4.5mcg - IH BID MICHEL Nitroglycerin/Dextrose 25 mg in 250 mls @ 6 mls/hr 10/03/17 04:30 10/03/17 04 :43 Nitroglycerin 25mg/D5w 250ml IVPB 10 mcg/min TITR MICHEL 6 mls/hr Administration 10 MCG/MIN Losartan Potassium 100 mg 10/03/17 10:00 Cozaar - PO DAILY [facility] ASSESSMENT/PLAN: 57 y/o M w/PMH of alcohol and opiate dependance, asthma, HTN, pre-DM, CVA (2017 w/no residual weakness) presents to the ER via ambulance from [facility] for chest pain. Found to have hypertensive emergency. -Chest pain secondary to Hypertensive urgency - serial ekg and troponin -Heart Score 5 -echo done in august 2017 reviewed - taper down nitroglycerine drip -restart home med of losartan 100 mg po qd ( last dose given on 10/02) add labetalol if BP is still high -asa 81 mg po qd - gradual decrease in BP. - cardiology consult -Polysubstance abuse (alcohol, heroin) - No active withdrawal ciwa 3, but dae got librium and ativan in er - Detox consult - No signs of alcohol withdrawal currently - Thiamine 100 mg po qd - MV - librium 25mg prn for now. -Pre-DM -A1C 5.6 from 09/07 -Hx of asthma - continue home meds -albuterol nebs q4h PRN for SOB/wheezing - symbicort -DVT ppx scd -FEN -orally allowed -Monitor electrolytes -Diabetic, Cardiac, low salt diet Dispo: We will continue to follow the patient. Thank you for this consultative opportunity.
[2017-10-03 06:17] VITALS: BMI 38.0
[2017-10-03] MEDS: LOSARTAN POTASSIUM 50 MG TABLET (FP) PO SCH (06:49)
[2017-10-03] MEDS: HEPARIN NA (PORCINE) 5,000 UNITS/ML 1ML VIAL SQ SCH ×3 (06:49→20:18)
[2017-10-03] MEDS ORDERED: INSULIN SLIDING SCALE (NOVOLOG) 1 VIAL SQ SCH (07:00)
--- NOTE | 2017-10-03 08:53 | PN ---
Physical Exam: SUBJECTIVE: Patient is a 57y/o male with past medical history of alcohol and opiate dependence, asthma, HTN, CVA (2017) who is admitted for hypertensive emergency. Patient reports he still has headache and shortness of breath but his chest pain resolved. Patient does not want to discuss his history. Nitroglycerine drip tapered to 70 mcg. OBJECTIVE: Vital Signs Period Temp Pulse Resp BP Sys/Corea Pulse Ox Last 24 Hr 98.6 F-98.8 F 64-110 20-32 187-244/99-134 96-100 GENERAL: The patient is awake, in no acute distress, appears lethargic HEAD: Normal with no signs of trauma. EYES: PERRL, extraocular movements intact, sclera anicteric, conjunctiva clear. No ptosis. ENT: oropharynx clear without exudates, moist mucous membranes. NECK: Trachea midline, full range of motion LUNGS: Breath sounds equal, clear to auscultation bilaterally HEART: tachycardic with no murmurs heard ABDOMEN: Soft, nontender, nondistended, normoactive bowel sounds EXTREMITIES: 2+ pulses, warm, well-perfused, no edema. NEUROLOGICAL: Cranial nerves II through XII grossly intact. 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 then R, UE 5/5 stength b/l, LE knee extension and flexion refused, dorsiflexion/ plantarflexion 5/5 BL SKIN: Warm, dry, normal turgor, no rashes or lesions noted, gynecomastia noted Laboratory Results - last 24 hr 10/03/17 10/03/17 10/03/17 00:27 00:27 00:27 WBC 9.5 RBC 5.25 Hgb 15.6 Hct 47.3 D MCV 90.1 MCH 29.7 MCHC 33.0 RDW 16.5 H Plt Count 286 D MPV 8.5 Absolute Neuts (auto) 8.0 Neutrophils % 84.2 H D Lymphocytes % 11.9 D Monocytes % 3.4 L Eosinophils % 0.0 D Basophils % 0.5 Nucleated RBC % 0 PT with INR 10.60 INR 0.94 Sodium 137 Potassium 4.3 Chloride 99 Carbon Dioxide 28 Anion Gap 10 BUN 16 Creatinine 1.0 Creat Clearance w eGFR > 60 Random Glucose 153 H D Calcium 9.7 Magnesium 2.1 Total Bilirubin 0.4 AST 35 D ALT 40 D Alkaline Phosphatase 88 D Creatine Kinase Creatine Kinase Index CK-MB (CK-2) Troponin I < 0.02 Total Protein 8.5 H D Albumin 4.3 Lipase 150 Urine Color Urine Appearance Urine pH Ur Specific [place] Urine Protein Urine Glucose (UA) Urine Ketones Urine Blood Urine Nitrite Urine Bilirubin Urine Urobilinogen Ur Leukocyte Esterase Urine WBC (Auto) Urine RBC (Auto) Opiates Screen Methadone Screen Barbiturate Screen Phencyclidine Screen Ur Amphetamines Screen MDMA (Ecstasy) Screen Benzodiazepines Screen Cocaine Screen U Marijuana (THC) Screen 10/03/17 10/03/17 10/03/17 04:45 04:45 05:15 WBC RBC Hgb Hct MCV MCH MCHC RDW Plt Count MPV Absolute Neuts (auto) Neutrophils % Lymphocytes % Monocytes % Eosinophils % Basophils % Nucleated RBC % PT with INR INR Sodium Potassium Chloride Carbon Dioxide Anion Gap BUN Creatinine Creat Clearance w eGFR Random Glucose Calcium Magnesium Total Bilirubin AST ALT Alkaline Phosphatase Creatine Kinase Creatine Kinase Index CK-MB (CK-2) Troponin I < 0.02 Total Protein Albumin Lipase Urine Color Ltyellow Urine Appearance Clear Urine pH 8.0 Ur Specific [place] 1.013 Urine Protein 2+ H Urine Glucose (UA) 2+ H Urine Ketones Negative Urine Blood Negative Urine Nitrite Negative Urine Bilirubin Negative Urine Urobilinogen Negative Ur Leukocyte Esterase Negative Urine WBC (Auto) 1 Urine RBC (Auto) <1 Opiates Screen Negative Methadone Screen Negative Barbiturate Screen Negative Phencyclidine Screen Negative Ur Amphetamines Screen Negative MDMA (Ecstasy) Screen Negative Benzodiazepines Screen Positive Cocaine Screen Negative U Marijuana (THC) Screen Negative 10/03/17 07:07 WBC RBC Hgb Hct MCV MCH MCHC RDW Plt Count MPV Absolute Neuts (auto) Neutrophils % Lymphocytes % Monocytes % Eosinophils % Basophils % Nucleated RBC % PT with INR INR Sodium Potassium Chloride Carbon Dioxide Anion Gap BUN Creatinine Creat Clearance w eGFR Random Glucose Calcium Magnesium Total Bilirubin AST ALT Alkaline Phosphatase Creatine Kinase 269 Creatine Kinase Index 1.0 CK-MB (CK-2) 2.88 Troponin I < 0.02 Total Protein Albumin Lipase Urine Color Urine Appearance Urine pH Ur Specific [place] Urine Protein Urine Glucose (UA) Urine Ketones Urine Blood Urine Nitrite Urine Bilirubin Urine Urobilinogen Ur Leukocyte Esterase Urine WBC (Auto) Urine RBC (Auto) Opiates Screen Methadone Screen Barbiturate Screen Phencyclidine Screen Ur Amphetamines Screen MDMA (Ecstasy) Screen Benzodiazepines Screen Cocaine Screen U Marijuana (THC) Screen Active Medications Generic Name Dose Route Start Last Admin Trade Name Freq PRN Reason Stop Dose Admin Albuterol Sulfate 2 puff 10/03/17 05:17 Ventolin Hfa Inhaler - IH Q4H PRN ASTHMA Amlodipine Besylate 5 mg 10/03/17 08:15 Norvasc - PO DAILY [facility] Aspirin 81 mg 10/03/17 10:00 Ecotrin - PO DAILY [facility] Budesonide/Formoterol Fumarate 1 puff 10/03/17 10:00 Symbicort 160/4.5mcg - IH BID [facility] Chlordiazepoxide HCl 25 mg 10/03/17 06:01 Librium - PO Q6H PRN WITHDRAWAL(CONT SUBST) Chlorhexidine Gluconate 1 applic 10/03/17 22:00 Hibiclens For Decolonization - TP HS [facility] Chlorthalidone 25 mg 10/03/17 10:00 [place]gro[place] - PO DAILY [facility] Folic Acid 1 mg 10/03/17 10:00 Folic Acid - PO DAILY [facility] Heparin Sodium (Porcine) 5,000 unit 10/03/17 06:30 10/03/17 06:49 Heparin - SQ 5,000 unit Q8H-IV MICHEL Administration Losartan Potassium 100 mg 10/03/17 06:45 10/03/17 06:49 Cozaar - PO 100 mg DAILY [facility] Administration Mupirocin 1 applic 10/03/17 10:00 Bactroban Ointment (For Decolonization) - NS 10/08/17 09:59 BID [facility] Multivit/Folic Acid/Iron 1 tab 10/03/17 10:00 Vitamins (Sjr) - PO DAILY [facility] Thiamine HCl 100 mg 10/03/17 10:00 Vitamin B1 - PO DAILY [facility] ASSESSMENT/PLAN: Patient is a 57y/o male with past medical history of alcohol and opiate dependence, asthma, HTN, CVA (2017) who is admitted for hypertensive emergency. #Hypertensive emergency - Nitroglycerin: 70 mcg - 100 mg lebetalol - Losartan 100 mg - Carvedilol 6.25 mg - cardiology consult - chlorithalidone 25 mg daily - amlodipine 10 mg - BP's down trending throughout the day, most recent 167/86 #substance abuse - CIWA score 3 - [facility] rehab detox from -, completed detox - not currently on methadone as an outpatient - continue thiamine - vitamins - continue folic acid #prediabetes - last A1C 09/07 5.6 #asthma: stable - Symbicort 1 puff prn - Ventolin 2 puffs prn #CVA(2017) - aspirin 81 mg daily - no residual weakness #bipolar disorder -abillify 10 mg daily #DVT ppx -heparin TID Visit type - Emergency Visit Emergency Visit: No - New Patient This patient is new to me today: No - Critical Care Critical Care patient: No
[2017-10-03] MEDS ORDERED: amLODIPine BESYLATE 5 MG TABLET (FP) PO SCH ×3 (09:15→19:00)
--- NOTE | 2017-10-03 09:16 | CON.CARD ---
Consult Consult Specialty:: Cardiology Referred by:: Hospitalist Medicine Reason for Consultation:: Hypertensive urgency - History of Present Illness Chief Complaint: Chest pain, hypertensive urgency History of Present Illness: Patient is a 57 year old man with a significant PMH of hypertension, asthma, borderline NIDDM, CVA and polysubstance abuse (cocaine/heroin/oxycodone/alcohol abuse) from [facility] who presents to the ER with retrosternal chest pain in context of hypertensive urgency similar to prior presentations associated with nausea, emesis and diaphoresis typical of his withdrawal sxs. The patient denies shortness of breath, dyspnea on exertion, headache, or lightheadedness or true syncope. - History Source History Provided By: Medical Record Limitations to Obtaining History: Poor Historian - Alcohol/Substance Use Hx Alcohol Use: Yes - Smoking History Smoking history: Current every day smoker Have you smoked in the past 12 months: Yes Aproximately how many cigarettes per day: 20 Home Medications - Allergies Allergies/Adverse Reactions: Allergies Allergy/AdvReac Type Severity Reaction Status Date / Time No Known Allergies Allergy Verified 10/02/17 23:47 - Home Medications Home Medications: Ambulatory Orders Budesonide/Formeterol Fumarate [SYMBICORT 160/4.5mcg -] 1 inh PO BID 01/15/17 Aspirin Coated [Ecotrin -] 81 mg PO DAILY 30 Days #30 tab 01/18/17 Albuterol Sulfate Inhaler - [Ventolin HFA Inhaler -] 2 inh PO Q4H PRN 30 Days # 1 inhaler 04/22/17 Losartan Potassium [Cozaar -] 50 mg PO DAILY tablet 09/07/17 Family Disease History - Family Disease History Family Disease History: Heart Disease: Mother (HTN,living), Other: Father ( - unknown), Mother, Brother (one - living - no contact), Sister (none), Son (3 sons - healthy), Daughter (4 daughters - healthy) Review of Systems - Review of Systems Cardiovascular: reports: Chest Pain Vital Signs: Vital Signs Temperature 98.8 F 10/03/17 07:00 Pulse Rate 106 H 10/03/17 08:15 Respiratory Rate 22 10/03/17 08:15 Blood Pressure 199/117 10/03/17 08:15 O2 Sat by Pulse Oximetry (%) 100 10/03/17 05:50 Constitutional: Yes: No Distress, Calm, Thin Neck: Yes: Supple Respiratory: Yes: Regular, CTA Bilaterally Gastrointestinal: Yes: Normal Bowel Sounds, Soft Cardiovascular: Yes: Regular Rate and Rhythm JVD: No Carotid Bruit: No Heart Sounds: Yes: S1, S2 Edema: No - Other Data Labs, Other Data: CBC, BMP 10/03/17 00:27 10/03/17 00:27 INR, PTT INR 0.94 (0.82-1.09) 10/03/17 00:27 Troponin, BNP 10/03/17 10/03/17 10/03/17 00:27 05:15 07:07 Troponin I < 0.02 < 0.02 < 0.02 Troponin, BNP 10/03/17 10/03/17 10/03/17 00:27 05:15 07:07 Troponin I < 0.02 < 0.02 < 0.02 NSR @ 97 LAE, LVH Ejection Fraction %: LVEF > or = 40 % Imaging - Results Chest X-ray: Report Reviewed (NAD) Problem List - Problems (1) Hypertensive urgency Code(s): I16.0 - HYPERTENSIVE URGENCY (2) Chest pain Code(s): R07.9 - CHEST PAIN, UNSPECIFIED Qualifiers: Chest pain type: precordial pain Qualified Code(s): R07.2 - Precordial pain (3) Diabetes Code(s): E11.9 - TYPE 2 DIABETES MELLITUS WITHOUT COMPLICATIONS Qualifiers: Diabetes mellitus type: type 2 Diabetes mellitus terminal block assembler insulin use: without terminal block assembler use Diabetes mellitus complication status: with kidney complications Diabetes mellitus complication detail: with chronic kidney disease Chronic kidney disease stage: stage 3 (moderate) Qualified Code(s): E11.22 - Type 2 diabetes mellitus with diabetic chronic kidney disease; N18.3 - Chronic kidney disease, stage 3 (moderate) (4) History of CVA (cerebrovascular accident) Code(s): Z86.73 - PRSNL HX OF TIA (TIA), AND CEREB INFRC W/O RESID DEFICITS (5) Asthma Code(s): J45.909 - UNSPECIFIED ASTHMA, UNCOMPLICATED Qualifiers: Asthma severity: mild Asthma persistence: intermittent Asthma complication type: uncomplicated Qualified Code(s): J45.20 - Mild intermittent asthma, uncomplicated Assessment/Plan 09/06/2017 Echo: Mod cLVH, normal LV and RV size and fxn, tr TR 1. Chest pain in context of 2. Hypertensive urgency 3. Polysubstance abuse in rehab 4. 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 Asthma P:1. Ruled out for [place] 2. Resume carvedilol 6.25 bid (tolerated in past), losartan 100 qd, Norvasc 5 qd and chlorthalidone 25 qd with uptitration as tolerated, wean off NTG gtt 3. Detox 4. Thank you for consultative opportunity
[2017-10-03] MEDS: MUPIROCIN 2% TOPICAL OINTMENT FOR DECOLONIZATION NS SCH ×2 (09:39→21:28)
[2017-10-03] MEDS: FOLIC ACID 1 MG TABLET (FP) PO SCH (09:39)
[2017-10-03] MEDS: THIAMINE HCL 100 MG TABLET (FP) PO SCH (09:39)
[2017-10-03] MEDS: ASPIRIN COATED 81 MG TABLET.EC PO SCH (09:39)
[2017-10-03] MEDS: chlordiazePOXIDE HCL 25 MG CAPSULE PO PRN ×2 (09:39→15:30)
[2017-10-03] MEDS ORDERED: LOSARTAN POTASSIUM 50 MG TABLET (FP) PO SCH (10:00)
[2017-10-03] MEDS ORDERED: NITROGLYCERIN 50MG/D5W 250ML 50 MG/250 ML ML IVPB SCH (10:45)
--- NOTE | 2017-10-03 11:27 | PN ---
Teaching Attending Note Name of Resident: Tyson Abebe ATTENDING PHYSICIAN STATEMENT I saw and evaluated the patient. I reviewed the resident's note and discussed the case with the resident. I agree with the resident's findings and plan as documented. SUBJECTIVE: Patient seen and examined in the ICU. Awake and alert. No CP. Breathing feels better. Slight YOUNGBLOOD. Remains on IV NTG drip. Intake & Output 09/30/17 10/01/17 10/02/17 10/03/17 23:59 23:59 23:59 23:59 Intake Total 120 Balance 120 Weight 247 lb 250 lb Last Vital Signs Temp Pulse Resp BP Pulse Ox 98.8 F 106 H 22 199/117 100 10/03/17 07:00 10/03/17 08:15 10/03/17 08:15 10/03/17 08:15 10/03/17 05:50 Active Medications Albuterol Sulfate (Ventolin Hfa Inhaler -) 2 puff IH Q4H PRN PRN Reason: ASTHMA Amlodipine Besylate (Norvasc -) 5 mg PO DAILY [facility] Last Admin: 10/03/17 09:39 Dose: 5 mg Aspirin (Ecotrin -) 81 mg PO DAILY [facility] Last Admin: 10/03/17 09:39 Dose: 81 mg Budesonide/Formoterol Fumarate (Symbicort 160/4.5mcg -) 1 puff IH BID [facility] Carvedilol (Coreg -) 6.25 mg PO BID [facility] Chlordiazepoxide HCl (Librium -) 25 mg PO Q6H PRN PRN Reason: WITHDRAWAL(CONT SUBST) Last Admin: 10/03/17 09:39 Dose: 25 mg Chlorhexidine Gluconate (Hibiclens For Decolonization -) 1 applic TP HS [facility] Chlorthalidone (Hygroton -) 25 mg PO DAILY [facility] Folic Acid (Folic Acid -) 1 mg PO DAILY [facility] Last Admin: 10/03/17 09:39 Dose: 1 mg Heparin Sodium (Porcine) (Heparin -) 5,000 unit SQ Q8H-IV MICHEL Last Admin: 10/03/17 06:49 Dose: 5,000 unit Nitroglycerin/Dextrose (Nitroglycerin 50mg/D5w 250ml) 50 mg in 250 mls @ 3 mls/ hr IVPB TITR MICHEL; Protocol Losartan Potassium (Cozaar -) 100 mg PO DAILY [facility] Last Admin: 10/03/17 06:49 Dose: 100 mg Mupirocin (Bactroban Ointment (For Decolonization) -) 1 applic NS BID MICHEL Stop: 10/08/17 09:59 Last Admin: 10/03/17 09:39 Dose: 1 applic Multivit/Folic Acid/Iron ( Vitamins (Sjr) -) 1 tab PO DAILY MICHEL Thiamine HCl (Vitamin B1 -) 100 mg PO DAILY MICHEL Last Admin: 10/03/17 09:39 Dose: 100 mg GENERAL: Awake, alert, and fully oriented, NAD HEAD: Normal with no signs of trauma. EYES: Pupils equal, round and reactive to light, (-) papilledema EARS, NOSE, THROAT: Moist mucous membranes. NECK: Normal range of motion, supple without lymphadenopathy, JVD, or masses. LUNGS: Breath sounds equal, clear to auscultation bilaterally. No wheezes, and no crackles. No accessory muscle use. HEART: Regular rate and rhythm, normal S1 and S2 ABDOMEN: Soft, nontender, not distended, normoactive bowel sounds, no guarding, no rebound, no masses. NEURO: Non-focal UPPER EXTREMITIES: 2+ pulses, warm, well-perfused. LOWER EXTREMITIES: warm, well-perfused. SKIN: Warm, dry, Laboratory Results - last 24 hr 10/03/17 10/03/17 10/03/17 00:27 00:27 00:27 WBC 9.5 RBC 5.25 Hgb 15.6 Hct 47.3 D MCV 90.1 MCH 29.7 MCHC 33.0 RDW 16.5 H Plt Count 286 D MPV 8.5 Absolute Neuts (auto) 8.0 Neutrophils % 84.2 H D Lymphocytes % 11.9 D Monocytes % 3.4 L Eosinophils % 0.0 D Basophils % 0.5 Nucleated RBC % 0 PT with INR 10.60 INR 0.94 Sodium 137 Potassium 4.3 Chloride 99 Carbon Dioxide 28 Anion Gap 10 BUN 16 Creatinine 1.0 Creat Clearance w eGFR > 60 Random Glucose 153 H D Calcium 9.7 Magnesium 2.1 Total Bilirubin 0.4 AST 35 D ALT 40 D Alkaline Phosphatase 88 D Creatine Kinase Creatine Kinase Index CK-MB (CK-2) Troponin I < 0.02 Total Protein 8.5 H D Albumin 4.3 Lipase 150 Urine Color Urine Appearance Urine pH Ur Specific [place] Urine Protein Urine Glucose (UA) Urine Ketones Urine Blood Urine Nitrite Urine Bilirubin Urine Urobilinogen Ur Leukocyte Esterase Urine WBC (Auto) Urine RBC (Auto) Opiates Screen Methadone Screen Barbiturate Screen Phencyclidine Screen Ur Amphetamines Screen MDMA (Ecstasy) Screen Benzodiazepines Screen Cocaine Screen U Marijuana (THC) Screen 10/03/17 10/03/17 10/03/17 04:45 04:45 05:15 WBC RBC Hgb Hct MCV MCH MCHC RDW Plt Count MPV Absolute Neuts (auto) Neutrophils % Lymphocytes % Monocytes % Eosinophils % Basophils % Nucleated RBC % PT with INR INR Sodium Potassium Chloride Carbon Dioxide Anion Gap BUN Creatinine Creat Clearance w eGFR Random Glucose Calcium Magnesium Total Bilirubin AST ALT Alkaline Phosphatase Creatine Kinase Creatine Kinase Index CK-MB (CK-2) Troponin I < 0.02 Total Protein Albumin Lipase Urine Color Ltyellow Urine Appearance Clear Urine pH 8.0 Ur Specific [place] 1.013 Urine Protein 2+ H Urine Glucose (UA) 2+ H Urine Ketones Negative Urine Blood Negative Urine Nitrite Negative Urine Bilirubin Negative Urine Urobilinogen Negative Ur Leukocyte Esterase Negative Urine WBC (Auto) 1 Urine RBC (Auto) <1 Opiates Screen Negative Methadone Screen Negative Barbiturate Screen Negative Phencyclidine Screen Negative Ur Amphetamines Screen Negative MDMA (Ecstasy) Screen Negative Benzodiazepines Screen Positive Cocaine Screen Negative U Marijuana (THC) Screen Negative 10/03/17 07:07 WBC RBC Hgb Hct MCV MCH MCHC RDW Plt Count MPV Absolute Neuts (auto) Neutrophils % Lymphocytes % Monocytes % Eosinophils % Basophils % Nucleated RBC % PT with INR INR Sodium Potassium Chloride Carbon Dioxide Anion Gap BUN Creatinine Creat Clearance w eGFR Random Glucose Calcium Magnesium Total Bilirubin AST ALT Alkaline Phosphatase Creatine Kinase 269 Creatine Kinase Index 1.0 CK-MB (CK-2) 2.88 Troponin I < 0.02 Total Protein Albumin Lipase Urine Color Urine Appearance Urine pH Ur Specific [place] Urine Protein Urine Glucose (UA) Urine Ketones Urine Blood Urine Nitrite Urine Bilirubin Urine Urobilinogen Ur Leukocyte Esterase Urine WBC (Auto) Urine RBC (Auto) Opiates Screen Methadone Screen Barbiturate Screen Phencyclidine Screen Ur Amphetamines Screen MDMA (Ecstasy) Screen Benzodiazepines Screen Cocaine Screen U Marijuana (THC) Screen ASSESSMENT/PLAN: Hypertensive Urgency Alcohol / opiate / heroin dependance Asthma HTN DM CVA Titrate BP Meds (SBP < 160) ASA Taper and D/C IV NTG drip Thiamine MVI Librium No smoking BD TX Symbicort BID Cardiac Telemetry monitoring Dr Domingo Critical care time spent in reviewing chart, evaluating patient and formulating plan - 36 minutes.
[2017-10-03] MEDS ORDERED: PT OWN MED DRAWER 7, Y5N ONE ×3 (11:43→21:26)
[2017-10-03] MEDS: BUDESONIDE/FORMETEROL FUMARATE 160/4.5 mcg INHALER IH SCH ×2 (11:45→21:28)
[2017-10-03] MEDS ORDERED: NIFEdipine E.R 60 MG TABLET (UD) PO SCH (11:45)
[2017-10-03] MEDS: CARVEDILOL 6.25 MG TABLET (FP) PO SCH ×2 (11:45→21:24)
[2017-10-03] MEDS: CHLORTHALIDONE 25 MG TABLET PO SCH (11:45)
[2017-10-03] MEDS: PRENATAL VITAMINS W/ FOLIC ACID TABLET (FP) PO SCH (11:45)
[2017-10-03] MEDS ORDERED: amLODIPine BESYLATE 5 MG TABLET (FP) PO ONE (12:15)
--- NOTE | 2017-10-03 13:06 | PN ---
Teaching Attending Note Name of Resident: Markus Gudino ATTENDING PHYSICIAN STATEMENT I saw and evaluated the patient. I reviewed the resident's note and discussed the case with the resident. I agree with the resident's findings and plan as documented. SUBJECTIVE: No fever of chills. has YOUNGBLOOD , CP , pain in all his body. OBJECTIVE: NAD, irritable, not cooperative CV; RRR Lungs; CTAB EXt: no edema Neuro: EOMI, round equal pupils , reactive to light . no facial droop, EOMI, tongue at mid line. strength 5/5 in upper and lower extremities proximally and distally. sensation to light touch decreased over L face and L upper and lower extremity ASSESSMENT AND PLAN: 57 y/o man with h/o HTN, CVA, Asthma, alcohol , heroin, cocaine, and nicotine dependence,and pre-DM who was sent form [facility] due to CP and was fond to have Hypertensive urgency 1- HTN urgency: due to ? non compliance, VS cocaine use - taper NG gtt off - cont home losartan . Norvasc, chlorthalidone and coreg ordered. will d/w Card ( coreg with cocaine use ) 2- CP : EKG with TWI in V5, V6 improved compared to last EKG. NL trop x 2. doubt ACS. monitor 3- Polysubstance abue: not clear form [facility] notes, if he completed his detoxz or now but has been there x 4 days - will contact [facility] MD and confirm - in mean time , give no Methadone and give PRN Librium 4- h/o asthma , cont inhalers . Not active 5- Psych ; per [facility] notes he was started on Abilify and Belsomra. will clarify 6- Prediabetes, A1c 5.9 on 08/09 ICU level of care Critical Care Total Critical Care Time (in minutes): 40 Critical Care Statement: The care of this patient involved high complexity decision making to prevent further life threatening deterioration of the patient 's condition and/or to evaluate & treat vital organ system(s) failure or risk of failure.
[2017-10-03] MEDS ORDERED: hydrALAZINE HCL 10 MG TABLET PO ONE (15:45)
--- NOTE | 2017-10-03 15:49 | EKG ---
Test Reason : Blood Pressure : / mmHG Vent. Rate : 108 BPM Atrial Rate : 108 BPM P-R Int : 152 ms QRS Dur : 098 ms QT Int : 354 ms P-R-T Axes : 045 071 026 degrees QTc Int : 474 ms SINUS TACHYCARDIA POSSIBLE LEFT ATRIAL ENLARGEMENT BORDERLINE ECG WHEN COMPARED WITH ECG OF 02-OCT-2017 23:24, T WAVE INVERSION NO LONGER EVIDENT IN LATERAL LEADS Confirmed by KAYLENE ZAMORA, GRICEL ([id number]) on 10/03/2017 3:49:37 PM Referred By: LJ SHEEHAN Confirmed By:GRICEL MAURICE MD
[2017-10-03] MEDS ORDERED: DILTIAZEM INJECTION 125 MG in SODIUM CHLORIDE 100 ML IVPB SCH (17:30)
[2017-10-03] MEDS ORDERED: LABETALOL HCL INJECTION 1,000 MG in DEXTROSE 5%-WATER - 800 ML IV SCH (17:45)
--- NOTE | 2017-10-03 18:46 | PN ---
Physical Exam: SUBJECTIVE: Patient seen and examined today in icu this am and evening. Pt in laying in bed c/o severe headache and genrralzied pain. Pt describes a pulsating sensation on temporal side of head. Denies cp, nausea, or vomiting at the moment. OBJECTIVE: Vital Signs Period Temp Pulse Resp BP Sys/Corea Pulse Ox Last 24 Hr 98.6 F-98.8 F 64-110 20-32 187-244/99-134 96-100 GENERAL: Generalized pain, restless. HEAD: NC/AT EYES: EOMI. Fundoscopy: No cotton wool spots or hard exudates seen. ENT: WNL NECK: No JVD. LUNGS: CTA B/L. HEART: RRR ABDOMEN: No HSM, NT, ND EXTREMITIES: No CCE NEUROLOGICAL: Strength 5+ throughout. Sensation left side of body slightly decreased. PSYCH: Normal mood, normal affect. SKIN: Dry feet, onycholysis b/l toenails. Laboratory Results - last 24 hr 10/03/17 10/03/17 10/03/17 00:27 00:27 00:27 WBC 9.5 RBC 5.25 Hgb 15.6 Hct 47.3 D MCV 90.1 MCH 29.7 MCHC 33.0 RDW 16.5 H Plt Count 286 D MPV 8.5 Absolute Neuts (auto) 8.0 Neutrophils % 84.2 H D Lymphocytes % 11.9 D Monocytes % 3.4 L Eosinophils % 0.0 D Basophils % 0.5 Nucleated RBC % 0 PT with INR 10.60 INR 0.94 Sodium 137 Potassium 4.3 Chloride 99 Carbon Dioxide 28 Anion Gap 10 BUN 16 Creatinine 1.0 Creat Clearance w eGFR > 60 Random Glucose 153 H D Calcium 9.7 Magnesium 2.1 Total Bilirubin 0.4 AST 35 D ALT 40 D Alkaline Phosphatase 88 D Creatine Kinase 301 Creatine Kinase Index 0.9 CK-MB (CK-2) 2.94 Troponin I < 0.02 Total Protein 8.5 H D Albumin 4.3 Lipase 150 Urine Color Urine Appearance Urine pH Ur Specific [place] Urine Protein Urine Glucose (UA) Urine Ketones Urine Blood Urine Nitrite Urine Bilirubin Urine Urobilinogen Ur Leukocyte Esterase Urine WBC (Auto) Urine RBC (Auto) Opiates Screen Methadone Screen Barbiturate Screen Phencyclidine Screen Ur Amphetamines Screen MDMA (Ecstasy) Screen Benzodiazepines Screen Cocaine Screen U Marijuana (THC) Screen 07/25/18 07/25/18 07/25/18 04:45 04:45 05:15 WBC RBC Hgb Hct MCV MCH MCHC RDW Plt Count MPV Absolute Neuts (auto) Neutrophils % Lymphocytes % Monocytes % Eosinophils % Basophils % Nucleated RBC % PT with INR INR Sodium Potassium Chloride Carbon Dioxide Anion Gap BUN Creatinine Creat Clearance w eGFR Random Glucose Calcium Magnesium Total Bilirubin AST ALT Alkaline Phosphatase Creatine Kinase Creatine Kinase Index CK-MB (CK-2) Troponin I < 0.02 Total Protein Albumin Lipase Urine Color Ltyellow Urine Appearance Clear Urine pH 8.0 Ur Specific [place] 1.013 Urine Protein 2+ H Urine Glucose (UA) 2+ H Urine Ketones Negative Urine Blood Negative Urine Nitrite Negative Urine Bilirubin Negative Urine Urobilinogen Negative Ur Leukocyte Esterase Negative Urine WBC (Auto) 1 Urine RBC (Auto) <1 Opiates Screen Negative Methadone Screen Negative Barbiturate Screen Negative Phencyclidine Screen Negative Ur Amphetamines Screen Negative MDMA (Ecstasy) Screen Negative Benzodiazepines Screen Positive Cocaine Screen Negative U Marijuana (THC) Screen Negative 10/03/17 07:07 WBC RBC Hgb Hct MCV MCH MCHC RDW Plt Count MPV Absolute Neuts (auto) Neutrophils % Lymphocytes % Monocytes % Eosinophils % Basophils % Nucleated RBC % PT with INR INR Sodium Potassium Chloride Carbon Dioxide Anion Gap BUN Creatinine Creat Clearance w eGFR Random Glucose Calcium Magnesium Total Bilirubin AST ALT Alkaline Phosphatase Creatine Kinase 269 Creatine Kinase Index 1.0 CK-MB (CK-2) 2.88 Troponin I < 0.02 Total Protein Albumin Lipase Urine Color Urine Appearance Urine pH Ur Specific [place] Urine Protein Urine Glucose (UA) Urine Ketones Urine Blood Urine Nitrite Urine Bilirubin Urine Urobilinogen Ur Leukocyte Esterase Urine WBC (Auto) Urine RBC (Auto) Opiates Screen Methadone Screen Barbiturate Screen Phencyclidine Screen Ur Amphetamines Screen MDMA (Ecstasy) Screen Benzodiazepines Screen Cocaine Screen U Marijuana (THC) Screen Active Medications Generic Name Dose Route Start Last Admin Trade Name Freq PRN Reason Stop Dose Admin Albuterol Sulfate 2 puff 10/03/17 05:17 Ventolin Hfa Inhaler - IH Q4H PRN ASTHMA Amlodipine Besylate 10 mg 10/04/17 10:00 Norvasc - PO DAILY MICHEL Aripiprazole 10 mg 10/04/17 10:00 Abilify PO DAILY MICHEL Aspirin 81 mg 10/03/17 10:00 10/03/17 09:39 Ecotrin - PO 81 mg DAILY MICHEL Administration Budesonide/Formoterol Fumarate 1 puff 10/03/17 10:00 10/03/17 11:45 Symbicort 160/4.5mcg - IH 1 puff BID MICHEL Administration Carvedilol 6.25 mg 10/03/17 10:00 10/03/17 11:45 Coreg - PO 6.25 mg BID MICHEL Administration Chlorhexidine Gluconate 1 applic 10/03/17 22:00 Hibiclens For Decolonization - TP HS MICHEL Chlorthalidone 25 mg 10/03/17 10:00 10/03/17 11:45 Hygroton - PO 25 mg DAILY MICHEL Administration Folic Acid 1 mg 10/03/17 10:00 10/03/17 09:39 Folic Acid - PO 1 mg DAILY MICHEL Administration Heparin Sodium (Porcine) 5,000 unit 10/03/17 06:30 10/03/17 12:10 Heparin - SQ Not Given Q8H-IV MICHEL Hydralazine HCl 25 mg 10/03/17 22:00 Apresoline - PO BID MICHEL Labetalol HCl 1,000 mg/ 1,000 mls @ 120 mls/hr 10/03/17 17:45 Dextrose IV TITR IMCHEL Protocol 2 MG/MIN Losartan Potassium 100 mg 10/03/17 06:45 10/03/17 06:49 Cozaar - PO 100 mg DAILY MICHEL Administration Mupirocin 1 applic 10/03/17 10:00 10/03/17 09:39 Bactroban Ointment (For Decolonization) - NS 10/08/17 09:59 1 applic BID MICHEL Administration Multivit/Folic Acid/Iron 1 tab 10/03/17 10:00 10/03/17 11:45 Vitamins (Sjr) - PO 1 tab DAILY MICHEL Administration Thiamine HCl 100 mg 10/03/17 10:00 10/03/17 09:39 Vitamin B1 - PO 100 mg DAILY MICHEL Administration ASSESSMENT/PLAN: 57 y/o M w/PMH of hypertension, asthma, borderline NIDDM, CVA and cocaine/ heroin/oxycodone/alcohol abuse from [facility]. Hypertensive Urgency: Head CT scan 10/03/17. No evidence of acute intracranial hemmorhage, edema, midline shift, mass effect, or skull fracture. EKG 10/03 : t wave inversion in lateral leads no longer evident as was seen on EKG 10/02/17. Nitro gtt discontinued this evening due to patients severe headaches and inadequate blood pressure control -Pt now on Labetalol gtt. - Cozaar 100 mg PO DAILY -Apresoline 25 mg po bid - Hygroton 25 mg po daily - Coreg 6.25 PO BID - Norvasc 10 mg po daily Polysubstance Abuse: Librium PRN Thiamine HCl Folic Acid Vitamins DVT ppx: Heparin 5,000 U SQ Q8H FEN No Fluids Monitor Electrolytes Chol?Fat/Sod Restricted Diet Dispo: Continue to monitor in ICU. Visit type - Emergency Visit Emergency Visit: Yes ED Registration Date: 10/03/17 Care time: The patient presented to the Emergency Department on the above date and was hospitalized for further evaluation of their emergent condition. - New Patient This patient is new to me today: Yes Date on this admission: 10/03/17 - Critical Care Critical Care patient: Yes Total Critical Care Time (in minutes): 40 Critical Care Statement: The care of this patient involved high complexity decision making to prevent further life threatening deterioration of the patient 's condition and/or to evaluate & treat vital organ system(s) failure or risk of failure.
[2017-10-03] MEDS ORDERED: METHADONE HCL 10 MG TABLET PO ONE (19:48)
[2017-10-03 20:46] LABS: ANION GAP 10 (8-16); BLOOD UREA NITROGEN 25 mg/dL (7-18); CALCIUM 9.8 mg/dL (8.5-10.1); CHLORIDE 98 mmol/L (98-107); CO2 26 mmol/L (21-32); GLUCOSE,RANDOM 137 mg/dL (74-106); POTASSIUM 3.9 mmol/L (3.5-5.1); SODIUM 134 mmol/L (136-145)
[2017-10-03 20:47] LABS: CREATININE 0.9 mg/dL (0.7-1.3)
[2017-10-03] MEDS ORDERED: ACETAMINOPHEN 325 MG TABLET (FP) PO PRN (20:51)
--- NOTE | 2017-10-03 21:23 | PN ---
Progress Note (short form) - Note Progress Note: Patient is on 4 different po antihypertensive and IV drip labetalol BP drops to 120 systolic. will stop his labetalol drip. Also hold night hydralazine and coreg dose for now. Goal is to gradually decrease BP and keep systolic around 160.
[2017-10-03] MEDS: hydrALAZINE HCL 25 MG TABLET (FP) PO SCH (21:24)
[2017-10-03] MEDS: CHLORHEXIDINE GLUCONATE 4% CLEANSER FOR DECOLONIZATION TP SCH (21:28)
[2017-10-03] MEDS: MELATONIN 1 MG TABLET PO SCH (22:02)
[2017-10-04] MEDS: hydrALAZINE HCL 25 MG TABLET (FP) PO SCH ×2 (00:05→09:05)
[2017-10-04] MEDS: CARVEDILOL 6.25 MG TABLET (FP) PO SCH ×2 (00:05→09:04)
[2017-10-04] MEDS: HEPARIN NA (PORCINE) 5,000 UNITS/ML 1ML VIAL SQ SCH ×3 (02:05→17:05)
[2017-10-04] MEDS: METHADONE HCL 10 MG TABLET PO SCH (06:21)
[2017-10-04 06:32] LABS: BASO % 0.3 % (0-2.0); EOS % 0.2 % (0-4.5); HEMATOCRIT 42.1 % (35.4-49); HEMOGLOBIN 14.1 GM/dL (11.7-16.9); LYMPH % 22.2 % (8-40); MCH 29.8 pg (25.7-33.7); MCHC 33.5 g/dl (32.0-35.9); MEAN PLT VOLUME 8.6 fl (7.5-11.1); MONO % 12.5 % (3.8-10.2); NEUT % 64.8 % (42.8-82.8); PLATELET COUNT 290 K/MM3 (134-434); RBC 4.73 M/mm3 (4.00-5.60); RDW 16.3 % (11.9-15.9); WHITE BLOOD COUNT 9.4 K/mm3 (4.0-10.0)
[2017-10-04 06:56] LABS: ALBUMIN 3.8 g/dl (3.4-5.0); ANION GAP 9 (8-16); BLOOD UREA NITROGEN 31 mg/dL (7-18); CALCIUM 9.2 mg/dL (8.5-10.1); CHLORIDE 96 mmol/L (98-107); CO2 28 mmol/L (21-32); GLUCOSE,RANDOM 110 mg/dL (74-106); MAGNESIUM 2.4 mg/dL (1.8-2.4); SODIUM 133 mmol/L (136-145)
--- NOTE | 2017-10-04 07:02 | PN ---
Physical Exam: SUBJECTIVE: Patient is a 57y/o male with past medical history of alcohol and opiate dependence, asthma, HTN, CVA (2017) who is admitted for hypertensive emergency. Patients blood pressure continued to drop over night, most recent 164/79. Patient states he feels much better and more like himself. He states his headache has resolved. No acute complaints. OBJECTIVE: Vital Signs Period Temp Pulse Resp BP Sys/Corea Pulse Ox Last 24 Hr 98 F-98.8 F 68-117 12-24 136-199/82-117 100-100 GENERAL: The patient is awake, in no acute distress, appears lethargic HEAD: Normal with no signs of trauma. EYES: PERRL, extraocular movements intact, sclera anicteric, conjunctiva clear. No ptosis. ENT: oropharynx clear without exudates, moist mucous membranes. NECK: Trachea midline, full range of motion LUNGS: Breath sounds equal, clear to auscultation bilaterally HEART: tachycardic with no murmurs heard ABDOMEN: Soft, nontender, nondistended, normoactive bowel sounds EXTREMITIES: 2+ pulses, warm, well-perfused, no edema. NEUROLOGICAL: Cranial nerves II through XII grossly intact. 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, UE 5/5 stength b/l, LE knee extension and flexion refused, dorsiflexion/ plantarflexion 5/5 BL SKIN: Warm, dry, normal turgor, no rashes or lesions noted, gynecomastia noted Laboratory Results - last 24 hr 10/03/17 10/03/17 10/03/17 00:27 07:07 19:50 Sodium 137 134 L Potassium 4.3 3.9 Chloride 99 98 Carbon Dioxide 28 26 Anion Gap 10 10 BUN 16 25 H Creatinine 1.0 0.9 Creat Clearance w eGFR > 60 > 60 Random Glucose 153 H D 137 H Calcium 9.7 9.8 Magnesium 2.1 Total Bilirubin 0.4 AST 35 D ALT 40 D Alkaline Phosphatase 88 D Creatine Kinase 301 269 Creatine Kinase Index 0.9 1.0 CK-MB (CK-2) 2.94 2.88 Troponin I < 0.02 < 0.02 Total Protein 8.5 H D Albumin 4.3 Lipase 150 10/04/17 05:30 Sodium 133 L Potassium 4.0 Chloride 96 L Carbon Dioxide 28 Anion Gap 9 BUN 31 H Creatinine Creat Clearance w eGFR Random Glucose 110 H Calcium 9.2 Magnesium 2.4 Total Bilirubin AST ALT Alkaline Phosphatase Creatine Kinase Creatine Kinase Index CK-MB (CK-2) Troponin I Total Protein Albumin 3.8 Lipase Active Medications Generic Name Dose Route Start Last Admin Trade Name Freq PRN Reason Stop Dose Admin Acetaminophen 650 mg 10/03/17 20:51 Tylenol - PO Q4H PRN HEADACHE Albuterol Sulfate 2 puff 10/03/17 05:17 Ventolin Hfa Inhaler - IH Q4H PRN ASTHMA Amlodipine Besylate 10 mg 10/04/17 10:00 Norvasc - PO DAILY MICHEL Aripiprazole 10 mg 10/04/17 10:00 Abilify PO DAILY MICHEL Aspirin 81 mg 10/03/17 10:00 10/03/17 09:39 Ecotrin - PO 81 mg DAILY MICHEL Administration Budesonide/Formoterol Fumarate 1 puff 10/03/17 10:00 10/03/17 21:28 Symbicort 160/4.5mcg - IH 1 puff BID MICHEL Administration Carvedilol 6.25 mg 10/03/17 10:00 10/04/17 00:05 Coreg - PO 6.25 mg BID MICHEL Administration Chlorhexidine Gluconate 1 applic 10/03/17 22:00 10/03/17 21:28 Hibiclens For Decolonization - TP 1 applic HS MICHEL Administration Chlorthalidone 25 mg 10/03/17 10:00 10/03/17 11:45 Hygroton - PO 25 mg DAILY MICHEL Administration Folic Acid 1 mg 10/03/17 10:00 10/03/17 09:39 Folic Acid - PO 1 mg DAILY MICHEL Administration Heparin Sodium (Porcine) 5,000 unit 10/03/17 06:30 10/04/17 02:05 Heparin - SQ 5,000 unit Q8H-IV MICHEL Administration Hydralazine HCl 25 mg 10/03/17 22:00 10/04/17 00:05 Apresoline - PO 25 mg BID MICHEL Administration Losartan Potassium 100 mg 10/03/17 06:45 10/03/17 06:49 Cozaar - PO 100 mg DAILY MICHEL Administration Melatonin 3 mg 10/03/17 22:00 10/03/17 22:02 Melatonin PO 3 mg HS MICHEL Administration Methadone HCl 30 mg 10/04/17 06:00 10/04/17 06:21 Dolophine - PO 30 mg DAILY@0600 MICHEL Administration Mupirocin 1 applic 10/03/17 10:00 10/03/17 21:28 Bactroban Ointment (For Decolonization) - NS 10/08/17 09:59 1 applic BID MICHEL Administration Multivit/Folic Acid/Iron 1 tab 10/03/17 10:00 10/03/17 11:45 Vitamins (Sjr) - PO 1 tab DAILY MICHEL Administration Thiamine HCl 100 mg 10/03/17 10:00 10/03/17 09:39 Vitamin B1 - PO 100 mg DAILY MICHEL Administration ASSESSMENT/PLAN: Patient is a 57y/o male with past medical history of alcohol and opiate dependence, asthma, HTN, CVA (2016) who is admitted for hypertensive emergency. #Hypertensive emergency - hydralazine 25 mg po BID - Losartan 100 mg - Carvedilol 6.25 mg - chlorithalidone 25 mg daily - amlodipine 10 mg - Cardiology consult, Dr. Morales: ruled out for MA, continue treatment - BP's down trending throughout the day, most recent 164/79 #substance abuse - CIWA score 3 - [facility] detox from -, completed detox - not currently on methadone as an outpatient - continue thiamine - vitamins - continue folic acid - patient received 30 mg methadone 10/03 night #bipolar disorder -abillify 10 mg daily #prediabetes - last A1C 09/07 5.6 #asthma: stable - Symbicort 1 puff prn - Ventolin 2 puffs prn #CVA(2016) - aspirin 81 mg daily - mild residual weakness/ decreased sensitiviy on left side #DVT ppx -heparin TID
[2017-10-04 07:03] LABS: ALK PHOS 78 U/L (45-117); BILIRUBIN,TOTAL 0.7 mg/dL (0.2-1.0); CREATININE 1.2 mg/dL (0.7-1.3); PHOSPHOROUS 5.4 mg/dL (2.5-4.9); SGOT/AST 15 U/L (15-37); SGPT/ALT 28 U/L (12-78); TOT PROT 7.1 g/dl (6.4-8.2)
--- NOTE | 2017-10-04 08:30 | PN ---
Progress Note, Physician History of Present Illness: No further chest pain, BP control has improved. - Current Medication List Current Medications: Active Medications Acetaminophen (Tylenol -) 650 mg PO Q4H PRN PRN Reason: HEADACHE Albuterol Sulfate (Ventolin Hfa Inhaler -) 2 puff IH Q4H PRN PRN Reason: ASTHMA Amlodipine Besylate (Norvasc -) 10 mg PO DAILY [facility] Aripiprazole (Abilify) 10 mg PO DAILY [facility] Aspirin (Ecotrin -) 81 mg PO DAILY [facility] Last Admin: 10/03/17 09:39 Dose: 81 mg Budesonide/Formoterol Fumarate (Symbicort 160/4.5mcg -) 1 puff IH BID [facility] Last Admin: 10/03/17 21:28 Dose: 1 puff Carvedilol (Coreg -) 6.25 mg PO BID [facility] Last Admin: 10/04/17 00:05 Dose: 6.25 mg Chlorhexidine Gluconate (Hibiclens For Decolonization -) 1 applic TP HS [facility] Last Admin: 10/03/17 21:28 Dose: 1 applic Chlorthalidone (Hygroton -) 25 mg PO DAILY [facility] Last Admin: 10/03/17 11:45 Dose: 25 mg Folic Acid (Folic Acid -) 1 mg PO DAILY [facility] Last Admin: 10/03/17 09:39 Dose: 1 mg Heparin Sodium (Porcine) (Heparin -) 5,000 unit SQ Q8H-IV [facility] Last Admin: 10/04/17 02:05 Dose: 5,000 unit Hydralazine HCl (Apresoline -) 25 mg PO BID [facility] Last Admin: 10/04/17 00:05 Dose: 25 mg Losartan Potassium (Cozaar -) 100 mg PO DAILY [facility] Last Admin: 10/03/17 06:49 Dose: 100 mg Melatonin (Melatonin) 3 mg PO HS [facility] Last Admin: 10/03/17 22:02 Dose: 3 mg Methadone HCl (Dolophine -) 30 mg PO DAILY@0600 [facility] Last Admin: 10/04/17 06:21 Dose: 30 mg Mupirocin (Bactroban Ointment (For Decolonization) -) 1 applic NS BID [facility] Stop: 10/08/17 09:59 Last Admin: 10/03/17 21:28 Dose: 1 applic Multivit/Folic Acid/Iron ( Vitamins (Sjr) -) 1 tab PO DAILY [facility] Last Admin: 10/03/17 11:45 Dose: 1 tab Thiamine HCl (Vitamin B1 -) 100 mg PO DAILY [facility] Last Admin: 10/03/17 09:39 Dose: 100 mg - Objective Vital Signs: Vital Signs Temperature 98.3 F 10/04/17 06:15 Pulse Rate 69 10/04/17 06:15 Respiratory Rate 12 10/04/17 06:15 Blood Pressure 136/82 10/04/17 06:15 O2 Sat by Pulse Oximetry (%) 100 10/03/17 21:00 Constitutional: Yes: No Distress, Calm Neck: Yes: Supple Cardiovascular: Yes: Regular Rate and Rhythm Respiratory: Yes: Regular, CTA Bilaterally Gastrointestinal: Yes: Normal Bowel Sounds, Soft Edema: No Labs: CBC, BMP 10/04/17 05:30 10/04/17 05:30 INR, PTT INR 0.94 (0.82-1.09) 10/03/17 00:27 - ....Imaging EKG: Report Reviewed (Tele: NSR) Problem List - Problems (1) Hypertensive urgency Code(s): I16.0 - HYPERTENSIVE URGENCY (2) Chest pain Code(s): R07.9 - CHEST PAIN, UNSPECIFIED Qualifiers: Chest pain type: precordial pain Qualified Code(s): R07.2 - Precordial pain (3) Diabetes Code(s): E11.9 - TYPE 2 DIABETES MELLITUS WITHOUT COMPLICATIONS Qualifiers: Diabetes mellitus type: type 2 Diabetes mellitus fpc insulin use: without fpc use Diabetes mellitus complication status: with kidney complications Diabetes mellitus complication detail: with chronic kidney disease Chronic kidney disease stage: stage 3 (moderate) Qualified Code(s): E11.22 - Type 2 diabetes mellitus with diabetic chronic kidney disease; N18.3 - Chronic kidney disease, stage 3 (moderate) (4) History of CVA (cerebrovascular accident) Code(s): Z86.73 - PRSNL HX OF TIA (TIA), AND CEREB INFRC W/O RESID DEFICITS (5) Asthma Code(s): J45.909 - UNSPECIFIED ASTHMA, UNCOMPLICATED Qualifiers: Asthma severity: mild Asthma persistence: intermittent Asthma complication type: uncomplicated Qualified Code(s): J45.20 - Mild intermittent asthma, uncomplicated Assessment/Plan 09/06/2017 Echo: Mod cLVH, normal LV and RV size and fxn, tr TR 1. Chest pain in context of 2. Hypertensive urgency 3. Polysubstance abuse in rehab 4. 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 Asthma P:1. Ruled out for [place] 2. Continue ASA 81 qd, resume carvedilol 6.25 bid (tolerated in past), losartan 100 qd, Procardia XL 60 qd and chlorthalidone 25 qd with uptitration as tolerated, hydralazine 25 bid, weaned off NTG gtt, attempt to consolidate meds by increasing carvedilol and weaning off hydralazine 3. Detox 4. DVT prophylaxis
[2017-10-04] MEDS ORDERED: PT OWN MED DRAWER 7, Y5N ONE (08:55)
[2017-10-04] MEDS: FOLIC ACID 1 MG TABLET (FP) PO SCH (09:04)
[2017-10-04] MEDS: THIAMINE HCL 100 MG TABLET (FP) PO SCH (09:04)
[2017-10-04] MEDS: LOSARTAN POTASSIUM 50 MG TABLET (FP) PO SCH (09:04)
[2017-10-04] MEDS: ASPIRIN COATED 81 MG TABLET.EC PO SCH (09:04)
[2017-10-04] MEDS: PRENATAL VITAMINS W/ FOLIC ACID TABLET (FP) PO SCH (09:05)
[2017-10-04] MEDS: MUPIROCIN 2% TOPICAL OINTMENT FOR DECOLONIZATION NS SCH ×2 (09:05→21:46)
[2017-10-04] MEDS: CHLORTHALIDONE 25 MG TABLET PO SCH (09:05)
[2017-10-04] MEDS: BUDESONIDE/FORMETEROL FUMARATE 160/4.5 mcg INHALER IH SCH ×2 (09:06→21:46)
[2017-10-04] MEDS ORDERED: ARIPiprazole 10 MG TABLET PO SCH (10:00)
[2017-10-04] MEDS ORDERED: amLODIPine BESYLATE 5 MG TABLET (FP) PO SCH (10:00)
[2017-10-04] MEDS ORDERED: NIFEdipine E.R 60 MG TABLET (UD) PO SCH (10:00)
--- NOTE | 2017-10-04 11:53 | PN ---
Teaching Attending Note Name of Resident: Giorgio Tovar ATTENDING PHYSICIAN STATEMENT I saw and evaluated the patient. I reviewed the resident's note and discussed the case with the resident. I agree with the resident's findings and plan as documented. SUBJECTIVE: No fever or chills. No CP, nO SOB. YOUNGBLOOD has improved . OBJECTIVE: NAD, awake , alert and cooperative today CV; RRR Lungs; CTAB EXt: no edema , varicose veins in LE ASSESSMENT AND PLAN: 57 y/o man with h/o HTN, CVA, Asthma, alcohol , heroin, cocaine, and nicotine dependence,and pre-DM who was sent form [facility] due to CP and was fond to have Hypertensive urgency 1- HTN urgency: was placed on hydralazine last night . BP is better this am. patient regimen was discussed with him. he declines norvasc ( LE edema ) and hydralazine ( extra medication ) - change norvasc to nifedipine xl 60 mg - dc hydralazine - increase coreg to 12.5 . - cont cholorothalidone and losartan - advised about cocaine abstinence 2- CP :r/o for [place] 3- Polysubstance abuse: finished detox fro methadone and alcohol at [facility]. seen by detox last night , and per patient plan was to start methadone maintenance ( no documentation in chart ) - will confirm with dr. Queen 4- h/o asthma , cont inhalers . Not active 5- Bipolar. cont Abilify 6- h/o stroke . cont ASA Dispo: tx to tele . If BP remains stable, can transfer to [facility] rehab if accepted
--- NOTE | 2017-10-04 13:30 | PN ---
Teaching Attending Note Name of Resident: Tyson Abebe ATTENDING PHYSICIAN STATEMENT I saw and evaluated the patient. I reviewed the resident's note and discussed the case with the resident. I agree with the resident's findings and plan as documented. SUBJECTIVE: atient seen and examined in the ICU. Awake and alert. No CP. Breathing feels better. YOUNGBLOOD is better. Off IV NTG drip. BP parameters improving. Intake & Output 10/01/17 10/02/17 10/03/17 10/04/17 23:59 23:59 23:59 23:59 Intake Total 1110 370 Output Total 1000 700 Balance 110 -330 Weight 247 lb 250 lb 250 lb Last Vital Signs Temp Pulse Resp BP Pulse Ox 98.4 F 70 20 120/63 100 10/04/17 10:00 10/04/17 12:00 10/04/17 12:00 10/04/17 12:00 10/04/17 09:00 Active Medications Acetaminophen (Tylenol -) 650 mg PO Q4H PRN PRN Reason: HEADACHE Albuterol Sulfate (Ventolin Hfa Inhaler -) 2 puff IH Q4H PRN PRN Reason: ASTHMA Aripiprazole (Abilify) 10 mg PO DAILY [facility] Last Admin: 10/04/17 09:03 Dose: 10 mg Aspirin (Ecotrin -) 81 mg PO DAILY [facility] Last Admin: 10/04/17 09:04 Dose: 81 mg Budesonide/Formoterol Fumarate (Symbicort 160/4.5mcg -) 1 puff IH BID [facility] Last Admin: 10/04/17 09:06 Dose: 1 puff Carvedilol (Coreg -) 12.5 mg PO BID [facility] Chlorhexidine Gluconate (Hibiclens For Decolonization -) 1 applic TP HS [facility] Last Admin: 10/03/17 21:28 Dose: 1 applic Chlorthalidone (Hygroton -) 25 mg PO DAILY [facility] Last Admin: 10/04/17 09:05 Dose: 25 mg Folic Acid (Folic Acid -) 1 mg PO DAILY [facility] Last Admin: 10/04/17 09:04 Dose: 1 mg Heparin Sodium (Porcine) (Heparin -) 5,000 unit SQ Q8H-IV [facility] Last Admin: 10/04/17 09:06 Dose: 5,000 unit Losartan Potassium (Cozaar -) 100 mg PO DAILY [facility] Last Admin: 10/04/17 09:04 Dose: 100 mg Melatonin (Melatonin) 3 mg PO HS [facility] Last Admin: 10/03/17 22:02 Dose: 3 mg Methadone HCl (Dolophine -) 30 mg PO DAILY@0600 [facility] Last Admin: 10/04/17 06:21 Dose: 30 mg Mupirocin (Bactroban Ointment (For Decolonization) -) 1 applic NS BID [facility] Stop: 10/08/17 09:59 Last Admin: 10/04/17 09:05 Dose: 1 applic Nifedipine (Procardia Xl -) 60 mg PO DAILY [facility] Last Admin: 10/04/17 10:30 Dose: 60 mg Multivit/Folic Acid/Iron ( Vitamins (Sjr) -) 1 tab PO DAILY [facility] Last Admin: 10/04/17 09:05 Dose: 1 tab Thiamine HCl (Vitamin B1 -) 100 mg PO DAILY [facility] Last Admin: 10/04/17 09:04 Dose: 100 mg GENERAL: Awake, alert, and fully oriented, NAD HEAD: Normal with no signs of trauma. EYES: Pupils equal, round and reactive to light, (-) papilledema EARS, NOSE, THROAT: Moist mucous membranes. NECK: Normal range of motion, supple without lymphadenopathy, JVD, or masses. LUNGS: Breath sounds equal, clear to auscultation bilaterally. No wheezes, and no crackles. No accessory muscle use. HEART: Regular rate and rhythm, normal S1 and S2 ABDOMEN: Soft, nontender, not distended, normoactive bowel sounds, no guarding, no rebound, no masses. NEURO: Non-focal UPPER EXTREMITIES: 2+ pulses, warm, well-perfused. LOWER EXTREMITIES: warm, well-perfused. SKIN: Warm, dry, Laboratory Results - last 24 hr 10/03/17 10/04/17 10/04/17 19:50 05:30 05:30 WBC 9.4 RBC 4.73 Hgb 14.1 Hct 42.1 MCV 89.0 MCH 29.8 MCHC 33.5 RDW 16.3 H Plt Count 290 MPV 8.6 Absolute Neuts (auto) 6.1 Neutrophils % 64.8 D Lymphocytes % 22.2 D Monocytes % 12.5 H D Eosinophils % 0.2 D Basophils % 0.3 Nucleated RBC % 0 Sodium 134 L 133 L Potassium 3.9 4.0 Chloride 98 96 L Carbon Dioxide 26 28 Anion Gap 10 9 BUN 25 H 31 H Creatinine 0.9 1.2 Creat Clearance w eGFR > 60 > 60 Random Glucose 137 H 110 H Calcium 9.8 9.2 Phosphorus 5.4 H D Magnesium 2.4 Total Bilirubin 0.7 AST 15 D ALT 28 D Alkaline Phosphatase 78 D Total Protein 7.1 Albumin 3.8 ASSESSMENT/PLAN: Hypertensive Urgency Alcohol / opiate / heroin dependance Asthma HTN DM CVA Titrate BP Meds (SBP < 140) ASA Thiamine MVI Librium No smoking BD TX Symbicort BID Cardiac Telemetry monitoring Dr Domingo Critical care time spent in reviewing chart, evaluating patient and formulating plan - 36 minutes.
--- NOTE | 2017-10-04 14:40 | DS ---
Physical Exam: SUBJECTIVE: Patient is a 57y/o male with past medical history of alcohol and opiate dependence, asthma, HTN, CVA (2017) who is admitted for hypertensive urgency. Patients blood pressure continued to drop over night, most recent 164/79. Patient states he feels much better and more like himself. He states his headache has resolved. No acute complaints. OBJECTIVE: Vital Signs Period Temp Pulse Resp BP Sys/Corea Pulse Ox Last 24 Hr 98 F-98.4 F 68-102 12-24 120-178/63-114 100-100 PHYSICAL EXAM GENERAL: The patient is awake, in no acute distress, appears lethargic HEAD: Normal with no signs of trauma. EYES: PERRL, extraocular movements intact, sclera anicteric, conjunctiva clear. No ptosis. ENT: oropharynx clear without exudates, moist mucous membranes. NECK: Trachea midline, full range of motion LUNGS: Breath sounds equal, clear to auscultation bilaterally HEART: tachycardic with no murmurs heard ABDOMEN: Soft, nontender, nondistended, normoactive bowel sounds EXTREMITIES: 2+ pulses, warm, well-perfused, no edema. NEUROLOGICAL: Cranial nerves II through XII grossly intact. 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, UE 5/5 stength b/l, LE knee extension and flexion refused, dorsiflexion/ plantarflexion 5/5 BL SKIN: Warm, dry, normal turgor, no rashes or lesions noted, gynecomastia noted LABS Laboratory Results - last 24 hr 10/03/17 10/04/17 10/04/17 19:50 05:30 05:30 WBC 9.4 RBC 4.73 Hgb 14.1 Hct 42.1 MCV 89.0 MCH 29.8 MCHC 33.5 RDW 16.3 H Plt Count 290 MPV 8.6 Absolute Neuts (auto) 6.1 Neutrophils % 64.8 D Lymphocytes % 22.2 D Monocytes % 12.5 H D Eosinophils % 0.2 D Basophils % 0.3 Nucleated RBC % 0 Sodium 134 L 133 L Potassium 3.9 4.0 Chloride 98 96 L Carbon Dioxide 26 28 Anion Gap 10 9 BUN 25 H 31 H Creatinine 0.9 1.2 Creat Clearance w eGFR > 60 > 60 Random Glucose 137 H 110 H Calcium 9.8 9.2 Phosphorus 5.4 H D Magnesium 2.4 Total Bilirubin 0.7 AST 15 D ALT 28 D Alkaline Phosphatase 78 D Total Protein 7.1 Albumin 3.8 HOSPITAL COURSE: Date of Admission:10/03/17 Patient is a 57y/o male with past medical history of alcohol and opiate dependence, asthma, HTN, CVA (2017) who presented to the ED for chest pain. Patient's blood pressure in the ED was 194/100. While in the ED patient was given 10 mg lopressor IV, hydralazine 10 mg, ativan 2mg, librium 70 mg, and methadone 20 mg. Patient was transferred to ICU. In the ICU patient was started on a nitroglycerin drip. Patient had three negative troponins. EKG showed no new changes Supervisor Dumping, Dr. Roberts, was consulted. NV ruled out, continued management to slowly lower blood pressure. Patient was weaned of nitroglycerin drip and overnight patient was given lebatolol IV until his blood pressure was controlled. His blood pressure will continue to be treated with nifedipime, carvedilol, losartan, and chlorthalidone. Patient will follow up with Dr. Roberts as an outpatient. Due to patients substance abuse, patient started on thiamine, folate, and vitamins. Patient received 30 mg methadone overnight on 10/03. Patient will follow up with [facility] tomorrow at 730 am for an appointment to set up his outpatient methadone maintenance. He was instructed on everything he needs for his appointment. Patient has prediabetes. Last A1C was 09/07 and found to be 5.6. Patient was given prescription to have a BMP done in one week. Patient will follow up with the referred Primary Care clinic at the [facility]. CXR: no evidence of acute pulmonary disease Head CT: no evidence of acute intracranial hemorrhage, edema, midline shift, mass effect, or skull fracture, no ischemic changes Date of Discharge: 10/04/17 Minutes to complete discharge: 40 Discharge Summary Reason For Visit: HYPERTENSIVE URGENCY, BENZODIAZEPINE ABUSE Current Active Problems Hypertensive urgency (Acute) Asthma (Chronic) Bipolar disorder (Chronic) Diabetes (Chronic) Hypertension (Chronic) Condition: Improved - Instructions Diet, Activity, Other Instructions: You came to the Emergency Department for shortness of breath, headache, and chest pain. Your blood pressure was found to be very high. You were brought to the ICU so you could be closely monitored. We gave you medications that successfully brought your blood pressure down and you are stable. It is very important that you take your medications as prescribed. Uncontrolled high blood pressure can have many negative life long side effects including: kidney disease and heart disease. Please take your blood pressure medications as prescribed: Carvedilol 12.5 mg my mouth twice a day Losartan 100 mg by mouth once a day Nifedipine XL 60 mg by mouth once a day Clorithalidone 25 mg by mouth once a day Please stop using any illicit substances including cocaine and heroin. Using these substances have a deleterious affect on your health and may have negative consequences including stroke and elevated blood pressure. You will go to [facility] tomorrow at 730 am to restart methadone for outpatient methadone treatment Please bring these items to your appointment: Photo ID and copy of insurance card A list of your medications that will be with your discharge packet Please follow up with Supervisor Dumping, Dr. Roberts within one week. Please take your other home medications as prescribed. Please follow up with your primary care physician in one week. Please return to the ED if you have headache, shortness of breath, chest pain, or vomiting. Referrals: [facility] [Provider Group] Keven Roberts MD [Staff Physician] - Disposition: HOME - Home Medications Comprehensive Discharge Medication List: Ambulatory Orders Budesonide/Formeterol Fumarate [SYMBICORT 160/4.5mcg -] 1 inh PO BID 01/15/17 Albuterol Sulfate Inhaler - [Ventolin HFA Inhaler -] 2 inh PO Q4H PRN 30 Days # 1 inhaler 04/22/17 Aripiprazole [Abilify] 10 mg PO DAILY #30 tablet 10/04/17 Aspirin Coated [Ecotrin -] 81 mg PO DAILY 30 Days #30 tab 10/04/17 Carvedilol [Coreg -] 12.5 mg PO BID #60 tablet 10/04/17 Chlorthalidone 25 mg PO DAILY #30 tablet 10/04/17 Losartan Potassium [Cozaar -] 100 mg PO DAILY #30 tablet 10/04/17 Methadone [Dolophine -] 30 mg PO DAILY@0600 tablet MDD 30 10/04/17 Miscellaneous Drug Not In Syst [Outpatient Lab Test] 1 each ASDIR #1 misc Nifedipine ER [Procardia XL -] 60 mg PO DAILY #30 tab.er.24 10/04/17 This patient is new to me today: No Emergency Visit: No Critical Care patient: No - Discharge Referral Referred to [facility] No
--- NOTE | 2017-10-04 17:03 | HOSP ---
Subjective - Review of Symptoms Subjective: Spoke with Dr. Queen of detox medicine to inform her of the decision to discharge the patient. The patient is scheduled to present to the [facility] methadone clinic at 7:30 am to enroll in their outpatient program. Patient medically cleared for discharge and discharge order placed. Upon discussion of discharge, the patient stated that he was unable to go home as all of his belongings were at [facility]. I informed the patient that there was no medical reason to keep him in the hospital and offered transportation to [facility] to retrieve his belongings and the patient agreed. When case investigator approached the patient to discuss discharge planning, he refused to leave. I was paged to bedside. Per patient, Dr. Queen with detox medicine had planned out his discharge as follows: On the morning of 10/05, he would leave the hospital and retrieve his belongings at [facility] rehab, where he was prior to admission to the hospital. At 7:30 AM , he would meet Dr. Queen at 2 [facility] to enroll in their methadone program. From the methadone program, he would walk "around the corner" to an institution called [email or web address], where he would be placed in housing by [facility]. Patient endorses that once he is brought to [facility] tomorrow AM, he needed no further assistance or support. At this time, the patient demands that he not be discharged this evening. During the encounter, the patient became progressively more agitated and began raising his voice. Patient was informed that there was no medical indication for him to stay in the hospital and was offered transport to [facility], which he declined. Patient is aware that the discharge order is in and will leave tomorrow morning for [facility]. Physical Examination Vital Signs: Vital Signs Temperature 98.4 F 10/04/17 10:00 Pulse Rate 70 10/04/17 12:00 Respiratory Rate 20 10/04/17 12:00 Blood Pressure 120/63 10/04/17 12:00 O2 Sat by Pulse Oximetry (%) 100 10/04/17 09:00 Labs: CBC, BMP 10/04/17 05:30 10/04/17 05:30 Visit type - Emergency Visit Emergency Visit: Yes ED Registration Date: 10/03/17 Care time: The patient presented to the Emergency Department on the above date and was hospitalized for further evaluation of their emergent condition. - New Patient This patient is new to me today: No - Critical Care Critical Care patient: No
--- NOTE | 2017-10-04 18:26 | PN ---
Physical Exam: SUBJECTIVE: Patient seen and examined this am and evening in icu. Pt states his headache has resolved and that he feels much better. Was counseled on lifestyle changes. Pt denies any cp, hewitt, fever, nausea, or vomiting. OBJECTIVE: Vital Signs Period Temp Pulse Resp BP Sys/Corea Pulse Ox Last 24 Hr 98 F-98.4 F 68-82 12-24 112-167/58-98 100-100 GENERAL: NAD, no more headache HEAD: NC/AT EYES: EOMI. Fundoscopy: No cotton wool spots or hard exudates seen. ENT: WNL NECK: No JVD. LUNGS: CTA B/L. HEART: RRR ABDOMEN: No HSM, NT, ND EXTREMITIES: No CCE NEUROLOGICAL: Strength 5+ throughout. PSYCH: Normal mood, normal affect. SKIN: Dry feet, onycholysis b/l toenails. Laboratory Results - last 24 hr 10/03/17 10/04/17 10/04/17 19:50 05:30 05:30 WBC 9.4 RBC 4.73 Hgb 14.1 Hct 42.1 MCV 89.0 MCH 29.8 MCHC 33.5 RDW 16.3 H Plt Count 290 MPV 8.6 Absolute Neuts (auto) 6.1 Neutrophils % 64.8 D Lymphocytes % 22.2 D Monocytes % 12.5 H D Eosinophils % 0.2 D Basophils % 0.3 Nucleated RBC % 0 Sodium 134 L 133 L Potassium 3.9 4.0 Chloride 98 96 L Carbon Dioxide 26 28 Anion Gap 10 9 BUN 25 H 31 H Creatinine 0.9 1.2 Creat Clearance w eGFR > 60 > 60 Random Glucose 137 H 110 H Calcium 9.8 9.2 Phosphorus 5.4 H D Magnesium 2.4 Total Bilirubin 0.7 AST 15 D ALT 28 D Alkaline Phosphatase 78 D Total Protein 7.1 Albumin 3.8 Active Medications Generic Name Dose Route Start Last Admin Trade Name Freq PRN Reason Stop Dose Admin Acetaminophen 650 mg 10/03/17 20:51 Tylenol - PO Q4H PRN HEADACHE Albuterol Sulfate 2 puff 10/03/17 05:17 Ventolin Hfa Inhaler - IH Q4H PRN ASTHMA Aripiprazole 10 mg 10/04/17 10:00 10/04/17 09:03 Abilify PO 10 mg DAILY MICHEL Administration Aspirin 81 mg 10/03/17 10:00 10/04/17 09:04 Ecotrin - PO 81 mg DAILY MICHEL Administration Budesonide/Formoterol Fumarate 1 puff 10/03/17 10:00 10/04/17 09:06 Symbicort 160/4.5mcg - IH 1 puff BID MICHEL Administration Carvedilol 12.5 mg 10/04/17 10:00 Coreg - PO BID MICHEL Chlorhexidine Gluconate 1 applic 10/03/17 22:00 10/03/17 21:28 Hibiclens For Decolonization - TP 1 applic HS MICHEL Administration Chlorthalidone 25 mg 10/03/17 10:00 10/04/17 09:05 Hygroton - PO 25 mg DAILY MICHEL Administration Folic Acid 1 mg 10/03/17 10:00 10/04/17 09:04 Folic Acid - PO 1 mg DAILY MICHEL Administration Heparin Sodium (Porcine) 5,000 unit 10/03/17 06:30 10/04/17 17:05 Heparin - SQ 5,000 unit Q8H-IV MICHEL Administration Losartan Potassium 100 mg 10/03/17 06:45 10/04/17 09:04 Cozaar - PO 100 mg DAILY MICHEL Administration Melatonin 3 mg 10/03/17 22:00 10/03/17 22:02 Melatonin PO 3 mg HS MICHEL Administration Methadone HCl 30 mg 10/04/17 06:00 10/04/17 06:21 Dolophine - PO 30 mg DAILY@0600 MICHEL Administration Mupirocin 1 applic 10/03/17 10:00 10/04/17 09:05 Bactroban Ointment (For Decolonization) - NS 10/08/17 09:59 1 applic BID MICHEL Administration Nifedipine 60 mg 10/04/17 10:00 10/04/17 10:30 Procardia Xl - PO 60 mg DAILY MICHEL Administration Multivit/Folic Acid/Iron 1 tab 10/03/17 10:00 10/04/17 09:05 Vitamins (Sjr) - PO 1 tab DAILY MICEHL Administration Thiamine HCl 100 mg 10/03/17 10:00 10/04/17 09:04 Vitamin B1 - PO 100 mg DAILY MICHEL Administration ASSESSMENT/PLAN: 57 y/o M w/PMH of hypertension, asthma, borderline NIDDM, CVA and cocaine/ heroin/oxycodone/alcohol abuse from [facility]. Hypertensive Urgency: Head CT scan 10/03/17. No evidence of acute intracranial hemmorhage, edema, midline shift, mass effect, or skull fracture. EKG 10/03 : t wave inversion in lateral leads no longer evident as was seen on EKG 10/02/17. Nitro gtt discontinued last night due to patients severe headaches and inadequate blood pressure control -Pt's labetalol drip was d/c'ed early this morning - Cozaar 100 mg PO DAILY - Hygroton 25 mg po daily - Coreg 12.5 mg PO BID -Procardia XL 60 mg PO Daily ASA 81 mg po daily Polysubstance Abuse: Librium PRN Thiamine HCl Folic Acid Vitamins DVT ppx: Heparin 5,000 U SQ Q8H FEN No Fluids Monitor Electrolytes Chol?Fat/Sod Restricted Diet Dispo: Pt to follow up at [facility] for Rehabilitation. Visit type - Emergency Visit Emergency Visit: Yes ED Registration Date: 10/03/17 Care time: The patient presented to the Emergency Department on the above date and was hospitalized for further evaluation of their emergent condition. - New Patient This patient is new to me today: No - Critical Care Critical Care patient: Yes Total Critical Care Time (in minutes): 36 Critical Care Statement: The care of this patient involved high complexity decision making to prevent further life threatening deterioration of the patient 's condition and/or to evaluate & treat vital organ system(s) failure or risk of failure.
[2017-10-04] MEDS: CARVEDILOL 12.5 MG TABLET (FP) PO SCH ×2 (20:51→21:45)
[2017-10-04] MEDS: MELATONIN 1 MG TABLET PO SCH (21:46)
[2017-10-04] MEDS: CHLORHEXIDINE GLUCONATE 4% CLEANSER FOR DECOLONIZATION TP SCH (21:46)
[2017-10-05] MEDS: HEPARIN NA (PORCINE) 5,000 UNITS/ML 1ML VIAL SQ SCH (02:32)
[2017-10-05 02:41] VITALS: TEMP 98.2
[2017-10-05] MEDS: METHADONE HCL 10 MG TABLET PO SCH (05:36)
[2017-10-05 05:37] VITALS: BP 113/67; PULSE 60
== END 2017-10-05 05:44 | disposition home or self-care (01) | DRG 199 ==
LOC: JER 23:18 → JERBED 10-03 02:59 → UNDOADMIN 10-03 03:09 → JICU 10-03 05:35
PROVIDERS: ADMIT Internal Medicine; ATTEND Internal Medicine
PROC: HZ2ZZZZ Detoxification Services for Substance Abuse Treatment (ICD-10-PCS; principal; 2017-10-02)
DX: I16.0 Hypertensive urgency (principal); J45.909 Unspecified asthma, uncomplicated; I10 Essential (primary) hypertension; F17.210 Nicotine dependence, cigarettes, uncomplicated; I45.81 Long QT syndrome; F11.23 Opioid dependence with withdrawal; F10.20 Alcohol dependence, uncomplicated; F13.10 Sedative, hypnotic or anxiolytic abuse, uncomplicated; E66.8 Other obesity; Z68.38 Body mass index [BMI] 38.0-38.9, adult; J45.20 Mild intermittent asthma, uncomplicated; E11.42 Type 2 diabetes mellitus with diabetic polyneuropathy; R07.2 Precordial pain; R80.9 Proteinuria, unspecified; F31.9 Bipolar disorder, unspecified; Z86.73 Personal history of transient ischemic attack (TIA), and cerebral infarction without residual deficits
CPT/HCPCS: 36415; 70450-TC; 71045-TC-FY; 80048; 80053; 80307; 81003; 81015; 82550; 82553; 83690; 83735; 84100; 84484; 85025; 85610; 93005; 93010; 99285-25; J1644

== ENCOUNTER 2017-12-04 11:44 | Inpatient (IN) | payer OTHER ==
[2017-12-04 12:03] VITALS: BMI 38.7
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
[2017-12-04] MEDS ORDERED: LOSARTAN POTASSIUM 50 MG TABLET (FP) PO ONE (12:54)
[2017-12-04] MEDS ORDERED: ASPIRIN 81 MG CHEWABLE TABLETS PO ONE (12:58)
[2017-12-04] MEDS ORDERED: NIFEdipine E.R 60 MG TABLET (UD) PO SCH (13:00)
[2017-12-04] MEDS ORDERED: ASPIRIN 81 MG CHEWABLE TABLETS ONE (13:09)
[2017-12-04] MEDS ORDERED: NIFEdipine E.R. 30 MG TABLET (FP) ONE (13:09)
[2017-12-04] MEDS ORDERED: ONDANSETRON 4 MG/2 ML VIAL IVPB ONE (13:32)
[2017-12-04] MEDS ORDERED: ONDANSETRON 4 MG/2 ML VIAL ONE (13:34)
[2017-12-04 13:39] LABS: BASO % 0.3 % (0-2.0); EOS % 0.2 % (0-4.5); HEMATOCRIT 51.8 % (35.4-49); HEMOGLOBIN 16.8 GM/dL (11.7-16.9); LYMPH % 13.4 % (8-40); MCH 28.9 pg (25.7-33.7); MCHC 32.4 g/dl (32.0-35.9); MEAN PLT VOLUME 8.9 fl (7.5-11.1); MONO % 2.7 % (3.8-10.2); NEUT % 83.4 % (42.8-82.8); PLATELET COUNT 278 K/MM3 (134-434); RBC 5.82 M/mm3 (4.00-5.60); RDW 14.2 % (11.9-15.9); WHITE BLOOD COUNT 8.8 K/mm3 (4.0-10.0)
[2017-12-04 13:49] LABS: METHADONE, UR NEGATIVE ng/ml (CUTOFF=300); PHENCYCLIDINE,URINE NEGATIVE ng/ml (CUTOFF=25); URINE AMPHETAMINES NEGATIVE ng/ml (CUTOFF=500); URINE BARBITURATES NEGATIVE ng/ml (CUTOFF=200)
[2017-12-04 13:53] LABS: COCAINE, UR POSITIVE ng/ml (CUTOFF=300); OPIATES, URI POSITIVE ng/ml (CUTOFF=300); URINE BENZODIAZEPINES POSITIVE ng/ml (CUTOFF=200)
[2017-12-04] MEDS ORDERED: LORazepam 2 MG/ML SDV VIAL ONE (13:56)
[2017-12-04 14:09] LABS: ALK PHOS 125 U/L (45-117); ANION GAP 7 MMOL/L (8-16); BILIRUBIN,TOTAL 0.5 mg/dL (0.2-1); BLOOD UREA NITROGEN 10 mg/dL (7-18); CALCIUM 10.5 mg/dL (8.5-10.1); CHLORIDE 98 mmol/L (98-107); CO2 32 mmol/L (21-32); CREATININE 1.1 mg/dL (0.55-1.3); GLUCOSE,RANDOM 124 mg/dL (74-106); POTASSIUM 4.1 mmol/L (3.5-5.1); SGOT/AST 20 U/L (15-37); SGPT/ALT 23 U/L (13-61); SODIUM 137 mmol/L (136-145); TOT PROT 10.1 g/dl (6.4-8.2)
[2017-12-04 14:15] LABS: INR 0.97 (0.83-1.09)
[2017-12-04] MEDS ORDERED: NICARDIPINE 25 MG in DEXTROSE 5%-WATER - 240 ML IVPB SCH (15:00)
--- NOTE | 2017-12-04 15:58 | HP ---
CHIEF COMPLAINT: Headache, nausea, vomiting PCP: HISTORY OF PRESENT ILLNESS: 57 yo male with PMH Asthma, Borderline DM, HTN, CVA in 2017 with no subjective residual weakness, polysubstance abuse (Marijuana, Heroin-intranasal, cocaine- smokes, benzos) presented to the ED with complaints of headache, nausea, vomiting, and diarrhea. He states that he had a fall 3 days ago where he slipped and landed on his buttocks. He denies any head trauma, but says the fall made him short of breath. He says his last use of heroin was yesterday. Of note he was recently discharged to a methadone maintenance program, though he says he did not take the outpatient methadone. ER course was notable for: (1) B.P 239/116 (2) Nifedipine, Losartan, Nicardipine drip (3) Recent Travel: PAST MEDICAL HISTORY: As above PAST SURGICAL HISTORY: Social History: Smokin cigarettes / day Alcohol: denies Drugs: admits to cocaine every other day ($20), heroin daily or twice a day ($20 -30) Family History: Allergies No Known Allergies Allergy (Verified 11/05/17 23:46) HOME MEDICATIONS: Home Medications Medication Instructions Recorded Budesonide/Formeterol Fumarate 1 inh PO BID 01/15/17 [SYMBICORT 160/4.5mcg -] Albuterol Sulfate Inhaler - 2 inh PO Q4H PRN 30 Days #1 inhaler 04/22/17 [Ventolin HFA Inhaler -] Aripiprazole [Abilify] 10 mg PO DAILY #30 tablet 10/04/17 Aspirin Coated [Ecotrin -] 81 mg PO DAILY 30 Days #30 tab 10/04/17 Carvedilol [Coreg -] 12.5 mg PO BID #60 tablet 10/04/17 Chlorthalidone 25 mg PO DAILY #30 tablet 10/04/17 Losartan Potassium [Cozaar -] 100 mg PO DAILY #30 tablet 10/04/17 Nifedipine ER [Procardia XL -] 60 mg PO DAILY #30 tab.er.24 10/04/17 REVIEW OF SYSTEMS CONSTITUTIONAL: Absent: fever, chills, diaphoresis, generalized weakness, malaise, loss of appetite, weight change HEENT: Absent: rhinorrhea, nasal congestion, throat pain, throat swelling, difficulty swallowing, mouth swelling, ear pain, eye pain, visual changes CARDIOVASCULAR: chest pain Absent: , syncope, palpitations, irregular heart rate, lightheadedness, peripheral edema RESPIRATORY: shortness of breath Absent: cough, , dyspnea with exertion, orthopnea, wheezing, stridor, hemoptysis GASTROINTESTINAL: nausea, vomiting, diarrhea Absent: abdominal pain, abdominal distension, , constipation, melena, hematochezia GENITOURINARY: Absent: dysuria, frequency, urgency, hesitancy, hematuria, flank pain, genital pain MUSCULOSKELETAL: back pain, leg pain Absent: myalgia, arthralgia, joint swelling, neck pain SKIN: Absent: rash, itching, pallor HEMATOLOGIC/IMMUNOLOGIC: Absent: easy bleeding, easy bruising, lymphadenopathy, frequent infections ENDOCRINE: Absent: unexplained weight gain, unexplained weight loss, heat intolerance, cold intolerance NEUROLOGIC: Absent: headache, focal weakness or paresthesias, dizziness, unsteady gait, seizure, mental status changes, bladder or bowel incontinence PSYCHIATRIC: Absent: anxiety, depression, suicidal or homicidal ideation, hallucinations. PHYSICAL EXAMINATION Vital Signs - 24 hr 12/04/17 12/04/17 12/04/17 11:49 12:15 12:39 Temperature 98.6 F Pulse Rate 76 Pulse Rate [ 76 77 Apical] Respiratory 20 20 18 Rate Blood Pressure 220/112 H Blood Pressure 239/113 H 239/116 H [Right Arm] O2 Sat by Pulse 100 100 100 Oximetry (%) 12/04/17 12/04/17 13:39 15:14 Temperature Pulse Rate Pulse Rate [ 75 88 Apical] Respiratory 20 18 Rate Blood Pressure Blood Pressure 230/113 H 218/112 H [Right Arm] O2 Sat by Pulse 100 100 Oximetry (%) GENERAL: A&O, no acute distress HEAD: Normocephalic, atraumatic. EYES: PERRL, no scleral icterus, no papilledema or retinal hemorrhage noted EARS, NOSE, THROAT: oropharynx clear without exudates. Moist mucous membranes. NECK: supple without lymphadenopathy LUNGS: CTA b/l, no crackles or wheezes HEART: Regular rate and rhythm, normal S1 and S2 without murmur ABDOMEN: Soft, nontender to palpation, normoactive bowel sounds MUSCULOSKELETAL: No bony deformities, tenderness to palpation on lumbar spine EXTREMITIES: 2+ pulses, warm, well-perfused. No peripheral edema. NEUROLOGICAL: Cranial nerves II-XII intact. Normal speech. 5/5 strength throughout, neurosensory in tact PSYCHIATRIC: Agitated and constantly moving around in the bed SKIN: Warm, dry, no rashes or lesions noted Laboratory Results - last 24 hr 12/04/17 12/04/17 12/04/17 13:30 13:30 13:30 WBC 8.8 RBC 5.82 H Hgb 16.8 Hct 51.8 H D MCV 89.0 MCH 28.9 MCHC 32.4 RDW 14.2 Plt Count 278 D MPV 8.9 Absolute Neuts (auto) 7.3 Neutrophils % 83.4 H D Lymphocytes % 13.4 D Monocytes % 2.7 L Eosinophils % 0.2 Basophils % 0.3 Nucleated RBC % 0 PT with INR 11.00 INR 0.97 Sodium 137 Potassium 4.1 Chloride 98 Carbon Dioxide 32 Anion Gap 7 L BUN 10 Creatinine 1.1 Creat Clearance w eGFR > 60 Random Glucose 124 H Calcium 10.5 H Total Bilirubin 0.5 AST 20 ALT 23 Alkaline Phosphatase 125 H Creatine Kinase 279 Creatine Kinase Index 1.4 CK-MB (CK-2) 4.0 H Troponin I < 0.02 Total Protein 10.1 H Albumin 5.0 Opiates Screen Methadone Screen Barbiturate Screen Phencyclidine Screen Ur Amphetamines Screen MDMA (Ecstasy) Screen Benzodiazepines Screen Cocaine Screen U Marijuana (THC) Screen 12/04/17 13:30 WBC RBC Hgb Hct MCV MCH MCHC RDW Plt Count MPV Absolute Neuts (auto) Neutrophils % Lymphocytes % Monocytes % Eosinophils % Basophils % Nucleated RBC % PT with INR INR Sodium Potassium Chloride Carbon Dioxide Anion Gap BUN Creatinine Creat Clearance w eGFR Random Glucose Calcium Total Bilirubin AST ALT Alkaline Phosphatase Creatine Kinase Creatine Kinase Index CK-MB (CK-2) Troponin I Total Protein Albumin Opiates Screen Positive A* Methadone Screen Negative Barbiturate Screen Negative Phencyclidine Screen Negative Ur Amphetamines Screen Negative MDMA (Ecstasy) Screen Negative Benzodiazepines Screen Positive A* Cocaine Screen Positive A* U Marijuana (THC) Screen Negative ASSESSMENT/PLAN: 57 yo male with PMH Asthma, Borderline DM, HTN, CVA in 2017 with no subjective residual weakness, polysubstance abuse (Marijuana, Heroin-intranasal, cocaine- smokes, benzos) admitted to the ICU for Hypertensive Emergency Hypertensive Emergency -BP max of 239/116 in ED -Restarted home meds Nifedipine 60 mg PO Daily, Losartan 100 mg PO Daily -Hold home Coreg with recent cocaine use -Nicardipine drip can be titrated for b.p control, do not decrease more than 25 % overnight -Can be switched to Nitro drip if fails to control b.p. -Pt noted to be tachycardic as well, given Diltiazem 5 mg IV -Continue to monitor b.p and h.r. -Cardiology Consulted -Vitals Q1H, neuro checks Q2 Polysubstance abuse -Most recent use 12/03, claims he used in the afternoon and started withdrawing that night -Counseled patient about use especially use of cocaine with history of uncontrolled hypertension -Methadone 15 mg PO tonight for opiate withdrawal -One time dose Methadone 30 mg PO in AM -Addiction medicine consult ordered -Can resume home Abilify Asthma -Symbicort -Albuterol PRN DVT Prophylaxis -Lovenox 40 mg SQ Daily FEN -Fluids: none -Electrolytes: No electrolyte abnormalities, BMP in AM -Nutrition: Low salt diet Disposition ICU Visit type - Emergency Visit Emergency Visit: Yes ED Registration Date: 12/04/17 Care time: The patient presented to the Emergency Department on the above date and was hospitalized for further evaluation of their emergent condition. - New Patient This patient is new to me today: Yes Date on this admission: 12/04/17 - Critical Care Critical Care patient: Yes Total Critical Care Time (in minutes): 45 Critical Care Statement: The care of this patient involved high complexity decision making to prevent further life threatening deterioration of the patient 's condition and/or to evaluate & treat vital organ system(s) failure or risk of failure. Hospitalist Screening - Colonoscopy Questionnaire Colonoscopy Questionnaire: Colonoscopy Questionnaire - Patient: 50 - 75 years old and never had a screening colonoscopy: Unknown History of colon or rectal polyps, or CA: Unknown History of IBD, Crohn's disease or UC: Unknown History of abdominal radiation therapy as a child: Unknown - Relative: 1 with colon or rectal CA, or polyps at age 60 or younger: Unknown Colon or rectal CA diagnosed at age 45 or younger: Unknown Multiple relatives with colon or rectal CA: Unknown - Outcome: Screening Result: Negative Screen
--- NOTE | 2017-12-04 16:39 | EKG ---
Test Reason : Blood Pressure : / mmHG Vent. Rate : 073 BPM Atrial Rate : 073 BPM P-R Int : 166 ms QRS Dur : 110 ms QT Int : 406 ms P-R-T Axes : 042 031 038 degrees QTc Int : 447 ms NORMAL SINUS RHYTHM WHEN COMPARED WITH ECG OF 06-NOV-2017 01:14, NO SIGNIFICANT CHANGE WAS FOUND Confirmed by MD Sierra Edward ([id number]) on 12/04/2017 4:39:10 PM Referred By: Confirmed By:Nelson Sierra MD
--- NOTE | 2017-12-04 16:44 | CONSULT ---
Consultation: REQUESTING PROVIDER: Per Bardales CONSULT REQUEST: We have been asked to medically evaluate this patient for hypertensive urgency/emergency. HISTORY OF PRESENT ILLNESS: The patient is a 57 y/o M w/ PMHx Asthma, Borderline DM, HTN, CVA (2017) 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, polysubstance abuse (Marijuana, Heroin - reported exclusively by insufflation, cocaine, benzodiazepenes) presented to the ED with complaints of nausea with numerous episodes of yellow-green vomiting, abdominal pain, headache, blurry vision, back pain 2/2 unwitnessed fall 2 days [employer] w/ reported LOC of unknown duration, central chest discomfort, and "shallow breathing." On presentation BP 230/113. Patient reports using "2 bags" of heroin by insufflation in the past day and "1 bag" of cocaine by smoking. Denies co-administration of coreg and cocaine, no use of coreg in past week, reports taking all other BP medications as prescribed. REVIEW OF SYSTEMS: As per HPI PHYSICAL EXAMINATION Vital Signs - 24 hr 12/04/17 12/04/17 12/04/17 11:49 12:15 12:39 Temperature 98.6 F Pulse Rate 76 Pulse Rate [ 76 77 Apical] Respiratory 20 20 18 Rate Blood Pressure 220/112 H Blood Pressure [Left Arm] Blood Pressure 239/113 H 239/116 H [Right Arm] O2 Sat by Pulse 100 100 100 Oximetry (%) 12/04/17 12/04/17 12/04/17 13:39 15:14 15:30 Temperature Pulse Rate Pulse Rate [ 75 88 86 Apical] Respiratory 20 18 22 H Rate Blood Pressure Blood Pressure [Left Arm] Blood Pressure 230/113 H 218/112 H 216/113 H [Right Arm] O2 Sat by Pulse 100 100 100 Oximetry (%) 12/04/17 15:55 Temperature Pulse Rate 88 Pulse Rate [ 88 Apical] Respiratory 24 H Rate Blood Pressure 234/121 H Blood Pressure 234/121 H [Left Arm] Blood Pressure [Right Arm] O2 Sat by Pulse 100 Oximetry (%) GENERAL: A&Ox3, mildly confused, in mild distress HEAD: NC/AT EYES: PERRLA, EOMI, no papilledema appreciated b/l EARS, NOSE, THROAT: Moist mucous membranes. NECK: Normal range of motion, supple without lymphadenopathy, JVD, or masses. LUNGS: CTA b/l HEART: RRR no m/r/g, bounding heartbeat ABDOMEN: +bs, soft, NT, ND MUSCULOSKELETAL: Focal tenderness reproduced by palpation of L5 level EXTREMITIES: 2+ pulses, warm, well-perfused. No peripheral edema. NEUROLOGICAL: sensory deficits of: left CNV3 distribution, left body below level of T4, otherwise motor and sensory systems intact throughout. Mildly dysarthric speech. Gait not observed. SKIN: Warm, dry, normal turgor, no rashes or lesions noted. Laboratory Results - last 24 hr 12/04/17 12/04/17 12/04/17 13:30 13:30 13:30 WBC 8.8 RBC 5.82 H Hgb 16.8 Hct 51.8 H D MCV 89.0 MCH 28.9 MCHC 32.4 RDW 14.2 Plt Count 278 D MPV 8.9 Absolute Neuts (auto) 7.3 Neutrophils % 83.4 H D Lymphocytes % 13.4 D Monocytes % 2.7 L Eosinophils % 0.2 Basophils % 0.3 Nucleated RBC % 0 PT with INR 11.00 INR 0.97 Sodium 137 Potassium 4.1 Chloride 98 Carbon Dioxide 32 Anion Gap 7 L BUN 10 Creatinine 1.1 Creat Clearance w eGFR > 60 Random Glucose 124 H Calcium 10.5 H Total Bilirubin 0.5 AST 20 ALT 23 Alkaline Phosphatase 125 H Creatine Kinase 279 Creatine Kinase Index 1.4 CK-MB (CK-2) 4.0 H Troponin I < 0.02 Total Protein 10.1 H Albumin 5.0 Opiates Screen Methadone Screen Barbiturate Screen Phencyclidine Screen Ur Amphetamines Screen MDMA (Ecstasy) Screen Benzodiazepines Screen Cocaine Screen U Marijuana (THC) Screen 12/04/17 13:30 WBC RBC Hgb Hct MCV MCH MCHC RDW Plt Count MPV Absolute Neuts (auto) Neutrophils % Lymphocytes % Monocytes % Eosinophils % Basophils % Nucleated RBC % PT with INR INR Sodium Potassium Chloride Carbon Dioxide Anion Gap BUN Creatinine Creat Clearance w eGFR Random Glucose Calcium Total Bilirubin AST ALT Alkaline Phosphatase Creatine Kinase Creatine Kinase Index CK-MB (CK-2) Troponin I Total Protein Albumin Opiates Screen Positive A* Methadone Screen Negative Barbiturate Screen Negative Phencyclidine Screen Negative Ur Amphetamines Screen Negative MDMA (Ecstasy) Screen Negative Benzodiazepines Screen Positive A* Cocaine Screen Positive A* U Marijuana (THC) Screen Negative Active Medications Generic Name Dose Route Start Last Admin Trade Name Freq PRN Reason Stop Dose Admin Nicardipine HCl 25 mg/ 250 mls @ 25 mls/hr 12/04/17 15:00 12/04/17 15:55 Dextrose IVPB 2.5 mg/hr TITR MICHEL 25 mls/hr Administration Protocol 2.5 MG/HR ASSESSMENT/PLAN: 57 y/o M w/ PMHx Asthma, Borderline DM, HTN, CVA (2016) 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, polysubstance abuse p/w hypertensive urgency/emergency #hypertensive urgency/emergency -current HR 88, BP 234/131/ RR 24 -Pt reports [employer], blurry vision, chest discomfort -no acute ischemia on EKG, initial troponin negative -no papilledema on exam -BUN/Cr 12/10.1 -Nicardipine drip started -head CT ordered -tox screen positive for opiates and cocaine -DO NOT administer beta-blockers in setting of recent cocaine use -received home nifedipine and Losartan in ER #focal lumbar tenderness -concerning given heroin use, although Pt reports only insufflation of heroin -MRI L-spine ordered #unwitnessed fall -Pt reports LOC -head CT ordered #sensory level -per physical exam -known prior stroke, Pt denies residual deficits, chronicity unknown -head CT ordered #chronic conditions -as per primary team #FEN -IVF contraindicated by HTN urgency -BMP wnl -diet per primary team #Dispo: We will continue to follow the patient. Thank you for this consultative opportunity. Visit type - Emergency Visit Emergency Visit: Yes ED Registration Date: 12/04/17 Care time: The patient presented to the Emergency Department on the above date and was hospitalized for further evaluation of their emergent condition. - New Patient This patient is new to me today: Yes Date on this admission: 12/04/17 - Critical Care Critical Care patient: Yes Total Critical Care Time (in minutes): 40 Critical Care Statement: The care of this patient involved high complexity decision making to prevent further life threatening deterioration of the patient 's condition and/or to evaluate & treat vital organ system(s) failure or risk of failure.
[2017-12-04] MEDS ORDERED: dilTIAZem HCL 125 MG/25 ML - 25 ML VIAL ONE (17:58)
[2017-12-04] MEDS ORDERED: dilTIAZem HCL 50 MG/10 ML - 10 ML VIAL IVPUSH ONE (18:00)
[2017-12-04] MEDS ORDERED: METHADONE HCL 10 MG TABLET PO ONE ×2 (18:03→18:15)
--- NOTE | 2017-12-04 18:08 | PN ---
Teaching Attending Note Name of Resident: Justin Harley ATTENDING PHYSICIAN STATEMENT I saw and evaluated the patient. I reviewed the resident's note and discussed the case with the resident. I agree with the resident's findings and plan as documented with exceptions below. SUBJECTIVE: 57 yomw ith PMHx of HTN, borderline DM, asthma, cocaine/heroine/phencyclidine abuse, prior multiple admissions for opioid detox/HTN emergency, requiring ICU/ NTG drip, using heroine and cocaine almost daily, last use yesterday, came to the ED today complaining of nausea, multiple episodes of reported loose stools, 'stomach upset' asking for 'methadone' and detox. On questioning also reports headache frontal that started this AM, denies any visual changes, neck pain, photophobia, dyspnea or urinary symptoms. Reported chest pain to ED, but currently denies any chest pain, reports lower back pain since fall 2 days ago. Reports was walking to a restaurant when tripped and fell on his buttocks, some lower back pain since but no new leg pain, weakness, tingling numbness or new concerns. No fevers/chills. Denies any IVDU. Reports compliance with HTN meds but did not take yesterday. When questioned about prior d/c to Methadone program in 09/2017, patient denies completing the same. Denies any active ETOH use. When questioned about PCP use, denies the same. Currently diaphoretic, nauseous, uncomfortable, persistently requesting methadone and reports symptoms are similar to prior opioid withdrawal. 12 point ROS done, neg except above. OBJECTIVE: Vital Signs Period Temp Pulse Resp BP Sys/Corea Pulse Ox Last 24 Hr 98.6 F 75-122 18-26 207-239/90-123 100-100 Intake & Output 12/01/17 12/02/17 12/03/17 12/04/17 23:59 23:59 23:59 23:59 Weight 247 lb GENERAL: Awake, alert, and fully oriented, in no acute distress, diaphoretic, anxious. HEAD: Normal with no signs of trauma. EYES: Pupils equal, round and reactive to light, extraocular movements intact, sclera anicteric, conjunctiva clear. No lid lag. EARS, NOSE, THROAT: Ears normal, nares patent, oropharynx clear without exudates. Moist mucous membranes. NECK: Normal range of motion, supple without lymphadenopathy, JVD, or masses. no neck tenderness LUNGS: Breath sounds equal, clear to auscultation bilaterally. No wheezes, and no crackles. No accessory muscle use. HEART: S1S2 regular, tachycardic ABDOMEN: Soft, nontender, not distended, normoactive bowel sounds, no guarding, no rebound, no masses. No hepatomegaly or splenomegaly appreciated. MUSCULOSKELETAL: Normal range of motion at all joints. No bony deformities or tenderness. No CVA tenderness. No spinal tenderness appreciated on exam UPPER EXTREMITIES: 2+ pulses, warm, well-perfused. No cyanosis. No clubbing. No peripheral edema. LOWER EXTREMITIES: 2+ pulses, warm, well-perfused. No calf tenderness. No peripheral edema. NEUROLOGICAL: Cranial nerves II-XII intact. Normal speech. AAOX3, power 5/5, sensation intact to light touch, symmetric bilaterally, no pronator drift, tongue midline, facial symmetry, no palatal deviation, toes down going, DTR bilaterally symmetric PSYCHIATRIC: Cooperative. Good eye contact. Anxious SKIN: Warm, dry, normal turgor, no rashes or lesions noted, normal capillary refill. Home Medications Medication Instructions Recorded Budesonide/Formeterol Fumarate 1 inh PO BID 01/15/17 [SYMBICORT 160/4.5mcg -] Albuterol Sulfate Inhaler - 2 inh PO Q4H PRN 30 Days #1 inhaler 04/22/17 [Ventolin HFA Inhaler -] Aripiprazole [Abilify] 10 mg PO DAILY #30 tablet 10/04/17 Aspirin Coated [Ecotrin -] 81 mg PO DAILY 30 Days #30 tab 10/04/17 Carvedilol [Coreg -] 12.5 mg PO BID #60 tablet 10/04/17 Chlorthalidone 25 mg PO DAILY #30 tablet 10/04/17 Losartan Potassium [Cozaar -] 100 mg PO DAILY #30 tablet 10/04/17 Nifedipine ER [Procardia XL -] 60 mg PO DAILY #30 tab.er.24 10/04/17 Active Medications Chlorhexidine Gluconate (Hibiclens For Decolonization -) 1 applic TP HS MICHEL Nicardipine HCl 25 mg/ (Dextrose) 250 mls @ 25 mls/hr IVPB TITR MICHEL; Protocol Last Admin: 12/04/17 15:55 Dose: 2.5 mg/hr, 25 mls/hr Methadone HCl (Dolophine -) 15 mg PO ONCE ONE Stop: 12/04/17 18:16 Methadone HCl (Dolophine -) 30 mg PO ONCE ONE Stop: 12/05/17 06:01 Mupirocin (Bactroban Ointment (For Decolonization) -) 1 applic NS BID MICHEL Stop: 12/09/17 21:59 Laboratory Results - last 24 hr 12/04/17 12/04/17 12/04/17 13:30 13:30 13:30 WBC 8.8 RBC 5.82 H Hgb 16.8 Hct 51.8 H D MCV 89.0 MCH 28.9 MCHC 32.4 RDW 14.2 Plt Count 278 D MPV 8.9 Absolute Neuts (auto) 7.3 Neutrophils % 83.4 H D Lymphocytes % 13.4 D Monocytes % 2.7 L Eosinophils % 0.2 Basophils % 0.3 Nucleated RBC % 0 PT with INR 11.00 INR 0.97 Sodium 137 Potassium 4.1 Chloride 98 Carbon Dioxide 32 Anion Gap 7 L BUN 10 Creatinine 1.1 Creat Clearance w eGFR > 60 Random Glucose 124 H Calcium 10.5 H Total Bilirubin 0.5 AST 20 ALT 23 Alkaline Phosphatase 125 H Creatine Kinase 279 Creatine Kinase Index 1.4 CK-MB (CK-2) 4.0 H Troponin I < 0.02 Total Protein 10.1 H Albumin 5.0 Opiates Screen Methadone Screen Barbiturate Screen Phencyclidine Screen Ur Amphetamines Screen MDMA (Ecstasy) Screen Benzodiazepines Screen Cocaine Screen U Marijuana (THC) Screen Alcohol, Quantitative < 3.0 12/04/17 13:30 WBC RBC Hgb Hct MCV MCH MCHC RDW Plt Count MPV Absolute Neuts (auto) Neutrophils % Lymphocytes % Monocytes % Eosinophils % Basophils % Nucleated RBC % PT with INR INR Sodium Potassium Chloride Carbon Dioxide Anion Gap BUN Creatinine Creat Clearance w eGFR Random Glucose Calcium Total Bilirubin AST ALT Alkaline Phosphatase Creatine Kinase Creatine Kinase Index CK-MB (CK-2) Troponin I Total Protein Albumin Opiates Screen Positive A* Methadone Screen Negative Barbiturate Screen Negative Phencyclidine Screen Negative Ur Amphetamines Screen Negative MDMA (Ecstasy) Screen Negative Benzodiazepines Screen Positive A* Cocaine Screen Positive A* U Marijuana (THC) Screen Negative Alcohol, Quantitative EKG NSR, no acute ST-T changes noted currently, LVH ASSESSMENT AND PLAN: 57 yom with HTN, borderline DM, Asthma, bipolar disorder not on meds, polysubstance abuse with cocaine/heroine/reported PCP (per charts), admitted with HTN emergency, opoid withdrawal. -HTN emergency, suspect cocaine related/?PCP +/- non compliance -Polysubstance abuse/opioid withdrawal -Reported Chest pain in ED, denies currently, similar prior history, presentation and exam not suggestive of dissection -Reported fall with low back pain, no spinal tenderness or neurological concerns -HTN -Borderline DM -Asthma -Bipolar disorder Plan: Nicardipine drip. NTG drip if fails to respond as responded to the same in the past. Vitals q1h, ICU monitoring. Neuro checks q2h. Resume home losartan/chlorthalidone. Hold beta blockers given active cocaine use. Cardiology input. Declined stress test in the past. Denies ETOH abuse, ativan prn. Detox consult. Anticipate [facility] d/c when medical issues resolve. Social work consult. Methadone 15 mg tonight and 30 mg tomorrow based on prior recs. ISS, diabetic diet. Continue abilify/symbicort/albuterol. DVTPPX lovenox. Dispo ICU level of care Plan discussed with patient in detail, all questions answered. Total admit time spent 65 min.
[2017-12-04] MEDS ORDERED: METHADONE HCL 10 MG TABLET ONE (18:27)
[2017-12-04] MEDS ORDERED: ALBUTEROL SO4 8 GM HFA INHALER IH PRN (19:06)
[2017-12-04] MEDS: INSULIN SLIDING SCALE (NOVOLOG) 1 VIAL SQ SCH (22:58)
[2017-12-04] MEDS: MUPIROCIN 2% TOPICAL OINTMENT FOR DECOLONIZATION NS SCH (23:05)
[2017-12-04] MEDS: CHLORHEXIDINE GLUCONATE 4% CLEANSER FOR DECOLONIZATION TP SCH (23:05)
[2017-12-04] MEDS: CHLORTHALIDONE 25 MG TABLET PO SCH (23:05)
[2017-12-04] MEDS: BUDESONIDE/FORMETEROL FUMARATE 160/4.5 mcg INHALER IH SCH (23:06)
[2017-12-05] MEDS ORDERED: METHADONE HCL 10 MG TABLET ONE (05:49)
[2017-12-05] MEDS ORDERED: METHADONE HCL 10 MG TABLET PO ONE (06:00)
[2017-12-05] MEDS ORDERED: NIFEdipine E.R 60 MG TABLET (UD) PO ONE (06:31)
[2017-12-05] MEDS ORDERED: NIFEdipine E.R. 30 MG TABLET (FP) ONE (06:36)
[2017-12-05 07:26] LABS: BASO % 0.2 % (0-2.0); HEMATOCRIT 49.6 % (35.4-49); MCH 28.6 pg (25.7-33.7); MCHC 32.3 g/dl (32.0-35.9); MEAN CELL VOLUME 88.5 fl (80-96); MONO % 5.4 % (3.8-10.2); NEUT % 82.4 % (42.8-82.8); PLATELET COUNT 256 K/MM3 (134-434); RBC 5.61 M/mm3 (4.00-5.60); RDW 14.3 % (11.9-15.9); WHITE BLOOD COUNT 13.1 K/mm3 (4.0-10.0)
[2017-12-05 08:09] LABS: BLOOD UREA NITROGEN 18 mg/dL (7-18); GLUCOSE,RANDOM 118 mg/dL (74-106)
[2017-12-05 08:10] LABS: ALBUMIN 4.2 g/dl (3.4-5.0); ANION GAP 12 MMOL/L (8-16); CALCIUM 9.8 mg/dL (8.5-10.1); CHLORIDE 99 mmol/L (98-107); CO2 24 mmol/L (21-32); POTASSIUM 3.8 mmol/L (3.5-5.1); SODIUM 135 mmol/L (136-145)
[2017-12-05] MEDS: INSULIN SLIDING SCALE (NOVOLOG) 1 VIAL SQ SCH ×4 (08:15→22:22)
[2017-12-05 08:28] LABS: BILIRUBIN,TOTAL 0.6 mg/dL (0.2-1); CREATININE 0.8 mg/dL (0.55-1.3); PHOSPHOROUS 4.2 mg/dL (2.5-4.9); SGOT/AST 13 U/L (15-37); SGPT/ALT 19 U/L (13-61); TOT PROT 8.8 g/dl (6.4-8.2)
[2017-12-05 08:29] LABS: ALK PHOS 116 U/L (45-117)
[2017-12-05] MEDS ORDERED: CHLORTHALIDONE 25 MG TABLET PO SCH (10:00)
[2017-12-05] MEDS ORDERED: ARIPiprazole 10 MG TABLET PO SCH (10:00)
[2017-12-05] MEDS ORDERED: LOSARTAN POTASSIUM 50 MG TABLET (FP) PO SCH (10:00)
[2017-12-05] MEDS ORDERED: NIFEdipine E.R 60 MG TABLET (UD) PO SCH (10:00)
[2017-12-05] MEDS ORDERED: METHADONE HCL 10 MG TABLET (FOR DETOX USE ONLY) PO SCH (10:00)
[2017-12-05] MEDS: CHLORTHALIDONE 25 MG TABLET PO SCH (10:02)
[2017-12-05] MEDS: BUDESONIDE/FORMETEROL FUMARATE 160/4.5 mcg INHALER IH SCH ×2 (10:02→23:21)
[2017-12-05] MEDS ORDERED: DOCUSATE SODIUM 100 MG CAPSULE (FP) PO ONE (10:39)
--- NOTE | 2017-12-05 11:33 | CONSULT ---
Consult Detox [facility] Reason for Current Admission/Consult: opiates, cocaine and benzo in urine - History History of Present Illness: Pt states he is using percocets 1/daily, cocaine 3-4 bags/day and heroin 3-4 bags/day. Pt denies using benzodiazepines- thinks it is in the heroin. Urine tox this admission shows: opiates, cocaine and benzo: none of which are prescribed. Pt was admitted for back pain after a fall. Pt also c/o dizziness. Pt is well known to me from prior admissions to [facility]. About a month ago, pt wanted to be admitted into [facility] methadone program. At that time, we ran the UNDERWRITING ACCOUNT REPRESENTATIVE using Kiran Wilkinson (rather than Raymon) and it was noted that he was getting large doses of oxycodone from a prescriber in [employer]. Pt admitted that he is known by both names. Pt has a current prescription on 240mg of oxycodone/day- morphine equivalent of 360mg/day. Check of the UNDERWRITING ACCOUNT REPRESENTATIVE shows: Others' Prescriptions Patient Name: Kiran Wilkinson Date: 1960 Address: [address] [place] [address] Sex: Male Rx Written Rx Dispensed Drug Quantity Days Supply Prescriber Name 11/14/2017 11/14/2017 oxycodone hcl 30 mg tablet 240 30 Beto Cruz MD 10/16/2017 10/17/2017 oxycodone hcl 30 mg tablet 240 30 Beto Cruz MD 09/19/2017 09/19/2017 oxycodone hcl 30 mg tablet 240 30 Beto Cruz MD 08/22/2017 08/23/2017 oxycodone hcl 30 mg tablet 240 30 Beto Cruz MD 07/23/2017 07/23/2017 oxycodone hcl 30 mg tablet 240 30 Beto Cruz MD 06/25/2017 06/25/2017 oxycodone hcl 30 mg tablet 240 30 Beto Cruz MD 05/25/2017 05/25/2017 oxycodone hcl 30 mg tablet 240 30 Beto Cruz MD 04/27/2017 04/27/2017 oxycodone hcl 30 mg tablet 240 30 Beto Cruz MD 03/27/2017 03/27/2017 oxycodone hcl 30 mg tablet 240 30 Beto Cruz MD 02/07/2017 02/07/2017 oxycodone hcl 30 mg tablet 240 30 Beto Cruz MD - History Source History Provided By: Patient Limitations to Obtaining History: No Limitations - Alcohol/Substance Use Hx Alcohol Use: No Hx Substance Use: Yes (cocaine, heroin) Hx Substance Use Treatment: Yes - Significant Medical Findings: pt states he is feeling better today. COWS - Scale Resting Pulse: 1= AL 81-100 Sweatin= No chills or Flushing Restless Observation: 0= Sits Still Pupil Size: 0= Normal to Room Light Bone or Joint Aches: 0= None Runny Nose/ Eye Tearin= None GI Upset > 30mins: 0= None Tremor Observation: 0= None Yawning Observation: 0= None Anxiety or Irritability: 0= None Goose Flesh Skin: 0=Smooth Skin COWS Score: 1 Assessment Plan - Diagnosis (1) Opioid dependence Status: Chronic - Plan Plan: pt has a current prescription for large doses of oxycodone- 360 mg of morphine equivalents/day. Last prescription was written on 11/14/17. There is no indication for detox at the present time- d/w patient that he is not eligible for detox. Pt may receive pain medications if medically indicated.
[2017-12-05] MEDS: MUPIROCIN 2% TOPICAL OINTMENT FOR DECOLONIZATION NS SCH ×2 (12:13→23:23)
--- NOTE | 2017-12-05 13:05 | PN ---
Teaching Attending Note Name of Resident: Justin Harley ATTENDING PHYSICIAN STATEMENT I saw and evaluated the patient. I reviewed the resident's note and discussed the case with the resident. I agree with the resident's findings and plan as documented with exceptions below. SUBJECTIVE: patient seen and examined. No complaints. Denies any chest pain, headache, dyspnea, dizziness, visual disturbances, back pain, abdominal or urinary symptoms. Feels well. OBJECTIVE: Vital Signs Period Temp Pulse Resp BP Sys/Corea Pulse Ox Last 24 Hr 98.7 F 11-129 -26 100-234/71-123 96-100 Intake & Output 12/02/17 12/03/17 12/04/17 12/05/17 23:59 23:59 23:59 23:59 Weight 247 lb General: sitting in bed having lunch CVS:S1S2 regular, tachycardic Chest; CTAB, no rales or wheezing Abdomen:soft, obese, NT Extremities: no edema or tremors Active Medications Albuterol Sulfate (Ventolin Hfa Inhaler -) 2 puff IH Q4H PRN PRN Reason: ASTHMA Aripiprazole (Abilify) 10 mg PO DAILY [facility] Last Admin: 12/05/17 10:04 Dose: Not Given Budesonide/Formoterol Fumarate (Symbicort 160/4.5mcg -) 1 puff IH BID [facility] Last Admin: 12/05/17 10:02 Dose: 1 puff Chlorhexidine Gluconate (Hibiclens For Decolonization -) 1 applic TP HS [facility] Last Admin: 12/04/17 23:05 Dose: Not Given Chlorthalidone (Hygroton -) 25 mg PO DAILY [facility] Last Admin: 12/05/17 10:02 Dose: 25 mg Nicardipine HCl 25 mg/ (Dextrose) 250 mls @ 25 mls/hr IVPB TITR [facility]; Protocol Last Admin: 12/04/17 15:55 Dose: 2.5 mg/hr, 25 mls/hr Insulin Aspart (Novolog Vial Sliding Scale -) 1 vial SQ ACHS [facility]; Protocol Last Admin: 12/05/17 12:50 Dose: Not Given Losartan Potassium (Cozaar -) 100 mg PO DAILY [facility] Last Admin: 12/05/17 10:01 Dose: 100 mg Mupirocin (Bactroban Ointment (For Decolonization) -) 1 applic NS BID [facility] Stop: 12/09/17 21:59 Last Admin: 12/04/17 23:05 Dose: Not Given Nifedipine (Procardia Xl -) 60 mg PO DAILY [facility] Last Admin: 12/05/17 10:02 Dose: 60 mg ASSESSMENT AND PLAN: 57 yom with HTN, borderline DM, Asthma, bipolar disorder not on meds, polysubstance abuse with cocaine/heroine/reported PCP (per charts), admitted with HTN emergency, opoid withdrawal. -HTN emergency, suspect cocaine related/?PCP +/- non compliance -Polysubstance abuse/opioid withdrawal -Reported Chest pain in ED, denies currently, similar prior history, presentation and exam not suggestive of dissection -Reported fall with low back pain, no spinal tenderness or neurological concerns -HTN -Borderline DM -Asthma -Bipolar disorder Plan: BP improved, off nicardipine drip. Continue procardia XL, losartan/Chlorthalidone. Hold beta ellen for now given recent cocaine use. Detox consult. methadone 30 mg today pending detox input. Cardiology input noted. ISs, diabetic diet. Continue abilify/symbicort/albuterol. DVTPPX lovenox. Dispo ok for transfer to telemetry. Plan for d/c to [facility] in 24 hours if no new concerns and disposition arranged. Plan discussed with patient in detail, all questions answered.
--- NOTE | 2017-12-05 13:19 | PN ---
Physical Exam: SUBJECTIVE: Patient seen and examined at bedside. Headache and blurred vision markedly improved, no other complaints. OBJECTIVE: Vital Signs Period Temp Pulse Resp BP Sys/Corea Pulse Ox Last 24 Hr 98.7 F 11-129 18-26 100-234/71-123 96-100 GENERAL: A&Ox3, mildly confused, in mild distress HEAD: NC/AT EYES: PERRLA, EOMI, no papilledema appreciated b/l EARS, NOSE, THROAT: Moist mucous membranes. NECK: Normal range of motion, supple without lymphadenopathy, JVD, or masses. LUNGS: CTA b/l HEART: RRR no m/r/g, bounding heartbeat ABDOMEN: +bs, soft, NT, ND MUSCULOSKELETAL: Tenderness no longer present EXTREMITIES: 2+ pulses, warm, well-perfused. No peripheral edema. NEUROLOGICAL: sensory deficits of: left CNV3 distribution, left body below level of T4, otherwise motor and sensory systems intact throughout. Mildly dysarthric speech. Gait not observed. SKIN: Warm, dry, normal turgor, no rashes or lesions noted. Laboratory Results - last 24 hr 12/04/17 12/04/17 12/04/17 13:30 13:30 13:30 WBC 8.8 RBC 5.82 H Hgb 16.8 Hct 51.8 H D MCV 89.0 MCH 28.9 MCHC 32.4 RDW 14.2 Plt Count 278 D MPV 8.9 Absolute Neuts (auto) 7.3 Neutrophils % 83.4 H D Lymphocytes % 13.4 D Monocytes % 2.7 L Eosinophils % 0.2 Basophils % 0.3 Nucleated RBC % 0 PT with INR 11.00 INR 0.97 Sodium 137 Potassium 4.1 Chloride 98 Carbon Dioxide 32 Anion Gap 7 L BUN 10 Creatinine 1.1 Creat Clearance w eGFR > 60 POC Glucometer Random Glucose 124 H Calcium 10.5 H Phosphorus Magnesium Total Bilirubin 0.5 AST 20 ALT 23 Alkaline Phosphatase 125 H Creatine Kinase 279 Creatine Kinase Index 1.4 CK-MB (CK-2) 4.0 H Troponin I < 0.02 Total Protein 10.1 H Albumin 5.0 Opiates Screen Methadone Screen Barbiturate Screen Phencyclidine Screen Ur Amphetamines Screen MDMA (Ecstasy) Screen Benzodiazepines Screen Cocaine Screen U Marijuana (THC) Screen Alcohol, Quantitative < 3.0 12/04/17 12/04/1718 13:30 21:03 21:30 WBC RBC Hgb Hct MCV MCH MCHC RDW Plt Count MPV Absolute Neuts (auto) Neutrophils % Lymphocytes % Monocytes % Eosinophils % Basophils % Nucleated RBC % PT with INR INR Sodium Potassium Chloride Carbon Dioxide Anion Gap BUN Creatinine Creat Clearance w eGFR POC Glucometer Random Glucose Calcium Phosphorus Magnesium Total Bilirubin AST ALT Alkaline Phosphatase Creatine Kinase 243 Creatine Kinase Index 1.4 CK-MB (CK-2) 3.5 Troponin I < 0.02 < 0.02 Total Protein Albumin Opiates Screen Positive A* Methadone Screen Negative Barbiturate Screen Negative Phencyclidine Screen Negative Ur Amphetamines Screen Negative MDMA (Ecstasy) Screen Negative Benzodiazepines Screen Positive A* Cocaine Screen Positive A* U Marijuana (THC) Screen Negative Alcohol, Quantitative 12/04/17 12/05/17 12/05/17 22:49 06:20 06:20 WBC 13.1 H RBC 5.61 H Hgb 16.0 Hct 49.6 H MCV 88.5 MCH 28.6 MCHC 32.3 RDW 14.3 Plt Count 256 MPV 9.0 Absolute Neuts (auto) 10.8 H Neutrophils % 82.4 Lymphocytes % 12.0 Monocytes % 5.4 D Eosinophils % 0.0 D Basophils % 0.2 Nucleated RBC % 0 PT with INR INR Sodium 135 L Potassium 3.8 Chloride 99 Carbon Dioxide 24 Anion Gap 12 BUN 18 Creatinine 0.8 Creat Clearance w eGFR > 60 POC Glucometer [phone] Random Glucose 118 H Calcium 9.8 Phosphorus 4.2 Magnesium 2.0 Total Bilirubin 0.6 AST 13 L ALT 19 Alkaline Phosphatase 116 Creatine Kinase Creatine Kinase Index CK-MB (CK-2) Troponin I Total Protein 8.8 H Albumin 4.2 Opiates Screen Methadone Screen Barbiturate Screen Phencyclidine Screen Ur Amphetamines Screen MDMA (Ecstasy) Screen Benzodiazepines Screen Cocaine Screen U Marijuana (THC) Screen Alcohol, Quantitative 12/05/17 12/05/17 08:02 12:39 WBC RBC Hgb Hct MCV MCH MCHC RDW Plt Count MPV Absolute Neuts (auto) Neutrophils % Lymphocytes % Monocytes % Eosinophils % Basophils % Nucleated RBC % PT with INR INR Sodium Potassium Chloride Carbon Dioxide Anion Gap BUN Creatinine Creat Clearance w eGFR POC Glucometer [phone] Random Glucose Calcium Phosphorus Magnesium Total Bilirubin AST ALT Alkaline Phosphatase Creatine Kinase Creatine Kinase Index CK-MB (CK-2) Troponin I Total Protein Albumin Opiates Screen Methadone Screen Barbiturate Screen Phencyclidine Screen Ur Amphetamines Screen MDMA (Ecstasy) Screen Benzodiazepines Screen Cocaine Screen U Marijuana (THC) Screen Alcohol, Quantitative Active Medications Generic Name Dose Route Start Last Admin Trade Name Freq PRN Reason Stop Dose Admin Albuterol Sulfate 2 puff 12/04/17 19:06 Ventolin Hfa Inhaler - IH Q4H PRN ASTHMA Aripiprazole 10 mg 12/05/17 10:00 12/05/17 10:04 Abilify PO Not Given DAILY MICHEL Budesonide/Formoterol Fumarate 1 puff 12/04/17 22:00 12/05/17 10:02 Symbicort 160/4.5mcg - IH 1 puff BID MICHEL Administration Chlorhexidine Gluconate 1 applic 12/04/17 22:00 12/04/17 23:05 Hibiclens For Decolonization - TP Not Given HS MICHEL Chlorthalidone 25 mg 12/04/17 22:00 12/05/17 10:02 Hygroton - PO 25 mg DAILY MICHEL Administration Nicardipine HCl 25 mg/ 250 mls @ 25 mls/hr 12/04/17 15:00 12/04/17 15:55 Dextrose IVPB 2.5 mg/hr TITR MICHEL 25 mls/hr Administration Protocol 2.5 MG/HR Insulin Aspart 1 vial 12/04/17 22:00 12/05/17 12:50 Novolog Vial Sliding Scale - SQ Not Given ACHS MICHEL Protocol Losartan Potassium 100 mg 12/05/17 10:00 12/05/17 10:01 Cozaar - PO 100 mg DAILY MICHEL Administration Mupirocin 1 applic 12/04/17 22:00 12/04/17 23:05 Bactroban Ointment (For Decolonization) - NS 12/09/17 21:59 Not Given BID MICHEL Nifedipine 60 mg 12/05/17 10:00 12/05/17 10:02 Procardia Xl - PO 60 mg DAILY MICHEL Administration ASSESSMENT/PLAN: 57 y/o M w/ PMHx Asthma, Borderline DM, HTN, CVA (2017) 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, polysubstance abuse p/w hypertensive urgency/emergency #hypertensive urgency/emergency -current HR 120, BP 127/74 RR 18 -off nicardipine drip, on home Losartan, Chlorthalidone, Nifedipine, home Coreg held -head CT benign -tox screen positive for opiates and cocaine -DO NOT administer beta-blockers in setting of recent cocaine use #focal lumbar tenderness -resolved -MRI deferred #detox -methadone taper protocol #sensory level -per physical exam -known prior stroke -head CT benign #chronic conditions -as per primary team #FEN -no IVF -BMP in AM -sodium controlled diabetic diet #dispo -early ambulation -transfer to tele Visit type - Emergency Visit Emergency Visit: No - New Patient This patient is new to me today: No - Critical Care Critical Care patient: Yes Total Critical Care Time (in minutes): 40 Critical Care Statement: The care of this patient involved high complexity decision making to prevent further life threatening deterioration of the patient 's condition and/or to evaluate & treat vital organ system(s) failure or risk of failure.
--- NOTE | 2017-12-05 13:36 | PN ---
Teaching Attending Note Name of Resident: Markus Gudino ATTENDING PHYSICIAN STATEMENT I saw and evaluated the patient. I reviewed the resident's note and discussed the case with the resident. I agree with the resident's findings and plan as documented. SUBJECTIVE: Pt seen and examined in the ICU. Off cardene gtt. Still some mild headache, nausea improved. Utox positive for cocaine, benzos and opiates. OBJECTIVE: Vital Signs Period Temp Pulse Resp BP Sys/Corea Pulse Ox Last 24 Hr 98.7 F 11-129 18-26 100-234/71-123 96-100 Intake & Output 12/02/17 12/03/17 12/04/17 12/05/17 23:59 23:59 23:59 23:59 Weight 112.037 kg Gen: NAD at rest Heart: RRR Lung: decreased breath sounds at the bases Abd: soft, nontender Ext: no edema CBC, BMP 12/05/17 06:20 12/05/17 06:20 Active Medications Albuterol Sulfate (Ventolin Hfa Inhaler -) 2 puff IH Q4H PRN PRN Reason: ASTHMA Aripiprazole (Abilify) 10 mg PO DAILY [facility] Last Admin: 12/05/17 10:04 Dose: Not Given Budesonide/Formoterol Fumarate (Symbicort 160/4.5mcg -) 1 puff IH BID [facility] Last Admin: 12/05/17 10:02 Dose: 1 puff Chlorhexidine Gluconate (Hibiclens For Decolonization -) 1 applic TP HS [facility] Last Admin: 12/04/17 23:05 Dose: Not Given Chlorthalidone (Hygroton -) 25 mg PO DAILY [facility] Last Admin: 12/05/17 10:02 Dose: 25 mg Insulin Aspart (Novolog Vial Sliding Scale -) 1 vial SQ ACHS [facility]; Protocol Last Admin: 12/05/17 12:50 Dose: Not Given Losartan Potassium (Cozaar -) 100 mg PO DAILY [facility] Last Admin: 12/05/17 10:01 Dose: 100 mg Mupirocin (Bactroban Ointment (For Decolonization) -) 1 applic NS BID [facility] Stop: 12/09/17 21:59 Last Admin: 12/04/17 23:05 Dose: Not Given Nifedipine (Procardia Xl -) 60 mg PO DAILY [facility] Last Admin: 12/05/17 10:02 Dose: 60 mg ASSESSMENT AND PLAN: Hypertensive Urgency improving HTN DM Asthma Bipolar Disorder Polysubstance Abuse - BP control with PO meds - addiction medicine eval - detox - monitor for withdrawal symptoms - DVT prophylaxis - pt off cardene gtt, can monitor on telemetry, please call back if further question or change in clinical status
--- NOTE | 2017-12-05 13:39 | CON.CARD ---
Consult Consult Specialty:: Cardiology Referred by:: Hospitalist Medicine Reason for Consultation:: Hypertensive urgency - History of Present Illness Chief Complaint: Headache History of Present Illness: 57 m hx htn, PSA (etoh, heroin, cocaine, MJ, PCP), dm, ckd, prior multiple admissions for opioid detox/HTN emergency, requiring ICU/NTG drip, using heroine and cocaine almost daily presented with hypertensive urgency previously on Cardene gtt since weaned off, mild YOUNGBLOOD but denies chest pain, dyspnea, near or true syncope, palpitations, orthopnea, PND or LE edema. - History Source History Provided By: Patient Limitations to Obtaining History: No Limitations - Past Medical History Cardio/Vascular: Yes: HTN - Alcohol/Substance Use Hx Alcohol Use: No - Smoking History Smoking history: Current every day smoker Have you smoked in the past 12 months: Yes Aproximately how many cigarettes per day: 20 Home Medications - Allergies Allergies/Adverse Reactions: Allergies Allergy/AdvReac Type Severity Reaction Status Date / Time No Known Allergies Allergy Verified 11/05/17 23:46 - Home Medications Home Medications: Ambulatory Orders Budesonide/Formeterol Fumarate [SYMBICORT 160/4.5mcg -] 1 inh PO BID 01/15/17 Albuterol Sulfate Inhaler - [Ventolin HFA Inhaler -] 2 inh PO Q4H PRN 30 Days # 1 inhaler 04/22/17 Aripiprazole [Abilify] 10 mg PO DAILY #30 tablet 10/04/17 Aspirin Coated [Ecotrin -] 81 mg PO DAILY 30 Days #30 tab 10/04/17 Carvedilol [Coreg -] 12.5 mg PO BID #60 tablet 10/04/17 Chlorthalidone 25 mg PO DAILY #30 tablet 10/04/17 Losartan Potassium [Cozaar -] 100 mg PO DAILY #30 tablet 10/04/17 Nifedipine ER [Procardia XL -] 60 mg PO DAILY #30 tab.er.24 10/04/17 Family Disease History - Family Disease History Family Disease History: Heart Disease: Mother (HTN,living), Other: Father ( - unknown), Mother, Brother (one - living - no contact), Sister (none), Son (3 sons - healthy), Daughter (4 daughters - healthy) Review of Systems - Review of Systems HENT: reports: Other (Headache) Cardiovascular: reports: No Symptoms Respiratory: reports: No Symptoms Gastrointestinal: reports: No Symptoms Genitourinary: reports: No Symptoms Musculoskeletal: reports: No Symptoms Integumentary: reports: No Symptoms Neurological: reports: Headache Vital Signs: Vital Signs Temperature 98.7 F 12/04/17 19:30 Pulse Rate 120 H 12/05/17 08:04 Respiratory Rate 18 12/05/17 08:04 Blood Pressure 127/74 12/05/17 08:04 O2 Sat by Pulse Oximetry (%) 100 12/05/17 08:04 Constitutional: Yes: No Distress, Calm Neck: Yes: Supple Respiratory: Yes: Regular, CTA Bilaterally Gastrointestinal: Yes: Normal Bowel Sounds, Soft Cardiovascular: Yes: Regular Rate and Rhythm JVD: No Carotid Bruit: No Heart Sounds: Yes: S1, S2 Edema: No - Other Data Labs, Other Data: CBC, BMP 12/05/17 06:20 12/05/17 06:20 INR, PTT INR 0.97 (0.83-1.09) 12/04/17 13:30 Troponin, BNP 12/04/17 12/04/17 12/04/17 13:30 21:03 21:30 Troponin I < 0.02 < 0.02 < 0.02 Troponin, BNP 12/04/17 12/04/17 12/04/17 13:30 21:03 21:30 Troponin I < 0.02 < 0.02 < 0.02 Echo: Pending (NSR @ 73) Imaging - Results Chest X-ray: Report Reviewed (NAD) Cat Scan: Report Reviewed (HCT Negative) Problem List - Problems (1) Polysubstance (excluding opioids) dependence Code(s): F19.20 - OTHER PSYCHOACTIVE SUBSTANCE DEPENDENCE, UNCOMPLICATED (2) Hypertensive urgency Code(s): I16.0 - HYPERTENSIVE URGENCY (3) Non-compliance with treatment Code(s): Z91.19 - PATIENT'S NONCOMPLIANCE W OTH MEDICAL TREATMENT AND REGIMEN Assessment/Plan 1. Hypertensive Urgency improving 2. HTN 3. DM 4. Asthma 5. Bipolar Disorder 6. Polysubstance Abuse (etoh, heroin, cocaine, MJ, PCP) P: 1. BP control with losartan 100 qd, chlorthalidone 25 qd, procardia XL 60 qd and uptitrate as tolerated 2. Addiction medicine eval, detox, monitor for withdrawal symptoms 3. DVT prophylaxis 4. pt weaned off cardene gtt, can monitor on telemetry 5. Thank you for consultative opportunity
--- NOTE | 2017-12-05 17:59 | PN ---
Physical Exam: SUBJECTIVE: Patient seen and examined this AM. He states he is doing much better today with improvement of his headache and withdrawal symptoms after the methadone. Pt requesting to return to [facility] for detox and methadone maintenance. OBJECTIVE: Vital Signs Period Temp Pulse Resp BP Sys/Corea Pulse Ox Last 24 Hr 98.7 F-99.7 F 11-129 18-26 100-230/69-120 96-100 GENERAL: A&O, no acute distress HEAD: Normocephalic, atraumatic. EYES: PERRL, no scleral icterus, no papilledema or retinal hemorrhage noted EARS, NOSE, THROAT: oropharynx clear without exudates. Moist mucous membranes. NECK: supple without lymphadenopathy LUNGS: CTA b/l, no crackles or wheezes HEART: Tachycardia with regular rhythm, normal S1 and S2 without murmur ABDOMEN: Soft, nontender to palpation, normoactive bowel sounds MUSCULOSKELETAL: No bony deformities, tenderness to palpation on lumbar spine EXTREMITIES: 2+ pulses, warm, well-perfused. No peripheral edema. NEUROLOGICAL: Cranial nerves II-XII intact. Normal speech. PSYCHIATRIC: Agitated and constantly moving around in the bed SKIN: Warm, dry, no rashes or lesions noted Laboratory Results - last 24 hr 12/04/17 12/04/17 12/04/17 21:03 21:30 22:49 WBC RBC Hgb Hct MCV MCH MCHC RDW Plt Count MPV Absolute Neuts (auto) Neutrophils % Lymphocytes % Monocytes % Eosinophils % Basophils % Nucleated RBC % Sodium Potassium Chloride Carbon Dioxide Anion Gap BUN Creatinine Creat Clearance w eGFR POC Glucometer 140.92058 Random Glucose Calcium Phosphorus Magnesium Total Bilirubin AST ALT Alkaline Phosphatase Creatine Kinase 243 Creatine Kinase Index 1.4 CK-MB (CK-2) 3.5 Troponin I < 0.02 < 0.02 Total Protein Albumin 12/05/17 12/05/17 12/05/17 06:20 06:20 08:02 WBC 13.1 H RBC 5.61 H Hgb 16.0 Hct 49.6 H MCV 88.5 MCH 28.6 MCHC 32.3 RDW 14.3 Plt Count 256 MPV 9.0 Absolute Neuts (auto) 10.8 H Neutrophils % 82.4 Lymphocytes % 12.0 Monocytes % 5.4 D Eosinophils % 0.0 D Basophils % 0.2 Nucleated RBC % 0 Sodium 135 L Potassium 3.8 Chloride 99 Carbon Dioxide 24 Anion Gap 12 BUN 18 Creatinine 0.8 Creat Clearance w eGFR > 60 POC Glucometer 304.20702 Random Glucose 118 H Calcium 9.8 Phosphorus 4.2 Magnesium 2.0 Total Bilirubin 0.6 AST 13 L ALT 19 Alkaline Phosphatase 116 Creatine Kinase Creatine Kinase Index CK-MB (CK-2) Troponin I Total Protein 8.8 H Albumin 4.2 12/05/17 12/05/17 12:39 16:55 WBC RBC Hgb Hct MCV MCH MCHC RDW Plt Count MPV Absolute Neuts (auto) Neutrophils % Lymphocytes % Monocytes % Eosinophils % Basophils % Nucleated RBC % Sodium Potassium Chloride Carbon Dioxide Anion Gap BUN Creatinine Creat Clearance w eGFR POC Glucometer 125.69887 133.70290 Random Glucose Calcium Phosphorus Magnesium Total Bilirubin AST ALT Alkaline Phosphatase Creatine Kinase Creatine Kinase Index CK-MB (CK-2) Troponin I Total Protein Albumin Active Medications Generic Name Dose Route Start Last Admin Trade Name Freq PRN Reason Stop Dose Admin Albuterol Sulfate 2 puff 12/04/17 19:06 Ventolin Hfa Inhaler - IH Q4H PRN ASTHMA Aripiprazole 10 mg 12/05/17 10:00 12/05/17 10:04 Abilify PO Not Given DAILY [facility] Budesonide/Formoterol Fumarate 1 puff 12/04/17 22:00 12/05/17 10:02 Symbicort 160/4.5mcg - IH 1 puff BID MICHEL Administration Chlorhexidine Gluconate 1 applic 12/04/17 22:00 12/04/17 23:05 Hibiclens For Decolonization - TP Not Given HS MICHEL Chlorthalidone 25 mg 12/04/17 22:00 12/05/17 10:02 Hygroton - PO 25 mg DAILY MICHEL Administration Insulin Aspart 1 vial 12/04/17 22:00 12/05/17 17:15 Novolog Vial Sliding Scale - SQ Not Given ACHS [facility] Protocol Losartan Potassium 100 mg 12/05/17 10:00 12/05/17 10:01 Cozaar - PO 100 mg DAILY MICHEL Administration Mupirocin 1 applic 12/04/17 22:00 12/05/17 12:13 Bactroban Ointment (For Decolonization) - NS 12/09/17 21:59 Not Given BID MICHEL Nifedipine 60 mg 12/05/17 10:00 12/05/17 10:02 Procardia Xl - PO 60 mg DAILY MICHEL Administration ASSESSMENT/PLAN: 57 yo male with PMH Asthma, Borderline DM, HTN, CVA in 2017 with no subjective residual weakness, polysubstance abuse (Marijuana, Heroin-intranasal, cocaine- smokes, benzos) admitted to the ICU for Hypertensive Emergency Hypertensive Emergency -BP max of 239/116 in ED, blood pressure improved today on home meds as below -Restarted home meds Nifedipine 60 mg PO Daily, Losartan 100 mg PO Daily -Hold home Coreg with recent cocaine use -Continue to monitor b.p and h.r. -Cardiology Consulted -Vitals Q1H, neuro checks Q2 -Medically stable for discharge pending plan for detox/rehab Polysubstance abuse -Most recent use 12/03, claims he used in the afternoon and started withdrawing that night -Counseled patient about use especially use of cocaine with history of uncontrolled hypertension -Methadone 15 mg PO tonight for opiate withdrawal -One time dose Methadone 30 mg PO in AM -Addiction medicine consult ordered Discussed case, will await further recommendation Pt uses different name for outpatient oxicodone script 30 mg 240 tablets every 30 days Will await further recommendation as patient is otherwise medically stable for discharge -Can resume home Abilify Asthma -Symbicort -Albuterol PRN DVT Prophylaxis -Lovenox 40 mg SQ Daily FEN -Fluids: none -Electrolytes: No electrolyte abnormalities, BMP in AM -Nutrition: Low salt diet Disposition Telemetry, medically stable for discharge pending plan for detox/rehab Visit type - Emergency Visit Emergency Visit: Yes ED Registration Date: 12/04/17 Care time: The patient presented to the Emergency Department on the above date and was hospitalized for further evaluation of their emergent condition. - New Patient This patient is new to me today: No - Critical Care Critical Care patient: No
[2017-12-05] MEDS ORDERED: PT OWN MED DRAWER 7, Y5N ONE ×2 (20:32→23:25)
[2017-12-05] MEDS: CHLORHEXIDINE GLUCONATE 4% CLEANSER FOR DECOLONIZATION TP SCH (23:24)
[2017-12-06 05:57] LABS: HEMATOCRIT 47.1 % (35.4-49); HEMOGLOBIN 15.5 GM/dL (11.7-16.9); MCH 29.2 pg (25.7-33.7); MCHC 32.9 g/dl (32.0-35.9); MEAN CELL VOLUME 88.6 fl (80-96); MEAN PLT VOLUME 8.6 fl (7.5-11.1); PLATELET COUNT 254 K/MM3 (134-434); RBC 5.32 M/mm3 (4.00-5.60); RDW 14.6 % (11.9-15.9); WHITE BLOOD COUNT 9.1 K/mm3 (4.0-10.0)
[2017-12-06] MEDS: INSULIN SLIDING SCALE (NOVOLOG) 1 VIAL SQ SCH ×4 (06:34→22:03)
[2017-12-06] MEDS ORDERED: ALBUTEROL SO4 8 GM HFA INHALER IH PRN (07:47)
[2017-12-06 08:19] LABS: ANION GAP 10 MMOL/L (8-16); BLOOD UREA NITROGEN 38 mg/dL (7-18); CALCIUM 8.9 mg/dL (8.5-10.1); CHLORIDE 98 mmol/L (98-107); CO2 27 mmol/L (21-32); CREATININE 1.9 mg/dL (0.55-1.3); GLUCOSE,RANDOM 137 mg/dL (74-106); MAGNESIUM 2.4 mg/dL (1.8-2.4); PHOSPHOROUS 4.2 mg/dL (2.5-4.9); POTASSIUM 3.9 mmol/L (3.5-5.1); SODIUM 135 mmol/L (136-145)
--- NOTE | 2017-12-06 08:50 | PN ---
Teaching Attending Note Name of Resident: Justin Harley ATTENDING PHYSICIAN STATEMENT I saw and evaluated the patient. I reviewed the resident's note and discussed the case with the resident. I agree with the resident's findings and plan as documented with exceptions below. SUBJECTIVE: Patient seen and examined. asking for methadone, no new complaints otherwise OBJECTIVE: Vital Signs Period Temp Pulse Resp BP Sys/Corea Pulse Ox Last 24 Hr 99.7 F 89-98 20-22 106-120/69-72 100 Intake & Output 12/03/17 12/04/17 12/05/17 12/06/17 23:59 23:59 23:59 23:59 Intake Total 1440 240 Balance 1440 240 Weight 247 lb General: sitting in bed in no acute distress, diaphoretic Abdomen: soft, obese, NT throughout Extremities: no edema, mild tremors Active Medications Albuterol Sulfate (Ventolin Hfa Inhaler -) 2 puff IH Q4H PRN PRN Reason: ASTHMA Aripiprazole (Abilify) 10 mg PO DAILY [facility] Budesonide/Formoterol Fumarate (Symbicort 160/4.5mcg -) 1 puff IH BID MICHEL Chlorhexidine Gluconate (Hibiclens For Decolonization -) 1 applic TP HS MICHEL Chlorthalidone (Hygroton -) 25 mg PO DAILY [facility]HEL Hydralazine HCl (Apresoline -) 10 mg PO TID MICHEL Sodium Chloride (Normal Saline -) 1,000 mls @ 1,000 mls/hr IV ASDIR STA Stop: 12/06/17 09:36 Insulin Aspart (Novolog Vial Sliding Scale -) 1 vial SQ ACHS MICHEL; Protocol Losartan Potassium (Cozaar -) 100 mg PO DAILY [facility] Mupirocin (Bactroban Ointment (For Decolonization) -) 1 applic NS BID MICHEL Stop: 12/09/17 21:59 Nifedipine (Procardia Xl -) 60 mg PO DAILY [facility] Laboratory Results - last 24 hr 12/05/17 12/05/17 12/05/17 08:02 12:39 16:55 WBC RBC Hgb Hct MCV MCH MCHC RDW Plt Count MPV Sodium Potassium Chloride Carbon Dioxide Anion Gap BUN Creatinine Creat Clearance w eGFR POC Glucometer 304.03282 125.34015 133.26525 Random Glucose Calcium Phosphorus Magnesium 12/05/17 12/06/17 12/06/17 21:32 05:30 05:30 WBC 9.1 RBC 5.32 Hgb 15.5 Hct 47.1 MCV 88.6 MCH 29.2 MCHC 32.9 RDW 14.6 Plt Count 254 MPV 8.6 Sodium 135 L Potassium 3.9 Chloride 98 Carbon Dioxide 27 Anion Gap 10 BUN 38 H Creatinine 1.9 H Creat Clearance w eGFR 36.72 POC Glucometer 82.90578 Random Glucose 137 H Calcium 8.9 Phosphorus 4.2 Magnesium 2.4 ASSESSMENT AND PLAN: 57 yom with HTN, borderline DM, Asthma, bipolar disorder not on meds, polysubstance abuse with cocaine/heroine/reported PCP (per charts), admitted with HTN emergency, opoid withdrawal. -HTN emergency, suspect cocaine related/?PCP +/- non compliance -Polysubstance abuse/opioid withdrawal -NIDHI, ?hypovolumia vs HTN emergency vs from drug use, r/o obstruction -Reported Chest pain in ED, denies currently, similar prior history, presentation and exam not suggestive of dissection -Reported fall with low back pain, no spinal tenderness or neurological concerns -HTN -Borderline DM -Asthma -Bipolar disorder Plan: Off nicardipine drip. No methadone, BP rising, Detox input noted. Patient on standing narcotics. Resume home narcotics prn based on clinical course and withdrawal concerns. Continue procardia XL NIDHI today, hold losartan/chlorthalidone. Trial 1 L IVF bolus, bladder scan, renal/bladder US. Hydralazine 10 mg TID while above meds on hold. Hold beta ellen for now given recent cocaine use. Cardiology input noted. ISs, diabetic diet. Continue abilify/symbicort/albuterol. DVTPPX lovenox. Dispo planning on hold given NIDHI. Plan discussed with patient in detail, all questions answered.
[2017-12-06] MEDS: SODIUM CHLORIDE 1,000 ML IV STA ×2 (09:09→12:03)
[2017-12-06] MEDS ORDERED: PT OWN MED DRAWER 7, Y5N ONE (09:19)
[2017-12-06] MEDS: NIFEdipine E.R 60 MG TABLET (UD) PO SCH (09:51)
[2017-12-06] MEDS: BUDESONIDE/FORMETEROL FUMARATE 160/4.5 mcg INHALER IH SCH ×2 (09:51→22:00)
[2017-12-06] MEDS: ARIPiprazole 10 MG TABLET PO SCH (09:53)
[2017-12-06] MEDS: MUPIROCIN 2% TOPICAL OINTMENT FOR DECOLONIZATION NS SCH ×2 (09:53→22:03)
[2017-12-06] MEDS ORDERED: CHLORTHALIDONE 25 MG TABLET PO SCH (10:00)
--- NOTE | 2017-12-06 13:16 | PN ---
Progress Note, Physician History of Present Illness: Comfortable headache improved, denies chest pain, dyspnea, near or true syncope , palpitations, orthopnea, PND or LE edema. - Current Medication List Current Medications: Active Medications Albuterol Sulfate (Ventolin Hfa Inhaler -) 2 puff IH Q4H PRN PRN Reason: ASTHMA Aripiprazole (Abilify) 10 mg PO DAILY [facility] Last Admin: 12/06/17 09:53 Dose: 10 mg Budesonide/Formoterol Fumarate (Symbicort 160/4.5mcg -) 1 puff IH BID [facility] Last Admin: 12/06/17 09:51 Dose: 1 inh Chlorhexidine Gluconate (Hibiclens For Decolonization -) 1 applic TP HS MICHEL Chlorthalidone (Hygroton -) 25 mg PO DAILY [facility] Hydralazine HCl (Apresoline -) 10 mg PO TID [facility] Insulin Aspart (Novolog Vial Sliding Scale -) 1 vial SQ ACHS [facility]; Protocol Last Admin: 12/06/17 12:03 Dose: Not Given Losartan Potassium (Cozaar -) 100 mg PO DAILY MICHEL Mupirocin (Bactroban Ointment (For Decolonization) -) 1 applic NS BID [facility] Stop: 12/09/17 21:59 Last Admin: 12/06/17 09:53 Dose: 1 applic Nifedipine (Procardia Xl -) 60 mg PO DAILY [facility] Last Admin: 12/06/17 09:51 Dose: 60 mg - Objective Vital Signs: Vital Signs Temperature 99.7 F H 12/05/17 13:47 Pulse Rate 88 12/06/17 09:00 Respiratory Rate 20 12/06/17 09:00 Blood Pressure 134/85 12/06/17 09:00 O2 Sat by Pulse Oximetry (%) 100 12/06/17 09:00 Constitutional: Yes: No Distress, Calm Neck: Yes: Supple Cardiovascular: Yes: Regular Rate and Rhythm Respiratory: Yes: Regular, CTA Bilaterally Gastrointestinal: Yes: Normal Bowel Sounds, Soft Edema: No Labs: CBC, BMP 12/06/17 05:30 12/06/17 05:30 INR, PTT INR 0.97 (0.83-1.09) 12/04/17 13:30 Problem List - Problems (1) Polysubstance (excluding opioids) dependence Code(s): F19.20 - OTHER PSYCHOACTIVE SUBSTANCE DEPENDENCE, UNCOMPLICATED (2) Hypertensive urgency Code(s): I16.0 - HYPERTENSIVE URGENCY (3) Non-compliance with treatment Code(s): Z91.19 - PATIENT'S NONCOMPLIANCE W OTH MEDICAL TREATMENT AND REGIMEN (4) Acute kidney injury Code(s): N17.9 - ACUTE KIDNEY FAILURE, UNSPECIFIED Assessment/Plan 1. Hypertensive Urgency improving 2. HTN 3. DM 4. Asthma 5. Bipolar Disorder 6. Polysubstance Abuse (etoh, heroin, cocaine, MJ, PCP) 7. NIDHI P: 1. Hold losartan 100 qd, chlorthalidone 25 qd, pending renal recovery, continue procardia XL 60 qd and uptitrate as tolerated, 2. Addiction medicine eval, detox, monitor for withdrawal symptoms 3. Renal u/s, IVF with monitor renal recovery 4. DVT prophylaxis
[2017-12-06] MEDS: hydrALAZINE HCL 10 MG TABLET PO SCH ×2 (14:33→22:00)
[2017-12-06] MEDS ORDERED: NIFEdipine E.R. 30 MG TABLET (FP) PO ONE (17:09)
[2017-12-06] MEDS ORDERED: oxyCODONE HCL 5 MG TABLET PO ONE (17:09)
--- NOTE | 2017-12-06 17:12 | PN ---
Physical Exam: SUBJECTIVE: Patient seen and examined this AM. He states that he is withdrawing again. He is complaining of abdominal pain and sweating. States he has not had a bowel movement yet since admission. OBJECTIVE: Vital Signs Period Temp Pulse Resp BP Sys/Corea Pulse Ox Last 24 Hr 98.5 F 86-89 18-22 120-162/72-107 100-100 GENERAL: A&O, no acute distress HEAD: Normocephalic, atraumatic. EYES: PERRL, no scleral icterus EARS, NOSE, THROAT: Moist mucous membranes. LUNGS: CTA b/l, no crackles or wheezes HEART: Tachycardia with regular rhythm, normal S1 and S2 without murmur ABDOMEN: Soft, reacts to palpation with complaint of pain, listened to bowel sounds with more pressure on stethoscope than with palpation with no tenderness noted, normoactive bowel sounds MUSCULOSKELETAL: No bony deformities or tenderness EXTREMITIES: warm, well-perfused. No peripheral edema. NEUROLOGICAL: Cranial nerves II-XII grossly intact. Normal speech. SKIN: Warm, diaphoretic, no rashes or lesions noted Laboratory Results - last 24 hr 12/05/17 12/05/17 12/06/17 16:55 21:32 05:30 WBC 9.1 RBC 5.32 Hgb 15.5 Hct 47.1 MCV 88.6 MCH 29.2 MCHC 32.9 RDW 14.6 Plt Count 254 MPV 8.6 Sodium Potassium Chloride Carbon Dioxide Anion Gap BUN Creatinine Creat Clearance w eGFR POC Glucometer 133.84076 82.37399 Random Glucose Calcium Phosphorus Magnesium 12/06/17 12/06/17 12/06/17 05:30 06:26 11:57 WBC RBC Hgb Hct MCV MCH MCHC RDW Plt Count MPV Sodium 135 L Potassium 3.9 Chloride 98 Carbon Dioxide 27 Anion Gap 10 BUN 38 H Creatinine 1.9 H Creat Clearance w eGFR 36.72 POC Glucometer 147.60029 131.19429 Random Glucose 137 H Calcium 8.9 Phosphorus 4.2 Magnesium 2.4 Active Medications Generic Name Dose Route Start Last Admin Trade Name Freq PRN Reason Stop Dose Admin Albuterol Sulfate 2 puff 12/06/17 07:47 Ventolin Hfa Inhaler - IH Q4H PRN ASTHMA Aripiprazole 10 mg 12/06/17 10:00 12/06/17 09:53 Abilify PO 10 mg DAILY MICHEL Administration Budesonide/Formoterol Fumarate 1 puff 12/06/17 10:00 12/06/17 09:51 Symbicort 160/4.5mcg - IH 1 inh BID MICHEL Administration Chlorhexidine Gluconate 1 applic 12/06/17 22:00 Hibiclens For Decolonization - TP HS MICHEL Chlorthalidone 25 mg 12/06/17 10:00 Hygroton - PO DAILY MICHEL Hydralazine HCl 10 mg 12/06/17 14:00 12/06/17 14:33 Apresoline - PO 10 mg TID MICHEL Administration Insulin Aspart 1 vial 12/06/17 11:00 12/06/17 12:03 Novolog Vial Sliding Scale - SQ Not Given ACHS [facility] Protocol Losartan Potassium 100 mg 12/06/17 10:00 Cozaar - PO DAILY MICHEL Mupirocin 1 applic 12/06/17 10:00 12/06/17 09:53 Bactroban Ointment (For Decolonization) - NS 12/09/17 21:59 1 applic BID MICHEL Administration Nifedipine 60 mg 12/06/17 10:00 12/06/17 09:51 Procardia Xl - PO 60 mg DAILY MICHEL Administration ASSESSMENT/PLAN: 57 yo male with PMH Asthma, Borderline DM, HTN, CVA in 2017 with no subjective residual weakness, polysubstance abuse (Marijuana, Heroin-intranasal, cocaine- smokes, benzos) admitted to the ICU for Hypertensive Emergency Hypertensive Emergency -BP max of 239/116 in ED, blood pressure improved today on home meds as below -Restarted home meds Nifedipine 60 mg PO Daily, Losartan 100 mg PO Daily -Hold home Coreg with recent cocaine use -Continue to monitor b.p and h.r. -Cardiology Consult appreciated -Medically stable for discharge in AM, pending U/S below -One time Procardia 30 mg PO for systolic in the 170s today NIDHI -Likely post renal with decreased urine output overnight. -Urinating well now -Renal/Bladder U/S pending -Recheck BMP in AM Polysubstance abuse -Most recent use 12/03, claims he used in the afternoon and started withdrawing that night -Counseled patient about use especially use of cocaine with history of uncontrolled hypertension -Methadone 30 mg PO 12/05 -Addiction medicine consult appreciated Discussed case Pt uses different name for outpatient oxicodone script 30 mg 240 tablets every 30 days Pt is not candidate for detox/rehab with active narcotic script -Home Abilify -If pt noted to be withdrawing, he can receive one time doses of Oxicodone 10 mg Asthma -Pt stable with no complaints of SOB -Symbicort -Albuterol PRN DVT Prophylaxis -Lovenox 40 mg SQ Daily FEN -Fluids: none -Electrolytes: No electrolyte abnormalities, BMP in AM -Nutrition: Low salt diet Disposition Telemetry Visit type - Emergency Visit Emergency Visit: Yes ED Registration Date: 12/04/17 Care time: The patient presented to the Emergency Department on the above date and was hospitalized for further evaluation of their emergent condition. - New Patient This patient is new to me today: No - Critical Care Critical Care patient: No
[2017-12-06 17:30] LABS: URINE APPEARANCE CLEAR; URINE BILIRUBIN NEGATIVE (<2.0 mg/dL); URINE COLOR LTYELLOW; URINE GLUCOSE (UA) 1+ (NEGATIVE); URINE KETONE NEGATIVE (NEGATIVE); URINE LEUK ESTERASE NEGATIVE (NEGATIVE); URINE NITRITE NEGATIVE (NEGATIVE); URINE PROTEIN NEGATIVE (NEGATIVE); URINE UROBILINOGEN NEGATIVE mg/dL (0.2-1.0)
[2017-12-06] MEDS ORDERED: CHLORHEXIDINE GLUCONATE 4% CLEANSER FOR DECOLONIZATION TP SCH (22:00)
[2017-12-07] MEDS: hydrALAZINE HCL 10 MG TABLET PO SCH (06:13)
[2017-12-07] MEDS: INSULIN SLIDING SCALE (NOVOLOG) 1 VIAL SQ SCH ×2 (06:13→12:32)
[2017-12-07 07:44] LABS: ANION GAP 10 MMOL/L (8-16); BLOOD UREA NITROGEN 37 mg/dL (7-18); CALCIUM 9.2 mg/dL (8.5-10.1); CHLORIDE 98 mmol/L (98-107); CO2 24 mmol/L (21-32); CREATININE 1.3 mg/dL (0.55-1.3); GLUCOSE,RANDOM 106 mg/dL (74-106); MAGNESIUM 2.3 mg/dL (1.8-2.4); PHOSPHOROUS 4.7 mg/dL (2.5-4.9); POTASSIUM 4.3 mmol/L (3.5-5.1); SODIUM 131 mmol/L (136-145)
[2017-12-07] MEDS ORDERED: PT OWN MED DRAWER 7, Y5N ONE ×3 (09:50→14:08)
[2017-12-07] MEDS: LOSARTAN POTASSIUM 50 MG TABLET (FP) PO SCH ×2 (10:27→11:11)
[2017-12-07] MEDS: MUPIROCIN 2% TOPICAL OINTMENT FOR DECOLONIZATION NS SCH (10:28)
[2017-12-07] MEDS: BUDESONIDE/FORMETEROL FUMARATE 160/4.5 mcg INHALER IH SCH (10:29)
[2017-12-07] MEDS: NIFEdipine E.R 60 MG TABLET (UD) PO SCH (10:29)
[2017-12-07] MEDS: ARIPiprazole 10 MG TABLET PO SCH (10:32)
[2017-12-07] MEDS ORDERED: MULTIVITAMINS (DAILY MVI) TABLET (FP) PO SCH (10:45)
[2017-12-07 12:31] VITALS: TEMP 98.5
[2017-12-07] MEDS ORDERED: NIFEdipine E.R. 30 MG TABLET (FP) PO ONE (13:03)
[2017-12-07] MEDS ORDERED: NIFEdipine E.R 60 MG TABLET (UD) PO SCH (14:20)
--- NOTE | 2017-12-07 14:43 | PN ---
Teaching Attending Note Name of Resident: Justin Harley ATTENDING PHYSICIAN STATEMENT I saw and evaluated the patient. I reviewed the resident's note and discussed the case with the resident. I agree with the resident's findings and plan as documented with exceptions below. SUBJECTIVE: Patient seen and examined. No headache or new concerns. Tolerating diet well. patient has been witnessed ambulating well inhouse on multiple occasions. OBJECTIVE: Vital Signs Period Temp Pulse Resp BP Sys/Corea Pulse Ox Last 24 Hr 98.2 F-98.6 F 98-116 16-22 155-185/73-106 100 Intake & Output 12/04/17 12/05/17 12/06/17 12/07/17 23:59 23:59 23:59 23:59 Intake Total 1440 1740 540 Balance 1440 1740 540 Weight 247 lb General: sitting in bed in no acute distress Chest: CTAB, no rales or wheezing Extremities: no edema Neuro power 5/5, AAOx3, facial symmetry, speech normal Abdomen:Soft, obese, NT Active Medications Albuterol Sulfate (Ventolin Hfa Inhaler -) 2 puff IH Q4H PRN PRN Reason: ASTHMA Aripiprazole (Abilify) 10 mg PO DAILY [facility] Last Admin: 12/07/17 10:32 Dose: Not Given Budesonide/Formoterol Fumarate (Symbicort 160/4.5mcg -) 1 puff IH BID [facility] Last Admin: 12/07/17 10:29 Dose: 1 inh Chlorhexidine Gluconate (Hibiclens For Decolonization -) 1 applic TP HS [facility] Last Admin: 12/06/17 22:03 Dose: 1 applic Chlorthalidone (Hygroton -) 25 mg PO DAILY [facility] Last Admin: 12/07/17 10:28 Dose: 25 mg Insulin Aspart (Novolog Vial Sliding Scale -) 1 vial SQ ACHS [facility]; Protocol Last Admin: 12/07/17 12:32 Dose: Not Given Losartan Potassium (Cozaar -) 100 mg PO DAILY [facility] Last Admin: 12/07/17 11:11 Dose: 100 mg Multivitamins/Minerals/Vitamin C (Tab-A-Vit -) 1 tab PO DAILY [facility] Last Admin: 12/07/17 11:11 Dose: 1 tab Mupirocin (Bactroban Ointment (For Decolonization) -) 1 applic NS BID [facility] Stop: 12/09/17 21:59 Last Admin: 12/07/17 10:28 Dose: 1 applic Laboratory Results - last 24 hr 12/06/17 12/06/17 12/06/17 13:30 16:48 21:46 Sodium Potassium Chloride Carbon Dioxide Anion Gap BUN Creatinine Creat Clearance w eGFR POC Glucometer 132.09903 171.93298 Random Glucose Calcium Phosphorus Magnesium Urine Color Ltyellow Urine Appearance Clear Urine pH 7.0 Ur Specific [place] 1.015 Urine Protein Negative Urine Glucose (UA) 1+ H Urine Ketones Negative Urine Blood Negative Urine Nitrite Negative Urine Bilirubin Negative Urine Urobilinogen Negative Ur Leukocyte Esterase Negative 12/07/17 12/07/17 12/07/17 05:30 06:08 12:27 Sodium 131 L Potassium 4.3 Chloride 98 Carbon Dioxide 24 Anion Gap 10 BUN 37 H Creatinine 1.3 Creat Clearance w eGFR 56.90 POC Glucometer 118.69463 137.14969 Random Glucose 106 Calcium 9.2 Phosphorus 4.7 Magnesium 2.3 Urine Color Urine Appearance Urine pH Ur Specific [place] Urine Protein Urine Glucose (UA) Urine Ketones Urine Blood Urine Nitrite Urine Bilirubin Urine Urobilinogen Ur Leukocyte Esterase ASSESSMENT AND PLAN: 57 yom with HTN, borderline DM, Asthma, bipolar disorder not on meds, polysubstance abuse with cocaine/heroine/reported PCP (per charts), admitted with HTN emergency, opoid withdrawal. -HTN emergency, suspect cocaine related/?PCP +/- non compliance -Polysubstance abuse/opioid withdrawal -NIDHI, likely hypovolumia, resolved -Reported Chest pain in ED, denies currently, similar prior history, presentation and exam not suggestive of dissection -Reported fall with low back pain, no spinal tenderness or neurological concerns -HTN -Borderline DM -Asthma -Bipolar disorder Plan: Overall improved, intermittent htn, Not a candidate for methadone as per detox. Concerns for non compliance with long standing HTN history. Also prescription for high dose narcotics per detox, which patient agrees has been taking, unclear reasons. Strongly encouraged tapering outpatient opioids, compliance with meds and heroine/cocaine cessation. Increase procardia to 90 mg, hold coreg given ongoing cocaine use. Resume losartan/chlorthalidone. NIDHI resolved, advised to maintain adequate hydration and need for close outpatient monitoring. d/c home today with outpatient PCP, pain management follow up. Plan discussed with patient in detail, all questions answered.
--- NOTE | 2017-12-07 14:52 | PN ---
Progress Note, Physician History of Present Illness: Comfortable headache improved, denies chest pain, dyspnea, near or true syncope , palpitations, orthopnea, PND or LE edema. - Current Medication List Current Medications: Active Medications Albuterol Sulfate (Ventolin Hfa Inhaler -) 2 puff IH Q4H PRN PRN Reason: ASTHMA Aripiprazole (Abilify) 10 mg PO DAILY [facility] Last Admin: 12/07/17 10:32 Dose: Not Given Budesonide/Formoterol Fumarate (Symbicort 160/4.5mcg -) 1 puff IH BID [facility] Last Admin: 12/07/17 10:29 Dose: 1 inh Chlorhexidine Gluconate (Hibiclens For Decolonization -) 1 applic TP HS [facility] Last Admin: 12/06/17 22:03 Dose: 1 applic Chlorthalidone (Hygroton -) 25 mg PO DAILY [facility] Last Admin: 12/07/17 10:28 Dose: 25 mg Insulin Aspart (Novolog Vial Sliding Scale -) 1 vial SQ ACHS [facility]; Protocol Last Admin: 12/07/17 12:32 Dose: Not Given Losartan Potassium (Cozaar -) 100 mg PO DAILY [facility] Last Admin: 12/07/17 11:11 Dose: 100 mg Multivitamins/Minerals/Vitamin C (Tab-A-Vit -) 1 tab PO DAILY [facility] Last Admin: 12/07/17 11:11 Dose: 1 tab Mupirocin (Bactroban Ointment (For Decolonization) -) 1 applic NS BID [facility] Stop: 12/09/17 21:59 Last Admin: 12/07/17 10:28 Dose: 1 applic - Objective Vital Signs: Vital Signs Temperature 98.5 F 12/07/17 08:00 Pulse Rate 116 H 12/07/17 08:00 Respiratory Rate 16 12/07/17 08:00 Blood Pressure 170/106 H 12/07/17 12:00 O2 Sat by Pulse Oximetry (%) 100 12/07/17 08:30 Constitutional: Yes: No Distress, Calm Neck: Yes: Supple Cardiovascular: Yes: Regular Rate and Rhythm Respiratory: Yes: Regular, Diminished Gastrointestinal: Yes: Normal Bowel Sounds, Soft Edema: No Labs: CBC, BMP 12/06/17 05:30 12/07/17 05:30 INR, PTT INR 0.97 (0.83-1.09) 12/04/17 13:30 Problem List - Problems (1) Polysubstance (excluding opioids) dependence Code(s): F19.20 - OTHER PSYCHOACTIVE SUBSTANCE DEPENDENCE, UNCOMPLICATED (2) Hypertensive urgency Code(s): I16.0 - HYPERTENSIVE URGENCY (3) Non-compliance with treatment Code(s): Z91.19 - PATIENT'S NONCOMPLIANCE W OTH MEDICAL TREATMENT AND REGIMEN (4) Acute kidney injury Code(s): N17.9 - ACUTE KIDNEY FAILURE, UNSPECIFIED Assessment/Plan 1. Hypertensive Urgency improving 2. HTN 3. DM 4. Asthma 5. Bipolar Disorder 6. Polysubstance Abuse (etoh, heroin, cocaine, MJ, PCP) 7. NIDHI resolving P: 1. Resume losartan 100 qd, chlorthalidone 25 qd, given renal recovery, continue procardia XL 60 qd and uptitrate as tolerated 2. Addiction medicine eval, detox, monitor for withdrawal symptoms 3. Renal u/s, IVF with monitor renal recovery 4. DVT prophylaxis
--- NOTE | 2017-12-07 16:55 | DS ---
Physical Exam: SUBJECTIVE: Patient seen and examined this AM. He is now complaining of weakness in his legs, and in addition stating he cannot leave as his pants are currently wet. OBJECTIVE: Vital Signs Period Temp Pulse Resp BP Sys/Corea Pulse Ox Last 24 Hr 98.2 F-98.6 F 98-116 16-22 155-185/73-106 100 PHYSICAL EXAM GENERAL: A&O, no acute distress HEAD: Normocephalic, atraumatic. EYES: PERRL, no scleral icterus EARS, NOSE, THROAT: Moist mucous membranes. LUNGS: CTA b/l, no crackles or wheezes HEART: Tachycardia with regular rhythm, normal S1 and S2 without murmur ABDOMEN: Soft, nontender to palpation, normoactive bowel sounds MUSCULOSKELETAL: No bony deformities or tenderness EXTREMITIES: warm, well-perfused. No peripheral edema. NEUROLOGICAL: Cranial nerves II-XII grossly intact. Normal speech. Pt moving in bed without difficulty, 4/5 strength in b/l LE, though seemingly low effort. SKIN: Warm, dry, no rashes or lesions noted LABS Laboratory Results - last 24 hr 12/06/17 12/06/17 12/06/17 13:30 16:48 21:46 Sodium Potassium Chloride Carbon Dioxide Anion Gap BUN Creatinine Creat Clearance w eGFR POC Glucometer [phone] Random Glucose Calcium Phosphorus Magnesium Urine Color Ltyellow Urine Appearance Clear Urine pH 7.0 Ur Specific [place] 1.015 Urine Protein Negative Urine Glucose (UA) 1+ H Urine Ketones Negative Urine Blood Negative Urine Nitrite Negative Urine Bilirubin Negative Urine Urobilinogen Negative Ur Leukocyte Esterase Negative 12/07/17 12/07/17 12/07/17 05:30 06:08 12:27 Sodium 131 L Potassium 4.3 Chloride 98 Carbon Dioxide 24 Anion Gap 10 BUN 37 H Creatinine 1.3 Creat Clearance w eGFR 56.90 POC Glucometer [phone] Random Glucose 106 Calcium 9.2 Phosphorus 4.7 Magnesium 2.3 Urine Color Urine Appearance Urine pH Ur Specific [place] Urine Protein Urine Glucose (UA) Urine Ketones Urine Blood Urine Nitrite Urine Bilirubin Urine Urobilinogen Ur Leukocyte Esterase IMAGING: CXR: no evidence of active pulmonary disease Ribs X-ray: No evidence of acute fracture Head CT: No acute intracranial pathology noted HOSPITAL COURSE: Date of Admission:12/04/17 Date of Discharge: 12/07/17 57 yo male with PMH Asthma, Borderline DM, HTN, CVA in 2017 with no subjective residual weakness, polysubstance abuse (Marijuana, Heroin-intranasal, cocaine- smokes, benzos) admitted to the ICU for Hypertensive Emergency. His blood pressure was controlled well with a Nicardipine drip and his home meds, Procardia 60 mg PO Daily and Losartan 100 mg PO Daily. He was given one time doses of methadone for withdrawal symptoms the first and second day of admission , though resolved rapidly and methadone was held for the rest of the admission. Pt was seen by addiction medicine who has seen the patient before. He uses a different name (Kiran Wilkinson) and is prescribed #240 30mg Oxicodone every 30 days. He is not currently a candidate for detox/rehab as he has an active prescription for narcotics. His blood pressure was controlled on his home medications, though his Procardia was changed from 60 mg PO Daily to 90 mg PO Daily. He was advised not to take the coreg previously prescribed to him if he was going to continue using cocaine. He was informed and aware of all of the risks and stated that he does not take it often for that reason. He was deemed medically safe for discharge and he was discharged to home. Minutes to complete discharge: 40 Discharge Summary Reason For Visit: HYPERTENSIVE EMERGENCY,HEROIN ABUSE,CHEST PAIN Current Active Problems Acute kidney injury (Acute) Chest pain (Acute) Hypertensive emergency (Acute) Polysubstance (excluding opioids) dependence (Acute) Condition: Stable - Instructions Diet, Activity, Other Instructions: You were admitted with Hypertensive Emergency (Very high blood pressure). Your blood pressure was controlled with your home medications and an IV medication. You are now stable on your home medications and medically safe for discharge. You were counseled about cessation your heroin and cocaine use. It is very important that you stop using drugs. It is also important that you make sure that your blood pressure is controlled appropriately, especially with your past history of stroke. If you continue to use cocaine and other drugs and do not control your blood pressure, you are at a high risk for a repeat stroke and even . You were seen by the addiction medicine doctor who specializes in detox and withdrawals. You are not a candidate for detox/rehab at this time as you have a known active prescription for narcotics. It is important that you follow up with your primary care physician within a week. It is recommended that you have a BMP (blood work for your kidneys) checked in order to check your kidney function. You should discuss with your doctor about weaning off of the very high dose of prescribed narcotics which you are receiving. Your Procardia (Nifedipine ER) dose was changed during this admission from 60 mg by mouth daily to 90 mg by mouth daily. You should stop taking the 60 mg tablets and begin taking the 90 mg tablets once per day. Do not take coreg while actively using cocaine as it can cause severe adverse reaction . Please ensure to maintain adequate hydration. You should otherwise resume taking all of your home medications as they were prescribed prior to your admission to the hospital. It is strongly advised that you stop using cocaine as mentioned above. If you completely abstain from using cocaine, you can discussing with your doctor about resuming your coreg. If you have a worsening headache, weakness, numbness or tingling in your face or any of your arms or legs, or any concerns you should call 911 or return to the emergency department immediately. Referrals: Sandy Queen MD [Staff Physician] - Keven Roberts MD [Staff Physician] - Disposition: HOME - Home Medications Comprehensive Discharge Medication List: Ambulatory Orders Budesonide/Formeterol Fumarate [SYMBICORT 160/4.5mcg -] 1 inh PO BID 01/15/17 Albuterol Sulfate Inhaler - [Ventolin HFA Inhaler -] 2 inh PO Q4H PRN 30 Days # 1 inhaler 04/22/17 Aripiprazole [Abilify] 10 mg PO DAILY #30 tablet 10/04/17 Aspirin Coated [Ecotrin -] 81 mg PO DAILY 30 Days #30 tab 10/04/17 Carvedilol [Coreg -] 12.5 mg PO BID #60 tablet 10/04/17 Chlorthalidone 25 mg PO DAILY #30 tablet 10/04/17 Losartan Potassium [Cozaar -] 100 mg PO DAILY #30 tablet 10/04/17 Nifedipine ER [Procardia Xl -] 90 mg PO DAILY #30 tab.er.24 12/07/17 Oxycodone HCl 30 mg PO Q6H PRN 12/07/17 This patient is new to me today: No Emergency Visit: Yes ED Registration Date: 12/04/17 Care time: The patient presented to the Emergency Department on the above date and was hospitalized for further evaluation of their emergent condition. Critical Care patient: No - Discharge Referral Referred to [facility] No
[2017-12-07 16:59] VITALS: BP 157/96; PULSE 106
== END 2017-12-07 18:25 | disposition home or self-care (01) | DRG 199 ==
LOC: JER 11:44 → JERBED 15:19 → J2W 12-05 09:35
PROVIDERS: ADMIT Hospitalist; ATTEND Hospitalist
PROC: HZ2ZZZZ Detoxification Services for Substance Abuse Treatment (ICD-10-PCS; principal; 2017-12-05)
DX: I16.1 Hypertensive emergency (principal); N17.9 Acute kidney failure, unspecified; E11.22 Type 2 diabetes mellitus with diabetic chronic kidney disease; I69.354 Hemiplegia and hemiparesis following cerebral infarction affecting left non-dominant side; F11.23 Opioid dependence with withdrawal; I12.9 Hypertensive chronic kidney disease with stage 1 through stage 4 chronic kidney disease, or unspecified chronic kidney disease; N18.9 Chronic kidney disease, unspecified; F14.10 Cocaine abuse, uncomplicated; F12.10 Cannabis abuse, uncomplicated; F13.10 Sedative, hypnotic or anxiolytic abuse, uncomplicated; Z91.14 Patient's other noncompliance with medication regimen; R42 Dizziness and giddiness; J45.909 Unspecified asthma, uncomplicated; F17.210 Nicotine dependence, cigarettes, uncomplicated; F31.9 Bipolar disorder, unspecified; R07.9 Chest pain, unspecified; M54.5 Low back pain
CPT/HCPCS: 36415; 70450-TC; 71046-TC-FY; 71101-TC-FY; 80048; 80053; 80307; 81003; 82550; 82553; 82962; 83735; 84100; 84484; 85025; 85027; 85610; 93005; 93010; 99285-25; J7030